=== PATIENT | female | born 1950 | race Caucasian/White ===

== ENCOUNTER 2023-09-20 10:07 | Outpatient (CLI) | payer MEDICARE, MEDICAID, SELFPAY | END 2023-09-20 10:08 | disposition home or self-care (01) | PROVIDERS: PCP Internal Medicine; Visit Provider Family Medicine | DX: M54.16 Radiculopathy, lumbar region (principal); M51.36 Other intervertebral disc degeneration, lumbar region | CPT/HCPCS: 62323; J0702; Q9966 ==

== ENCOUNTER 2024-06-12 13:15 | Outpatient (RCR) | payer MEDICARE, MEDICAID, SELFPAY | END 2024-10-10 23:59 | disposition home or self-care (01) | PROVIDERS: PCP Internal Medicine; Visit Provider Family Medicine | DX: M54.17 Radiculopathy, lumbosacral region (principal); M47.816 Spondylosis without myelopathy or radiculopathy, lumbar region; M76.02 Gluteal tendinitis, left hip; M48.061 Spinal stenosis, lumbar region without neurogenic claudication; Z51.89 Encounter for other specified aftercare | CPT/HCPCS: 97110; 97140; 97162 ==

== ENCOUNTER 2024-07-15 13:33 | Outpatient (CLI) | payer MEDICARE, MEDICAID, SELFPAY | END 2024-07-15 13:34 | disposition home or self-care (01) | LOC: NFLDUCREF 13:34 | PROVIDERS: PCP Internal Medicine; Visit Provider Nurse Practitioner Family | DX: L03.90 Cellulitis, unspecified (principal); L02.416 Cutaneous abscess of left lower limb | CPT/HCPCS: 87070; 87186 ==

== ENCOUNTER 2024-10-15 14:56 | Emergency (ER) | payer MEDICARE, MEDICAID, SELFPAY ==
--- OUTSIDE RECORDS SUMMARY | 2013-05-07 08:21 | XMS_ITS | Continuity of Care Document ---
Author Organization [facility] Address [address] [place] [address] Phone Care Team Providers Care Payable Manager Name Role Phone Carlito FAIR, Jaylin OLIVAS [...] Providers Copied on Encounter JONATHAN Yanes, [address], [place], [address], tel:[phone] [facility] No Information 4 Carlito Mosqueda. [address] [place], [place], [address], [place]. tel:[phone] Referring Provider: Allyson Griffith, [address] [place], [address]. tel:[phone] JONATHAN Yanes, [address] [facility], [place], [address], tel:[phone] [facility] No Information 3 Collin DIGITAL STRATEGIST Carri. [address] , [facility] [address], [place], [address], [place]. tel:[phone] Referring Provider: Allyson Griffith, [address] [place], [address]. tel:[phone] JONATHAN Yanes, [address] [facility] [address], [place], [address], [place] tel:[phone] [facility] No Information 3 Collin DIGITAL STRATEGIST Carri. [address] , [address], [place], [address], [place]. tel:[phone] Referring Provider: Allyson Griffith, [address] [place], [address]. tel:[phone] JONATHAN Yanes, [address], [place], [address], [place] tel:[phone] [facility] No Information 3 Collin DIGITAL STRATEGIST Carri. [address], [place], [address], [place]. tel:[phone] Referring Provider: Allyson Griffith, [address] [place], [address]. tel:[phone] [facility], [address], [place], [place], [address], [place] tel:[phone] [facility] No Information 3 Collin DIGITAL STRATEGIST Carri. [address], [address], [place], [address], [place]. tel:[phone] Referring Provider: Allyson Griffith, [address] [place], [address]. tel:[phone] [facility], [address] [facility] [address], [place], [place], [address], [place] tel:[phone] [facility] No Information 3 Carlito Mosqueda. [address], [place], [address], [place]. tel:[phone] Referring Provider: Allyson Griffith, [address] [place], [address]. tel:[phone] Offic Cons New/estab Mod-hi 60 [facility], [address] [facility] [address], [place], [place], [address], [place] tel:[phone] [facility] No Information 3 Gume Darby. [address] , [address], [place], [address], [place]. tel:[phone] Referring Provider: Allyson Griffith, [address] [place], [address]. tel:[phone] [facility], [address], [place], [place], [address], [place] tel:[phone] [facility] No Information 201 3 No Information Referring Provider: Crescencio Cuevas MD, [address] [facility] [address] [place], [address]. tel:[phone] Family History Family Member Type Diagnosis Age At Onset No Information Payers Payer name Insurance type Covered constitution party ID Maria Luz lanier(s) [employer] Care-Medicaid [place] [id number] Social History Type Description Quantity Date Captured [...]
--- OUTSIDE RECORDS SUMMARY | 2013-05-07 08:21 | XMS_ITS | Continuity of Care Document ---
Author Organization [facility] Address [address] [place] [address] Phone Care Team Providers Care Gliding Pilot Instructor Name Role Phone Carlito FAIR DPT, Irene [...] Providers Copied on Encounter JONATHAN Yanes, [address], [place], [address], tel:[phone] [facility] No Information [address] [place], [place], [address], [place]. tel:[phone] Referring Provider: Allyson Griffith, [address] [place], [address]. tel:[phone] JONATHAN Yanes, [address] [facility], [place], [address], tel:[phone] [facility] No Information 3 Collin SAP SOLUTIONS ARCHITECT Carri. [address] , [facility] [address], [place], [address], [place]. tel:[phone] Referring Provider: Allyson Griffith, [address] [place], [address]. tel:[phone] JONATHAN Yanes, [address] [facility] [address], [place], [address], [place] tel:[phone] [facility] No Information 3 Collin SAP SOLUTIONS ARCHITECT Carri. [address] , [address], [place], [address], [place]. tel:[phone] Referring Provider: Allyson Griffith, [address] [place], [address]. tel:[phone] JONATHAN Yanes, [address], [place], [address], [place] tel:[phone] [facility] No Information 3 Collin SAP SOLUTIONS ARCHITECT Carri. [address], [place], [address], [place]. tel:[phone] Referring Provider: Allyson Griffith, [address] [place], [address]. tel:[phone] [facility], [address], [place], [place], [address], [place] tel:[phone] [facility] No Information 3 Collin SAP SOLUTIONS ARCHITECT Carri. [address], [place], [address], [place]. tel:[phone] Referring Provider: Allyson Griffith, [address] [place], [address]. tel:[phone] [facility], [address] [facility], [place], [place], [address], [place] tel:[phone] [facility] No Information [address], [address], [place]. tel:[phone] Referring Provider: Allyson Griffith, [address] [place], [address]. tel:[phone] Offic Cons New/estab Mod-hi 60 [facility], [address] [facility], [place], [place], [address], [place] tel:[phone] [facility] No Information [address] , [address], [place], [address], [place]. tel:[phone] Referring Provider: Allyson Griffith, [address] [place], [address]. tel:[phone] [facility], [address], [place], [place], [address], [place] tel:[phone] [facility] No Information 201 3 No Information Referring Provider: Crescencio Cuevas MD, [address] [facility] [address] [place], [address]. tel:[phone] Family History Family Member Type Diagnosis Age At Onset No Information Payers Payer name Insurance type Covered green party ID Maria Luz lanier(s) [employer] Care-[place]icaid [place] [id number] Social History Type Description Quantity Date Captured [...]
--- OUTSIDE RECORDS SUMMARY | 2024-10-15 14:59 | XMS_ITS | Clinical Summary ---
Author Organization [facility] Address [address] , [address] [place] [address] Phone Care Team Providers [facility] [employer] [facility] Consultant Name Role Phone Zachary FOLEY, BSN, Peace Thompson [phone] Conditions or Problems Problem Name Problem Code Onset Date Status Entry Date Provider Comment Standard Description Annotate Knee pain, left, chronic 5110631194 (SNOMED CT) 10/26 Active 10/28 Noy Campeau Pain of joint of knee Knee pain, right, chronic 8126716794 (SNOMED CT) 10/26 Active 10/26 Noy Campeau Pain of joint of knee Hip pain, left 05904537 (SNOMED CT) 10/26 Active 10/28 Noy Campeau Pain of hip region Hip joint pain, right 75683897 (SNOMED CT) 10/26 Active 10/26 Noy Campeau Pain of hip region Leg pain, left 482583382 (SNOMED CT) 10/26 Active 10/28 Noy Campeau Pain in left lower limb Leg pain, right 107836139 (SNOMED CT) 10/26 Active 10/26 Noy Campeau Pain in right lower limb Leg pain, bilateral 54003157 (SNOMED CT) 10/26 Inactive 10/26 Jeanette Marcum MD Pain in lower limb Restless leg syndrome 49489609 (SNOMED CT) 10/26 Active 10/26 Jeanette Marcum MD Restless legs Hip pain 57342430 (SNOMED CT) 10/26 Inactive 10/26 Jeanette Marcum MD Pain of hip region Knee pain, chronic 50728828 (SNOMED CT) 10/26 Inactive 10/26 Jeanette Marcum MD Knee pain Low back pain, chronic 496006282 (SNOMED CT) 10/26 Active 10/26 Jeanette Marcum MD Chronic low back pain Fatigue, chronic 28625880 (SNOMED CT) Active Jeanette Marcum MD Fatigue Anxiety disorder 895477892 (SNOMED CT) Active Jeanette Marcum MD Anxiety disorder Depression 35253668 (SNOMED CT) Active Jeanette Marcum MD Depressive disorder Multiple sclerosis, relapsing/r emitting 225807150 (SNOMED CT) 1986 Active 09/26 Jeanette Marcum MD Relapsing remitting multiple sclerosis Carpal tunnel syndrome, bilateral upper limbs 62088419322825 101 (SNOMED CT) 12/30 Active 12/30 Watson Baker MD Bilateral carpal tunnel syndrome Multiple sclerosis, relapsing/r emitting 218136814 (SNOMED CT) 09/26 Inactive 09/26 Lazaro Tomas MD Relapsing remitting multiple sclerosis Neuropathy, idiopathic peripheral 03471450 (SNOMED CT) 09/26 Active 09/26 Lazaro Tomas MD Idiopathic peripheral neuropathy Medications Medication Instructions Start Date Stop Date Generic Name ND Provider BACLOFEN 10 MG TABS Take 1/2 tablet by mouth at bedtime baclofen 57703198522 Jeanette Marcum MD AMANTADINE HCL 100 MG TABS Take 1 tablet by mouth twice a day 12/19 amantadine hcl 06779090616 Claudia SILVER-Ibrahima AMANTADINE HCL 100 MG CAPS TAKE ONE CAPSULE BY MOUTH TWICE DAILY amantadine hcl 00029362505 Claudia SILVER-C ESCITALOPRAM OXALATE 10 MG TABS Take 1 Tablet by mouth one time a day. escitalopram oxalate 87187384205 Jeanette Marcum MD AMPHETAMINE-DEXTR OAMPHET ER 10 MG [id number]-ATP TAKE ONE CAPSULE BY MOUTH EVERY MORNING NEEDED 07/27 dextroamphetamine -amphetamine 80242101138 Jeanette Marcum MD AMPHETAMINE-DEXTR OAMPHET ER 10 MG WQ64N-QDQ Take 1 capsule by mouth every morning TAKE ONE CAPSULE BY MOUTH EVERY MORNING NEEDED dextroamphetamine -amphetamine 73702967979 Claudia Rodriguez PA-C DULOXETINE HCL 60 MG CPEP TAKE ONE CAPSULE BY MOUTH DAILY duloxetine 73773230062 Jeanette Marcum MD AMPHETAMINE-DEXTR OAMPHET ER 10 MG KY83M-LGY TAKE ONE CAPSULE BY MOUTH EVERY MORNING NEEDED 08/24 dextroamphetamine -amphetamine 54771228327 Jeanette Marcum MD DULOXETINE HCL 60 MG CPEP TAKE ONE CAPSULE BY MOUTH DAILY 05/19 duloxetine 53459722335 Jeanette Marcum MD DULOXETINE HCL 60 MG CPEP TAKE ONE CAPSULE BY MOUTH DAILY 04/16 duloxetine 46967480450 Katalina Lagunas PA-C DULOXETINE HCL 30 MG CPEP TAKE ONE CAPSULE BY MOUTH ONCE A DAY. TAKE WITH 60 MG CAPSULE. 10/26 duloxetine 82299777617 Jeanette Marcum MD ESCITALOPRAM OXALATE 10 MG TABS Take 1 Tablet by mouth one time a day. 10/23 escitalopram oxalate 31725403375 Jeanette Marcum MD AMPHETAMINE-DEXTR OAMPHET ER 5 MG [id number]-NJR TAKE TWO CAPSULE BY MOUTH EVERY MORNING NEEDED 10/07 dextroamphetamine -amphetamine 79946028959 Jeanette Marcum MD AMPHETAMINE-DEXTR OAMPHET ER 10 MG FJ14T-QQE TAKE ONE CAPSULE BY MOUTH EVERY MORNING NEEDED 08/24 dextroamphetamine -amphetamine 24423985503 Jeanette Marcum MD AMPHETAMINE-DEXTR OAMPHET ER 10 MG WW24Y-DFB TAKE ONE CAPSULE BY MOUTH EVERY MORNING NEEDED 0 09/30 dextroamphetamine -amphetamine 01854276424 Jeanette Marcum MD AMPHETAMINE-DEXTR OAMPHET ER 5 MG ZB42G-MGU TAKE TWO CAPSULE BY MOUTH EVERY MORNING NEEDED 0 09/14 dextroamphetamine -amphetamine 05492203875 Jeanette Marcum MD AMPHETAMINE-DEXTR OAMPHET ER 10 MG JV64W-FLE TAKE ONE CAPSULE BY MOUTH EVERY MORNING NEEDED 0 08/24 dextroamphetamine -amphetamine 52171727170 Claudia Rodriguez PA-C AMPHETAMINE-DEXTR OAMPHET ER 10 MG GW42S-YNH TAKE ONE CAPSULE BY MOUTH EVERY MORNING NEEDED 0 08/24 dextroamphetamine -amphetamine 38555918554 Jeanette Marcum MD AMPHETAMINE-DEXTR OAMPHET ER 10 MG MV60I-SHF TAKE ONE CAPSULE BY MOUTH EVERY MORNING NEEDED 0 08/24 dextroamphetamine -amphetamine 76917784682 Justin Romero MD AMPHETAMINE-DEXTR OAMPHET ER 10 MG GK22Y-VOA TAKE ONE CAPSULE BY MOUTH EVERY MORNING NEEDED 0 08/24 dextroamphetamine -amphetamine 20422363570 Jeanette Marcum MD BACLOFEN 10 MG TABS Take 1/2 tablet by mouth at bedtime 05/21 baclofen 45789038493 Ag Staton MD AMPHETAMINE-DEXTR OAMPHET ER 10 MG IP37K-ONL TAKE ONE CAPSULE BY MOUTH EVERY MORNING NEEDED 0 16 dextroamphetamine -amphetamine 51941688061 Bárbara Longoria PA-C DULOXETINE HCL 30 MG CPEP Take 1 capsule by mouth once a day (take with 60 mg cap) 05/03 duloxetine 18037385496 Jeanette Marcum MD DULOXETINE HCL 30 MG CPEP TAKE ONE CAPSULE BY MOUTH ONCE A DAY. TAKE WITH 60 MG CAPSULE. 0 10/26 duloxetine 41586141134 Jeanette Marcum MD AMPHETAMINE-DEXTR OAMPHET ER 10 MG KA36R-EGF TAKE ONE CAPSULE BY MOUTH EVERY MORNING NEEDED 0 08/24 dextroamphetamine -amphetamine 17444141487 Jeanette Marcum MD DULOXETINE HCL 30 MG CPEP Take 1 capsule by mouth once a day (take with 60 mg cap) 05/03 duloxetine 44098352492 Jeanette Marcum MD AMPHETAMINE-DEXTR OAMPHET ER 10 MG JJ46Z-TMG TAKE ONE CAPSULE BY MOUTH EVERY MORNING NEEDED 08/24 dextroamphetamine -amphetamine 70438316468 Claudia Rodriguez PA-C DULOXETINE HCL 30 MG CPEP Take 1 capsule by mouth once a day (take with 60 mg cap) 10/29 duloxetine 59351200802 Jeanette Marcum MD ESCITALOPRAM OXALATE 10 MG TABS Take 1 tablet by mouth once a day 10/20 escitalopram oxalate 78493254747 Jeanette Marcum MD ESCITALOPRAM OXALATE 10 MG TABS Take 1 tablet by mouth once a day 10/20 escitalopram oxalate 52354024203 Jeanette Marcum MD BACLOFEN 5 MG TABS Take 1 tablet by mouth at bedtime 0 04/20 baclofen 32643436088 Jeanette Marcum MD TOPIRAMATE 25 MG TABS 1 tab at night topiramate 63191721167 Jeanette Marcum MD AMANTADINE HCL 100 MG TABS Take 1 tablet by mouth twice a day 0 9 amantadine hcl 66281151325 Jeanette Marcum MD DULOXETINE HCL 60 MG CPEP TAKE ONE CAPSULE BY MOUTH DAILY 0 804 duloxetine 92281867697 Jeanette Marcum MD AMPHETAMINE-DEXTR OAMPHET ER 10 MG [id number]-AAW TAKE ONE CAPSULE BY MOUTH EVERY MORNING NEEDED 0 08/24 dextroamphetamine -amphetamine 68287747085 Jeanette Marcum MD AMPHETAMINE-DEXTR OAMPHET ER 10 MG MY38U-PGH TAKE ONE CAPSULE BY MOUTH EVERY MORNING NEEDED 08/24 dextroamphetamine -amphetamine 05850882214 Claudia Rodriguez PA-C ESCITALOPRAM OXALATE 10 MG TABS Take 1 tablet by mouth once a day 10/20 escitalopram oxalate 83946944079 Conchis Hughes RN DULOXETINE HCL 60 MG CPEP Take 1 capsule by mouth once a day 07/09 duloxetine 21248912143 Jeanette Marcum MD DULOXETINE HCL 60 MG CPEP TAKE ONE CAPSULE BY MOUTH DAILY 09/29 duloxetine 87016512520 Claudia Rodriguez PA-C ESCITALOPRAM OXALATE 10 MG TABS TAKE ONE TABLET BY MOUTH EVERY DAY 07/09 escitalopram oxalate 07174667061 Jeanette Marcum MD BACLOFEN 5 MG TABS Take 1 tablet by mouth at bedtime 10/20 baclofen 14801242776 Claudia Rodriguez PA-C ALBUTEROL SULFATE 2 MG TABS albuterol sulfate 53005432718 Claudia Rodriguez PA-C VITAMIN D3 50 MCG (1999) TABS 2 per day cholecalciferol (vitamin d3) 03419305942 Claudia Rodriguez PA-C AMPHETAMINE-DEXTR OAMPHET ER 10 MG DC77L-CNY TAKE ONE CAPSULE BY MOUTH EVERY MORNING NEEDED 08/24 dextroamphetamine -amphetamine 80305433856 Jeanette Marcum MD AMPHETAMINE-DEXTR OAMPHET ER 10 MG AB54R-VTE TAKE ONE CAPSULE EVERY MORNING NEEDED dextroamphetamine -amphetamine 48658565902 Watson Baker MD AMPHETAMINE-DEXTR OAMPHET ER 10 MG MT18T-OZB TAKE ONE CAPSULE BY MOUTH EVERY MORNING NEEDED 08/24 dextroamphetamine -amphetamine 62352879999 Jeanette Marcum MD DULOXETINE HCL 60 MG CPEP Total of 120mg daily duloxetine 69303154650 Swati Mclean DNP,PHOTOGRAPHER STILL,MOTION STUDY TECHNICIAN ESCITALOPRAM OXALATE 10 MG TABS Take 1 tablet by mouth once a day 10/20 escitalopram oxalate 20284216580 Jeanette Marcum MD DULOXETINE HCL 60 MG CPEP Take 1 capsule by mouth once a day 07/24 duloxetine 82078027320 Jeanette Marcum MD AMPHETAMINE-DEXTR OAMPHET ER 10 MG EX10T-CEN Take 1 capsule by mouth every morning as needed 12/19 dextroamphetamine -amphetamine 75531349784 Watson Baker MD AMPHETAMINE-DEXTR OAMPHET ER 10 MG VY94V-DMI TAKE ONE CAPSULE EVERY MORNING NEEDED 08/24 dextroamphetamine -amphetamine 04917060512 Watson Baker MD SYMBICORT 80-4.5 MCG/ACT AERO 2 once a day budesonide-formot cherelle 60227248452 Watson Baker MD AMPHETAMINE-DEXTR OAMPHET ER 10 MG HO84R-QCA Take 1 capsule by mouth every morning as needed 08/24 dextroamphetamine -amphetamine 88073668714 Watson Baker MD OMEPRAZOLE 20 MG CPDR 1-2 capsule by mouth once a day omeprazole 09069013543 Watson Baker MD CYCLOBENZAPRINE HCL 5 MG TABS 1 tablet by mouth every night 09/14 cyclobenzaprine 15833860599 Bárbara Longoria PA-C MECLIZINE HCL 25 MG TABS 1 tablet by mouth as needed meclizine 73216505648 Watson Baker MD DULOXETINE HCL 60 MG CPEP Total of 120mg daily 07/24 duloxetine 32115578931 Swati Mclean DNP,PHOTOGRAPHER STILL,MOTION STUDY TECHNICIAN RIZATRIPTAN BENZOATE 10 MG TBDP take 1 pill at [place] onset. May repeat in 2 hours if [place] persists. No more than 2 pills in 24 hrs. rizatriptan 22222155388 Watson Baker MD LISINOPRIL 20 MG TABS 1 tablet by mouth once a day lisinopril 32539218541 Watson Baker MD RIZATRIPTAN BENZOATE 10 MG TBDP take 1 pill at [place] onset. May repeat in 2 hours if [place] persists. No more than 2 pills in 24 hrs. 11/17 RIZATRIPTAN BENZOATE 94093377619 Watson Baker MD AMPHETAMINE-DEXTR OAMPHET ER 10 MG OJ82J-TTR TAKE ONE CAPSULE in the MORNING as needed 08/24 AMPHETAMINE-DEXTR OAMPHETAMINE 86548792912 Watson Baker MD AMPHETAMINE-DEXTR OAMPHET ER 10 MG SV41R-DFJ TAKE ONE CAPSULE EVERY MORNINGON HOLD 08/24 AMPHETAMINE-DEXTR OAMPHETAMINE 53784320671 Swati Mclean DNP,PHOTOGRAPHER STILL,MOTION STUDY TECHNICIAN DULOXETINE HCL 60 MG CPEP Total of 120mg daily 07/24 DULOXETINE HCL 56274521216 Swati Mclean DNP,PHOTOGRAPHER STILL,MOTION STUDY TECHNICIAN AMPHETAMINE-DEXTR OAMPHET ER 10 MG IT42A-OHT TAKE ONE CAPSULE EVERY MORNING 08/24 AMPHETAMINE-DEXTR OAMPHETAMINE 31509594740 Watson Baker MD GABAPENTIN 300 MG CAPS 1 cap at bedtime 04/14 GABAPENTIN 65640547153 Swati Mclean DNP,PHOTOGRAPHER STILL,MOTION STUDY TECHNICIAN AMPHETAMINE-DEXTR OAMPHET ER 10 MG OM11C-ARD 1 po qAM 08/24 AMPHETAMINE-DEXTR OAMPHETAMINE 43576785240 Watson Baker MD AMPHETAMINE-DEXTR OAMPHET ER 10 MG DI22R-ZFY TAKE ONE CAPSULE EVERY MORNING 08/24 AMPHETAMINE-DEXTR OAMPHETAMINE 65761401629 Wilberto Urbina MD AMPHETAMINE-DEXTR OAMPHET ER 10 MG GP05P-HBF 1 po qam 08/24 AMPHETAMINE-DEXTR OAMPHETAMINE 67527688130 Lazaro Tomas MD AMPHETAMINE-DEXTR OAMPHET ER 10 MG FB67W-PII Take one capsule every morning. 08/24 AMPHETAMINE-DEXTR OAMPHETAMINE 71345262348 Nancy Abdul MD AMPHETAMINE-DEXTR OAMPHET ER 10 MG WZ64F-BYH TAKE ONE CAPSULE EVERY MORNING 08/24 AMPHETAMINE-DEXTR OAMPHETAMINE 06937806692 Lazaro Tomas MD CYCLOBENZAPRINE HCL 5 MG TABS 1 tab at bedtime 09/14 CYCLOBENZAPRINE HCL 52137711171 Bárbara Longoria PA-C GABAPENTIN 300 MG CAPS 1 cap at bedtime 09/14 GABAPENTIN 08051552518 Bárbara Longoria PA-C DULOXETINE HCL 60 MG CPEP 07/24 DULOXETINE HCL 22352764597 Bárbara Longoria PA-C PRAMIPEXOLE DIHYDROCHLORIDE 0.25 MG TABS 1 po one hour before bed 05/19 PRAMIPEXOLE DIHYDROCHLORIDE 43692337902 Lazaro Tomas MD AMPHETAMINE-DEXTR OAMPHET ER 10 MG GN92T-HXH 1 po qam 08/24 AMPHETAMINE-DEXTR OAMPHETAMINE 45412721028 Lazaro Tomas MD AMPHETAMINE-DEXTR OAMPHET ER 10 MG TL25C-OKS 1 po AM 08/24 AMPHETAMINE-DEXTR OAMPHETAMINE 40730061581 Lazaro Tomas MD AMPHETAMINE-DEXTR OAMPHET ER 10 MG FN36J-AFQ 1 po qam 08/24 AMPHETAMINE-DEXTR OAMPHETAMINE 61643322704 Lazaro Tomas MD AMPHETAMINE-DEXTR OAMPHET ER 10 MG YO86M-CGW TAKE ONE CAPSULE EVERY MORNING 08/24 AMPHETAMINE-DEXTR OAMPHETAMINE 83853224045 Lazaro Tomas MD AMPHETAMINE-DEXTR OAMPHET ER 10 MG ZM82K-SFP 1 po qAM 08/24 AMPHETAMINE-DEXTR OAMPHETAMINE 85544442414 Lazaro Tomas MD AMPHETAMINE-DEXTR OAMPHET ER 10 MG HI21J-BPL TAKE ONE CAPSULE EVERY MORNING 0 08/24 AMPHETAMINE-DEXTR OAMPHETAMINE 27649422698 Lazaro Tomas MD AMPHETAMINE-DEXTR OAMPHET ER 10 MG LH21G-ENW 1 po qAM 0 08/24 AMPHETAMINE-DEXTR OAMPHETAMINE 35793775866 Lazaro Tomas MD AMPHETAMINE-DEXTR OAMPHET ER 10 MG FK74X-EFH 1 po qam 0 08/24 AMPHETAMINE-DEXTR OAMPHETAMINE 68519796153 Lazaro Tomas MD AMPHETAMINE-DEXTR OAMPHET ER 10 MG LW87J-YET 1 po qam 0 08/24 AMPHETAMINE-DEXTR OAMPHETAMINE 58088051450 Lazaro Tomas MD AMPHETAMINE-DEXTR OAMPHET ER 10 MG BE24Z-FVH 1 po qam 0 08/24 AMPHETAMINE-DEXTR OAMPHETAMINE 18755882857 Lazaro Tomas MD AMPHETAMINE-DEXTR OAMPHET ER 10 MG UF31F-ZSL 1 po qd 0 08/24 AMPHETAMINE-DEXTR OAMPHETAMINE 69994968581 Lazaro Tomas MD PRAMIPEXOLE DIHYDROCHLORIDE 0.25 MG TABS 1 po one hour before bed 0 07/24 PRAMIPEXOLE DIHYDROCHLORIDE 89218428568 Lazaro Tomas MD CYCLOBENZAPRINE HCL 10 MG TABS 1 po prn 10/01 CYCLOBENZAPRINE HCL 72460193875 Lazaro Tomas MD AMPHETAMINE-DEXTR OAMPHET ER 10 MG DX62W-EHT 1 po qd 0 08/24 AMPHETAMINE-DEXTR OAMPHETAMINE 79988496537 Lazaro Tomas MD AMPHETAMINE-DEXTR OAMPHET ER 10 MG GM92W-OWM 1 po qd 0 08/24 AMPHETAMINE-DEXTR OAMPHETAMINE 96549153840 Lazaro Tomas MD SYMBICORT 80-4.5 MCG/ACT AERO 2 per day 11/17 BUDESONIDE-FORMOT CHERELLE FUMARATE 17961962900 Lazaro Tomas MD CYCLOBENZAPRINE HCL 10 MG TABS 1 po prn 10/01 CYCLOBENZAPRINE HCL 65006579334 Lazaro Tomas MD MECLIZINE HCL 25 MG TABS 1 po prn 11/17 MECLIZINE HCL 16752612503 Lazaro Tomas MD OMEPRAZOLE 20 MG CPDR 1-2 po qd 09/14 OMEPRAZOLE 41351630032 Lazaro Tomas MD LISINOPRIL 20 MG TABS 1 po qd 04/23 LISINOPRIL 88409453843 Lazaro Tomas MD AMPHETAMINE-DEXTR OAMPHET ER 10 MG RV74Y-GBW 1 po qam 08/24 AMPHETAMINE-DEXTR OAMPHETAMINE 68366918294 Lazaro Tomas MD DULOXETINE HCL 30 MG CPEP 1 po qam 07/24 DULOXETINE HCL 53523177987 Lazaro Tomas MD Medications Administered No information available. Allergies, Adverse Reactions, Alerts Allergy Name Reaction Description Start Date Severity Statu s Provider TIZANIDINE HCL dizzy Moderate Active Pramod Rodriguez PA-C Results Date Name Value Unit Range Flag Description Office Visit: MS, NEUROPATHY - - fax SMOK STATUS former smoker Tob acco smoking status Internal Other: Authorizatio n - OBS PTSTAUTHDT Done N PT Markus g Authorization Date Replaced Document: (P) PROTE IN, TOTAL AND PROTEIN ELECTROPHORESIS W/SCAN, PROTE ... COPPER SER * ug/mL copper, bl ood HGBA1C * % Hemoglobin A1c/Hemoglobin, total in Blood - % VITD 25OH TO * VITAMIN D, 25 OH, TOTAL B-12 * pg/mL Cobalamin (Vi tamin B12) [Mass/volume] in Serum or Plasma TSH * u[iU]/m L Thyrotropin [Units/volume] in Serum or Plasma FRT4 * FREE T4 RHEUMOT FACT * [iU]/mL Rheumato id factor [Units/volume] in Serum or Plasma BASOPHIL % 0.8 % N Basophils/ 100 leukocytes in Blood by Manual count EOSINOPHIL % 3.0 % N Eosinoph ils/100 leukocytes in Blood by Manual count MONOCYTE % 6.0 % N Monocytes/ 100 leukocytes in Blood by Automated count LYMPHS % 27.7 % N Lymphocytes/ 100 leukocytes in Blood by Automated count PMN % 62.5 % N Neutrophils/1 00 leukocytes in Blood by Automated count BASOPH COUNT 42 CELLS/UL 10*3/mm 3 0-200 N Basophils [#/volume] in Blood by Manual count EOS COUNT 156 CELLS/UL 10*3/mm 3 15-500 N eosinophil count, blood MONOSCT AUTO 312 CELLS/UL 10*3/uL 200-950 N Mon ocytes [#/volume] in Blood by Automated count LYMPH COUNT 1440 CELLS/UL 10*3/mm 3 850-3900 N lymphocyte count, blood NEUT CT MANU 3250 CELLS/UL 10*3/mm 3 1500-780 0 N neutrophil count, blood, manual MPV 7.9 fL 7.5-11.5 N Platelet cindy n volume [Entitic volume] in Blood by Mickey PLATELETS 282 THOUSAND/UL 10*3/mm 3 140-400 N Platelets [#/volume] in Blood by Automated count RDW 13.4 % 11.0-15. 0 N Erythrocyte distribution width [Ratio] by Automated count MCHC 33.5 G/DL 32.0-36. 0 N MCHC [Mass/volume] by Automated count MCH 29.6 pg 27.0-33. 0 N MCH [Entitic mass] by Automated count MCV 88.3 fL 80.0-100 .0 N MCV [Entitic volume] by Automated count HCT 43.3 % 35.0-45. 0 N Hematocrit [Volume Fraction] of Blood by Automated count HGB 14.5 g/dL 11.7-15. 5 N Hemoglobin [Mass/volume] in Blood RBC 4.90 MILLION/UL 10*6/mm 3 3.80-5.1 0 N Erythrocytes [#/volume] in Blood by Automated count WBC 5.2 THOUSAND/UL 10*3/mm 3 3.8-10.8 N Leukocytes [#/volume] in Blood by Automated count ESR * mm/h Erythrocyte sedimentation rate by Westergren method [id number] * GE use only - for [employer] import when terms are not otherwise specified STRIA MUS AB * striated muscle antibody CRMP-5-IGG * CRMP-5 - I gG, S AMPHIPHYS AB * Amphiphy sin Ab, S TOE LINING CLOSER-2 * Purkinje Cell Cytoplasmic Ab Type 2 TOE LINING CLOSER-1 * Purkinje Cell Cytoplasmic Ab Type 1 COMMENTS * comments SGPT (ALT) * U/L Alanine aminotransferase [Enzymatic activity/volume] in Serum or Plasma AST_SGOT * Aspartate aminotransferase [Enzymatic activity/volume] in Serum or Plasma ALK PHOS * U/L Alkaline phosphatase [Enzymatic activity/volume] in Blood BILI INDIREC * mg/dL bilirubi n, serum, indirect BILI DIRECT * mg/dL Bilirubin .direct [Mass/volume] in Serum or Plasma BILI TOTAL * mg/dL Bilirubin. total [Mass/volume] in Serum or Plasma A/G RATIO * Albumin/Bren bulin [Mass Ratio] in Serum or Plasma GLOBULIN TOT * g/dL Globulin [Mass/volume] in Serum ALBUMIN * g/dL Albumin [Mass/volume] in Serum or Plasma INTRP * Interpretatio n ABNPROTBND3 * g/dL Abnormal Protein Band 3, g/dL ABNPROTBND2 * g/dL Abnormal Protein Band 2, g/dL ABNPROTBND * g/dL Abnormal P rotein Band 1, g/dL GAMMA GLOB * mg/dL Gamma glob ulin [Mass/volume] in Serum or Plasma by Electrophoresis [id number] * g/dL beta 2 g lobulin [id number] * g/dL beta 1 g lobulin ALPHA 2 GLOB * Alpha 2 globulin [Mass/volume] in Serum or Plasma by Electrophoresis ALPH-1 SR PE * g/dL alpha-1 globulin, serum, by protein electrophoresis ALBUM SER PE * g/dL albumin, serum by protein electrophoresis PROTEIN, TOT * g/dL Protein [Mass/volume] in Serum or Plasma SGOT (AST) 26 U/L 10-35 N Aspartate aminotransferase [Enzymatic activity/volume] in Serum or Plasma Lab Report: FTA-ABS FTA AB S NON-REACTIVE NON-REAC TIVE N FTA Antibody, Serum Rx Refill: eRx Request for D ULOXETINE HCL 30 MG ORAL CPEP [facility]_ [id number]`D ULOXETINE HCL 30 MG ORAL CPEP`30``30 Capsule``1 PO QAM``5`0`09/26`No date sent`KIDOZ [id number]*`[id number]`DULOXMike LOPEZ DR 30MG CAPSULES Quantity: 30 Capsule Instructions: TAKE 1 CAPSULE BY MOUTH EVERY MORNING B e-scripts hernandez beverly refill request Office Visit: fax MITCH Fall Risk Screening - Screen patient for falls, if positive, provide counseling on fall prevention Fall risk assessment Internal Other: Verbal Autho rization/Emergency Contact - OBS VERBAL_EMER DONE Verbal authorization and emergency contact Office Visit: Office Visit cayetano gonzalez MEDS REVIEW Done Documenta tion of current medications (procedure) Internal Other: Authorizatio n - OBS [email or web address] Yes Authoriza tion: Release of Information - Authorize [facility] - Payment and Healthcare Operations ROIAUTHOTHER Yes Authoriz ation: Release of Information - Authorize Others/Insurance - Payment and Healthcare Operations HIECONSENT Yes Consent To Release information to the Health Information Exchange (HIE) [email or web address] Yes Authorizat ion: Authorization for [facility] to leave messages, voicemail, send text messages, send emails AUTHRELHCARE Yes Authoriz ation: Release/Retrieval of Information to/from Healthcare Facilities, Pharmacy Benefit Payers and Providers AUTHPRIVPRAC Yes Authoriz ation: Notice of privacy practices AUTHBENEFIT Yes Authoriza tion: Assignment of Benefits and Payment Agreement Clinical Lists Update: Contr olled Substance Agreement CTRLSUBAGREE Signed The russell ent has signed a controlled substance agreement form. The patient is not getting medicine from other doctors, and is using only one pharmacy and not abusing the medicine. The patient understands that there will Plan of Care Type Date Detail Appointment 01:00 PM Jose Alberto Regan MD , [address], [address], [place], [address], Pending order Follow up Extend ed Pending order Follow up Extend ed Pending order Follow up ROSA Pending order Follow up ROSA Pending order Follow up Pending order Follow up Extend ed Pending order Patient Instruct ions Pending order Follow up ROSA Pending order Orthopedic Surge ry Referral Pending order Physical Therapy Pending order Patient Instruct ions Pending order Follow up Extend ed in clinic or telemedicine Pending order Follow up in cli amy or telemedicine Pending order Patient Instruct ions Pending order Psychiatry Refer ral Pending order Follow up ROSA in clinic or telemedicine Pending order Patient Instruct ions Pending order Patient Instruct ions Pending order Patient Instruct ions Pending order Follow up ROSA Pending order Follow up Pending order Patient Instruct ions Pending order Patient Instruct ions Pending order Patient Instruct ions Pending order Follow up ROSA Pending order Patient Instruct ions Pending order Follow up Pending order Follow up ROSA Pending order Follow up ROSA Pending Order exclud ed from report: Pending order Physical Therapy Pending order Follow up Pending order Follow up Pending order Patient Instruct ions Pending order Follow up Pending Order exclud ed from report: Pending order Follow up Pending order Other Referral Pending order MRI-Cervical W/W O MS Protocol Pending order Follow up Pending order Other Referral Pending order Paraneoplastic A b (ONLY Anti-Hu/Anti-Yo/Anti-Ri) Pending order Paraneoplastic A utoAb Eval Pending order Protein Electrop horesis Serum w/Interp Pending order Rheumatoid (RA) Factor Pending order Sedimentation Ra te (ESR) Pending order T4 Free Direct Pending order Treponemal IgG ( Treponema Pallidum IgG GERALDINE) Pending order TSH Pending order Vitamin B12 Pending order Vitamin D 25 Hyd bri Pending order CBC with Diff/Pl atelet Pending order Copper Pending order Hemoglobin A1C Pending order Hepatic Function Panel (7) Pending order Immunofixation S jesse w/Electrophoresis Pending order Immunofixation U rine (ROGELIO Urine) Patient education Medications Patient education Medications Patient education Medications Patient education Medications Procedures Code Procedure Name Date Entry Date CPT-G2211 Complex e/m visit add on 07/21/09 ORDERS Follow up ORDERS Follow up Extended 8 ORDERS Follow up ROSA ORDERS Patient Instructions ORDERS Physical Therapy [facility]-[id number] Orthopedic Surgery Referral [facility]-[id number] Documentation of current medicatio ns ORDERS Patient Instructions ORDERS Follow up Extended i n clinic or telemedicine ORDERS Patient Instructions [facility]-[id number] Psychiatry Referral ORDERS Follow up in clinic or telemedicine 04/20 ORDERS Follow up ROSA in clinic or telemedicine [facility]-[id number] Documentation of current medicatio ns ORDERS Patient Instructions ORDERS Patient Instructions ORDERS Patient Instructions ORDERS Follow up ROSA ORDERS Follow up ORDERS Patient Instructions ORDERS Patient Instructions ORDERS Patient Instructions ORDERS Follow up ROSA ORDERS Patient Instructions [facility]-[id number] Documentation of current medicatio ns ORDERS Follow up SCT-[id number] Documentation of current medicatio ns ORDERS Follow up ROSA ORDERS Physical Therapy ORDERS Follow up [id number] Documentation of current medicatio ns CPT-49412 Nerve Conduction 9-10 studies CPT-58150 EMG with NCS (5+ muscles) - 2 limbs 12/30 ORDERS Follow up [id number] Documentation of current medicatio ns ORDERS Patient Instructions [id number] Documentation of current medicatio ns [id number] Documentation of current medicatio ns ORDERS Follow up [id number] Documentation of current medicatio ns [id number] Documentation of current medicatio ns CPT-52566 Nerve Conduction 7-8 studies CPT-42536 EMG with NCS (5+ muscles) - 2 limbs 12/21 [id number] Other Referral ORDERS Follow up [id number] Documentation of current medicatio ns [id number] MRI-Cervical W/WO MS Protocol CPT-M2097F ProHance Gadolinium- based MR Contrast - 20 ml vial CPT-82552 MRI Cervical W/WO ORDERS Immunofixation Urine (ROGELIO Urine) ORDERS Immunofixation Serum w/Electrophoresis 20 24/09/17 ORDERS Paraneoplastic AutoAb Eval 2 ORDERS Protein Electrophoresis Serum w/Interp 20 24/09/17 ORDERS T4 Free Direct ORDERS TSH ORDERS Vitamin D 25 Hydroxy ORDERS Hemoglobin A1C ORDERS Hepatic Function Panel (7) 2 ORDERS Paraneoplastic AutoAb Eval 2 ORDERS Protein Electrophoresis Serum w/Interp 20 24/09/17 ORDERS T4 Free Direct ORDERS TSH ORDERS Vitamin D 25 Hydroxy ORDERS Hemoglobin A1C ORDERS Hepatic Function Panel (7) 2 ORDERS Rheumatoid (RA) Factor 09/26 ORDERS Vitamin B12 ORDERS CBC with Diff/Platelet 09/26 ORDERS Rheumatoid (RA) Factor 09/26 ORDERS Vitamin B12 ORDERS CBC with Diff/Platelet 09/26 ORDERS Sedimentation Rate (ESR) 201 09/14/17 ORDERS Copper ORDERS Treponemal IgG (Trep onema Pallidum IgG GERALDINE) ORDERS Paraneoplastic Ab (O NLY Anti-Hu/Anti-Yo/Anti-Ri) [id number] Other Referral [id number] Documentation of current medicatio ns Vital Signs Date Name Value Unit Description Height 65 [in_us] height E&M BP Diastolic 82 mm[Hg] blood pressu re, diastolic BP Systolic 132 mm[Hg] blood pressur e, systolic Heart Rate 80 /min pulse rate BMI (Body Mass Index) 33.40 kg/m2 Bod y Mass Index (Ratio) Weight Measured 200 [lb_av] weight E& M Weight Measured 200 [lb_av] weight E& M Immunizations No information available. Advance Directives Directive Description Start Date CONSTRUCTION SUPERINTENDENT 09/18/18 CSA 05/15/18 CONSTRUCTION SUPERINTENDENT 02/20/18 CONSTRUCTION SUPERINTENDENT 09/22/17 CSA 05/03/17 CONSTRUCTION SUPERINTENDENT 03/23/17 CONSTRUCTION SUPERINTENDENT 10/14/16 CSA 04/28/16
--- OUTSIDE RECORDS SUMMARY | 2024-10-15 14:59 | XMS_ITS | Clinical Summary ---
Author Organization [facility] Address [address] [place] [address] Care Team Providers Care [employer] Name Role Phone Unavailable Primary Care Provider Unavailabl e Source Comments Patient records contain information from all sites at [facility]. For routine questions regarding patient records, call [phone] during business hours, M-F 8:00 AM - 5:00 PM Central Time. Record requests for emergency care only can be directed to [phone] at any time.[facility] Allergies Active Allergy Reactions Criticality Noted Date Comments Furosemide Hives (Reselect Reaction) 08/31/2022 Tizanidine Other (see comments) 04/24/2018 Medications acetaminophen (TYLENOL) 500 mg tablet Take 500 mg by mouth every 6 (six) hours as needed. 7 Active albuterol 90 mcg/actuation inhaler Inhale 2 puffs every 4 (four) hours as needed. 3 Active amantadine (SYMMETREL) 100 mg capsule Take 100 mg by mouth. 3 Active baclofen (LIORESAL) 10 mg tablet Take 5 mg by mouth at bedtime. 3 Active amphetamine-dextro amphetamine (ADDERALL XR) 10 mg 24 hr capsule TAKE ONE CAPSULE BY MOUTH ONE TIME DAILY IN THE MORNING NEEDED* Active DULoxetine (CYMBALTA) [address] capsule Take 60 mg by mouth. 1 Active escitalopram (LEXAPRO) 10 mg tablet 3 Active topiramate (TOPAMAX) 25 mg tablet Take 25 mg by mouth daily. Active lisinopril-hydroCH LOROthiazide (PRINZIDE,ZESTORET IC) 20-25 mg per tablet Take 1 tablet by mouth daily. Active omeprazole (PriLOSEC) [address] capsule Take 20 mg by mouth every morning before breakfast. Active rizatriptan GENERAL LABORER (MAXALT-GENERAL LABORER) 10 mg disintegrating tablet Dissolve 10 mg in the mouth as needed for migraine. May repeat dose once in 2 hours if migraine is unresolved. Do not exceed 30 mg in 24 hours. Active peg 400-propylene glycol (SYSTANE) 0.4-0.3 % ophthalmic solution Administer 1 drop into both eyes daily. Active Family History Medical History Relation Name Comments Macular degeneration Father Cataracts Maternal Grandmother Glaucoma Maternal Grandmother Relation Name Status Comments Father Maternal Grandmother Social History Tobacco Use Types Packs/Day Years Used Date Smoking Tobacco: Never Assessed Comments Unknown Sex and Gender Information Value Date Recorded Sex Assigned at Not on file Legal Sex Female 12:40 PM CDT Gender Identity Not on file Sexual Orientation Not on file Plan of Treatment Health Maintenance Due Date Last Done Comments Bone Density Scan (Osteoporosis Screen) 1949 CT Colonography 1950 Colonoscopy 1950 FIT 1950 Hepatitis C Screening 1950 Mammogram 1950 Sodium Level 04/09/2023 04/09/2022, 01/09, 01/01/2020, Additional history exists Creatinine Level (Kidney Function Test) 07/20/2023 07/19/2022, 04/09/2022, 01/27/2021, Additional history exists Potassium Level 07/20/2023 07/19/2022, 03/13, 01/27/2021, Additional history exists COVID-19 Vaccine ( season) 2023 02/14/2023, 01/07/2022, 08/09/2021, Additional history exists Depression Screening (Annual PHQ-2) 04/11/2024 Fall Risk Screen (Annual) 04/11/2024 RSV vaccine - (32-36 weeks) or 60+ years (1 - 1-dose 75+ series) 2024 DTaP,Tdap,and Td Vaccines (2 - Td or Tdap) 10/23/2024 10/23/2014 Influenza Vaccine (#1) 2025 3, 01/07/2022, 01/27/2021, Additional history exists Fasting Glucose for Diabetes Screening 04/09/2025 04/09/2022, 01/27/2021, 01/01/2020, Additional history exists Cologuard 04/29/2025 04/29/2022 Colorectal Cancer Screening 04/29/2025 Pneumococcal vaccine (50+ years) Completed 02/10/2017, 10/23/2014 Zoster Vaccines Completed 03/30/2019, 11/25/2018 IPV Vaccines Aged Out No longer eligi ble based on patient's age to complete this topic Insurance [facility]
--- OUTSIDE RECORDS SUMMARY | 2024-10-15 15:00 | XMS_ITS | Clinical Summary ---
Author Organization [facility] Address [address] [place] [id number] Care Team Providers Care Automobile Glass Technician Name Role Phone Rachel Carmona MD Primary Care Provider [phone] Andrea Tabares MD Unavailable [phone] Jeanette Fernandez MD Unavailable [phone] Allergies Active Allergy Reactions Criticality Noted Date Comments Furosemide Hives 08/31/2022 Tizanidine Dizziness 04/24/2018 Medications meclizine (ANTIVERT) 25 mg tabletIndications :MS (multiple sclerosis) (HC) Take 1 tablet by mouth 3 times daily if needed. 30 tablet 0 013 Active dextroamphetamine -amphetamine (ADDERALL XR) 10 mg Extended-Release capsuleIndication s:MS (multiple sclerosis) (HC) Take 1 Capsule (10 mg) by mouth once daily. 0 021 Active DULoxetine (CYMBALTA) 60 mg Delayed-release capsuleIndication s:Generalized anxiety disorder,Idiopath ic peripheral neuropathy Take 1 Capsule (60 mg) by mouth once daily. 60 Capsule 2 021 Active amantadine HCL (SYMMETREL) 100 mg capsule Take 100 mg by mouth two times daily. 023 Active baclofen (LIORESAL) 10 mg tablet Take 5 mg by mouth at bedtime. 023 Active levalbuterol (XOPENEX HFA) 45 mcg/actuation inhalerIndication s:Moderate persistent asthma with acute exacerbation (HC) Inhale 2 Puffs by mouth every 4 hours. 15 g 5 024 Active Additional Information Patient taking differently:2 Puff InhalationQID PRN, Informant: Patient's Recall, Reported on 10/11/2024 rizatriptan (MAXALT SHIPFITTER APPRENTICE) 10 mg disintegrating tabletIndications :Chronic migraine without aura without status migrainosus, not intractable Take 1 Tablet (10 mg) by mouth 2 times daily if needed for Migraine. 10 Tablet 5 024 Active fluticasone propion-salmetero L (ADVAIR) 250-50 mcg/Dose diskus inhalerIndication s:Moderate persistent asthma with acute exacerbation (HC) Inhale 1 Puff by mouth two times daily. 60 Each 11 024 Active omeprazole (PRILOSEC) 20 mg Delayed-Release capsuleIndication s:Gastroesophagea l reflux disease, unspecified whether esophagitis present Take 1 Capsule (20 mg) by mouth once daily before a meal 90 Capsule 2 024 Active topiramate (TOPAMAX) 25 mg tabletIndications :Migraine syndrome Take 1 Tablet (25 mg) by mouth at bedtime. 90 Tablet 3 025 Active lisinopril-hydroc hlorothiazide (20-25 mg) 20-25 mg per tabletIndications :Essential hypertension Take 1 Tablet by mouth once daily. 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 Max acetaminophen dose: 4000mg in 24 hrs. 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 Maximum of 3200 mg in 24 hours. 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 Max acetaminophen dose: 4000mg in 24 hrs. 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 60 Tablet 07/27/19 11:37 AM CDT 025 2024 Discontinued (*Patient states no longer taking) NaCl 0.9% irrigation solution (Sterile Saline)Indication s:History of revision of total hip arthroplasty Apply saline to one gauze pad and place over wound. Apply a dry pad over wet one and tape onto skin. Replace every 24 hours after shower. 1000 mL 025 2024 Discontinued (*Patient states no longer taking) spironolactone 25 mg tabletIndications :Leg swelling Take 0.5 Tablets (12.5 mg) by mouth once daily in the morning. 30 Tablet 025 2024 Discontinued (Pharmacist change per medication history (E-cancel not sent)) celecoxib 200 mg capsuleIndication s:Lumbar facet arthropathy Take 1 Capsule (200 mg) by mouth 2 times daily if needed for Pain. 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 07/19/2024 s/p right total hip arthropl asty DOS: 06/13/2018 by Andrea Shaikh MD 07/19/2024 Varicose veins of both lower extremities with pa in 04/15/2023 Primary osteoarthritis, right shoulder Primary osteoarthritis of both knees 04/15/2023 Left facial pain 04/15/2023 Depression, recurrent 07/21/2022 Chronic migraine without aur a without status migrainosus, not intractable 07/19/2022 Anxiety 06/26/2021 Osteopenia 12/28/2019 Overview (04/15/2023): 2016 DXA scan: lowest T-score -1.2 Essential hypertension 02/20/2018 DDD (degenerative disc disease), lumbar 09/03/19 18 Spinal stenosis of lumbar re gion without neurogenic claudication 09/02/2017 Idiopathic peripheral neuropathy 01/10/2016 Overview (02/05/2016): workup through [facility] Lumbar herniated disc 08/11/2015 Mixed hyperlipidemia 06/23/2012 MS (multiple sclerosis) 06/19/2012 GERD (gastroesophageal reflux disease) 3 Moderate persistent asthma 06/19/2012 Primary osteoarthritis involving multiple joints Chronic cough Resolved Problems Problem Noted Date Diagnosed Date Resolved Date Foreign body (FB) in soft tissue 03/05/2019 12/28/2019 History of hip replacement, total, left 03/07/2018 03/01/2019 Overview (04/24/2018): total left hip replacement Herniated disc 06/19/2012 02/20/2018 Encounters Date Type Department Care Team Description 10/15/2024 Telephone [facility] - [facility] [place] [address] [place] [address] Venessa Landers, screwhead polisher Nurse Navigator (Follow up discharge phone call) 10/15/2024 Nurse Triage [facility] [address] [place] [address] Timothy Bishop MD Post-op 10/15/2024 Patient Outreach [address] [address] Yue Freedman RN Error-please disregard (Called and Triaged by ortho) 10/11/2024 9:51 AM CDT Anesthesia Event [address] [address] Estelle Castaneda MD Engel, Holly Lynn Lisowski, PRESIDENT CEO & FOUNDER 10/11/2024 9:25 AM CDT - 10/11/2024 12:03 PM CDT Surgery [address] [address] Timothy Bishop MD INPATIENT LEFT ACETABULUM HIP REVISION 10/11/2024 7:40 AM CDT - 10/12/2024 4:01 PM CDT Hospital Encounter [address] [address] Timothy Bishop MD 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, subsequent encounter (Primary Dx) Discharge Disposition: Home Self Care 10/11/2024 Travel 10/09/2024 Travel 10/01/2024 Telephone [facility] [place] [address] [place] [address] Vensesa Landers, screwhead polisher Nurse Navigator (Assessment/RAPT/1 on 1 education Pre-op check in) 09/24/2024 2:35 PM CDT Office Visit [address] [address] Rachel Carmona MD Pre-Op Exam (surgery 7-3) 09/24/2024 Travel 09/20/2024 Orders Only [facility] Scanner 1 scan: (1-Ord) [facility], FLUOROSCOPICALLY GUIDED DIAGNOSTIC ASPIRATION OF THE LT HIP, 09/20/2024 09/19/2024 Travel 09/13/2024 Telephone [facility] [address] [place] [address] Venessa Landers screwhead polisher Nurse Navigator (Assessment/RAPT/1 on 1 education) 09/12/2024 Transcribe Orders [facility] [address] [place] [address] Timothy Bishop MD 09/11/2024 Home Care Visit [facility] [address] [place] [address] Dara Carrion RN SN - OASIS DISCHARGE 09/11/[address] [address] Rachel Carmona MD MESS (DIS) 09/10/2024 1:30 PM CDT Office Visit [facility] [place] [address] [place] [address] Timothy Bishop MD Post-op (7 weeks s/p left anterolateral total hip arthroplasty extraction with antibiotic spacer DOS: 07/24/2024 by Timothy Bishop MD) 09/10/2024 1:25 PM CDT Ancillary Procedure [facility] [place] [address] [place] [address] 09/10/[address] [address] Rachel Carmona MD Appointment (Pre Operative Exam ) 09/10/2024 Travel 09/07/2024 10:00 AM CDT Home Care Visit [facility] [address] [place] [address] Dara Carrion, RN SN - HOME VISIT 09/06/2024 1:40 PM CDT Telemedicine [facility] [address] [facility] [address] [place] [address] Dolores Del Rosario MD 09/05/2024 Travel 09/04/2024 Home Care Visit [facility] [address] [place] [address] Dara Carrion RN SN - HOME VISIT 09/04/2024 Orders Only [facility] [address] [place] [address] Dolores Del Rosario MD Lab 09/01/2024 Travel 08/31/2024 Telephone [facility] [address] [place] [address] Rachel Carmona MD Form (Health care directive) 08/28/2024 12:15 AM CDT Home Care Visit [facility] [address] [place] [address] Asia Joe RN SN - WOUND/OSTOMY CHART CONSULT 08/28/2024 Orders Only [facility] [address] [place] [address] Rachel Carmona MD <No scans attached> 08/27/2024 1:00 PM CDT Home Care Visit [facility] [address] [place] [address] Dara Carrion, RN SN - LONG VISIT (>90 MINUTES) 08/27/2024 Orders Only [facility] [address] [place] [address] Dolores Del Rosario MD Lab 08/20/2024 1:40 PM CDT Telemedicine [facility] [address] [place] [address] Lowell Fuentes MD Musculoskeletal Problem (Follow up left hip and MRI) 08/20/2024 12:00 PM CDT Home Care Visit [facility] [address] [place] [address] Dara Carrion, OG SN - LONG VISIT (>90 MINUTES) 08/20/2024 Orders Only [facility] [address] [place] [address] Dolores Del Rosario MD Lab 08/20/2024 Telephone [facility] [address] [place] [address] Bekah Ryan RN Ortho Nurse Navigator (Incision ) 08/16/2024 Travel 08/16/[address] [facility] [address] [facility] [address] [place] [address] Dolores Del Rosario MD Appointment (switch to virtual) 08/13/2024 3:00 PM CDT Home Care Visit [facility] [address] [place] [address] Dara Carrion RN SN - LONG VISIT (>90 MINUTES) 08/13/2024 Orders Only [facility] [address] [facility] [place] [address] Dolores Del Rosario MD Lab 08/13/2024 Telephone [facility] [address] [place] [address] Dara Carrion RN Edema 08/08/2024 1:00 PM CDT Ancillary Procedure [facility] [address] [place] [address] 08/08/2024 12:40 PM CDT Office Visit [facility] [address] [facility] [address] [place] [address] Marshall López PA Surgical Followup (15 days s/p left anterolateral total hip arthroplasty extraction with antibiotic spacer DOS: 07/24/2024 by Timothy Bishop MD) 08/08/2024 Travel 08/07/2024 1:00 PM CDT Home Care Visit [facility] [address] [place] [address] Tatiana Gardner LISW TRIMMING MACHINE SET UP OPERATOR - INITIAL ASSESSMENT 08/06/2024 3:30 PM CDT Telemedicine [facility] [address] [place] [address] Charisse Katz NP Derm Problem (Swelling in feet, ankles, and legs) 08/06/2024 1:00 PM CDT Home Care Visit [facility] [address] [place] [address] Dara Carrion, OG SN - LONG VISIT (>90 MINUTES) 08/06/2024 Orders Only [facility] [address] [place] [address] Dolores Del Rosario MD Lab 08/06/2024 Home Care Visit [facility] [address] [place] [address] Tatiana Gardner LISW TRIMMING MACHINE SET UP OPERATOR - CASE COMMUNICATION 08/04/2024 Travel 08/03/2024 Travel 08/02/2024 Telephone [facility] - [facility] [address] [phone] Venessa Landers RN Ortho Nurse Navigator (home care questions) 08/01/2024 11:00 AM CDT Home Care Visit [facility] [address] [place] [address] Dara Carrion, OG SN - HOME VISIT 08/01/2024 Telephone [facility] [address] [address] Dara Carrion, privacy manager 08/01/2024 Home Care Visit [facility] [address] [facility] [place] [address] Dara Carrion, OG CARE COORDINATION 07/31/2024 10:50 AM CDT Telemedicine [facility] [address] [place] [address] Rachel Carmona MD Hospital F/U 07/30/2024 10:30 AM CDT Home Care Visit [facility] [address] [facility] [place] [address] Dara Carrion, OG SN - HOME VISIT 07/30/2024 Travel 07/30/2024 Orders Only [facility] [address] [place] [address] Dolores Del Rosario MD Lab 07/30/2024 Telephone [facility] [address] [place] [address] Rachel Carmona MD Home Care 07/30/2024 Telephone [facility] - Joint Replacement Center [facility] [address] [place] [address] Venessa Landers RN Ortho Nurse Navigator (Follow up discharge phone call) 07/30/2024 Patient Outreach [facility] [address] [place] [address] Yue rFeedman, RN Primary RN Care Management (Hospital DC: 07/27/24/LACE:52/Prost hetic Joint infection of left hip ); Hospital F/U 07/29/2024 9:30 AM CDT Home Care Visit [facility] [address] [facility] [place] [address] Claudia Tena, OG SN IV - START OF CARE 07/29/2024 Telephone [facility] [address] [place] [address] Claudia Tena, privacy manager (PICC line) 07/29/2024 Plan of Care Documentation [facility] [address] [place] [address] 07/26/2024 Orders Only [facility] Scanner 1 scan: (1-Ord) INCOMING RECORDS-LABS, [facility], 07/26/2024 07/26/2024 Orders Only [facility] Scanner 1 scan: (1-Ord) INCOMING RECORDS-LABS, [facility], 07/26/2024 07/25/2024 Transcribe Orders [facility] [address] [facility] [address] Infusion, [facility] 07/24/2024 12:42 PM CDT Anesthesia Event [address] [address] Aram Cabezas MD Nolan Norman, Megan Maureen, MD 07/24/2024 12:10 PM CDT - 07/24/2024 2:50 PM CDT Surgery [address] [address] Timothy Bishop MD INPATIENT LEFT ANTEROLATERAL TOTAL HIP ARTHROPLASTY EXTRACTION WITH PLACEMENT OF ANTIBIOTIC SPACER 07/24/2024 10:11 AM CDT - 07/27/2024 1:33 PM CDT Hospital Encounter [address] [address] Timothy Bishop MD 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, DR. BISHOP ) 07/23/2024 Orders Only [facility] [address] [place] [address] Justin Vargas MD 1 scan: (1-Ord) NFLD-EKG-07/23/24 07/23/2024 Telephone [facility] [address] [place] [address] Timothy Bishop MD Questions 07/23/2024 Travel 07/20/2024 7:41 AM CDT - 07/20/2024 11:59 PM CDT Hospital Encounter [facility] [address] [place] [address] Marshall López PA s/p left total hip arthroplasty DOS: 03/07/2018 by Andrea Shaikh MD. 07/20/2024 7:31 AM CDT - 07/20/2024 7:40 AM CDT Hospital Encounter [facility] [address] [place] [address] s/p left total hip arthroplasty DOS: 03/07/2018 by Andrea Shaikh MD. 07/20/2024 Telephone [facility] [address] [place] [address] Marshlal López PA 07/20/[address] [address] Timothy Bishop MD Concerns (pervena machine) 07/20/2024 Travel 07/19/2024 9:10 AM CDT Ancillary Procedure [facility] Joint [facility] [address] [place] [address] 07/19/2024 9:00 AM CDT Office Visit [facility] [address] [place] [address] Marshall López PA Hip Pain/problem (TRANSITION SPECIALIST, Pain of left hip); Surgical Followup (TRANSITION SPECIALIST, s/p left total hip arthroplasty DOS: 03/07/2018 by Andrea Shaikh MD.) 07/19/2024 Telephone [facility] - [facility] - [place] [address] [facility] [address] [place] [address] Timothy Bishop MD Surgery Scheduled 07/18/2024 Travel 07/17/2024 Telephone [facility] [address] [place] [address] Lowell Fuentes MD Results from Last 3 Months Immunizations Immunization Administration Dates Next Due COVID-19 VACCINE SPIKEVAX (M ODERNA 50MCG/0.5ML) 12YO+ PFS 01/16/2024 COVID-19 vaccine (Moderna 100mcg/0.5mL) PF, MDV 08/09/2021,07/06/2020,06/08/2020 Influenza, High-dose Inactivated 024,01/01/2019,02/11/2018,2015 Influenza, High-dose Quadriv alent Inactivated 12/31/2022,01/07/2022 Influenza, IIV3 (Age 6-35 mos) 02/10/2007,2005 Influenza, IIV3 (Age >=3 years) 11/23/2013,01/03 Influenza, IIV4 (=>6mos) MDV 01/08/2014 Influenza, Inactivated AIIV4 (Age 65+ Years) Preserv Free 01/27/2021,12/28/2019 Influenza, Inactivated IIV3 (Age 65+ Years) Preserv Free 12/28/2016 Pneumococcal Poly,23-Valent (Pneumovax) 10/23/2014 Pneumococcal conj 13-Valent (Prevnar 13) 02/10/2017 Tdap 10/23/2014 Zoster (Shingrix-RZV, recombinant) 03/30/2019, Family History Medical History Relation Name Comments Hypertension Brother Cancer-prostate Father Heart Disease Father CHF Cancer-pancreatic Maternal Grandfather Hyperlipidemia Mother Hypertension Mother Stroke Mother Hypertension Sister Relation Name Status Comments Brother Alive Father (Age 90) CHF Maternal Grandfather Mother (Age 96) Sister Alive Social History Tobacco Use Types Packs/Day Years Used Date Smoking Tobacco: Former Cigarettes Q uit: 04/11/1976 Passive Smoke Exposure: Past Smokeless Tobacco: Never Tobacco Cessation:Counseling Given: Yes Alcohol Use Standard Drinks/Week Comments Yes 2 (1 standard drink = 0.6 oz pur e alcohol) social drinker PHQ-2 Answer Date Recorded PHQ-2 TOTAL SCORE 0 05/14/2024 Social Connections Answer Date Recorded Do you often feel lonely or isolated from those around you? 0 10/11/2024 Financial Resource Strain Answer Date R ecorded Difficulty of Paying Living Expenses 3 07/22/2024 Difficulty of Paying Living Expenses Not on file 07/22/2024 Food Insecurity Answer Date Recorded Do you worry your food will run out before you are able to buy more? 2 10/11/2024 Transportation Needs Answer Date Record ed Does lack of transportation keep you from medica l appointments? 2 10/11/2024 Does lack of transportation keep you from work, meetings or getting things that you need? 2 10/11/2024 Housing Stability Answer Date Recorded What is your housing situation today? 1 10/11/2024 Interpersonal Safety Answer Date Record ed Are you being hit, kicked, p ushed or yelled at (see row info)? No 10/11/2024 Interpersonal Safety Abuse 12 - 18 Not on file 10/11/2024 Interpersonal Safety Ambulatory Vulnerability No t on file 10/11/2024 Utilities Answer Date Recorded Do you have trouble paying f or utilities (for example, heat, electricity, water, phone)? 1 10/11/2024 Comments No Sex and Gender Information Value Date Recorded Sex Assigned at Not on file Legal Sex Female 6:07 AM PREPRESS PROOFER Gender Identity Not on file Sexual Orientation Not on file Obstetrics History Last Filed Vital Signs Vital Sign Reading Time Taken Comments Blood Pressure 146/67 10/12/2024 12:14 PM CDT Pulse 80 10/12/2024 12:14 PM CDT Temperature 36.8 C (98.2 F) 10/12/2024 12:14 PM CDT Respiratory Rate 18 10/12/2024 12:1 4 PM CDT Oxygen Saturation 98% 10/12/2024 12: 14 PM CDT Inhaled Oxygen Concentration - - Weight 81.1 kg (178 lb 12.7 oz) 10/11/2024 8:06 AM CDT Height 170.2 cm (5' 7) 10/11/2024 8:06 AM CDT Body Mass Index 28 10/11/2024 8:06 AM CDT Plan of Treatment Upcoming Encounters Date Type Department Care Team (Late st Contact Info) Description 10/17/2024 9:00 AM CDT Office Visit [facility] Joint [facility] [address] [place] [address] Marshall López PA [address] [facility] [address] [place] [address] 10/25/2024 1:10 PM CDT Office Visit [facility] [address] [place] [address] Anna Churchill PA [address] [place] [address] Health Maintenance Due Date Last Done Comments RSV vaccine for adults or (1 - 1-dose 75+ series) 2024 COVID-19 vaccine series ( season) 2024 01/16/2024, 02/14/2023, 01/07/2022, Additional history exists Tetanus booster 10/23/2024 10/23/2014 Influenza Vaccine (#1) 2024 , 01/27/2021, 12/28/2019, Additional history exists Fecal testing sDNA-FIT (Cologuard) for age 45-75 04/28/2025 04/28/2022, 07/23/2018 Medicare Wellness for age 65+ 05/15/2025 05/14/2024, 04/15/2023, 04/09/2022, Additional history exists Depression screening for age 12+ 06/08/2025 06/08/2024, 05/15/2024, 05/14/2024, Additional history exists BMI (ht and wt on same day) for age 18+ 09/24/2025 09/24/2024, 07/23/2024, 05/14/2024, Additional history exists Lipids for age 45-75 05/14/2029 05/14/2024, 04/15/2023, 04/09/2022, Additional history exists Pneumococcal series for age 50+ Completed 02/10/2017, 10/23/2014 DEXA/DXA scan for age 65+ Completed 02/28/2017 Hepatitis C screening for age 18-79 Completed 04/24/2018 Zoster (shingles) series for age 50+ Completed 03/30/2019, 11/25/2018 Hepatitis B series for 19+ Aged Out N o longer eligible based on patient's age to complete this topic Medical Devices Implanted Type Area Wharf Tender Device Identifier Shelf Expiration Date Model / Serial / Lot Cmnt Bone 40gm Darell Mv - [id number] Implanted:Qty: 2 on 07/24/2024 by Timothy Bishop MD at [facility] Left: Hip [employer] 01/08/2029 [id number] / / [id number] Insert Acetab 28/46mm Dual Mobility Or30 Xlpe - [id number] Implanted:Qty: 1 on 10/11/2024 by Timothy Bishop MD at [facility] Left: Hip [employer] 06/28/2033 [id number] / / [id number] Biolox Delta Ts Ceramic Femoral Head Revision, 28mm 8.5 12/14 Taper Implanted:Qty: 1 on 10/11/2024 by Timothy Bishop MD at [facility] Left: Hip [employer] 06/08/2028 [id number] / / [id number] Shell Acetab 60mm Modular Redapt - [id number] Implanted:Qty: 1 on 10/11/2024 by Timothy Bishop MD at [facility] Left: Hip [employer] 12/03/2032 [id number] / / [id number] Screw Hip 6.5x30mm Reflection Reconstrt - [id number] Implanted:Qty: 1 on 10/11/2024 by Timothy Bishop MD at [facility] Left: Hip [employer] 11/15/2033 [id number] / / [id number] Screw Hip 6.5x20mm Reflection Reconstrt - [id number] Implanted:Qty: 1 on 10/11/2024 by Timothy Bishop MD at [facility] Left: Hip [employer] 05/23/2034 [id number] / / [id number] Liner Acetab 46/60mm Dual Mobility Or30 - [id number] Implanted:Qty: 1 on 10/11/2024 by Timothy Bishop MD at [facility] Left: Hip [employer] 07/25/2033 [id number] / / [id number] Screw Hip 6.5x25mm Reflection Reconstrt - [id number] Implanted:Qty: 1 on 10/11/2024 by Timothy Bishop MD at [facility] Left: Hip [employer] 05/12/2034 [id number] / / [id number] Explanted Type Area Wharf Tender Device Identifier Shelf Expiration Date Model / Serial / Lot Left Hip Head, Liner And Insert Explanted:Qty: 1 on 07/24/2024 by Timothy Bishop MD at [facility] Left: Hip Gause Altrx Ld Polyethylene Acetabular Liner; +4 Neutral, 40mm Id, 58mm Od Implanted:Qty: 1 on 07/24/2024 by Timothy Bishop MD at [facility] Explanted:Qty: 1 on 10/11/2024 by Timothy Bishop MD at [facility] Left: Hip [employer] 08/08/2028 [id number] / / [id number] M-Spec Metal Fmoral Head 40mm +5 Offset 12/14 Taper Implanted:Qty: 1 on 07/24/2024 by Timothy Bishop MD at [facility] Explanted:Qty: 1 on 10/11/2024 by Timothy Bishop MD at [facility] Left: Hip [employer] 09/08/2025 [id number] / / [id number] Procedures Procedure Name Priority Date/Time Associated Diagnosis Comments BASIC METABOLIC PANEL Today 10/12/2024 11:04 AM CDT HEMOGLOBIN Early AM 10/12/2024 8:01 AM CDT AEROBIC BACTERIAL CULTURE, STAIN Today 10/11/2024 11:10 AM CDT ANAEROBIC CULTURE Today 10/11/2024 11:10 AM CDT SPINAL BLOCK Routine 10/11/2024 10:13 AM CDT ARTHROPLASTY REVISION HIP Tier 3 10/11/2024 9:31 AM CDT Failed total hip arthroplasty Case Notes 60 MINS-T/FPA TO ASSISTJACKSONLATERAL LEFT SIDE UPC-ARMGUIRE POSITIONERCELL SAVER-confirmed 930 w/Frances #[id number] 09/13-AW// CELL SAVER CONFIRMED WITH NAVEED 10/10 VPSMITH [employer] NEPHEW REDAPT MULTI-HOLE CUP, DUAL MOBILITY LINER, R3 Main, Reamers, trial shells, Heller hip revision, hip farnsworth 2 and or3o. Confirmed with Colette Garcia [phone] 10/02 JTDUPUY CORAIL #13 STANDARD COLLARED STEMHEADS SIZES 22 & 23 CERAMIC AVAILABLE One company farnsworth confirmed with Antwan Pro [phone] 10/01 JT Special Needs HT 5'7 WT 83.8 kg BMI 29.01 GLUCOSE METER Timed 10/11/2024 8:20 AM CDT SCAN-CARDIAC STRIP 10/11/2024 12:00 AM CDT SCAN-OPERATIVE/AL OCEDURE REPORT 10/11/2024 12:00 AM CDT CBC W PLT NO DIFF Routine 09/24/2024 4:30 PM CDT Essential hypertension BASIC METABOLIC PANEL Routine 09/24/2024 4:30 PM CDT Essential hypertension SCAN-OPERATIVE/AL OCEDURE REPORT 09/20/2024 12:00 AM CDT XR PELVIS 1 VIEW Routine 09/10/2024 1:24 PM CDT s/p left anterolateral total hip arthroplasty extraction with antibiotic spacer DOS: 07/24/2024 by Timothy Bishop MD Orthopedic aftercare CBC WITH AUTO DIFFERENTIAL Routine 09/04/2024 4:30 PM CDT 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, initial encounter C-REACTIVE PROTEIN Routine 09/04/2024 4:30 PM CDT 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, initial encounter COMP METABOLIC PANEL Routine 09/04/2024 4:30 PM CDT 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, initial encounter CBC WITH AUTO DIFFERENTIAL Routine 09/04/2024 4:30 PM CDT 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, initial encounter CBC WITH AUTO DIFFERENTIAL Routine 08/27/2024 3:00 PM CDT 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, initial encounter C-REACTIVE PROTEIN Routine 08/27/2024 3:00 PM CDT 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, initial encounter COMP METABOLIC PANEL Routine 08/27/2024 3:00 PM CDT 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, initial encounter CBC WITH AUTO DIFFERENTIAL Routine 08/27/2024 3:00 PM CDT 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, initial encounter RED CELL MORPHOLOGY Routine 08/20/2024 2:00 PM CDT 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, initial encounter PLATELET ESTIMATE Routine 08/20/2024 2:00 PM CDT 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, initial encounter MANUAL DIFFERENTIAL Routine 08/20/2024 2:00 PM CDT 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, initial encounter CBC WITH AUTO DIFFERENTIAL Routine 08/20/2024 2:00 PM CDT 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, initial encounter C-REACTIVE PROTEIN Routine 08/20/2024 2:00 PM CDT 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, initial encounter COMP METABOLIC PANEL Routine 08/20/2024 2:00 PM CDT 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, initial encounter CBC WITH AUTO DIFFERENTIAL Routine 08/20/2024 2:00 PM CDT 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, initial encounter CBC WITH AUTO DIFFERENTIAL Routine 08/13/2024 2:30 PM CDT 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, initial encounter C-REACTIVE PROTEIN Routine 08/13/2024 2:30 PM CDT 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, initial encounter COMP METABOLIC PANEL Routine 08/13/2024 2:30 PM CDT 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, initial encounter CBC WITH AUTO DIFFERENTIAL Routine 08/13/2024 2:30 PM CDT 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, initial encounter XR PELVIS 1 VIEW Routine 08/08/2024 1:02 PM CDT s/p left anterolateral total hip arthroplasty extraction with antibiotic spacer DOS: 07/24/2024 by Timothy Bishop MD FERRITIN Add On 08/06/2024 2:00 PM CDT Severe anemia CBC WITH AUTO DIFFERENTIAL Routine 08/06/2024 2:00 PM CDT 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, initial encounter C-REACTIVE PROTEIN Routine 08/06/2024 2:00 PM CDT 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, initial encounter COMP METABOLIC PANEL Routine 08/06/2024 2:00 PM CDT 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, initial encounter CBC WITH AUTO DIFFERENTIAL Routine 08/06/2024 2:00 PM CDT 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, initial encounter RED CELL MORPHOLOGY Routine 07/30/2024 12:00 PM CDT 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, initial encounter PLATELET ESTIMATE Routine 07/30/2024 12:00 PM CDT 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, initial encounter MANUAL DIFFERENTIAL Routine 07/30/2024 12:00 PM CDT 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, initial encounter CBC WITH AUTO DIFFERENTIAL Routine 07/30/2024 12:00 PM CDT 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, initial encounter C-REACTIVE PROTEIN Routine 07/30/2024 12:00 PM CDT 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, initial encounter COMP METABOLIC PANEL Routine 07/30/2024 12:00 PM CDT 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, initial encounter CBC WITH AUTO DIFFERENTIAL Routine 07/30/2024 12:00 PM CDT 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, initial encounter SCAN CORRESP-LABORATOR Y RESULTS 07/27/2024 9:18 AM CDT SCAN CORRESP-LABORATOR Y RESULTS 07/27/2024 9:18 AM CDT SCAN CORRESP-LABORATOR Y RESULTS 07/27/2024 9:17 AM CDT HEMOGLOBIN STAT 07/27/2024 8:32 AM CDT CO2,TOTAL Early AM 07/27/2024 7:02 AM CDT POTASSIUM Early AM 07/27/2024 7:02 AM CDT CREATININE Early AM 07/27/2024 7:02 AM CDT HEMOGLOBIN Timed 07/26/2024 5:52 PM CDT TRANSFUSE RBC (NURSE COMMUNICATION ORDER) STAT 07/26/2024 10:30 AM CDT RBC W TYPE AND SCREEN STAT 07/26/2024 8:53 AM CDT RED BLOOD CELLS EA UNIT STAT 07/26/2024 8:52 AM CDT MAGNESIUM Early AM 07/26/2024 7:36 AM CDT CO2,TOTAL Early AM 07/26/2024 7:36 AM CDT CREATININE Early AM 07/26/2024 7:36 AM CDT POTASSIUM Early AM 07/26/2024 7:36 AM CDT SODIUM Early AM 07/26/2024 7:36 AM CDT GLUCOSE, RANDOM Early AM 07/26/2024 7:36 AM CDT CALCIUM Early AM 07/26/2024 7:36 AM CDT HEMOGLOBIN Early AM 07/26/2024 7:36 AM CDT PLATELET COUNT Early AM 07/26/2024 7:36 AM CDT WHITE BLOOD COUNT Early AM 07/26/2024 7:36 AM CDT SCAN CORRESP-LABORATOR Y RESULTS 07/26/2024 12:00 AM CDT SCAN CORRESP-LABORATOR Y RESULTS 07/26/2024 12:00 AM CDT BLOOD CULTURE LATOYA 07/25/2024 7:39 AM CDT BASIC METABOLIC PANEL Early AM 07/25/2024 7:20 AM CDT HEMOGLOBIN Early AM 07/25/2024 7:20 AM CDT SCAN-ELECTROCARDI OGRAM EKG 07/25/2024 12:00 AM CDT XR C-ARM SET UP ONLY NC Routine 07/24/2024 2:53 PM CDT AEROBIC BACTERIAL CULTURE, STAIN Today 07/24/2024 1:32 PM CDT ANAEROBIC CULTURE Today 07/24/2024 1:32 PM CDT SPINAL BLOCK Routine 07/24/2024 1:15 PM CDT ARTHROPLASTY REVISION HIP Class E Urgent 07/24/2024 12:22 PM CDT Failed total hip arthroplasty Case Notes 1230 - 90MIN - Dr. Bishop is not available before 1230LATERAL LEFT SIDE UPJACKSON TABLEC-ARMMCGUIRE POSITIONER FLEXIBLE OSTEOTOMES CUP EXTRACTORK WIREDEPUY PROSTALAC3 company [employer] Pans. Confirmed with Antwan Pro [phone] 07/23 BB Special Needs 5 ft 7.01 in, 83.9 kg, BMI 28.97Asthma/uses inhalersMultiple SclerosisFamily hx delayed emergence/No personal hxWound vac back of left thigh CREATININE Preop 07/24/2024 10:52 AM CDT CBC W PLT NO DIFF Preop 07/24/2024 10:52 AM CDT GLUCOSE, RANDOM Preop 07/24/2024 10:52 AM CDT SCAN-CARDIAC STRIP 07/24/2024 12:00 AM CDT EKG 12 LEAD Routine 07/23/2024 1:05 PM CDT Pre-op evaluation s/p left total hip arthroplasty DOS: 03/07/2018 by Andrea Shaikh MD. AL READING EKG - NO CHARGE, COMP ONLY Routine 07/23/2024 1:04 PM CDT Pre-op evaluation s/p left total hip arthroplasty DOS: 03/07/2018 by Andrea Shaikh MD. POTASSIUM STAT 07/23/2024 10:48 AM CDT Pre-op evaluation Hyperkalemia NM BONE SCAN 3 PHASE STAT 07/20/2024 11:18 AM CDT s/p left total hip arthroplasty DOS: 03/07/2018 by Andrea Shaikh MD. HEMOGLOBIN LATOYA 07/20/2024 8:26 AM CDT Pre-op evaluation POTASSIUM LATOYA 07/20/2024 8:26 AM CDT Pre-op evaluation C-REACTIVE PROTEIN Today 07/20/2024 8:26 AM CDT s/p left total hip arthroplasty DOS: 03/07/2018 by Andrea Shaikh MD. SEDIMENTATION RATE Today 07/20/2024 8:26 AM CDT s/p left total hip arthroplasty DOS: 03/07/2018 by Andrea Shaikh MD. XR HIP 1 VIEW W PELVIS LEFT Routine 07/19/2024 9:13 AM CDT Pain of left hip LIPID PANEL W REFLEX MEASURED LDL Routine 05/14/2024 3:17 PM PREPRESS PROOFER Mixed hyperlipidemia SDNA-FIT EXTERNAL (COLOGUARD) Routine 04/28/2022 7:00 PM PREPRESS PROOFER Screening for colon cancer ANTI HCV Routine 04/24/2018 3:34 PM PREPRESS PROOFER Need for hepatitis C screening test XR DXA BONE DENSITY 2 SITES AXIAL Routine 02/28/2017 2:04 PM PREPRESS PROOFER Asymptomatic menopausal state Screening for osteoporosis from Last 3 Months or Most Recently Relevant to Health Maintenance Results * (ABNORMAL) BASIC METABOLIC PANEL (10/12/2024 11:04 AM CDT) Only the most recent of3 resultswithin the time period is included. SODIUM 134(L) 136 - 145 mmol/L 10/12/2024 11:[address] [facility] POTASSIUM 4.6 3.5 - 5.1 mmol/L 10/12/2024 11:[address] [facility] CHLORIDE 101 98 - 107 mmol/L 10/12/2024 11:[address] [facility] CO2,TOTAL 21(L) 22 - 29 mmol/L 10/12/2024 11:33 AM [facility] ANION GAP 12 5 - 18 10/12/2024 11:33 AM [facility] GLUCOSE 142(H) 70 - 99 mg/dL 10/12/2024 11:33 AM [facility] CALCIUM 9.5 8.8 - 10.4 mg/dL 10/12/2024 11:33 AM [facility] Comment: Reference ranges for this test were updated on 02/14/2024 to reflect our healthy population more accurately. Reference range changes are not retroactively applied to results, but previous results using the same methodology can be interpreted in the context of the new reference range. BUN 29(H) 8 - 23 mg/dL 10/12/2024 11:33 AM [facility] CREATININE 1.30(H) 0.50 - 0.90 mg/dL 10/12/2024 11:33 AM [facility] BUN/CREAT RATIO 22(H) 10 - 20 11:33 AM [facility] eGFR 43(L) >90 mL/min/1. 73m2 10/12/2024 11:33 AM [facility] Comment:As of 2021, eG FR is calculated by the CKD-EPI creatinine equation without race adjustment. eGFR can be influenced by muscle mass, exercise, and diet. The reported eGFR is an estimation only and is only applicable if the renal function is stable. Blood BLOOD SPECIMEN / Unknown Venipuncture / Unknown 10/12/2024 11:04 AM CDT 10/12/2024 11:12 AM CDT us Carmel Jimenez MD CHEMISTRY Final Result [facility] SENDOUT [place] [address]IP [id number] [address] [place] [address] * (ABNORMAL) Hemoglobin - in AM (10/12/2024 8:01 AM CDT) Only the most recent of6 resultswithin the time period is included. HEMOGLOBIN 9.6(L) 12.0 - 16.0 g/dL 10/12/2024 8:[address] [facility] MCV 85 80 - 100 fL 10/12/2024 8:[address] [facility] Blood BLOOD SPECIMEN / Unknown Venipuncture / Unknown 10/12/2024 8:01 AM CDT 10/12/2024 8:[address] [facility] - 10/12/2024 8:22 AM CDT Call surgeon if hemoglobin less than 8. us Timothy Bishop MD HEMATOLOGY Final Result [facility] SENDOUT [address] [id number] [address] [place] [address] * AEROBIC BACTERIAL CULTURE, STAIN (10/11/2024 11:10 AM CDT) Only the most recent of2 resultswithin the time period is included. CULTURE No Growth. 10/15/2024 1:00 PM CDT [facility] GRAM STAIN 2+ PMNs 10/15/2024 1:[address] [facility] GRAM STAIN No organisms seen 10/15/2024 1:[address] [facility] GRAM STAIN 4+ RBCs 10/15/2024 1:[address] [facility] GRAM STAIN No Epithelial cells 10/15/2024 1:[address] [facility] GRAM STAIN Gram stain performed by [place], [place] 10/15/2024 1:[address] [facility] Swab (Left Hip) Non-Blood / Unknown 10/11/2024 11:10 AM CDT 10/11/2024 12:47 PM CDT us Timothy Bishop MD MICROBIOLOGY Final Result [facility] [address] [place] [address], [facility] SENDOUT INTER[address] [id number] [address] [place] [address] * HCHG TRAY PR10 (10/11/2024 10:13 AM CDT) Narrative Estelle Castaneda MD - 10/11/2024 10:13 AM CDT Estelle Castaneda MD 10/11/2024 10:14 AM Spinal Block Patient location during procedure: OR Start time: 10/11/2024 10:03 AM End time: 10/11/2024 10:05 AM Reason for block: at surgeon's request and primary anesthetic PreProcedure Checklist Completed: patient identified, risks and benefits discussed, timeout performed, hand hygiene performed, chloraprep used and completely dried prior to procedure, IV checked, site marked, surgical consent and hand hygiene performed Spinal Block Patient position: sitting Prep: chloraprep Patient monitoring: continuous pulse oximetry, ECG and blood pressure Approach: midline Skin Infiltration: lidocaine 1% Location: L3-4 Needle Needle type: pencil-point Needle gauge: 24 G Needle length: 4 in Assessment Events: no complications. Estelle Castaneda MD ANESTHESIA PX NOTE ORDERA BLES Final Result * GLUCOSE METER (10/11/2024 8:20 AM CDT) GLUCOSE METER 94 65 - 100 mg/dL 10/11/2024 8:[address] [facility] Blood BLOOD SPECIMEN / Unknown 10/11/2024 8:20 AM CDT 10/11/2024 8:24 AM CDT Timothy Bishop MD CHEMISTRY Final Result [facility] SENDOUT [place] [id number] [address] [place] [address] * SCAN-CARDIAC STRIP (10/11/2024 12:00 AM CDT) Narrative 10/11/2024 12:00 AM CDT Ordered by an unspecified provider. us Other Clinical Staff OTHER Final Resul t * SCAN-OPERATIVE/PROCEDURE REPORT (10/11/2024 12:00 AM CDT) Narrative 10/11/2024 12:00 AM CDT Ordered by an unspecified provider. us Other Clinical Staff OTHER Final Resul t * (ABNORMAL) CBC W PLT NO DIFF (09/24/2024 4:30 PM CDT) Only the most recent of2 resultswithin the time period is included. WHITE BLOOD CELL COUNT 5.8 3.8 - 10.8 Thousand/u L [facility] RED BLOOD CELL COUNT 3.75(L) 3.80 - 5.10 Million/uL [facility] HEMOGLOBIN 10.5(L) 11.7 - 15.5 g/dL [facility] HEMATOCRIT 32.2(L) 35.0 - 45.0 % [facility] MCV 85.9 80.0 - 100.0 fL [facility] MCH 28.0 27.0 - 33.0 pg [facility] MCHC 32.6 32.0 - 36.0 g/dL [facility] Comment: For adults, a slight decrease in the calculated MCHC value (in the range of 30 to 32 g/dL) is most likely not clinically significant; however, it should be interpreted with caution in correlation with other red cell parameters and the patient's clinical condition. RDW 14.0 11.0 - 15.0 % [facility] PLATELET COUNT 339 140 - 400 Thousand/u L [facility] MPV 9.4 7.5 - 12.5 fL [facility] Blood BLOOD SPECIMEN / Unknown 09/24/2024 4:30 PM CDT 09/24/2024 4:32 PM CDT Narrative [facility] - 09/25/2024 3:28 AM CDT FASTING:NO FASTING: NO us Rachel Carmona MD HEMATOLOGY Final Res ult [email or web address] [facility] [address] [place] [address], [facility] [address] [place] [address] * SCAN-OPERATIVE/PROCEDURE REPORT (09/20/2024 12:00 AM CDT) us Scanner OTHER Final Result * XR PELVIS 1 VIEW (09/10/2024 1:24 PM CDT) Only the most recent of2 resultswithin the time period is included. Anatomical Region Laterality Modality Pelvis Digital Radiogra phy Narrative 09/12/2024 7:00 AM CDT This Radiology Exam Was Performed at [facility] Total [facility] [place] and Interpreted by Timothy Bishop MD HISTORY A 74 y.o. female status post a left anterolateral total hip arthroplasty extraction with antibiotic spacer DOS: 07/24/2024 TECHNICAL ONE view consisting of a standing AP pelvis FINDINGS Standing AP X-ray of the pelvis was ordered, obtained, and reviewed today. This shows satisfactory position of the left anterolateral total hip arthroplasty extraction with antibiotic spacer. No signs of loosening or other pathology. IMPRESSION Stable status post left anterolateral total hip arthroplasty extraction with antibiotic spacer DOS: 07/24/2024 All services were personally performed by Timothy Bishop MD. Documentation performed by Elio Garza MS, LAT, ATC based on provider statements to me. Timothy Bishop MD 09/10/2024 us Timothy Bishop MD GENERAL IMAGING Final Result * (ABNORMAL) CBC WITH AUTO DIFFERENTIAL (09/04/2024 4:30 PM CDT) Only the most recent of6 resultswithin the time period is included. WHITE BLOOD COUNT 6.2 4.5 - 11.0 thou/cu mm 09/04/2024 6:13 PM [facility] RED BLOOD COUNT 3.71(L) 4.00 - 5.20 mil/cu mm 09/04/2024 6:13 PM [facility] HEMOGLOBIN 10.5(L) 12.0 - 16.0 g/dL 09/04/2024 6:13 PM [facility] HEMATOCRIT 33.4 33.0 - 51.0 % 09/04/2024 6:13 PM [facility] MCV 90 80 - 100 fL 09/04/2024 6:13 PM [facility] MCH 28.3 26.0 - 34.0 pg 09/04/2024 6:13 PM [facility] MCHC 31.4(L) 32.0 - 36.0 g/dL 09/04/2024 6:13 PM [facility] RDW 15.5 11.5 - 15.5 % 09/04/2024 6:13 PM [facility] PLATELET COUNT 357 140 - 440 thou/cu mm 09/04/2024 6:13 PM [facility] MPV 9.5 6.5 - 11.0 fL 09/04/2024 6:13 PM [facility] % NEUT 66.2 % 09/04/2024 6:13 PM [facility] % LYMPH 20.2 % 09/04/2024 6:13 PM [facility] % MONO 8.8 % 09/04/2024 6:13 PM [facility] % EOS 3.7 % 09/04/2024 6:13 PM [facility] % BASO 1.1 % 09/04/2024 6:13 PM [facility] ABSOLUTE NEUTROPHILS 4.1 1.7 - 7.0 thou/cu mm 09/04/2024 6:13 PM [facility] ABSOLUTE LYMPHOCYTES 1.3 0.9 - 2.9 thou/cu mm 09/04/2024 6:13 PM [facility] ABSOLUTE MONOCYTES 0.6 <0.9 thou/cu mm 09/04/2024 6:13 PM [facility] ABSOLUTE EOSINOPHILS 0.2 <0.5 thou/cu mm 09/04/2024 6:13 PM [facility] ABSOLUTE BASOPHILS 0.1 <0.3 thou/cu mm 09/04/2024 6:13 PM [facility] Blood BLOOD SPECIMEN / Unknown Venipuncture / Unknown 09/04/2024 4:30 PM CDT 09/04/2024 6:07 PM T Dolores Del Rosario MD HEMATOLOGY Fi nal Result Performing Organization Address [facility] Co de Phone Number [facility] [address] [place] [address] * C-REACTIVE PROTEIN (09/04/2024 4:30 PM CDT) Only the most recent of7 resultswithin the time period is included. C-REACTIVE PROTEIN <0.3 <0.5 mg/dL 09/04/2024 6:32 PM T [facility] Blood BLOOD SPECIMEN / Unknown Venipuncture / Unknown 09/04/2024 4:30 PM CDT 09/04/2024 6:07 PM CDT Dolores Del Rosario MD CHEMISTRY Fi nal Result Performing Organization Address [facility] Co de Phone Number [facility] [address] [place] [address] * (ABNORMAL) COMP METABOLIC PANEL (09/04/2024 4:30 PM CDT) Only the most recent of6 resultswithin the time period is included. Pathologist [facility] SODIUM 140 136 - 145 mmol/L 09/04/2024 6:29 PM [facility] POTASSIUM 4.0 3.5 - 5.1 mmol/L 09/04/2024 6:29 PM [facility] CHLORIDE 105 98 - 107 mmol/L 09/04/2024 6:29 PM [facility] CO2,TOTAL 22 22 - 29 mmol/L 09/04/2024 6:29 PM [facility] ANION GAP 13 5 - 18 09/04/2024 6:29 PM [facility] GLUCOSE 84 70 - 99 mg/dL 09/04/2024 6:29 PM [facility] CALCIUM 10.5(H) 8.8 - 10.4 mg/dL 09/04/2024 6:29 PM [facility] Comment: Reference ranges for this test were updated on 02/14/2024 to reflect our healthy population more accurately. Reference range changes are not retroactively applied to results, but previous results using the same methodology can be interpreted in the context of the new reference range. BUN 22 8 - 23 mg/dL 09/04/2024 6:29 PM [facility] CREATININE 1.17(H) 0.50 - 0.90 mg/dL 09/04/2024 6:29 PM [facility] BUN/CREAT RATIO 19 10 - 20 6:29 PM [facility] eGFR 49(L) >90 mL/min/1. 73m2 09/04/2024 6:29 PM [facility] Comment:As of 2021, eG FR is calculated by the CKD-EPI creatinine equation without race adjustment. eGFR can be influenced by muscle mass, exercise, and diet. The reported eGFR is an estimation only and is only applicable if the renal function is stable. ALBUMIN 4.2 4.0 - 4.9 g/dL 09/04/2024 6:29 PM [facility] PROTEIN,TOTAL 7.6 6.0 - 8.0 g/dL 09/04/2024 6:29 PM [facility] BILIRUBIN,TOTAL 0.2 0.0 - 1.2 mg/dL 09/04/2024 6:29 PM [facility] ALK PHOSPHATASE 111(H) 35 - 104 IU/L 09/04/2024 6:29 PM [facility] ALT (SGPT) 7(L) 10 - 35 IU/L 09/04/2024 6:29 PM [facility] AST (SGOT) 26 10 - 35 IU/L 09/04/2024 6:29 PM [facility] Blood BLOOD SPECIMEN / Unknown Venipuncture / Unknown 09/04/2024 4:30 PM CDT 09/04/2024 6:07 PM T us Dolores Del Rosario MD CHEMISTRY Fi nal Result [facility] [address] [place] [address] * RED CELL MORPHOLOGY (08/20/2024 2:00 PM CDT) Only the most recent of2 resultswithin the time period is included. Pathologist [facility] RBC COMMENT RBC morphology appears normal RBC morphology appears normal, RBC morphology within normal limits for newborns. 08/20/2024 4:33 PM CDT [facility] Blood BLOOD SPECIMEN / Unknown Non-Lab Venipuncture / Unknown 08/20/2024 2:00 PM CDT 08/20/2024 3:36 PM CDT Dolores Del Rosario MD HEMATOLOGY Fi nal Result Performing Organization Address City/[facility] Co de Phone Number [facility] [address] [place] [address] * PLATELET ESTIMATE (08/20/2024 2:00 PM CDT) Only the most recent of2 resultswithin the time period is included. [facility] PLATELET ESTIMATE Adequate Adequate, No estimate 08/20/2024 4:33 PM CDT [facility] Blood BLOOD SPECIMEN / Unknown Non-Lab Venipuncture / Unknown 08/20/2024 2:00 PM CDT 08/20/2024 3:36 PM CDT Dolores Del Rosario MD HEMATOLOGY Fi nal Result [facility] [address] [place] [address] * MANUAL DIFFERENTIAL (08/20/2024 2:00 PM CDT) Only the most recent of2 resultswithin the time period is included. Pathologist [facility] % NEUTROPHILS 63.0 % 08/20/2024 4:33 PM CDT [facility] % LYMPHOCYTES 23.0 % 08/20/2024 4:33 PM CDT [facility] % MONOCYTES 9.0 % 08/20/2024 4:33 PM CDT [facility] % EOSINOPHILS 4.0 % 08/20/2024 4:33 PM CDT [facility] % BASOPHILS 1.0 % 08/20/2024 4:33 PM CDT [facility] NEUTROPHILS ABSOLUTE 3.3 1.7 - 7.0 thou/cu mm 08/20/2024 4:33 PM CDT [facility] LYMPHOCYTES ABSOLUTE 1.2 0.9 - 2.9 thou/cu mm 08/20/2024 4:33 PM CDT [facility] MONOCYTES ABSOLUTE 0.5 <0.9 thou/cu mm 08/20/2024 4:33 PM CDT [facility] EOSINOPHILS ABSOLUTE 0.2 <0.5 thou/cu mm 08/20/2024 4:33 PM CDT [facility] BASOPHILS ABSOLUTE 0.1 <0.3 thou/cu mm 08/20/2024 4:33 PM CDT [facility] Blood BLOOD SPECIMEN / Unknown Non-Lab Venipuncture / Unknown 08/20/2024 2:00 PM CDT 08/20/2024 3:36 PM CDT Dolores Del Rosario MD HEMATOLOGY Fi nal Result [facility] [address] [place] [address] * (ABNORMAL) FERRITIN (08/06/2024 2:00 PM CDT) FERRITIN 293.0(H) 15.0 - 150.0 ng/mL 08/07/2024 2:26 PM CDT [facility] Blood BLOOD SPECIMEN / Unknown Non-Lab Venipuncture / Unknown 08/06/2024 2:00 PM CDT 08/06/2024 3:21 PM CDT us Rachel Carmona MD CHEMISTRY Final Res ult [facility] [address] [place] [address], [place] * SCAN CORRESP-LABORATORY RESULTS (07/27/2024 9:18 AM CDT) Only the most recent of5 resultswithin the time period is included. Narrative 07/27/2024 9:18 AM CDT Ordered by an unspecified provider. Other Clinical Staff OTHER Final Resul t * POTASSIUM (07/27/2024 7:02 AM CDT) Only the most recent of4 resultswithin the time period is included. Pathologist [facility] POTASSIUM 4.4 3.5 - 5.1 mmol/L 07/27/2024 7:[address] [facility] Blood BLOOD SPECIMEN / Unknown Non-Lab Venipuncture / Unknown 07/27/2024 7:02 AM CDT 07/27/2024 7:08 AM CDT Radha Lowe DO CHEMISTRY Final R esult [facility] SENDOUT INTERNAL ZIP [address] [address] [place] [address] * (ABNORMAL) CREATININE (07/27/2024 7:02 AM CDT) Only the most recent of3 resultswithin the time period is included. Pathologist [facility] eGFR 41(L) >90 mL/min/1.7 3m2 07/27/2024 7:[address] [facility] Comment:As of 2021, eG FR is calculated by the CKD-EPI creatinine equation without race adjustment. eGFR can be influenced by muscle mass, exercise, and diet. The reported eGFR is an estimation only and is only applicable if the renal function is stable. CREATININE 1.35(H) 0.50 - 0.90 mg/dL 07/27/2024 7:[address] [facility] Blood BLOOD SPECIMEN / Unknown Non-Lab Venipuncture / Unknown 07/27/2024 7:02 AM CDT 07/27/2024 7:08 AM CDT Radha Lowe DO CHEMISTRY Final R esult [facility] SENDOUT [place]NAL [address]IP [address] [address] [place] [address] * CO2,TOTAL (07/27/2024 7:02 AM CDT) Only the most recent of2 resultswithin the time period is included. CO2,TOTAL 23 22 - 29 mmol/L 07/27/2024 7:[address] [facility] Blood BLOOD SPECIMEN / Unknown Non-Lab Venipuncture / Unknown 07/27/2024 7:02 AM CDT 07/27/2024 7:08 AM CDT us Radha Lowe DO CHEMISTRY Final R esult Performing Organization Address [facility]/ZIP Co de Phone Number [facility] SENDOUT INTERNAL ZIP [address] [address] [place] [address] * TRANSFUSE RBC (NURSE COMMUNICATION ORDER) (07/26/2024 12:24 PM CDT) Blood BLOOD SPECIMEN / Unknown Radha Lowe DO NURSING BLOOD BANK Ream l Result * RBC W TYPE AND SCREEN, 1 unit (07/26/2024 8:53 AM CDT) Pathologist [facility] ABORH AB Rh Negative 07/26/2024 9:[address] [facility] BLOOD BANK ANTIBODY SCREEN Negative Negative 07/26/2024 9:[address] [facility] BLOOD BANK SPECIMEN EXPIRATION DATE/TIME 07/29/24 23:59 07/26/2024 9:[address] [facility] BLOOD BANK Blood BLOOD SPECIMEN / Unknown Non-Lab Venipuncture / Unknown 07/26/2024 8:53 AM CDT 07/26/2024 9:00 AM CDT us Radha Lowe DO BLOOD BANK Final R esult Performing Organization Address City/[facility]/ZIP Co de Phone Number [facility] BLOOD BANK [address] [place] [id number] * RED BLOOD CELLS EA UNIT (07/26/2024 8:52 AM CDT) CROSSMATCH Compatible Compatible [facility] BLOOD BANK PRODUCT BLOOD TYPE AB Rh Negative [facility] BLOOD BANK PRODUCT ID NUMBER [id number] [facility] B[facility]OD B[facility] PRODUCT STATUS Transfused [facility] PRODUCT DESCRIPTION RBC -1 LR [facility] BLOOD BANK PRODUCT CODE [id number] [facility] BLOOD BANK ISSUE DATE/TIME 07/26/24 10:20 [facility]OD [facility]ANK Radha Lowe DO BLOOD BANK Edited Result - Final Performing Organization Address City/[facility]/ZIP Co de Phone Number [facility] B[facility] BANK [address] [place] [id number] * GLUCOSE, RANDOM (07/26/2024 7:36 AM CDT) Only the most recent of2 resultswithin the time period is included. GLUCOSE,RANDOM 90 70 - 139 mg/dL 07/26/2024 8:[address] [facility] Blood BLOOD SPECIMEN / Unknown Non-Lab Venipuncture / Unknown 07/26/2024 7:36 AM CDT 07/26/2024 7:42 AM CDT Radha Lowe DO CHEMISTRY Final R esult [facility] SENDOUT INTERNAL ZIP [phone] [place] [address] * PLATELET COUNT (07/26/2024 7:36 AM CDT) PLATELET COUNT 393 140 - 440 thou/cu mm 07/26/2024 8:[address] [facility] MPV 8.1 6.5 - 11.0 fL 07/26/2024 8:[address] [facility] Blood BLOOD SPECIMEN / Unknown Non-Lab Venipuncture / Unknown 07/26/2024 7:36 AM CDT 07/26/2024 7:42 AM CDT Radha Lowe DO HEMATOLOGY Final R esult [facility] SENDOUT INTERNAL ZIP [address] [place] [address] * WHITE BLOOD COUNT (07/26/2024 7:36 AM CDT) WHITE BLOOD COUNT 10.3 4.5 - 11.0 thou/cu mm 07/26/2024 8:[address] [facility] NRBC 0.0 % 07/26/2024 8:[address] [facility] ABS NRBC 0.0 thou /cu mm 07/26/2024 8:[address] [facility] Blood BLOOD SPECIMEN / Unknown Non-Lab Venipuncture / Unknown 07/26/2024 7:36 AM CDT 07/26/2024 7:42 AM CDT Radha Lowe DO HEMATOLOGY Final R esult [facility] SENDOUT INTERNAL ZIP [address] [place] [address] * (ABNORMAL) SODIUM (07/26/2024 7:36 AM CDT) SODIUM 132(L) 136 - 145 mmol/L 07/26/2024 8:[address] [facility] Blood BLOOD SPECIMEN / Unknown Non-Lab Venipuncture / Unknown 07/26/2024 7:36 AM CDT 07/26/2024 7:42 AM CDT Radha Lowe DO CHEMISTRY Final R esult [facility] SENDOUT INTERNAL ZIP [id number] [place] [address] * MAGNESIUM (07/26/2024 7:36 AM CDT) MAGNESIUM 1.9 1.6 - 2.4 mg/dL 07/26/2024 8:[address] [facility] Blood BLOOD SPECIMEN / Unknown Non-Lab Venipuncture / Unknown 07/26/2024 7:36 AM CDT 07/26/2024 7:42 AM CDT Radha Lowe DO CHEMISTRY Final R esult Performing Organization Address City/[facility]/ZIP Co de Phone Number [facility] SENDOUT INTERNAL ZIP [address] [address] [place] [address] * CALCIUM (07/26/2024 7:36 AM CDT) CALCIUM 9.2 8.8 - 10.4 mg/dL 07/26/2024 8:[address] [facility] Comment: Reference ranges for this test were updated on 02/14/2024 to reflect our healthy population more accurately. Reference range changes are not retroactively applied to results, but previous results using the same methodology can be interpreted in the context of the new reference range. Blood BLOOD SPECIMEN / Unknown Non-Lab Venipuncture / Unknown 07/26/2024 7:36 AM CDT 07/26/2024 7:42 AM CDT Radha Lowe DO CHEMISTRY Final R esult Performing Organization Address [facility]/ZIP Co de Phone Number [facility] SENDOUT INTERNAL ZIP [address] [place] [address] * BLOOD CULTURE DAILY (07/25/2024 7:39 AM CDT) CULTURE No Growth. 07/30/2024 11:15 AM CDT [facility] Blood BLOOD SPECIMEN / Unknown Venipuncture / Unknown 07/25/2024 7:39 AM CDT 07/25/2024 8:19 AM CDT Anna SILVER MICROBIOLOGY Fin al Result Performing Organization Address City/[facility]/ZIP Co de Phone Number [facility] [address] [place] [address], [place] * SCAN-ELECTROCARDIOGRAM EKG (07/25/2024 12:00 AM CDT) Narrative 07/25/2024 12:00 AM CDT Ordered by an unspecified provider. us Other Clinical Staff OTHER Final Resul t * XR C-ARM SET UP ONLY NC (07/24/2024 2:53 PM CDT) Narrative Silent, Sched - 08/15/2024 7:53 AM CDT The result for this exam is either scanned and attached to this order or are included in the ordering provider's NOTES from the patient's Office Visit or Surgical procedure from this date. us Timothy Bishop MD FLUOROSCOPY Final Result * ANAEROBIC CULTURE (07/24/2024 1:32 PM CDT) CULTURE No anaerobes isolated 08/09/2024 8:05 AM CDT [facility] Swab (Left Hip) Non-Blood / Unknown 07/24/2024 1:32 PM CDT 07/24/2024 3:15 PM CDT us Timothy Bishop MD MICROBIOLOGY Final Result [facility] [address] [place] [address], [place] * [facility] TRAY PR10 (07/24/2024 1:15 PM CDT) Narrative Rajesh Lipscomb MD - 07/24/2024 1:15 PM CDT Rajesh Lipscomb MD 07/24/2024 1:17 PM Spinal Block Patient location during procedure: OR Start time: 07/24/2024 12:52 PM End time: 07/24/2024 12:56 PM Reason for block: primary anesthetic PreProcedure Checklist Completed: patient identified, risks and benefits discussed, timeout performed, hand hygiene performed, chloraprep used and completely dried prior to procedure, IV checked, site marked, surgical consent and hand hygiene performed Spinal Block Patient position: sitting Prep: chloraprep Patient monitoring: continuous pulse oximetry, ECG and blood pressure Supplemental O2: yes Approach: midline Skin Infiltration: lidocaine 1% Location: L3-4 Needle Needle type: pencil-point Needle gauge: 24 G Needle length: 4 in Assessment Events: no complications. Aram Cabezas MD ANESTHESIA PX NOTE OR DERABLES Final Result * SCAN-CARDIAC STRIP (07/24/2024 12:00 AM CDT) Narrative 07/24/2024 12:00 AM CDT Ordered by an unspecified provider. us Other Clinical Staff OTHER Final Resul t * EKG 12 LEAD (07/23/2024 1:05 PM CDT) Justin Vargas MD EKG ORD Final Result * AL READING EKG - NO CHARGE, COMP ONLY (07/23/2024 1:04 PM CDT) Justin Vargas MD PB - PROVIDER R EADINGS Final Result * NM BONE SCAN 3 PHASE (07/20/2024 11:18 AM CDT) Anatomical Region Laterality Modality SKELETON Nuclear Medicine 07/20/2024 11:1 8 AM CDT Impressions 07/20/2024 12:02 PM CDT Hip arthroplasties without findings to suggest hardware loosening Narrative 07/20/2024 12:02 PM CDT For Patients: As a result of the Cures Act, medical imaging exams and procedure reports are released immediately into your electronic medical record. You may view this report before your referring provider. If you have questions, please contact your health care provider. EXAM: NM BONE SCAN 3 PHASE LOCATION: [facility] DATE: 07/20/2024 INDICATION:Bilateral total hip arthroplasties with left hip pain. Hardware loosening evaluation. COMPARISON: Hip x-ray dated 07/19/2024 TECHNIQUE: Tc-99m MDP 26.6 mCi, IV. Planar images of the hips during blood flow, blood pool, and delayed phases. FINDINGS: Normal blood flow and blood pool images. Delayed phase images demonstrate [photopenic defects from bilateral hip arthroplasties without findings to suggest hardware loosening Procedure Note Thomas Eisenberg MD - 07/20/2024 For Patients: As a result of the Century Cures Act, medical imagingexams and procedure reports are released immediately into your electronicmedical record. You may view this report before your referring provider.If you have questions, please contact your health care provider. EXAM: NM BONE SCAN 3 PHASE LOCATION: [facility] DATE: 07/20/2024 INDICATION:Bilateral total hip arthroplasties with left hip pain. Hardwareloosening evaluation. COMPARISON: Hip x-ray dated 07/19/2024 TECHNIQUE: Tc-99m MDP 26.6 mCi, IV. Planar images of the hips during bloodflow, blood pool, and delayed phases. FINDINGS: Normal blood flow and blood pool images. Delayed phase images demonstrate [photopenic defects from bilateral hiparthroplasties without findings to suggest hardware loosening IMPRESSION: Hip arthroplasties without findings to suggest hardware loosening Marshall SILVER NM Fin al Result * (ABNORMAL) SEDIMENTATION RATE (07/20/2024 8:26 AM CDT) [facility] Signature SEDIMENTATION RATE 59(H) <30 mm/hr 2024 8:[address] [facility] Blood BLOOD SPECIMEN / Unknown Venipuncture / Unknown 07/20/2024 8:26 AM CDT 07/20/2024 8:27 AM CDT Marshall SILVER HEMATOLOGY Fin al Result [facility] SENDOUT INTERNAL ZIP [address] [address] [place] [address] * XR HIP 1 VIEW W PELVIS LEFT (07/19/2024 9:13 AM CDT) Anatomical Region Laterality Modality HIPS, HIPL, Pelvis Digital Radio graphy Addenda Addendum by Marshall López PA on 07/20/2024 10:59 AM CDT This Radiology Exam Was Performed at [facility] Total [facility] [place] and Interpreted by Marshall López PA-C HISTORY A 74 y.o. female status post a left total hip arthroplasty dated 03/07/18 TECHNICAL TWO views consisting of a standing AP pelvis and lateral left hip FINDINGS Questionable lucency over the left inferior acetabular cup. Right total hip arthroplasty appears stable. IMPRESSION Questionable lucency over the inferior acetabular cup of the left total hip arthroplasty dated 03/07/18. Right total hip arthroplasty appears stable. Marshall López PA-C 07/19/2024 Narrative 07/20/2024 10:46 AM CDT This Radiology Exam Was Performed at [facility] [place] and Interpreted by Marshall López PA-C HISTORY A 74 y.o. female status post a left total hip arthroplasty dated 03/07/18 TECHNICAL TWO views consisting of a standing AP pelvis and lateral left hip FINDINGS Questionable lucency over the inferior acetabular cup. Right total hip arthroplasty appears stable. IMPRESSION Questionable lucency over the inferior acetabular cup dated 03/07/18. Right total hip arthroplasty appears stable. Marshall López PA-C 07/19/2024 Marshall SILVER GENERAL IMAGING Misael jose daniel Result - Final * (ABNORMAL) LIPID PANEL W REFLEX MEASURED LDL (05/14/2024 3:17 PM PREPRESS PROOFER) [facility] CHOLESTEROL, TOTAL 196 <200 mg/dL [facility] HDL CHOLESTEROL 54 > OR = 50 mg/dL [facility] TRIGLYCERIDES 92 <150 mg/dL [facility] LDL-CHOLESTEROL 122(H) mg/dL (calc) [facility] Comment: Reference range: <100 Desirable range <100 mg/dL for primary prevention; <70 mg/dL for patients with CHD or diabetic patients with > or = 2 CHD risk factors. LDL-C is now calculated using the Rayo-Joana calculation, which is a validated novel method providing better accuracy than the Friedewald equation in the estimation of LDL-C. Rayo CARRERO et al. TAYLOR. 2013;310(19): 5458-2111 (http://education.[employer].Pager/faq/QMO099) CHOL/HDLC RATIO 3.6 <5.0 (calc) [facility] NON HDL CHOLESTEROL 142(H) <130 mg/dL (calc) [facility] Comment: For patients with diabetes plus 1 major ASCVD risk factor, treating to a non-HDL-C goal of <100 mg/dL (LDL-C of <70 mg/dL) is considered a therapeutic option. Blood BLOOD SPECIMEN / Unknown 05/14/2024 3:17 PM PREPRESS PROOFER 05/14/2024 3:18 PM PREPRESS PROOFER Narrative [facility] - 05/15/2024 3:18 AM PREPRESS PROOFER FASTING:NO FASTING: NO Rachel Carmona MD CHEMISTRY Final Res ult [facility] [address] [place] [address], [facility] [address] [place] [address] * SDNA-FIT EXTERNAL (COLOGUARD) (04/28/2022 7:00 PM PREPRESS PROOFER) NONINV COLON CA DNA+OCC BLD SCRN STL-IMP Negative Negative 05/05/2022 7:33 PM PREPRESS PROOFER [facility] (CLIA #:[id number]) Comment: NEGATIVE TEST RESULT. A negative Cologuard result indicates a low likelihood that a colorectal cancer (CRC) or advanced adenoma (adenomatous polyps with more advanced pre-malignant features) is present. The chance that a person with a negative Cologuard test has a colorectal cancer is less than 1 in 1500 (negative predictive value >99.9%) or has an advanced adenoma is less than 5.3% (negative predictive value 94.7%). These data are based on a prospective cross-sectional study of 10,000 individuals at average risk for colorectal cancer who were screened with both Cologuard and colonoscopy. (Vanessa Maher al, N Engl J Med 2014;370(14):0056-9185) The normal value (reference range) for this assay is negative. COLOGUARD RE-SCREENING RECOMMENDATION: Periodic colorectal cancer screening is an important part of preventive healthcare for asymptomatic individuals at average risk for colorectal cancer. Following a negative Cologuard result, the [place] Cancer Society and U.S. Multi-Society Task Force screening guidelines recommend a Cologuard re-screening interval of 3 years. References: [place] [employer] Guideline for Colorectal Cancer Screening: https://www.cancer.org/cancer/cjlcs-tnaxfs-jzicbf/vlqpzpkpo-idezfeyjq-niflxco/ac s-rec ommendations.html.; Lino DK, Ceferino CR, Troy YuK, Colorectal Cancer Screening: Recommendations for Physicians and Patients from the U.S. Multi-Society Task Force on Colorectal Cancer Screening , Am J Gastroenterology 2017; 112:2097-3701. TEST DESCRIPTION: Composite algorithmic analysis of stool DNA-biomarkers with hemoglobin immunoassay. Quantitative values of individual biomarkers are not reportable and are not associated with individual biomarker result reference ranges. Cologuard is intended for colorectal cancer screening of adults of either sex, 45 years or older, who are at average-risk for colorectal cancer (CRC). Cologuard has been approved for use by the U.S. FDA. The performance of Cologuard was established in a cross sectional study of average-risk adults aged 50-84. Cologuard performance in patients ages 45 to 49 years was estimated by sub-group analysis of near-age groups. Colonoscopies performed for a positive result may find as the most clinically significant lesion: colorectal cancer [4.0%], advanced adenoma (including sessile serrated polyps greater than or equal to 1cm diameter) [20%] or non- advanced adenoma [31%]; or no colorectal neoplasia [45%]. These estimates are derived from a prospective cross-sectional screening study of 10,000 individuals at average risk for colorectal cancer who were screened with both Cologuard and colonoscopy. (Vanessa Maher al, N Engl J Med 2014;370(14):4754-4593.) Cologuard may produce a false negative or false positive result (no colorectal cancer or precancerous polyp present at colonoscopy follow up). A negative Cologuard test result does not guarantee the absence of CRC or advanced adenoma (pre-cancer). The current Cologuard screening interval is every 3 years. ([place] Cancer Society and U.S. Multi-Society Task Force). Cologuard performance data in a 10,000 patient pivotal study using colonoscopy as the reference method can be accessed at the following location: www.[employer].Pager/results. Additional description of the Cologuard test process, warnings and precautions can be found at www.colTurnip Truck IIrd.com. Stool specimen (specimen) (Rectum) 04/28/2022 7:00 PM PREPRESS PROOFER 05/01/2022 11:53 AM PREPRESS PROOFER Rachel Carmona MD URINE Final Res ult [facility] (CLIA #:[id number]) [place] [address], * ANTI HCV [10711.2] (04/24/2018 3:34 PM PREPRESS PROOFER) HEPATITIS C ANTIBODY Non-React bee Non-React bee 04/24/2018 8:22 PM PREPRESS PROOFER [facility] Comment:Antibodies to HCV no t detected; does not exclude the possibility of exposure to HCV. Blood BLOOD SPECIMEN / Unknown Venipuncture / Unknown 04/24/2018 3:34 PM PREPRESS PROOFER 04/24/2018 3:34 PM PREPRESS PROOFER Rachel Carmona MD SEND OUTS Final Res ult Performing Organization Address City/[facility]/ZIP Co de Phone Number [facility] [address] [place] [address], * (ABNORMAL) XR DXA BONE DENSITY 2 SITES AXIAL (02/28/2017 2:04 PM PREPRESS PROOFER) Anatomical Region Laterality Modality Spine, HIPS, HIPL, HIPR Other Narrative 03/01/2017 5:31 PM PREPRESS PROOFER Please see scanned document for results of this study. Jonn Lagunas DO DEXA Final Result from Last 3 Months or Most Recently Relevant to Health Maintenance Insurance MEDICARE PART B HB ONLY MEDICARE PART A HB ONLY MEDICARE PB ONLY [facility] [place] [place] [address] HC MEDICARE PPS MEDICAID Dept of [facility] [place] [address] Advance Directives * Full Code (Latest Code Status on File) Date Activated Date Inactivated Comments 10/11/2024 7:43 AM 10/12/2024 6:01 PM Question Answer Comments Code Status Discussion: Discussed * Full Code Date Activated Date Inactivated Comments 07/30/2024 6:46 AM 10/11/2024 7:42 AM * Full Code Date Activated Date Inactivated Comments 07/24/2024 10:25 AM 07/27/2024 3:43 PM Question Answer Comments Code Status Discussion: Discussed Care Teams Automobile Glass Technician Relationship Specialty Start Date End Date Rachel Carmona MD [address] [place] [address] PCP - General Internal Medicine 08/12/17 Andrea Tabares MD [address] [place] [address] Surgery - Orthopedics 02/20/18 Jeanette Fernandez MD [address] [place] [address] [address] [place] [address] Neurology 01/27/21
[2024-10-15 15:11] VITALS: BP 174/83; PULSE 100; RESP 20; TEMP 36.4; O2SAT 99; BMI 28.3
--- OUTSIDE RECORDS SUMMARY | 2024-10-15 18:06 | XMS_ITS | Clinical Summary ---
Author Organization [facility] Address [address] , [address] [place] [address] Phone Care Team Providers Care Point Of Care Technician Name Role Phone Zachary FOLEY, BSN, Peace Thompson [phone] Conditions or Problems Problem Name Problem Code Onset Date Status Entry Date Provider Comment Standard Description Annotate Knee pain, left, chronic 5993849129 (SNOMED CT) 10/26 Active 10/28 Noy Campeau Pain of joint of knee Knee pain, right, chronic 7254116511 (SNOMED CT) 10/26 Active 10/26 Noy Campeau Pain of joint of knee Hip pain, left 73721107 (SNOMED CT) 10/26 Active 10/28 Noy Campeau Pain of hip region Hip joint pain, right 64090093 (SNOMED CT) 10/26 Active 10/26 Noy [place]peau Pain of hip region Leg pain, left 047352533 (SNOMED CT) 10/26 Active 10/28 Noy Campeau Pain in left lower limb Leg pain, right 630698777 (SNOMED CT) 10/26 Active 10/26 Noy Campeau Pain in right lower limb Leg pain, bilateral 34793713 (SNOMED CT) 10/26 Inactive 10/26 Jeanette Marcum MD Pain in lower limb Restless leg syndrome 54474730 (SNOMED CT) 10/26 Active 10/26 Jeanette Marcum MD Restless legs Hip pain 72163361 (SNOMED CT) 10/26 Inactive 10/26 Jeanette Marcum MD Pain of hip region Knee pain, chronic 17228433 (SNOMED CT) 10/26 Inactive 10/26 Jeanette Marcum MD Knee pain Low back pain, chronic 087854030 (SNOMED CT) 10/26 Active 10/26 Jeanette Marcum MD Chronic low back pain Fatigue, chronic 74994844 (SNOMED CT) Active Jeanette Marcum MD Fatigue Anxiety disorder 848205788 (SNOMED CT) Active Jeanette Marcum MD Anxiety disorder Depression 95525317 (SNOMED CT) Active Jeanette Marcum MD Depressive disorder Multiple sclerosis, relapsing/r emitting 859972032 (SNOMED CT) 1986 Active 09/26 Jeanette Marcum MD Relapsing remitting multiple sclerosis Carpal tunnel syndrome, bilateral upper limbs [id number] 101 (SNOMED CT) 12/30 Active 12/30 Watson Baker MD Bilateral carpal tunnel syndrome Multiple sclerosis, relapsing/r emitting 033383609 (SNOMED CT) 09/26 Inactive 09/26 Lazaro Tomas MD Relapsing remitting multiple sclerosis Neuropathy, idiopathic peripheral 70986339 (SNOMED CT) 09/26 Active 09/26 Lazaro Tomas MD Idiopathic peripheral neuropathy Medications Medication Instructions Start Date Stop Date Generic Name ND Provider BACLOFEN 10 MG TABS Take 1/2 tablet by mouth at bedtime baclofen [id number] Jeanette Marcum MD AMANTADINE HCL 100 MG TABS Take 1 tablet by mouth twice a day 12/19 amantadine hcl 83236743710 Claudia SILVER-Ibrahima AMANTADINE HCL 100 MG CAPS TAKE ONE CAPSULE BY MOUTH TWICE DAILY amantadine hcl 11519287387 Claudia SILVER-C ESCITALOPRAM OXALATE 10 MG TABS Take 1 Tablet by mouth one time a day. escitalopram oxalate 81305697156 Jeanette Marcum MD AMPHETAMINE-DEXTR OAMPHET ER 10 MG PB23T-HFB TAKE ONE CAPSULE BY MOUTH EVERY MORNING NEEDED 07/27 dextroamphetamine -amphetamine 97427958514 Jeanette Marcum MD AMPHETAMINE-DEXTR OAMPHET ER 10 MG IN98Z-ADS Take 1 capsule by mouth every morning TAKE ONE CAPSULE BY MOUTH EVERY MORNING NEEDED dextroamphetamine -amphetamine 76152650338 Claudia Rodriguez PA-C DULOXETINE HCL 60 MG CPEP TAKE ONE CAPSULE BY MOUTH DAILY duloxetine 04468287597 Jeanette Marcum MD AMPHETAMINE-DEXTR OAMPHET ER 10 MG QC50J-WJA TAKE ONE CAPSULE BY MOUTH EVERY MORNING NEEDED 08/24 dextroamphetamine -amphetamine 22528331826 Jeanette Marcum MD DULOXETINE HCL 60 MG CPEP TAKE ONE CAPSULE BY MOUTH DAILY 05/19 duloxetine 92580531844 Jeanette Marcum MD DULOXETINE HCL 60 MG CPEP TAKE ONE CAPSULE BY MOUTH DAILY 04/16 duloxetine 63006993451 Katalina Lagunas PA-C DULOXETINE HCL 30 MG CPEP TAKE ONE CAPSULE BY MOUTH ONCE A DAY. TAKE WITH 60 MG CAPSULE. 10/26 duloxetine 11162483068 Jeanette Marcum MD ESCITALOPRAM OXALATE 10 MG TABS Take 1 Tablet by mouth one time a day. 10/23 escitalopram oxalate 67570533465 Jeanette Marcum MD AMPHETAMINE-DEXTR OAMPHET ER 5 MG [id number]-MTB TAKE TWO CAPSULE BY MOUTH EVERY MORNING NEEDED 10/07 dextroamphetamine -amphetamine 67609517209 Jeanette Marcum MD AMPHETAMINE-DEXTR OAMPHET ER 10 MG EX12W-ADD TAKE ONE CAPSULE BY MOUTH EVERY MORNING NEEDED 08/24 dextroamphetamine -amphetamine 46146351750 Jeanette Marcum MD AMPHETAMINE-DEXTR OAMPHET ER 10 MG ZG86T-VFX TAKE ONE CAPSULE BY MOUTH EVERY MORNING NEEDED 0 09/30 dextroamphetamine -amphetamine 86030963398 Jeanette Marcum MD AMPHETAMINE-DEXTR OAMPHET ER 5 MG CS64M-JQD TAKE TWO CAPSULE BY MOUTH EVERY MORNING NEEDED 0 09/14 dextroamphetamine -amphetamine 54382441901 Jeanette Marcum MD AMPHETAMINE-DEXTR OAMPHET ER 10 MG RY98J-WYK TAKE ONE CAPSULE BY MOUTH EVERY MORNING NEEDED 0 08/24 dextroamphetamine -amphetamine 58855782440 Claudia Rodriguez PA-C AMPHETAMINE-DEXTR OAMPHET ER 10 MG WK83V-IQY TAKE ONE CAPSULE BY MOUTH EVERY MORNING NEEDED 0 08/24 dextroamphetamine -amphetamine 63900118535 Jeanette Marcum MD AMPHETAMINE-DEXTR OAMPHET ER 10 MG EU32H-KLS TAKE ONE CAPSULE BY MOUTH EVERY MORNING NEEDED 0 08/24 dextroamphetamine -amphetamine 83647472627 Justin Romero MD AMPHETAMINE-DEXTR OAMPHET ER 10 MG ZX37K-EAY TAKE ONE CAPSULE BY MOUTH EVERY MORNING NEEDED 0 08/24 dextroamphetamine -amphetamine 55036245273 Jeanette Marcum MD BACLOFEN 10 MG TABS Take 1/2 tablet by mouth at bedtime 05/21 baclofen 63075260737 Ag Staton MD AMPHETAMINE-DEXTR OAMPHET ER 10 MG CT30K-FMS TAKE ONE CAPSULE BY MOUTH EVERY MORNING NEEDED 0 16 dextroamphetamine -amphetamine 49006790275 Bárbara Longoria PA-C DULOXETINE HCL 30 MG CPEP Take 1 capsule by mouth once a day (take with 60 mg cap) 05/03 duloxetine 54534923453 Jeanette Marcum MD DULOXETINE HCL 30 MG CPEP TAKE ONE CAPSULE BY MOUTH ONCE A DAY. TAKE WITH 60 MG CAPSULE. 0 10/26 duloxetine 05035882445 Jeanette Marcum MD AMPHETAMINE-DEXTR OAMPHET ER 10 MG YV07Y-MCV TAKE ONE CAPSULE BY MOUTH EVERY MORNING NEEDED 0 08/24 dextroamphetamine -amphetamine 10166365204 Jeanette Marcum MD DULOXETINE HCL 30 MG CPEP Take 1 capsule by mouth once a day (take with 60 mg cap) 05/03 duloxetine 03699524371 Jeanette Marcum MD AMPHETAMINE-DEXTR OAMPHET ER 10 MG YM76L-FJB TAKE ONE CAPSULE BY MOUTH EVERY MORNING NEEDED 08/24 dextroamphetamine -amphetamine 36506846646 Claudia Rodriguez PA-C DULOXETINE HCL 30 MG CPEP Take 1 capsule by mouth once a day (take with 60 mg cap) 10/29 duloxetine 42233140730 Jeanette Marcum MD ESCITALOPRAM OXALATE 10 MG TABS Take 1 tablet by mouth once a day 10/20 escitalopram oxalate 48101384045 Jeanette Marcum MD ESCITALOPRAM OXALATE 10 MG TABS Take 1 tablet by mouth once a day 10/20 escitalopram oxalate 29184336074 Jeanette Marcum MD BACLOFEN 5 MG TABS Take 1 tablet by mouth at bedtime 0 04/20 baclofen 26122814694 Jeanette Marcum MD TOPIRAMATE 25 MG TABS 1 tab at night topiramate 84840490765 Jeanette Marcum MD AMANTADINE HCL 100 MG TABS Take 1 tablet by mouth twice a day 0 9 amantadine hcl 74250055057 Jeanette Marcum MD DULOXETINE HCL 60 MG CPEP TAKE ONE CAPSULE BY MOUTH DAILY 0 804 duloxetine 35049650766 Jeanette Marcum MD AMPHETAMINE-DEXTR OAMPHET ER 10 MG UR60L-JPP TAKE ONE CAPSULE BY MOUTH EVERY MORNING NEEDED 0 08/24 dextroamphetamine -amphetamine 20595368283 Jeanette Marcum MD AMPHETAMINE-DEXTR OAMPHET ER 10 MG TR95T-FOE TAKE ONE CAPSULE BY MOUTH EVERY MORNING NEEDED 08/24 dextroamphetamine -amphetamine 72111467402 Claudia Rodriguez PA-C ESCITALOPRAM OXALATE 10 MG TABS Take 1 tablet by mouth once a day 10/20 escitalopram oxalate 34180258180 Conchis Hughes RN DULOXETINE HCL 60 MG CPEP Take 1 capsule by mouth once a day 07/09 duloxetine 26191307378 Jeanette Marcum MD DULOXETINE HCL 60 MG CPEP TAKE ONE CAPSULE BY MOUTH DAILY 09/29 duloxetine 89360523019 Claudia Rodriguez PA-C ESCITALOPRAM OXALATE 10 MG TABS TAKE ONE TABLET BY MOUTH EVERY DAY 07/09 escitalopram oxalate 09556677609 Jeanette Marcum MD BACLOFEN 5 MG TABS Take 1 tablet by mouth at bedtime 10/20 baclofen 50993445319 Claudia Rodriguez PA-C ALBUTEROL SULFATE 2 MG TABS albuterol sulfate 46273048000 Claudia Rodriguez PA-C VITAMIN D3 50 MCG (1999) TABS 2 per day cholecalciferol (vitamin d3) 32850187780 Claudia Rodriguez PA-C AMPHETAMINE-DEXTR OAMPHET ER 10 MG TZ87J-MWQ TAKE ONE CAPSULE BY MOUTH EVERY MORNING NEEDED 08/24 dextroamphetamine -amphetamine 09696747990 Jeanette Marcum MD AMPHETAMINE-DEXTR OAMPHET ER 10 MG NP35D-MYH TAKE ONE CAPSULE EVERY MORNING NEEDED dextroamphetamine -amphetamine 97369505213 Watson Baker MD AMPHETAMINE-DEXTR OAMPHET ER 10 MG OI15L-RTD TAKE ONE CAPSULE BY MOUTH EVERY MORNING NEEDED 08/24 dextroamphetamine -amphetamine 43225972533 Jeanette Marcum MD DULOXETINE HCL 60 MG CPEP Total of 120mg daily duloxetine 12369545779 Swati Mclean DNP,GLOBAL COMPENSATION ANALYST,NEONATAL INTENSIVE CARE NURSE ESCITALOPRAM OXALATE 10 MG TABS Take 1 tablet by mouth once a day 10/20 escitalopram oxalate 52244011313 Jeanette Marcum MD DULOXETINE HCL 60 MG CPEP Take 1 capsule by mouth once a day 07/24 duloxetine 33063760695 Jeanette Marcum MD AMPHETAMINE-DEXTR OAMPHET ER 10 MG XD64B-QIS Take 1 capsule by mouth every morning as needed 12/19 dextroamphetamine -amphetamine 19834777031 Watson Baker MD AMPHETAMINE-DEXTR OAMPHET ER 10 MG VW14I-SBW TAKE ONE CAPSULE EVERY MORNING NEEDED 08/24 dextroamphetamine -amphetamine 61803527676 Watson Baker MD SYMBICORT 80-4.5 MCG/ACT AERO 2 once a day budesonide-formot cherelle 63022648681 Watson Baker MD AMPHETAMINE-DEXTR OAMPHET ER 10 MG HV30G-QOE Take 1 capsule by mouth every morning as needed 08/24 dextroamphetamine -amphetamine 99304956984 Watson Baker MD OMEPRAZOLE 20 MG CPDR 1-2 capsule by mouth once a day omeprazole 40540667905 Watson Baker MD CYCLOBENZAPRINE HCL 5 MG TABS 1 tablet by mouth every night 09/14 cyclobenzaprine 15932573860 Bárbara Longoria PA-C MECLIZINE HCL 25 MG TABS 1 tablet by mouth as needed meclizine 49703716280 Watson Baker MD DULOXETINE HCL 60 MG CPEP Total of 120mg daily 07/24 duloxetine 70274854308 Swati Mclean DNP,GLOBAL COMPENSATION ANALYST,NEONATAL INTENSIVE CARE NURSE RIZATRIPTAN BENZOATE 10 MG TBDP take 1 pill at [place] onset. May repeat in 2 hours if [place] persists. No more than 2 pills in 24 hrs. rizatriptan 07540882374 Watson Baker MD LISINOPRIL 20 MG TABS 1 tablet by mouth once a day lisinopril 46824292272 Watson Baker MD RIZATRIPTAN BENZOATE 10 MG TBDP take 1 pill at [place] onset. May repeat in 2 hours if [place] persists. No more than 2 pills in 24 hrs. 11/17 RIZATRIPTAN BENZOATE 43454293521 Watson Baker MD AMPHETAMINE-DEXTR OAMPHET ER 10 MG KJ18F-IRQ TAKE ONE CAPSULE in the MORNING as needed 08/24 AMPHETAMINE-DEXTR OAMPHETAMINE 46935601525 Watson Baker MD AMPHETAMINE-DEXTR OAMPHET ER 10 MG HD41F-YVK TAKE ONE CAPSULE EVERY MORNINGON HOLD 08/24 AMPHETAMINE-DEXTR OAMPHETAMINE 29989123530 Swati Mclean DNP,GLOBAL COMPENSATION ANALYST,NEONATAL INTENSIVE CARE NURSE DULOXETINE HCL 60 MG CPEP Total of 120mg daily 07/24 DULOXETINE HCL 39287983875 Swati Mclean DNP,GLOBAL COMPENSATION ANALYST,NEONATAL INTENSIVE CARE NURSE AMPHETAMINE-DEXTR OAMPHET ER 10 MG ES77M-KVB TAKE ONE CAPSULE EVERY MORNING 08/24 AMPHETAMINE-DEXTR OAMPHETAMINE 95401498186 Watson Baker MD GABAPENTIN 300 MG CAPS 1 cap at bedtime 04/14 GABAPENTIN 67904045385 Swati Mclean DNP,GLOBAL COMPENSATION ANALYST,NEONATAL INTENSIVE CARE NURSE AMPHETAMINE-DEXTR OAMPHET ER 10 MG MM47K-MFB 1 po qAM 08/24 AMPHETAMINE-DEXTR OAMPHETAMINE 83693809286 Watson Baker MD AMPHETAMINE-DEXTR OAMPHET ER 10 MG UU04M-FJU TAKE ONE CAPSULE EVERY MORNING 08/24 AMPHETAMINE-DEXTR OAMPHETAMINE 09581608906 Wilberto Urbina MD AMPHETAMINE-DEXTR OAMPHET ER 10 MG YU06A-DUB 1 po qam 08/24 AMPHETAMINE-DEXTR OAMPHETAMINE 69779846434 Lazaro Tomas MD AMPHETAMINE-DEXTR OAMPHET ER 10 MG CW84G-BTV Take one capsule every morning. 08/24 AMPHETAMINE-DEXTR OAMPHETAMINE 58225317103 Nancy Abdul MD AMPHETAMINE-DEXTR OAMPHET ER 10 MG VD76X-TZS TAKE ONE CAPSULE EVERY MORNING 08/24 AMPHETAMINE-DEXTR OAMPHETAMINE 82091039988 Lazaro Tomas MD CYCLOBENZAPRINE HCL 5 MG TABS 1 tab at bedtime 09/14 CYCLOBENZAPRINE HCL 84254813013 Bárbara Longoria PA-C GABAPENTIN 300 MG CAPS 1 cap at bedtime 09/14 GABAPENTIN 42674300315 Bárbara Longoria PA-C DULOXETINE HCL 60 MG CPEP 07/24 DULOXETINE HCL 34710828307 Bárbara Longoria PA-C PRAMIPEXOLE DIHYDROCHLORIDE 0.25 MG TABS 1 po one hour before bed 05/19 PRAMIPEXOLE DIHYDROCHLORIDE 15309251382 Lazaro Tomas MD AMPHETAMINE-DEXTR OAMPHET ER 10 MG ZY89T-GNR 1 po qam 08/24 AMPHETAMINE-DEXTR OAMPHETAMINE 74619209515 Lazaro Tomas MD AMPHETAMINE-DEXTR OAMPHET ER 10 MG FD04U-KCD 1 po AM 08/24 AMPHETAMINE-DEXTR OAMPHETAMINE 21038983103 Lazaro Tomas MD AMPHETAMINE-DEXTR OAMPHET ER 10 MG GV68H-VKG 1 po qam 08/24 AMPHETAMINE-DEXTR OAMPHETAMINE 61376710187 Lazaro Tomas MD AMPHETAMINE-DEXTR OAMPHET ER 10 MG CD04E-VIO TAKE ONE CAPSULE EVERY MORNING 08/24 AMPHETAMINE-DEXTR OAMPHETAMINE 22239135407 Lazaro Tomas MD AMPHETAMINE-DEXTR OAMPHET ER 10 MG AR86M-GTY 1 po qAM 08/24 AMPHETAMINE-DEXTR OAMPHETAMINE 02562132057 Lazaro Tomas MD AMPHETAMINE-DEXTR OAMPHET ER 10 MG PW36O-KYA TAKE ONE CAPSULE EVERY MORNING 0 08/24 AMPHETAMINE-DEXTR OAMPHETAMINE 03726264351 Lazaro Tomas MD AMPHETAMINE-DEXTR OAMPHET ER 10 MG UR47M-SIW 1 po qAM 0 08/24 AMPHETAMINE-DEXTR OAMPHETAMINE 96460043570 Lazaro Tomas MD AMPHETAMINE-DEXTR OAMPHET ER 10 MG ZR83F-SHB 1 po qam 0 08/24 AMPHETAMINE-DEXTR OAMPHETAMINE [id number] Lazaro Tomas MD AMPHETAMINE-DEXTR OAMPHET ER 10 MG XY69H-TLC 1 po qam 0 08/24 AMPHETAMINE-DEXTR OAMPHETAMINE 21281736858 Lazaro Tomas MD AMPHETAMINE-DEXTR OAMPHET ER 10 MG BV82S-KHX 1 po qam 0 08/24 AMPHETAMINE-DEXTR OAMPHETAMINE 53006168713 Lazaro Tomas MD AMPHETAMINE-DEXTR OAMPHET ER 10 MG PU98L-SNN 1 po qd 0 08/24 AMPHETAMINE-DEXTR OAMPHETAMINE 79595143992 Lazaro Tomas MD PRAMIPEXOLE DIHYDROCHLORIDE 0.25 MG TABS 1 po one hour before bed 0 07/24 PRAMIPEXOLE DIHYDROCHLORIDE 11921373761 Lazaro Tomas MD CYCLOBENZAPRINE HCL 10 MG TABS 1 po prn 10/01 CYCLOBENZAPRINE HCL 12354160605 Lazaro Tomas MD AMPHETAMINE-DEXTR OAMPHET ER 10 MG ZJ23O-USX 1 po qd 0 08/24 AMPHETAMINE-DEXTR OAMPHETAMINE [id number] Lazaro Tomas MD AMPHETAMINE-DEXTR OAMPHET ER 10 MG HB30B-YUV 1 po qd 0 08/24 AMPHETAMINE-DEXTR OAMPHETAMINE 63258885274 Lazaro Tomas MD SYMBICORT 80-4.5 MCG/ACT AERO 2 per day 11/17 BUDESONIDE-FORMOT CHERELLE FUMARATE 95103253890 Lazaro Tomas MD CYCLOBENZAPRINE HCL 10 MG TABS 1 po prn 10/01 CYCLOBENZAPRINE HCL 47746860918 Lazaro Tomas MD MECLIZINE HCL 25 MG TABS 1 po prn 11/17 MECLIZINE HCL 48672199275 Lazaro Tomas MD OMEPRAZOLE 20 MG CPDR 1-2 po qd 09/14 OMEPRAZOLE [id number] Lazaro Tomas MD LISINOPRIL 20 MG TABS 1 po qd 04/23 LISINOPRIL 47451644376 Lazaro Tomas MD AMPHETAMINE-DEXTR OAMPHET ER 10 MG HF22M-SPI 1 po qam 08/24 AMPHETAMINE-DEXTR OAMPHETAMINE [id number] Lazaro Tomas MD DULOXETINE HCL 30 MG CPEP 1 po qam 07/24 DULOXETINE HCL 36027117128 Lazaro Tomas MD Medications Administered No information [...] AMPHIPHYS AB * Amphiphy sin Ab, S SOLAR SITE ASSESSMENT SPECIALIST-2 * Purkinje Cell Cytoplasmic Ab Type 2 SOLAR SITE ASSESSMENT SPECIALIST-1 * Purkinje Cell Cytoplasmic Ab Type 1 [...] [Mass/volume] in Serum or Plasma by Electrophoresis [id number] * g/dL beta 2 g lobulin [id number] * g/dL beta 1 g lobulin ALPHA [...] D ULOXETINE HCL 30 MG ORAL CPEP [facility]_ [id number]`D ULOXETINE HCL 30 MG ORAL CPEP`30``30 Capsule``1 PO QAM``5`0`09/26`No date sent`Distra [id number]*`[id number] [id number] [phone]`60313`DULOXMike [address] DR 30MG CAPSULES Quantity: 30 Capsule [...] PM Jose Alberto Regan MD , [address] [facility], [address], [place], [address], Pending order Follow up Extend ed Pending [...] ROSA ORDERS Patient Instructions ORDERS Physical Therapy RUST-[id number] Orthopedic Surgery Referral RUST-[id number] Documentation of current medicatio ns ORDERS Patient Instructions ORDERS Follow up Extended i n clinic or telemedicine ORDERS Patient Instructions RUST-[id number] Psychiatry Referral ORDERS Follow up in clinic or telemedicine 04/20 ORDERS Follow up ROSA in clinic or telemedicine RUST-[id number] Documentation of current medicatio ns ORDERS Patient Instructions ORDERS Patient Instructions ORDERS Patient Instructions ORDERS Follow up ROSA ORDERS Follow up ORDERS Patient Instructions ORDERS Patient Instructions ORDERS Patient Instructions ORDERS Follow up ROSA ORDERS Patient Instructions SCT-[id number] Documentation of current medicatio ns ORDERS Follow up SCT-[id number] Documentation of current medicatio ns ORDERS Follow up ROSA ORDERS Physical Therapy ORDERS Follow up SCT-[id number] Documentation of current medicatio ns CPT-19289 Nerve Conduction 9-10 studies CPT-87041 EMG with NCS (5+ muscles) - 2 limbs 12/30 ORDERS Follow up SCT-[id number] Documentation of current medicatio ns ORDERS Patient Instructions SCT-[id number] Documentation of current medicatio ns SCT-[id number] Documentation of current medicatio ns ORDERS Follow up SCT-[id number] Documentation of current medicatio ns SCT-[id number] Documentation of current medicatio ns CPT-49970 Nerve Conduction 7-8 studies CPT-46477 EMG with NCS (5+ muscles) - 2 limbs 12/21 [id number] Other Referral ORDERS Follow up SCT-[id number] Documentation of current medicatio ns [id number] MRI-Cervical W/WO MS Protocol CPT-M3927M ProHance Gadolinium- based MR Contrast - 20 ml vial CPT-70402 MRI Cervical W/WO ORDERS Immunofixation Urine (ROGELIO [...] GERALDINE) ORDERS Paraneoplastic Ab (O NLY Anti-Hu/Anti-Yo/Anti-Ri) SCT-[id number] Other Referral RUST-[id number] Documentation of current medicatio ns Vital Signs [...] available. Advance Directives Directive Description Start Date MANAGER PMO 09/18/18 CSA 05/15/18 MANAGER PMO 02/20/18 MANAGER PMO 09/22/17 CSA 05/03/17 MANAGER PMO 03/23/17 MANAGER PMO 10/14/16 CSA 04/28/16
--- NOTE | 2024-10-15 18:10 | ED.GENADULT ---
HPI - General Adult General Date Seen: 10/15/24 Chief complaint: Laceration/Wound Stated complaint: bleeding from surgical wound Time Seen by Provider: 10/15/24 17:52 History of Present Illness HPI narrative: Patient is a 74-year-old woman who had surgery on her left hip on October 11 at [facility]. She is not anticoagulated but has been off of her blood pressure medicines since her surgery, she is supposed to resume most tomorrow. She has noted some bleeding onto the dressing over the past day or so. She does note that she was more active yesterday because she was feeling good. She called the clinic and was told to come to the ER. Otherwise she has not been having significant pain, has not had any trauma does not have any other complaints. Related Data Home Medications ?Medication ?Instructions ?Recorded ?Confirmed acetaminophen 500 mg tablet mg PO PRN 11/27/21 07/15/24 albuterol 90 mcg/actuation aerosol 2 spray inhalation PRN 11/27/21 07/15/24 inhaler budesonide-formoterol HFA 80 2 inhalation BID 11/27/21 07/15/24 mcg-4.5 mcg/actuation aerosol inhaler calcium acetate PO 11/27/21 07/15/24 dextroamphetamine-amphetamine ER 10 PO DAILY 11/27/21 07/15/24 10 mg 24hr capsule,extend release duloxetine 60 mg capsule,delayed 60 mg PO DAILY 11/27/21 10/15/24 release lisinopril 20 1 tab PO DAILY 11/27/21 10/15/24 mg-hydrochlorothiazide 25 mg tablet lutein 10 mg tablet 50 mg PO DAILY 11/27/21 10/15/24 meclizine 25 mg tablet 25 mg PO PRN 11/27/21 07/15/24 naproxen sodium 220 mg tablet 440 mg PO PRN 11/27/21 07/15/24 omeprazole 20 mg capsule,delayed mg PO DAILY 11/27/21 07/15/24 release amantadine HCl 100 mg capsule 100 mg PO BID 10/15/24 10/15/24 amlodipine 5 mg tablet 5 mg PO DAILY 10/15/24 10/15/24 baclofen 10 mg tablet 5 mg PO QPM 10/15/24 10/15/24 fluticasone 250 mcg-salmeterol 50 1 ea inhalation BID 10/15/24 10/15/24 mcg/dose blistr powdr for inhalation hydrochlorothiazide 25 mg tablet 25 mg PO DAILY 10/15/24 10/15/24 ibuprofen 600 mg tablet 600 mg PO Q6H PRN 10/15/24 10/15/24 oxycodone 5 mg tablet PO 10/15/24 sennosides 8.6 mg-docusate sodium PO 10/15/24 50 mg tablet (Senexon-S) spironolactone 25 mg tablet 12.5 mg PO QAM 10/15/24 10/15/24 topiramate 25 mg tablet 25 mg PO QPM 10/15/24 10/15/24 trazodone 50 mg tablet mg PO 10/15/24 Allergies Allergy/AdvReac Type Severity Reaction Status Date / Time furosemide (From Lasix) Allergy Intermediate Hives Verified 10/15/24 15:10 tizanidine Allergy Mild Dizziness Verified 10/15/24 15:10 [facility] Surgical History (Updated 11/19/21 @ 12:20 by Romana Zuniga) Status post right hip replacement ?Z96.641 - Presence of right artificial hip joint (ICD-10) Social History Smoking Status: Never smoker Exam Narrative: Exam Narrative: Vital signs reviewed, hypertensive In general, alert well-appearing woman, she is ambulatory without difficulty with her walker. Extremities: Examination of the left hip shows an intact incision, the dressing was saturated with blood but I do not see any evidence of hematoma, there is no active bleeding at this time. There is no tenderness, no significant erythema or evidence of infection. Const: Vital Signs, click to edit/add: Vital Signs - 24 hr 10/15/24 15:11 Temperature 97.5 F L Pulse Rate [Pulse Oximeter] 100 Respiratory Rate 20 Blood Pressure [Ri ght Upper Arm] 174/83 H Pulse Oximetry 99 Oxygen Delivery Me thod Room Air Course Course ED Course: I replaced her surgical dressing with a Mepilex dressing as this was what fit the wound best. She is scheduled to see her orthopedic surgeon in clinic follow-up in 2 days. I advised that she take it easy over the next couple of days, resume her blood pressure medicines as scheduled. Return any time if she has recurrent bleeding. Vital Signs Vital signs: Initial Vital Signs Temperature 97.5 F L 10/15/24 15:11 Temperature Source Temporal Artery Scan 10/15/24 15:11 Pulse Rate 100 10/15/24 15:11 Respiratory Rate 20 10/15/24 15:11 Blood Pressure 174/83 H 10/15/24 15:11 Blood Pressure Mean 113 H 10/15/24 15:11 Pulse Oximetry 99 10/15/24 15:11 Oxygen Delivery Method Room Air 10/15/24 15:11 Vital Signs Temperature 97.5 F L 10/15/24 15:11 Pulse Rate 100 10/15/24 15:11 Respiratory Rate 20 10/15/24 15:11 Blood Pressure 174/83 H 10/15/24 15:11 Pulse Oximetry 99 10/15/24 15:11 Oxygen Delivery Method Room Air 10/15/24 15:11 Temperature 97.5 F L 10/15/24 15:11 Pulse Rate 100 10/15/24 15:11 Respiratory Rate 20 10/15/24 15:11 Blood Pressure 174/83 H 10/15/24 15:11 Pulse Oximetry 99 10/15/24 15:11 Oxygen Delivery Method Room Air 10/15/24 15:11 Discharge Plan Discharge Clinical Impression: Visit for wound check Prescriptions: No Action lutein 10 mg tablet 50 mg PO DAILY budesonide-formoterol 80-4.5 mcg/actuation HFA aerosol inhaler 2 inhalation BID duloxetine 60 mg capsule,delayed release(DR/EC) 60 mg PO DAILY albuterol 90 mcg/actuation aerosol 2 spray inhalation PRN dextroamphetamine-amphetamine 10 mg capsule,extended release 24hr 10 PO DAILY lisinopril-hydrochlorothiazide 20-25 mg tablet 1 tab PO DAILY omeprazole 20 mg capsule,delayed release(DR/EC) PO DAILY naproxen sodium 220 mg tablet 440 mg PO PRN meclizine 25 mg tablet 25 mg PO PRN calcium acetate PO acetaminophen 500 mg tablet PO PRN fluticasone propion-salmeterol 250-50 mcg/dose blister with device 1 ea INHALATION BID trazodone 50 mg tablet PO sennosides-docusate sodium [Senexon-S] 8.6-50 mg tablet PO topiramate 25 mg tablet 25 mg PO QPM amlodipine 5 mg tablet 5 mg PO DAILY amantadine HCl 100 mg capsule 100 mg PO BID spironolactone 25 mg tablet 12.5 mg PO QAM baclofen 10 mg tablet 5 mg PO QPM hydrochlorothiazide 25 mg tablet 25 mg PO DAILY ibuprofen 600 mg tablet 600 mg PO Q6H PRN oxycodone 5 mg tablet PO Follow Up/Referrals: Rachel Carmona MD [Primary Care Provider, Internal Medicine]
== END 2024-10-15 18:18 | disposition home or self-care (01) ==
PROVIDERS: Emergency Provider Emergency Medicine; PCP Internal Medicine
DX: L76.22 Postprocedural hemorrhage of skin and subcutaneous tissue following other procedure (principal)
CPT/HCPCS: 99283

== ENCOUNTER 2024-10-30 15:48 | Emergency (ER) | payer MEDICARE, MEDICAID, SELFPAY ==
--- OUTSIDE RECORDS SUMMARY | 2013-05-07 08:21 | XMS_ITS | Continuity of Care Document ---
Author Organization [facility] Address [address] [place] [address] Phone Care Team Providers Care Yarn Rewinder Name Role Phone Carlito FAIR DPT, Irene Unavailable Unavailab le Allergies, Adverse Reactions, Alerts Substance Reaction Status Criticality No Known allergies Medications Medication Instructions Dosage Effective Dates (start - stop) Status Comments ALBUTEROL SULFATE HFA (unknown strength) inhale 1 - 2 puff by inhalation route every 4 hours as needed Not Available - Active meloxicam 15 mg tablet take 1 tablet by oral route every day 15 MG - Active meclizine 25 mg tablet take 1 tablet by ORAL route as needed - Active cyclobenzaprine 10 mg tablet take [...] Providers Copied on Encounter JONATHAN Yanes, [address], [place], [address], tel:[phone] [facility] No Information 4 Carlito Mosqueda. [address] [place], [place], [address], [place]. tel:[phone] Referring Provider: Allyson Griffith, [address] [place], [address]. tel:[phone] JONATHAN Yanes, [address] [facility] [address], [place], [address], tel:[phone] [facility] No Information 3 Collin WHIRLEY OPERATOR Carri. [address] , [facility] [address], [place], [address], [place]. tel:[phone] Referring Provider: Allyson Griffith, [address] [place], [address]. tel:[phone] JONATHAN Yanes, [address] [facility] [address], [place], [address], [place] tel:[phone] [facility] No Information 3 Collin WHIRLEY OPERATOR Carri. [address] , [address], [place], [address], [place]. tel:[phone] Referring Provider: Allyson Griffith, [address] [place], [address]. tel:[phone] JONATHAN Yanes, [address], [place], [address], [place] tel:[phone] [facility] No Information 3 Collin WHIRLEY OPERATOR Carri. [address], [place], [address], [place]. tel:[phone] Referring Provider: Allyson Griffith, [address] [place], [address]. tel:[phone] [facility], [address], [place], [place], [address], [place] tel:[phone] [facility] No Information 3 Collin WHIRLEY OPERATOR Carri. [address], [place], [address], [place]. tel:[phone] Referring Provider: Allyson Griffith, [address] [place], [address]. tel:[phone] [facility], [address] [facility] [address], [place], [place], [address], [place] tel:[phone] [facility] No Information 3 Carlito Mosqueda. [address], [place], [address], [place]. tel:[phone] Referring Provider: Allyson Griffith, [address] [place], [address]. tel:[phone] Offic Cons New/estab Mod-hi 60 [facility], [address] [facility] [address], [place], [place], [address], [place] tel:[phone] [facility] No Information 3 Gume Darby. [address] , [address], [place], [address], [place]. tel:[phone] Referring Provider: Allyson Griffith, [address] [place], [address]. tel:[phone] [facility], [address], [place], [place], [address], [place] tel:[phone] [facility] No Information 201 3 No Information Referring Provider: Crescencio Cuevas MD, [address] [facility] [address] [place], [address]. tel:[phone] Family History Family Member Type Diagnosis Age At Onset No Information Payers Payer name Insurance type Covered alliance party ID Maria Luz lanier(s) [employer] [id number] Social History Type Description Quantity Date Captured [...]
--- OUTSIDE RECORDS SUMMARY | 2013-05-07 08:21 | XMS_ITS | Continuity of Care Document ---
Author Organization [facility] Address [address] [place] [address] Phone Care Team Providers Care Lead Java Programmer Name Role Phone Carlito FAIR, Jaylin OLIVAS [...] Providers Copied on Encounter JONATHAN Yanes, [address], [place], [id number], tel:[phone] [facility] No Information 4 Carlito Mosqueda. [address] [place], [place], [address], [place]. tel:[phone] Referring Provider: Allyson Griffith, [address] [place], [address]. tel:[phone] JONATHAN Yanes, [address] [facility] [address], [place], [id number], tel:[phone] [facility] No Information 3 Collin BATTALION FIRE CHIEF Carri. [address] , [facility] [address], [place], [address], [place]. tel:[phone] Referring Provider: Allyson Griffith, [address] [place], [address]. tel:[phone] JONATHAN Yanes, [address] [facility] [address], [place], [address], [place] tel:[phone] [facility] No Information 3 Collin BATTALION FIRE CHIEF Carri. [address] , [address], [place], [address], [place]. tel:[phone] Referring Provider: Allyson Griffith, [address] [place], [address]. tel:[phone] JONATHAN Yanes, [address], [place], [address], [place] tel:[phone] [facility] No Information 3 Collin BATTALION FIRE CHIEF Carri. [address], [place], [address], [place]. tel:[phone] Referring Provider: Allyson Griffith, [address] [place], [address]. tel:[phone] [facility], [address], [place], [place], [address], [place] tel:[phone] [facility] No Information 3 Collin BATTALION FIRE CHIEF Carri. [address], [place], [address], [place]. tel:[phone] Referring Provider: Allyson Griffith, [address] [place], [address]. tel:[phone] [facility], [address] [facility], [place], [place], [address], [place] tel:[phone] [facility] No Information 3 Carlito Mosqueda. [address], [address], [place]. tel:[phone] Referring Provider: Allyson Griffith, [address] [place], [address]. tel:[phone] Offic Cons New/estab Mod-hi 60 [facility], [address] [facility], [place], [place], [address], [place] tel:[phone] [facility] No Information 3 Gume Darby. [address] , [address], [place], [address], [place]. tel:[phone] Referring Provider: Allyson Griffith, [address] [place], [address]. tel:[phone] [facility], [address], [place], [place], [address], [place] tel:[phone] [facility] No Information 201 3 No Information Referring Provider: Crescencio Cuevas MD, [address] [place], [address]. tel:[phone] Family History Family Member Type Diagnosis Age At Onset No Information Payers Payer name Insurance type Covered republican ID Maria Luz lanier(s) [employer] [place] [id number] Social History Type Description Quantity Date Captured [...]
--- OUTSIDE RECORDS SUMMARY | 2024-10-30 15:58 | XMS_ITS | Clinical Summary ---
Author Organization [facility] Address [address] [place] [address] Care Team Providers Care Supervisor Diagnostic Name Role Phone Unavailable Primary Care Provider Unavailabl e Source Comments Patient records contain information from all sites at [facility]. For routine questions regarding patient records, call [phone] during business hours, M-F 8:00 AM - 5:00 PM Central Time. Record requests for emergency care only can be directed to [phone] at any time.[facility] Allergies Active Allergy Reactions Criticality Noted [...] mouth every morning before breakfast. Active rizatriptan [employer] ([employer]) 10 mg disintegrating tablet Dissolve 10 mg [...] patient's age to complete this topic Insurance [employer]
--- OUTSIDE RECORDS SUMMARY | 2024-10-30 15:58 | XMS_ITS | Clinical Summary ---
Author Organization [facility] Address [address] , [address] [place] [address] Phone Care Team Providers Care Security Screener Name Role Phone Zachary FOLEY, BSN, Peace Thompson [phone] Conditions or Problems Problem Name Problem Code Onset Date Status Entry Date Provider Comment Standard Description Annotate Knee pain, left, chronic 1167196279 (SNOMED CT) 10/26 Active 10/28 Noy Campeau Pain of joint of knee Knee pain, right, chronic 1636152880 (SNOMED CT) 10/26 Active 10/26 Noy [place]peau Pain of joint of knee Hip pain, left 51227077 (SNOMED CT) 10/26 Active 10/28 Noy [place]peau Pain of hip region Hip joint pain, right 39075382 (SNOMED CT) 10/26 Active 10/26 Noy [place]au Pain of hip region Leg pain, left 575362540 (SNOMED CT) 10/26 Active 10/28 Noy Campeau Pain in left lower limb Leg pain, right 391113217 (SNOMED CT) 10/26 Active 10/26 Noy Campeau Pain in right lower limb Leg pain, bilateral 87654762 (SNOMED CT) 10/26 Inactive 10/26 Jeanette Marcum MD Pain in lower limb Restless leg syndrome 01406614 (SNOMED CT) 10/26 Active 10/26 Jeanette Marcum MD Restless legs Hip pain 18842729 (SNOMED CT) 10/26 Inactive 10/26 Jeanette Marcum MD Pain of hip region Knee pain, chronic 77901785 (SNOMED CT) 10/26 Inactive 10/26 Jeanette Marcum MD Knee pain Low back pain, chronic 360520988 (SNOMED CT) 10/26 Active 10/26 Jeanette Marcum MD Chronic low back pain Fatigue, chronic 77240489 (SNOMED CT) Active Jeanette Marcum MD Fatigue Anxiety disorder 017542036 (SNOMED CT) Active Jeanette Marcum MD Anxiety disorder Depression 96394315 (SNOMED CT) Active Jeanette Marcum MD Depressive disorder Multiple sclerosis, relapsing/r emitting 091750219 (SNOMED CT) 1986 Active 09/26 Jeanette Marcum MD Relapsing remitting multiple sclerosis Carpal tunnel syndrome, bilateral upper limbs [id number] 101 (SNOMED CT) 12/30 Active 12/30 Watson Baker MD Bilateral carpal tunnel syndrome Multiple sclerosis, relapsing/r emitting 318369662 (SNOMED CT) 09/26 Inactive 09/26 Lazaro Tomas MD Relapsing remitting multiple sclerosis Neuropathy, idiopathic peripheral 46530116 (SNOMED CT) 09/26 Active 09/26 Lazaro Tomas MD Idiopathic peripheral neuropathy Medications Medication Instructions Start Date Stop Date Generic Name ND Provider BACLOFEN 10 MG TABS Take 1/2 tablet by mouth at bedtime baclofen [id number] Jeanette Marcum MD AMANTADINE HCL 100 MG TABS Take 1 tablet by mouth twice a day 12/19 amantadine hcl 32007567718 Claudia SILVER-Ibrahima AMANTADINE HCL 100 MG CAPS TAKE ONE CAPSULE BY MOUTH TWICE DAILY amantadine hcl 19857256456 Claudia SILVER-C ESCITALOPRAM OXALATE 10 MG TABS Take 1 Tablet by mouth one time a day. escitalopram oxalate 01960091377 Jeanette Marcum MD AMPHETAMINE-DEXTR OAMPHET ER 10 MG [id number] TAKE ONE CAPSULE BY MOUTH EVERY MORNING NEEDED 07/27 dextroamphetamine -amphetamine 92271656855 Jeanette Marcum MD AMPHETAMINE-DEXTR OAMPHET ER 10 MG [id number]-[id number] Take 1 capsule by mouth every morning TAKE ONE CAPSULE BY MOUTH EVERY MORNING NEEDED dextroamphetamine -amphetamine 68988299581 Claudia Rodriguez PA-C DULOXETINE HCL 60 MG CPEP TAKE ONE CAPSULE BY MOUTH DAILY duloxetine 96587354257 Jeanette Marcum MD AMPHETAMINE-DEXTR OAMPHET ER 10 MG VC37L-TZZ TAKE ONE CAPSULE BY MOUTH EVERY MORNING NEEDED 08/24 dextroamphetamine -amphetamine 46646617368 Jeanette Marcum MD DULOXETINE HCL 60 MG CPEP TAKE ONE CAPSULE BY MOUTH DAILY 05/19 duloxetine 34640879411 Jeanette Marcum MD DULOXETINE HCL 60 MG CPEP TAKE ONE CAPSULE BY MOUTH DAILY 04/16 duloxetine 50431296183 Katalina Lagunas PA-C DULOXETINE HCL 30 MG CPEP TAKE ONE CAPSULE BY MOUTH ONCE A DAY. TAKE WITH 60 MG CAPSULE. 10/26 duloxetine 79164837422 Jeanette Marcum MD ESCITALOPRAM OXALATE 10 MG TABS Take 1 Tablet by mouth one time a day. 10/23 escitalopram oxalate 79870182914 Jeanette Marcum MD AMPHETAMINE-DEXTR OAMPHET ER 5 MG IN76H-QDB TAKE TWO CAPSULE BY MOUTH EVERY MORNING NEEDED 10/07 dextroamphetamine -amphetamine 44694621932 Jeanette Marcum MD AMPHETAMINE-DEXTR OAMPHET ER 10 MG RA91N-JFZ TAKE ONE CAPSULE BY MOUTH EVERY MORNING NEEDED 08/24 dextroamphetamine -amphetamine 67004386159 Jeanette Marcum MD AMPHETAMINE-DEXTR OAMPHET ER 10 MG PM77Q-UUA TAKE ONE CAPSULE BY MOUTH EVERY MORNING NEEDED 0 09/30 dextroamphetamine -amphetamine 56576675257 Jeanette Marcum MD AMPHETAMINE-DEXTR OAMPHET ER 5 MG CM70R-JVZ TAKE TWO CAPSULE BY MOUTH EVERY MORNING NEEDED 0 10/19 dextroamphetamine -amphetamine 98484578918 Jeanette Marcum MD AMPHETAMINE-DEXTR OAMPHET ER 10 MG ZG10O-WGT TAKE ONE CAPSULE BY MOUTH EVERY MORNING NEEDED 0 08/24 dextroamphetamine -amphetamine 67587909408 Claudia Rodriguez PA-C AMPHETAMINE-DEXTR OAMPHET ER 10 MG PR65T-YOP TAKE ONE CAPSULE BY MOUTH EVERY MORNING NEEDED 0 08/24 dextroamphetamine -amphetamine 54233232793 Jeanette Marcum MD AMPHETAMINE-DEXTR OAMPHET ER 10 MG ON76H-WOC TAKE ONE CAPSULE BY MOUTH EVERY MORNING NEEDED 0 08/24 dextroamphetamine -amphetamine 48909832370 Justin Romero MD AMPHETAMINE-DEXTR OAMPHET ER 10 MG SQ28Q-UDU TAKE ONE CAPSULE BY MOUTH EVERY MORNING NEEDED 0 08/24 dextroamphetamine -amphetamine 54350967769 Jeanette Marcum MD BACLOFEN 10 MG TABS Take 1/2 tablet by mouth at bedtime 05/21 baclofen 02996547173 Ag Staton MD AMPHETAMINE-DEXTR OAMPHET ER 10 MG LU64F-SYM TAKE ONE CAPSULE BY MOUTH EVERY MORNING NEEDED 0 16 dextroamphetamine -amphetamine 65309069465 Bárbara Longoria PA-C DULOXETINE HCL 30 MG CPEP Take 1 capsule by mouth once a day (take with 60 mg cap) 05/03 duloxetine 97821495485 Jeanette Marcum MD DULOXETINE HCL 30 MG CPEP TAKE ONE CAPSULE BY MOUTH ONCE A DAY. TAKE WITH 60 MG CAPSULE. 0 10/26 duloxetine 46719960981 Jeanette Marcum MD AMPHETAMINE-DEXTR OAMPHET ER 10 MG BU88X-JJM TAKE ONE CAPSULE BY MOUTH EVERY MORNING NEEDED 0 08/24 dextroamphetamine -amphetamine 56495396229 Jeanette Marcum MD DULOXETINE HCL 30 MG CPEP Take 1 capsule by mouth once a day (take with 60 mg cap) 05/03 duloxetine 44153756943 Jeanette Marcum MD AMPHETAMINE-DEXTR OAMPHET ER 10 MG LH15A-YAK TAKE ONE CAPSULE BY MOUTH EVERY MORNING NEEDED 08/24 dextroamphetamine -amphetamine 45908888366 Claudia Rodriguez PA-C DULOXETINE HCL 30 MG CPEP Take 1 capsule by mouth once a day (take with 60 mg cap) 10/29 duloxetine 62301631773 Jeanette Marcum MD ESCITALOPRAM OXALATE 10 MG TABS Take 1 tablet by mouth once a day 10/20 escitalopram oxalate 42286902202 Jeanette Marcum MD ESCITALOPRAM OXALATE 10 MG TABS Take 1 tablet by mouth once a day 10/20 escitalopram oxalate 37447436624 Jeanette Marcum MD BACLOFEN 5 MG TABS Take 1 tablet by mouth at bedtime 0 04/20 baclofen 85622049588 Jeanette Marcum MD TOPIRAMATE 25 MG TABS 1 tab at night topiramate 45843441829 Jeanette Marcum MD AMANTADINE HCL 100 MG TABS Take 1 tablet by mouth twice a day 0 9 amantadine hcl 07002541071 Jeanette Marcum MD DULOXETINE HCL 60 MG CPEP TAKE ONE CAPSULE BY MOUTH DAILY 0 804 duloxetine 45350827193 Jeanette Marcum MD AMPHETAMINE-DEXTR OAMPHET ER 10 MG RR13I-QNM TAKE ONE CAPSULE BY MOUTH EVERY MORNING NEEDED 0 08/24 dextroamphetamine -amphetamine 45186917081 Jeanette Marcum MD AMPHETAMINE-DEXTR OAMPHET ER 10 MG ZH58U-QQE TAKE ONE CAPSULE BY MOUTH EVERY MORNING NEEDED 08/24 dextroamphetamine -amphetamine 10575004561 Claudia Rodriguez PA-C ESCITALOPRAM OXALATE 10 MG TABS Take 1 tablet by mouth once a day 10/20 escitalopram oxalate 50053493711 Conchis Hughes RN DULOXETINE HCL 60 MG CPEP Take 1 capsule by mouth once a day 07/09 duloxetine 77540226862 Jeanette Marcum MD DULOXETINE HCL 60 MG CPEP TAKE ONE CAPSULE BY MOUTH DAILY 09/29 duloxetine 02071974465 Claudia Rodriguez PA-C ESCITALOPRAM OXALATE 10 MG TABS TAKE ONE TABLET BY MOUTH EVERY DAY 07/09 escitalopram oxalate 48863459920 Jeanette Marcum MD BACLOFEN 5 MG TABS Take 1 tablet by mouth at bedtime 10/20 baclofen 96380711292 Claudia Rodriguez PA-C ALBUTEROL SULFATE 2 MG TABS albuterol sulfate 23521639638 Claudia Rodriguez PA-C VITAMIN D3 50 MCG (1999) TABS 2 per day cholecalciferol (vitamin d3) 44478499381 Claudia Rodriguez PA-C AMPHETAMINE-DEXTR OAMPHET ER 10 MG FR10V-MXF TAKE ONE CAPSULE BY MOUTH EVERY MORNING NEEDED 08/24 dextroamphetamine -amphetamine 19898683023 Jeanette Marcum MD AMPHETAMINE-DEXTR OAMPHET ER 10 MG NB32S-IZO TAKE ONE CAPSULE EVERY MORNING NEEDED dextroamphetamine -amphetamine 56915892406 Watson Baker MD AMPHETAMINE-DEXTR OAMPHET ER 10 MG KB81R-PME TAKE ONE CAPSULE BY MOUTH EVERY MORNING NEEDED 08/24 dextroamphetamine -amphetamine 79033333392 Jeanette Marcum MD DULOXETINE HCL 60 MG CPEP Total of 120mg daily duloxetine 19482180594 Swati Mclean DNP,CREDIT REVIEW OFFICER,RADIOPHARMACIST ESCITALOPRAM OXALATE 10 MG TABS Take 1 tablet by mouth once a day 10/20 escitalopram oxalate 53256358038 Jeanette Marcum MD DULOXETINE HCL 60 MG CPEP Take 1 capsule by mouth once a day 07/24 duloxetine 19428634001 Jeanette Marcum MD AMPHETAMINE-DEXTR OAMPHET ER 10 MG OA60D-FQY Take 1 capsule by mouth every morning as needed 12/19 dextroamphetamine -amphetamine 74336250994 Watson Baker MD AMPHETAMINE-DEXTR OAMPHET ER 10 MG OD40K-VGM TAKE ONE CAPSULE EVERY MORNING NEEDED 08/24 dextroamphetamine -amphetamine 75949962000 Watson Baker MD SYMBICORT 80-4.5 MCG/ACT AERO 2 once a day budesonide-formot cherelle 75819226893 Watson Baker MD AMPHETAMINE-DEXTR OAMPHET ER 10 MG YW42A-YRW Take 1 capsule by mouth every morning as needed 08/24 dextroamphetamine -amphetamine 54557643725 Wtason Baker MD OMEPRAZOLE 20 MG CPDR 1-2 capsule by mouth once a day omeprazole 78800164217 Watson Baker MD CYCLOBENZAPRINE HCL 5 MG TABS 1 tablet by mouth every night 10/19 cyclobenzaprine 03428911334 Bárbara Longoria PA-C MECLIZINE HCL 25 MG TABS 1 tablet by mouth as needed meclizine 23732532841 Watson Baker MD DULOXETINE HCL 60 MG CPEP Total of 120mg daily 07/24 duloxetine 71817648004 Swati Mclean DNP,CREDIT REVIEW OFFICER,RADIOPHARMACIST RIZATRIPTAN BENZOATE 10 MG TBDP take 1 pill at [place] onset. May repeat in 2 hours if [place] persists. No more than 2 pills in 24 hrs. rizatriptan 34317352517 Watson Baker MD LISINOPRIL 20 MG TABS 1 tablet by mouth once a day lisinopril 59698112207 Watson Baker MD RIZATRIPTAN BENZOATE 10 MG TBDP take 1 pill at [place] onset. May repeat in 2 hours if [place] persists. No more than 2 pills in 24 hrs. 11/17 RIZATRIPTAN BENZOATE 22330276005 Watson Baker MD AMPHETAMINE-DEXTR OAMPHET ER 10 MG [id number]-IAW TAKE ONE CAPSULE in the MORNING as needed 08/24 AMPHETAMINE-DEXTR OAMPHETAMINE 92309169190 Watson Baker MD AMPHETAMINE-DEXTR OAMPHET ER 10 MG UF11V-JQC TAKE ONE CAPSULE EVERY MORNINGON HOLD 08/24 AMPHETAMINE-DEXTR OAMPHETAMINE 44154450955 Swati Mclean DNP,CREDIT REVIEW OFFICER,RADIOPHARMACIST DULOXETINE HCL 60 MG CPEP Total of 120mg daily 07/24 DULOXETINE HCL 93053612380 Swati Mclean DNP,CREDIT REVIEW OFFICER,RADIOPHARMACIST AMPHETAMINE-DEXTR OAMPHET ER 10 MG LO85E-OAU TAKE ONE CAPSULE EVERY MORNING 08/24 AMPHETAMINE-DEXTR OAMPHETAMINE 57838833880 Watson Baker MD GABAPENTIN 300 MG CAPS 1 cap at bedtime 04/14 GABAPENTIN 82868116547 Swati Mclean DNP,CREDIT REVIEW OFFICER,RADIOPHARMACIST AMPHETAMINE-DEXTR OAMPHET ER 10 MG EE11S-URA 1 po qAM 08/24 AMPHETAMINE-DEXTR OAMPHETAMINE 03341714383 Watson Baker MD AMPHETAMINE-DEXTR OAMPHET ER 10 MG IC52Y-MQK TAKE ONE CAPSULE EVERY MORNING 08/24 AMPHETAMINE-DEXTR OAMPHETAMINE 54001616204 Wilberto Urbina MD AMPHETAMINE-DEXTR OAMPHET ER 10 MG QQ17Z-LRF 1 po qam 08/24 AMPHETAMINE-DEXTR OAMPHETAMINE 04355406290 Lazaro Tomas MD AMPHETAMINE-DEXTR OAMPHET ER 10 MG SB55M-KRU Take one capsule every morning. 08/24 AMPHETAMINE-DEXTR OAMPHETAMINE 08562551550 Nancy Abdul MD AMPHETAMINE-DEXTR OAMPHET ER 10 MG YO48B-OMX TAKE ONE CAPSULE EVERY MORNING 08/24 AMPHETAMINE-DEXTR OAMPHETAMINE 85466336775 Lazaro Tomas MD CYCLOBENZAPRINE HCL 5 MG TABS 1 tab at bedtime 10/19 CYCLOBENZAPRINE HCL 06527791555 Bárbara Longoria PA-C GABAPENTIN 300 MG CAPS 1 cap at bedtime 10/19 GABAPENTIN 63158165545 Bárbara Longoria PA-C DULOXETINE HCL 60 MG CPEP 07/24 DULOXETINE HCL 59133998785 Bárbara Longoria PA-C PRAMIPEXOLE DIHYDROCHLORIDE 0.25 MG TABS 1 po one hour before bed 05/19 PRAMIPEXOLE DIHYDROCHLORIDE 08034769687 Lazaro Tomas MD AMPHETAMINE-DEXTR OAMPHET ER 10 MG OU37R-DRK 1 po qam 08/24 AMPHETAMINE-DEXTR OAMPHETAMINE 77164950143 Lazaro Tomas MD AMPHETAMINE-DEXTR OAMPHET ER 10 MG RZ49H-CHW 1 po AM 08/24 AMPHETAMINE-DEXTR OAMPHETAMINE 59003210440 Lazaro Tomas MD AMPHETAMINE-DEXTR OAMPHET ER 10 MG AZ89P-QEM 1 po qam 08/24 AMPHETAMINE-DEXTR OAMPHETAMINE 70553640372 Lazaro Tomas MD AMPHETAMINE-DEXTR OAMPHET ER 10 MG UP93Q-IIV TAKE ONE CAPSULE EVERY MORNING 08/24 AMPHETAMINE-DEXTR OAMPHETAMINE 49990941448 Lazaro Tomas MD AMPHETAMINE-DEXTR OAMPHET ER 10 MG PL46X-JKX 1 po qAM 08/24 AMPHETAMINE-DEXTR OAMPHETAMINE 56176409643 Lazaro Tomas MD AMPHETAMINE-DEXTR OAMPHET ER 10 MG QE02Z-RPZ TAKE ONE CAPSULE EVERY MORNING 0 08/24 AMPHETAMINE-DEXTR OAMPHETAMINE 74265575656 Lazaro Tomas MD AMPHETAMINE-DEXTR OAMPHET ER 10 MG EX86U-DCZ 1 po qAM 0 08/24 AMPHETAMINE-DEXTR OAMPHETAMINE 19449101137 Lazaro Tomas MD AMPHETAMINE-DEXTR OAMPHET ER 10 MG IT59V-AXF 1 po qam 0 08/24 AMPHETAMINE-DEXTR OAMPHETAMINE 97164517373 Lazaro Tomas MD AMPHETAMINE-DEXTR OAMPHET ER 10 MG MG92E-JRW 1 po qam 0 08/24 AMPHETAMINE-DEXTR OAMPHETAMINE 61055965313 Lazaro Tomas MD AMPHETAMINE-DEXTR OAMPHET ER 10 MG ES35B-PFX 1 po qam 0 08/24 AMPHETAMINE-DEXTR OAMPHETAMINE 82936807000 Lazaro Tomas MD AMPHETAMINE-DEXTR OAMPHET ER 10 MG SR77J-HOI 1 po qd 0 08/24 AMPHETAMINE-DEXTR OAMPHETAMINE 08917028901 Lazaro Tomas MD PRAMIPEXOLE DIHYDROCHLORIDE 0.25 MG TABS 1 po one hour before bed 0 07/24 PRAMIPEXOLE DIHYDROCHLORIDE 82158908454 Lazaro Tomas MD CYCLOBENZAPRINE HCL 10 MG TABS 1 po prn 10/01 CYCLOBENZAPRINE HCL 02810897274 Lazaro Tomas MD AMPHETAMINE-DEXTR OAMPHET ER 10 MG UY60V-AAA 1 po qd 0 08/24 AMPHETAMINE-DEXTR OAMPHETAMINE 07210329003 Lazaro Tomas MD AMPHETAMINE-DEXTR OAMPHET ER 10 MG GA57O-HPK 1 po qd 0 08/24 AMPHETAMINE-DEXTR OAMPHETAMINE 89724747352 Lazaro Tomas MD SYMBICORT 80-4.5 MCG/ACT AERO 2 per day 11/17 BUDESONIDE-FORMOT CHERELLE FUMARATE 03198804580 Lazaro Tomas MD CYCLOBENZAPRINE HCL 10 MG TABS 1 po prn 10/01 CYCLOBENZAPRINE HCL 80992976049 Lazaro Tomas MD MECLIZINE HCL 25 MG TABS 1 po prn 11/17 MECLIZINE HCL 99372728230 Lazaro Tmoas MD OMEPRAZOLE 20 MG CPDR 1-2 po qd 10/19 OMEPRAZOLE 88131693495 Lazaro Tomas MD LISINOPRIL 20 MG TABS 1 po qd 04/23 LISINOPRIL 13958644564 Lazaro Tomas MD AMPHETAMINE-DEXTR OAMPHET ER 10 MG GJ27P-JOG 1 po qam 08/24 AMPHETAMINE-DEXTR OAMPHETAMINE 63022522925 Lazaro Tomas MD DULOXETINE HCL 30 MG CPEP 1 po qam 07/24 DULOXETINE HCL 26661335148 Lazaro Tomas MD Medications Administered No information [...] AMPHIPHYS AB * Amphiphy sin Ab, S HOT METAL MIXER OPERATOR-2 * Purkinje Cell Cytoplasmic Ab Type 2 HOT METAL MIXER OPERATOR-1 * Purkinje Cell Cytoplasmic Ab Type 1 [...] [Mass/volume] in Serum or Plasma by Electrophoresis [id number] * g/dL beta 2 g lobulin [id number] * g/dL beta 1 g lobulin ALPHA [...] D ULOXETINE HCL 30 MG ORAL CPEP [facility]_ [id number]`D ULOXETINE HCL 30 MG ORAL CPEP`30``30 Capsule``1 PO QAM``5`0`09/26`No date sent`[employer] [id number]*`[id number] [phone]`[id number] 6`[id number]`DULOXMike [address] DR 30MG CAPSULES Quantity: 30 Capsule [...] PM Jose Alberto Regan MD , [address], [address], [place], [address], Pending order Follow up Extend ed Pending [...] ROSA ORDERS Patient Instructions ORDERS Physical Therapy [facility]-[id number] Orthopedic Surgery Referral [facility]-[phone] Documentation of current medicatio ns ORDERS Patient Instructions ORDERS Follow up Extended i n clinic or telemedicine ORDERS Patient Instructions [facility]-[id number] Psychiatry Referral ORDERS Follow up in clinic or telemedicine 04/20 ORDERS Follow up ROSA in clinic or telemedicine [facility]-[id number] Documentation of current medicatio ns ORDERS Patient Instructions ORDERS Patient Instructions ORDERS Patient Instructions ORDERS Follow up ROSA ORDERS Follow up ORDERS Patient Instructions ORDERS Patient Instructions ORDERS Patient Instructions ORDERS Follow up ROSA ORDERS Patient Instructions SCT-[id number] Documentation of current medicatio ns ORDERS Follow up SCT-[id number] Documentation of current medicatio ns ORDERS Follow up ROSA ORDERS Physical Therapy ORDERS Follow up SCT-[id number] Documentation of current medicatio ns CPT-77892 Nerve Conduction 9-10 studies CPT-37531 EMG with NCS (5+ muscles) - 2 limbs 12/30 ORDERS Follow up SCT-[id number] Documentation of current medicatio ns ORDERS Patient Instructions SCT-[id number] Documentation of current medicatio ns SCT-[id number] Documentation of current medicatio ns ORDERS Follow up SCT-[id number] Documentation of current medicatio ns SCT-[id number] Documentation of current medicatio ns CPT-62575 Nerve Conduction 7-8 studies CPT-41447 EMG with NCS (5+ muscles) - 2 limbs 12/21 [id number] Other Referral ORDERS Follow up SCT-[id number] Documentation of current medicatio ns [id number] MRI-Cervical W/WO MS Protocol CPT-T8558K ProHance Gadolinium- based MR Contrast - 20 ml vial CPT-96537 MRI Cervical W/WO ORDERS Immunofixation Urine (ROGELIO [...] GERALDINE) ORDERS Paraneoplastic Ab (O NLY Anti-Hu/Anti-Yo/Anti-Ri) SCT-[id number] Other Referral [facility]-[id number] Documentation of current medicatio ns Vital Signs [...] available. Advance Directives Directive Description Start Date ENVIRONMENTAL HEALTH OFFICER 09/18/18 CSA 05/15/18 ENVIRONMENTAL HEALTH OFFICER 02/20/18 ENVIRONMENTAL HEALTH OFFICER 09/22/17 CSA 05/03/17 ENVIRONMENTAL HEALTH OFFICER 03/23/17 ENVIRONMENTAL HEALTH OFFICER 10/14/16 CSA 04/28/16
--- OUTSIDE RECORDS SUMMARY | 2024-10-30 15:59 | XMS_ITS | Clinical Summary ---
Author Organization [facility] Address [address] [place] [address] Care Team Providers Care Visitor Service Assistant Name Role Phone Rachel Carmona MD Primary Care Provider [phone] Andrea Tabares MD Unavailable [phone] Jeanette Fernandez MD Unavailable [phone] Allergies Active Allergy Reactions Criticality Noted Date [...] Patient's Recall, Reported on 10/11/2024 rizatriptan ([employer]) 10 mg disintegrating tabletIndications :Chronic migraine without [...] 10/13/19 25 4:03 PM CDT 025 Active aspirin enteric coated 81 mg tabletIndications [...] stools). 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 Max acetaminophen dose: 4000mg in 24 hrs. 100 Tablet 07/27/19 11:37 AM CDT 025 2024 Discontinued (Reorder (E-cancel not sent)) spironolactone 25 mg tabletIndications :Leg swelling Take 0.5 Tablets (12.5 mg) by mouth once daily in the morning. 30 Tablet 025 2024 Discontinued (Pharmacist change per medication history (E-cancel not sent)) celecoxib 200 mg capsuleIndication s:Lumbar facet arthropathy Take 1 Capsule (200 mg) by mouth 2 times daily if needed for Pain. 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 Maximum of 3200 mg in 24 hours. 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 07/19/2024 s/p right total hip arthropl asty DOS: 06/13/2018 by Andrea Shaikh MD 07/19/2024 Varicose veins of both lower extremities with pa in 04/15/2023 Primary osteoarthritis, right shoulder 4 Primary osteoarthritis of both knees 04/15/2023 Left [...] peripheral neuropathy 01/10/2016 Overview (02/05/2016): workup through [facility] Neuro Lumbar herniated disc 08/11/2015 Mixed hyperlipidemia [...] Encounters Date Type Department Care Team Description 10/30/2024 Travel 10/25/2024 1:45 PM CDT Ancillary Procedure [facility] Orthopedics Joint Replacement [facility] [address] [place] [phone] 10/25/2024 1:10 PM CDT Office Visit [facility] Joint Replacement [facility] [address] [place] [address] Anna Churchill PA Post-op (14 days s/p left total hip acetabular revision DOS: 10/11/2024 by Timothy Bishop MD) 10/25/2024 Travel 10/20/2024 Travel 10/17/2024 9:00 AM CDT Office Visit [facility] Joint Replacement [place] [address] [facility] [address] [place] [address] Marshall López PA Surgical Followup (6 days s/p left anterolateral total hip arthroplasty revision- 10/11/24 Timothy Bishop MD, incision check) 10/16/2024 Travel 10/15/2024 Telephone [facility] Joint [place] [address] [facility] [address] [place] [address] Venessa Landers RN Ortho Nurse Navigator (Follow up discharge phone call) 10/15/2024 Nurse Triage [facility] Joint [facility] [address] [facility] [address] [place] [address] Timothy Bishop MD Post-op 10/15/2024 Patient Outreach [address] [address] Yue Freedman, RN Error-please disregard (Called and Triaged by ortho) 10/11/2024 9:51 AM CDT Anesthesia Event [place] [address] [place] [address] Estelle Castaneda MD Engel, Holly Lynn Lisowski, ENGRAVINGS POLISHER 10/11/2024 9:25 AM CDT - 10/11/2024 12:03 PM CDT Surgery [place] [address] [place] [address] Timothy Bishop MD INPATIENT LEFT ACETABULUM HIP REVISION 10/11/2024 7:40 AM CDT - 10/12/2024 4:01 PM CDT Hospital Encounter [place] [address] [place] [address] Timothy Bishop MD 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, subsequent encounter (Primary Dx) Discharge Disposition: Home Self Care 10/11/2024 Travel 10/09/2024 Travel 10/01/2024 Telephone [facility] Joint Replacement [place] [address] [facility] [address] [place] [address] Venessa Landers, hand tacker Nurse Navigator (Assessment/RAPT/1 on 1 education Pre-op check in) 09/24/2024 2:35 PM CDT Office Visit [address] [phone] Rachel Caromna MD Pre-Op Exam (surgery 7-3) 09/24/2024 Travel 09/20/2024 Orders Only [facility] Scanner 1 scan: (1-Ord) [facility], FLUOROSCOPICALLY GUIDED DIAGNOSTIC ASPIRATION OF THE LT HIP, 09/20/2024 09/19/2024 Travel 09/13/2024 Telephone [facility] Joint Replacement [place] [address] [facility] [address] [place] [phone] Venessa Landers, hand tacker Nurse Navigator (Assessment/RAPT/1 on 1 education) 09/12/2024 Transcribe Orders [facility] Joint Replacement [place] [address] [phone] Timothy Bishop MD 09/11/2024 Home Care Visit [facility] [address] [place] [address] Dara Carrion RN SN - OASIS DISCHARGE 09/11/[address] [phone] Rachel Carmona MD MESS (DIS) 09/10/2024 1:30 PM CDT Office Visit [facility] Joint Replacement [place] [address] [facility] [address] [place] [phone] Timothy Bishop MD Post-op (7 weeks s/p left anterolateral total hip arthroplasty extraction with antibiotic spacer DOS: 07/24/2024 by Timothy Bishop MD) 09/10/2024 1:25 PM CDT Ancillary Procedure [facility] Orthopedics - [facility] [address] [facility] [address] [place] [address] 09/10/2024 Telephone [facility] [address] [facility] [place] [address] Rachel Carmona MD Appointment (Pre Operative Exam ) 09/10/2024 Travel 09/07/2024 10:00 AM CDT Home Care Visit [facility] [address] [place] [address] Dara Carrion, OG SN - HOME VISIT 09/06/2024 1:40 PM CDT Telemedicine [facility]ties [address] [facility] [address] [place] [address] Dolores Del Rosario MD 09/05/2024 Travel 09/04/2024 Home Care Visit [facility] [address] [place] [address] Dara Carrion RN SN - HOME VISIT 09/04/2024 Orders Only [facility] [address] [facility] [address] Dolores Del Rosario MD Lab 09/01/2024 Travel 08/31/2024 Telephone [facility] [address] [facility] [address] Rachel Carmona MD Form (Health care directive) 08/28/2024 12:15 AM CDT Home Care Visit [facility] [address] [place] [address] Asia Joe, RN SN - WOUND/OSTOMY CHART CONSULT 08/28/2024 Orders Only [facility] 100 [facility] [place] [address] Rachel Carmona MD <No scans attached> 08/27/2024 1:00 PM CDT Home Care Visit [facility] [address] [place] [address] Dara Carrion RN SN - LONG VISIT (>90 MINUTES) 08/27/2024 Orders Only [facility] [address] [place] [address] Dolores Del Rosario MD Lab 08/20/2024 1:40 PM CDT Telemedicine [facility] [address] [place] [address] Lowell Fuentes MD Musculoskeletal Problem (Follow up left hip and MRI) 08/20/2024 12:00 PM CDT Home Care Visit [facility] [address] [place] [address] Dara Carrion RN SN - LONG VISIT (>90 MINUTES) 08/20/2024 Orders Only [facility] [address] [place] [address] Dolores Del Rosario MD Lab 08/20/2024 Telephone [facility] Orthopedics - [facility] [address] [facility] [address] [place] [phone] Bekah Ryan hand tacker Nurse Navigator (Incision ) 08/16/2024 Travel 08/16/2024 Telephone [facility] [address] [facility] [address] [place] [address] Dolores Del Rosario MD Appointment (switch to virtual) 08/13/2024 3:00 PM CDT Home Care Visit [facility] [address] [place] [phone] Dara Carrion RN SN - LONG VISIT (>90 MINUTES) 08/13/2024 Orders Only [facility] 200 [facility] [place] [address] Dolores Del Rosario MD Lab 08/13/2024 Telephone [facility] [address] [facility] [place] [address] Dara Carrion RN Edema 08/08/2024 1:00 PM CDT Ancillary Procedure [facility] Joint Replacement [facility] [address] [facility] [address] [place] [address] 08/08/2024 12:40 PM CDT Office Visit [facility] Joint Replacement [facility] [address] [facility] [address] [place] [address] Marshall López PA Surgical Followup (15 days s/p left anterolateral total hip arthroplasty extraction with antibiotic spacer DOS: 07/24/2024 by Timothy Bishop MD) 08/08/2024 Travel 08/07/2024 1:00 PM CDT Home Care Visit [facility] [address] [place] [address] Tatiana Gardner LISW MEDICAL MANAGER - INITIAL ASSESSMENT 08/06/2024 3:30 PM CDT Telemedicine [facility] [address] [place] [address] Charisse Katz NP Derm Problem (Swelling in feet, ankles, and legs) 08/06/2024 1:00 PM CDT Home Care Visit [facility] [address] [place] [address] Dara Carrion, RN SN - LONG VISIT (>90 MINUTES) 08/06/2024 Orders Only [facility] [address] [place] [address] Dolores Del Rosario MD Lab 08/06/2024 Home Care Visit [facility] [address] [place] [address] Tatiana Gardner LISW MEDICAL MANAGER - CASE COMMUNICATION 08/04/2024 Travel 08/03/2024 Travel 08/02/2024 Telephone [facility] Orthopedics - [facility] [address] [place] [phone] Venessa Landers, hand tacker Nurse Navigator (home care questions) 08/01/2024 11:00 AM CDT Home Care Visit [facility] [address] [facility] [place] [address] Dara Carrion, OG SN - HOME VISIT 08/01/2024 Telephone [facility] [address] [facility] [place] [address] Dara Carrion, paradi operator 08/01/2024 Home Care Visit [facility] [address] [facility] [place] [address] Dara Carrion, OG CARE COORDINATION 07/31/2024 10:50 AM CDT Telemedicine [facility] [address] [place] [address] Rachel Carmona MD [facility] F/U from Last 3 Months Immunizations Immunization Administration [...] on file Legal Sex Female 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 Gender Identity Not on file Sexual Orientation [...] Care Team (Late st Contact Info) Description 11/01/2024 8:20 AM CDT Office Visit [facility] Orthopedics Joint Replacement [place] [address] [phone] Marshall López PA [address] [facility] [address] [place] [address] 01/24/2025 1:10 PM CDT Office Visit [facility] Joint Replacement [facility] [address] [facility] [address] [place] [phone] Timothy Bishop MD [address] [address] Health Maintenance Due Date Last Done Comments [...] this topic Medical Devices Implanted Type Area Music Box Mechanic Device Identifier Shelf Expiration Date Model / Serial / Lot Cmnt Bone 40gm Darell - [id number] Implanted:Qty: 2 on 07/24/2024 by Timothy Bishop MD at [facility] Left: Hip [employer] 01/08/2029 [id number] / / [id number] Insert Acetab 28/46mm Dual Mobility Or30 Xlpe - [id number] Implanted:Qty: 1 on 10/11/2024 by Timothy Bishop MD at [facility] Left: Hip [employer] 06/28/2033 [id number] / / [id number] Biolox Delta Ts Ceramic Femoral Head Revision, 28mm 8.5 03/24 Taper Implanted:Qty: 1 on 10/11/2024 by Timothy Bishop MD at [facility] Left: Hip [employer] 06/08/2028 [id number] / / [id number] Shell Acetab 60mm Modular Redapt - [id number] Implanted:Qty: 1 on 10/11/2024 by Timothy Bishop MD at [facility] Left: Hip [employer] 12/03/2032 [id number] / / [id number] Screw Hip 6.5x30mm Reflection Reconstrt - [id number] Implanted:Qty: 1 on 10/11/2024 by Timothy Bishop MD at [facility] Left: Hip [employer] 11/15/2033 [id number] / / [id number] Screw Hip 6.5x20mm Reflection Reconstrt - [id number] Implanted:Qty: 1 on 10/11/2024 by Timothy Bishop MD at [facility] Left: Hip [employer] 05/23/2034 [id number] / / [id number] Liner Acetab 46/60mm Dual Mobility Or30 - [id number] Implanted:Qty: 1 on 10/11/2024 by Timothy Bishop MD at [facility] Left: Hip [employer] 07/25/2033 [id number] / / [id number] Screw Hip 6.5x25mm Reflection Reconstrt - [id number] Implanted:Qty: 1 on 10/11/2024 by Timothy Bishop MD at [facility] Left: Hip [employer] 05/12/2034 [id number] / / [id number] Explanted Type Area Music Box Mechanic Device Identifier Shelf Expiration Date Model / Serial / Lot Left Hip Head, Liner And Insert Explanted:Qty: 1 on 07/24/2024 by Timothy Bishop MD at [facility] Left: Hip [place] Altrx Ld Polyethylene Acetabular Liner; +4 Neutral, 40mm Id, 58mm Od Implanted:Qty: 1 on 07/24/2024 by Timothy Bishop MD at [facility] Explanted:Qty: 1 on 10/11/2024 by Timothy Bishop MD at [facility] Left: Hip [employer] 08/08/2028 [id number] / / [id number] M-Spec Metal Fmoral Head 40mm +5 Offset 12/14 Taper Implanted:Qty: 1 on 07/24/2024 by Timothy Bishop MD at [facility] Explanted:Qty: 1 on 10/11/2024 by Timothy Bishop MD at [facility] Left: Hip [employer] 09/08/2025 [id number] / / [id number] Procedures Procedure Name Priority Date/Time Associated Diagnosis Comments XR PELVIS 1 VIEW Routine 10/25/2024 1:44 PM CDT s/p left anterolateral total hip arthroplasty acetabular revision DOS: 10/11/2024 by Timothy Bishop MD Orthopedic aftercare s/p left anterolateral total hip arthroplasty extraction with antibiotic spacer DOS: 07/24/2024 by Timothy Bishop MD s/p left total hip arthroplasty DOS: 03/07/2018 by Andrea Shaikh MD. BASIC METABOLIC PANEL Today 10/12/2024 11:04 AM CDT HEMOGLOBIN Early AM 10/12/2024 8:01 AM CDT AEROBIC BACTERIAL CULTURE, STAIN Today 10/11/2024 11:10 AM CDT ANAEROBIC CULTURE Today 10/11/2024 11:10 AM CDT SPINAL BLOCK Routine 10/11/2024 10:13 AM CDT ARTHROPLASTY REVISION HIP Tier 3: within 90 days 10/11/2024 9:31 AM CDT Failed total hip arthroplasty Case Notes 60 MINS-T/FPA TO ASSISTJACKSONLATERAL LEFT SIDE UPC-ARMGUIRE POSITIONERCELL SAVER-confirmed 930 w/Frances #[id number] 09/13-AW// CELL SAVER CONFIRMED WITH NAVEED / VPSMITH & NEPHEW REDAPT MULTI-HOLE CUP, DUAL MOBILITY LINER, R3 Main, Reamers, trial shells, Heller hip revision, hip farnsworth 2 and or3o. Confirmed with Colette Garcia [phone] 10/02 JTDUPUY CORAIL #13 STANDARD COLLARED STEMHEADS SIZES 22 & 23 CERAMIC AVAILABLE One company farnsworth confirmed with [employer] [phone] 10/01 JT Special Needs HT 5'7 WT 83.8 kg BMI 29.01 GLUCOSE METER Timed 10/11/2024 8:20 AM CDT SCAN-CARDIAC STRIP 10/11/2024 12:00 AM CDT SCAN-OPERATIVE/P ROCEDURE REPORT 10/11/2024 12:00 AM CDT CBC W PLT NO DIFF Routine 09/24/2024 4:30 PM CDT Essential hypertension BASIC METABOLIC PANEL Routine 09/24/2024 4:30 PM CDT Essential hypertension SCAN-OPERATIVE/P ROCEDURE REPORT 09/20/2024 12:00 AM CDT XR PELVIS [...] with internal left hip prosthesis, initial encounter LIPID PANEL W REFLEX MEASURED LDL Routine 05/14/2024 3:17 PM LABORER SALVAGE Mixed hyperlipidemia SDNA-FIT EXTERNAL (COLOGUARD) Routine 04/28/2022 7:00 PM LABORER SALVAGE Screening for colon cancer ANTI HCV Routine 04/24/2018 3:34 PM LABORER SALVAGE Need for hepatitis C screening test XR DXA BONE DENSITY 2 SITES AXIAL Routine 02/28/2017 2:04 PM LABORER SALVAGE Asymptomatic menopausal state Screening for osteoporosis from Last 3 Months or Most Recently Relevant to Health Maintenance Results * XR PELVIS 1 VIEW (10/25/2024 1:44 PM CDT) Only the most recent of3 resultswithin the time period is included. Anatomical Region Laterality Modality Pelvis Digital Radiogra phy Narrative 10/29/2024 7:35 AM CDT This Radiology Exam Was Performed at [facility] Total Joint [place] and Interpreted by Timothy Bishop MD HISTORY A 74 y.o. female status post a left total hip arthroplasty acetabular revision dated 7/3/25 TECHNICAL ONE view consisting of a standing AP pelvis FINDINGS Standing AP pelvis x-ray was ordered, obtained, and reviewed today showing satisfactory position of the bilateral total hip arthroplasty. No signs of loosening or other pathology. IMPRESSION Stable status post bilateral total hip arthroplasty All services were personally performed by Anna Brown PA-C. Documentation performed by Rex RUSSELL, LAT, ATC based on provider statements to me. Anna Brown PA-C 10/25/2024 [facility] Fin al Result * (ABNORMAL) BASIC METABOLIC PANEL (10/12/2024 11:04 AM T) Only the most recent of2 resultswithin the time period is included. SODIUM 134(L) 136 - 145 mmol/L 10/12/2024 11:33 AM [facility] POTASSIUM 4.6 3.5 - 5.1 mmol/L 10/12/2024 11:33 AM [facility] CHLORIDE 101 98 - 107 mmol/L 10/12/2024 11:33 AM [facility] CO2,TOTAL 21(L) 22 - 29 mmol/L 10/12/2024 11:33 AM [facility] ANION GAP 12 5 - 18 10/12/2024 11:33 AM [facility] GLUCOSE 142(H) 70 - 99 mg/dL 10/12/2024 11:33 AM [facility] CALCIUM 9.5 8.8 - 10.4 mg/dL 10/12/2024 11:33 AM [facility] Comment: Reference ranges for this test were updated on 02/14/2024 to reflect our healthy population more accurately. Reference range changes are not retroactively applied to results, but previous results using the same methodology can be interpreted in the context of the new reference range. BUN 29(H) 8 - 23 mg/dL 10/12/2024 11:33 AM [facility] CREATININE 1.30(H) 0.50 - 0.90 mg/dL 10/12/2024 11:33 AM [facility] BUN/CREAT RATIO 22(H) 10 - 20 11:33 AM [facility] eGFR 43(L) >90 mL/min/1. 73m2 10/12/2024 11:33 AM CDT [facility] Comment:As of 2021, eG FR is [...] us Carmel Jimenez MD CHEMISTRY Final Result [facility] SENDOUT INTERNAL ZIP [id number] [place] [address] * (ABNORMAL) Hemoglobin - in AM (10/12/2024 8:01 AM CDT) HEMOGLOBIN 9.6(L) 12.0 - 16.0 g/dL 10/12/2024 8:22 AM CDT [facility] MCV 85 80 - 100 fL 10/12/2024 8:22 AM CDT [facility] Blood BLOOD SPECIMEN / Unknown Venipuncture / Unknown 10/12/2024 8:01 AM CDT 10/12/2024 8:16 AM CDT Narrative [facility] - 10/12/2024 8:22 AM CDT Call surgeon if hemoglobin less than 8. us Timothy Bishop MD HEMATOLOGY Final Result [facility] SENDOUT INTERNAL ZIP [id number] [place] [address] * AEROBIC BACTERIAL CULTURE, STAIN (10/11/2024 11:10 AM CDT) CULTURE No Growth. 10/15/2024 1:00 PM CDT [facility] GRAM STAIN 2+ PMNs 10/15/2024 1:00 PM CDT [facility] GRAM STAIN No organisms seen 10/15/2024 1:00 PM CDT [facility] GRAM STAIN 4+ RBCs 10/15/2024 1:00 PM CDT [facility] GRAM STAIN No Epithelial cells 10/15/2024 1:00 PM CDT [facility] GRAM STAIN Gram stain performed by [place], [place] 10/15/2024 1:00 PM CDT [facility] Swab (Left Hip) Non-Blood / Unknown 10/11/2024 11:10 AM CDT 10/11/2024 12:47 PM CDT us Timothy Bishop MD MICROBIOLOGY Final Result [facility] [address] [address], [facility] SENDOUT INTERNAL ZIP [address] [place] [address] * ANAEROBIC CULTURE (10/11/2024 11:10 AM CDT) CULTURE No anaerobes isolated 10/17/2024 11:43 AM CDT [facility] Swab (Left Hip) Non-Blood / Unknown 10/11/2024 11:10 AM CDT 10/11/2024 12:47 PM CDT us Timothy Bishop MD MICROBIOLOGY Final Result Performing Organization Address [facility] Co de Phone Number [facility] [address] [place] [address], * [facility] TRAY PR10 (10/11/2024 10:13 AM [...] length: 4 in Assessment Events: no complications. us Estelle Castaneda MD ANESTHESIA PX NOTE ORDERA BLES Final Result * GLUCOSE METER (10/11/2024 8:20 AM CDT) Pathologist [facility] GLUCOSE METER 94 65 - 100 mg/dL 10/11/2024 8:24 AM CDT [facility] Blood BLOOD SPECIMEN / Unknown 10/11/2024 8:20 AM CDT 10/11/2024 8:24 AM CDT us Timothy Bishop MD CHEMISTRY Final Result [facility] SENDOUT INTERNAL ZIP [address] [address] [place] [address] * SCAN-CARDIAC STRIP (10/11/2024 12:00 AM CDT) Narrative 10/11/2024 12:00 AM CDT Ordered by an unspecified provider. us Other Clinical Staff OTHER Final Resul t * SCAN-OPERATIVE/PROCEDURE REPORT (10/11/2024 12:00 AM CDT) Narrative 10/11/2024 12:00 AM CDT Ordered by an unspecified provider. us Other Clinical Staff OTHER Final Resul t * (ABNORMAL) CBC W PLT NO DIFF (09/24/2024 4:30 PM CDT) WHITE BLOOD CELL COUNT 5.8 3.8 - [...] COUNT 339 140 - 400 Thousand/u L [facility] MPV 9.4 7.5 - 12.5 fL [facility] Blood BLOOD SPECIMEN / Unknown 09/24/2024 4:30 PM CDT 09/24/2024 4:32 PM CDT Narrative [facility] - 09/25/2024 3:28 AM CDT FASTING:NO FASTING: NO Rachel Carmona MD HEMATOLOGY Final Res ult [facility] [facility] [address] [place] [address], [address] [address] * SCAN-OPERATIVE/PROCEDURE REPORT (09/20/2024 12:00 AM CDT) us Scanner OTHER Final Result * (ABNORMAL) CBC WITH AUTO DIFFERENTIAL (09/04/2024 4:30 PM CDT) Only the most recent of5 resultswithin the time period is included. WHITE BLOOD COUNT 6.2 4.5 - 11.0 thou/cu mm 09/04/2024 6:13 PM CDT [facility] RED BLOOD COUNT 3.71(L) 4.00 - 5.20 mil/cu mm 09/04/2024 6:13 PM CDT [facility] HEMOGLOBIN 10.5(L) 12.0 - 16.0 g/dL 09/04/2024 6:13 PM [facility] HEMATOCRIT 33.4 33.0 - 51.0 % 09/04/2024 6:13 PM [facility] MCV 90 80 - 100 fL 09/04/2024 6:13 PM [facility] MCH 28.3 26.0 - 34.0 pg 09/04/2024 6:13 PM [facility] MCHC 31.4(L) 32.0 - 36.0 g/dL 09/04/2024 6:13 PM [facility] RDW 15.5 11.5 - 15.5 % 09/04/2024 6:13 PM [facility] PLATELET COUNT 357 140 - 440 thou/cu mm 09/04/2024 6:13 PM [facility] MPV 9.5 6.5 - 11.0 fL 09/04/2024 6:13 PM [facility] % NEUT 66.2 % 09/04/2024 6:13 PM [facility] % LYMPH 20.2 % 09/04/2024 6:13 PM [facility] % MONO 8.8 % 09/04/2024 6:13 PM [facility] % EOS 3.7 % 09/04/2024 6:13 PM [facility] % BASO 1.1 % 09/04/2024 6:13 PM [facility] ABSOLUTE NEUTROPHILS 4.1 1.7 - 7.0 thou/cu mm 09/04/2024 6:13 PM [facility] ABSOLUTE LYMPHOCYTES 1.3 0.9 - 2.9 thou/cu mm 09/04/2024 6:13 PM [facility] ABSOLUTE MONOCYTES 0.6 <0.9 thou/cu mm 09/04/2024 6:13 PM [facility] ABSOLUTE EOSINOPHILS 0.2 <0.5 thou/cu mm 09/04/2024 6:13 PM [facility] ABSOLUTE BASOPHILS 0.1 <0.3 thou/cu mm 09/04/2024 6:13 PM CDT [facility] Blood BLOOD SPECIMEN / Unknown Venipuncture / Unknown 09/04/2024 4:30 PM CDT 09/04/2024 6:07 PM CDT Dolores Del Rosario MD HEMATOLOGY Fi nal Result Performing Organization Address [facility] Co de Phone Number [facility] [address] [place] [address] * C-REACTIVE PROTEIN (09/04/2024 4:30 PM CDT) Only the most recent of5 resultswithin the time period is included. [facility] C-REACTIVE PROTEIN <0.3 <0.5 mg/dL 09/04/2024 6:32 PM CDT [facility] Blood BLOOD SPECIMEN / Unknown Venipuncture / Unknown 09/04/2024 4:30 PM CDT 09/04/2024 6:07 PM CDT Dolores Del Rosario MD CHEMISTRY Fi nal Result Performing Organization Address [facility] [[email or web address]] de Phone Number [facility] [address] [place] [address] * (ABNORMAL) COMP METABOLIC PANEL (09/04/2024 4:30 PM CDT) Only the most recent of5 resultswithin the time period is included. Pathologist [facility] SODIUM 140 136 - 145 mmol/L 09/04/2024 6:29 PM CDT [facility] POTASSIUM 4.0 3.5 - 5.1 mmol/L 09/04/2024 6:29 PM T [facility] CHLORIDE 105 98 - 107 mmol/L 09/04/2024 6:29 PM T [facility] CO2,TOTAL 22 22 - 29 mmol/L 09/04/2024 6:29 PM T [facility] ANION GAP 13 5 - 18 09/04/2024 6:29 PM T [facility] GLUCOSE 84 70 - 99 mg/dL 09/04/2024 6:29 PM [facility] CALCIUM 10.5(H) 8.8 - 10.4 mg/dL 09/04/2024 6:29 PM [facility] Comment: Reference ranges for this test were updated on 02/14/2024 to reflect our healthy population more accurately. Reference range changes are not retroactively applied to results, but previous results using the same methodology can be interpreted in the context of the new reference range. BUN 22 8 - 23 mg/dL 09/04/2024 6:29 PM [facility] CREATININE 1.17(H) 0.50 - 0.90 mg/dL 09/04/2024 6:29 PM [facility] BUN/CREAT RATIO 19 10 - 20 6:29 PM [facility] eGFR 49(L) >90 mL/min/1. 73m2 09/04/2024 6:29 PM [facility] Comment:As of 2021, eG FR is calculated by the CKD-EPI creatinine equation without race adjustment. eGFR can be influenced by muscle mass, exercise, and diet. The reported eGFR is an estimation only and is only applicable if the renal function is stable. ALBUMIN 4.2 4.0 - 4.9 g/dL 09/04/2024 6:29 PM [facility] PROTEIN,TOTAL 7.6 6.0 - 8.0 g/dL 09/04/2024 6:29 PM [facility] BILIRUBIN,TOTAL 0.2 0.0 - 1.2 mg/dL 09/04/2024 6:29 PM [facility] ALK PHOSPHATASE 111(H) 35 - 104 IU/L 09/04/2024 6:29 PM [facility] ALT (SGPT) 7(L) 10 - 35 IU/L 09/04/2024 6:29 PM [facility] AST (SGOT) 26 10 - 35 IU/L 09/04/2024 6:29 PM [facility] Blood BLOOD SPECIMEN / Unknown Venipuncture / Unknown 09/04/2024 4:30 PM CDT 09/04/2024 6:07 PM CDT us Dolores Del Rosario MD CHEMISTRY Fi nal Result Performing Organization Address City/[facility]/ZIP Co de Phone Number [facility] [address] [place] [address] * RED CELL MORPHOLOGY (08/20/2024 2:00 PM CDT) [facility] RBC COMMENT RBC morphology appears normal RBC morphology appears normal, RBC morphology within normal limits for newborns. 08/20/2024 4:33 PM CDT [facility] Blood BLOOD SPECIMEN / Unknown Non-Lab Venipuncture / Unknown 08/20/2024 2:00 PM CDT 08/20/2024 3:36 PM CDT us Dolores Del Rosario MD HEMATOLOGY Fi nal Result Performing Organization Address [facility]/ZIP Co de Phone Number [facility] [address] [place] [address] * PLATELET ESTIMATE (08/20/2024 2:00 PM CDT) [facility] PLATELET ESTIMATE Adequate Adequate, No estimate 08/20/2024 4:33 PM CDT [facility] Blood BLOOD SPECIMEN / Unknown Non-Lab Venipuncture / Unknown 08/20/2024 2:00 PM CDT 08/20/2024 3:36 PM CDT Dolores Del Rosario MD HEMATOLOGY Fi nal Result Performing Organization Address City/[facility]/ZIP Co de Phone Number [facility] [address] [place] [address] * MANUAL DIFFERENTIAL (08/20/2024 2:00 PM CDT) [facility] % NEUTROPHILS 63.0 % 08/20/2024 4:33 PM CDT [facility] % LYMPHOCYTES 23.0 % 08/20/2024 4:33 PM CDT [facility] % MONOCYTES 9.0 % 08/20/2024 4:33 PM CDT [facility] % EOSINOPHILS 4.0 % 08/20/2024 4:33 PM CDT [facility] % BASOPHILS 1.0 % 08/20/2024 4:33 PM CDT [facility] NEUTROPHILS ABSOLUTE 3.3 1.7 - 7.0 thou/cu mm 08/20/2024 4:33 PM CDT [facility] LYMPHOCYTES ABSOLUTE 1.2 0.9 - 2.9 thou/cu mm 08/20/2024 4:33 PM CDT [facility] MONOCYTES ABSOLUTE 0.5 <0.9 thou/cu mm 08/20/2024 4:33 PM CDT [facility] EOSINOPHILS ABSOLUTE 0.2 <0.5 thou/cu mm 08/20/2024 4:33 PM CDT [facility] BASOPHILS ABSOLUTE 0.1 <0.3 thou/cu mm 08/20/2024 4:33 PM CDT [facility] Blood BLOOD SPECIMEN / Unknown Non-Lab Venipuncture / Unknown 08/20/2024 2:00 PM CDT 08/20/2024 3:36 PM CDT Dolores Del Rosario MD HEMATOLOGY Fi nal Result [facility] [address] [place], [place] [id number] * (ABNORMAL) FERRITIN (08/06/2024 2:00 PM CDT) FERRITIN 293.0(H) 15.0 - 150.0 ng/mL 08/07/2024 2:26 PM CDT [facility] Blood BLOOD SPECIMEN / Unknown Non-Lab Venipuncture / Unknown 08/06/2024 2:00 PM CDT 08/06/2024 3:21 PM CDT Rachel Carmona MD CHEMISTRY Final Res ult Performing Organization Address City/[facility]/ZIP Co de Phone Number [facility] [address] [place] [address], * (ABNORMAL) LIPID PANEL W REFLEX MEASURED LDL (05/14/2024 3:17 PM [facility]) CHOLESTEROL, TOTAL 196 <200 mg/dL [facility] HDL CHOLESTEROL 54 > OR = 50 mg/dL [facility] TRIGLYCERIDES 92 <150 mg/dL [facility] LDL-CHOLESTEROL 122(H) mg/dL (calc) [facility] Comment: Reference range: <100 Desirable range <100 mg/dL for primary prevention; <70 mg/dL for patients with CHD or diabetic patients with > or = 2 CHD risk factors. LDL-C is now calculated using the Heriberto calculation, which is a validated novel method providing better accuracy than the Friedewald equation in the estimation of LDL-C. Rayo ACRRERO et al. TAYLOR. 2013;310(19): 6375-4953 (http://education.ThoughtLeadr/faq/FWA655) CHOL/HDLC RATIO 3.6 <5.0 (calc) [facility] NON HDL CHOLESTEROL 142(H) <130 mg/dL (calc) [facility] Comment: For patients with diabetes plus 1 major ASCVD risk factor, treating to a non-HDL-C goal of <100 mg/dL (LDL-C of <70 mg/dL) is considered a therapeutic option. Blood BLOOD SPECIMEN / Unknown 05/14/2024 3:17 PM [facility] 05/14/2024 3:18 PM [facility] Narrative [facility] - 05/15/2024 3:18 AM [facility] FASTING:NO FASTING: NO Rachel Carmona MD CHEMISTRY Final Res ult [facility] [address] [place] [address], [place] [phone] [facility] [address] [place] [address] * SDNA-FIT EXTERNAL (COLOGUARD) (04/28/2022 7:00 PM [facility]) NONINV COLON CA DNA+OCC BLD SCRN STL-IMP Negative Negative 05/05/2022 7:33 PM [facility] (CLIA #:[id number]) Comment: NEGATIVE TEST RESULT. A negative Cologuard [...] screened with both Cologuard and colonoscopy. (Vanessa Steve. et al, N Engl J Med 2014;370(14):7924-2227) The normal value (reference range) for this assay is negative. COLOGUARD RE-SCREENING RECOMMENDATION: Periodic colorectal cancer screening is an important part of preventive healthcare for asymptomatic individuals at average risk for colorectal cancer. Following a negative Cologuard result, the [place] [employer] and U.S. Multi-Society Task Force screening guidelines recommend a Cologuard re-screening interval of 3 years. References: [place] [employer] Guideline for Colorectal Cancer Screening: https://www.cancer.org/cancer/txawc-zdrznc-iyftmg/moccrilaz-saazrgzrw-pnfpvnj/ac s-rec ommendations.html.; Lino NICHOLSON, Ceferino BRIDGES, Troy YuK, Colorectal Cancer Screening: Recommendations for Physicians and Patients from the U.S. Multi-Society Task Force on Colorectal Cancer Screening , Am J Gastroenterology 2017; 112:8202-2233. TEST DESCRIPTION: Composite algorithmic analysis of stool [...] screened with both Cologuard and colonoscopy. (Vanessa Mccarthy et al, N Engl J Med 2014;370(14):5786-5927.) Cologuard may produce a false negative or false positive result (no colorectal cancer or precancerous polyp present at colonoscopy follow up). A negative Cologuard test result does not guarantee the absence of CRC or advanced adenoma (pre-cancer). The current Cologuard screening interval is every 3 years. ([place] [employer] and U.S. Multi-Society Task Force). Cologuard performance data in a 10,000 patient pivotal study using colonoscopy as the reference method can be accessed at the following location: www.[employer]/results. Additional description of the Cologuard test process, warnings and precautions can be found at www.InVentureogCanWeNetworkrd.com. Stool specimen (specimen) (Rectum) 04/28/2022 7:00 PM [facility] 05/01/2022 11:53 AM [facility] us Rachel Carmona MD URINE Final Res ult [facility] (CLIA #:[id number]) [address] [place] [address], * ANTI HCV [45137.2] (04/24/2018 3:34 PM [facility]) HEPATITIS C ANTIBODY Non-React bee Non-React bee 04/24/2018 8:22 PM [facility] Comment:Antibodies to HCV no t detected; does not exclude the possibility of exposure to HCV. Blood BLOOD SPECIMEN / Unknown Venipuncture / Unknown 04/24/2018 3:34 PM [facility] 04/24/2018 3:34 PM [facility] Rachel Carmona MD SEND OUTS Final Res ult [facility] [address] [place] [address], [place] * (ABNORMAL) XR DXA BONE DENSITY 2 SITES AXIAL (02/28/2017 2:04 PM [facility]) Anatomical Region Laterality Modality Spine, HIPS, HIPL, HIPR Other Narrative 03/01/2017 5:31 PM [facility] Please see scanned document for results of this study. Jonn Lagunas DO DEXA Final Result from Last 3 Months or Most Recently Relevant to Health Maintenance Insurance MEDICARE PART B HB ONLY MEDICARE PART A HB ONLY MEDICARE PB ONLY MEDICAID MEDICARE PPS MEDICAID Advance Directives * Full Code (Latest Code [...] Comments Code Status Discussion: Discussed Care Teams Visitor Service Assistant Relationship Specialty Start Date End Date Rachel Carmona MD [address] [facility] [address] PCP - General Internal Medicine 08/12/17 Andrea Tabares MD [address] [place] [address] Surgery - Orthopedics 02/20/18 Jeanette Fernandez MD [address] [place] [address] Neurology 01/27/21
[2024-10-30 16:08] VITALS: BP 124/64; PULSE 93; RESP 20; TEMP 35.4; O2SAT 99; BMI 27.5
--- NOTE | 2024-10-30 16:12 | ED.GENADULT ---
HPI - General Adult General Time Seen by Provider: 16:12 Date Seen: 10/30/24 Chief complaint: Post Op Complication Stated complaint: wants new dressing for surgery wound Time Seen by Provider: 10/30/24 15:53 Source: patient and RN notes reviewed Mode of arrival: ambulatory Limitations: no limitations History of Present Illness HPI narrative: This 74-year-old female had a left hip replacement at [facility] on October 11. Her zelda were removed on October 25. She states the wound has been draining non purulent yellowish to reddish fluid since. Her incision site is becoming more painful. She has a follow-up with her orthopedic office this . She is not experiencing any fevers chills, does not feel like she has any fluids symptoms or is becoming ill. She definitely does feel that the site is becoming more painful though. She still feels like there is some thigh overall swelling but notes no calf pain or swelling, no chest symptomatology. Related Data Home Medications ?Medication ?Instructions ?Recorded ?Confirmed acetaminophen 500 mg tablet mg PO PRN 11/27/21 07/15/24 albuterol 90 mcg/actuation aerosol 2 spray inhalation PRN 11/27/21 07/15/24 inhaler budesonide-formoterol HFA 80 2 inhalation BID 11/27/21 07/15/24 mcg-4.5 mcg/actuation aerosol inhaler calcium acetate PO 11/27/21 07/15/24 dextroamphetamine-amphetamine ER 10 PO DAILY 11/27/21 07/15/24 10 mg 24hr capsule,extend release duloxetine 60 mg capsule,delayed 60 mg PO DAILY 11/27/21 10/15/24 release lisinopril 20 1 tab PO DAILY 11/27/21 10/15/24 mg-hydrochlorothiazide 25 mg tablet lutein 10 mg tablet 50 mg PO DAILY 11/27/21 10/15/24 meclizine 25 mg tablet 25 mg PO PRN 11/27/21 07/15/24 naproxen sodium 220 mg tablet 440 mg PO PRN 11/27/21 07/15/24 omeprazole 20 mg capsule,delayed mg PO DAILY 11/27/21 07/15/24 release amantadine HCl 100 mg capsule 100 mg PO BID 10/15/24 10/15/24 amlodipine 5 mg tablet 5 mg PO DAILY 10/15/24 10/15/24 baclofen 10 mg tablet 5 mg PO QPM 10/15/24 10/15/24 fluticasone 250 mcg-salmeterol 50 1 ea inhalation BID 10/15/24 10/15/24 mcg/dose blistr powdr for inhalation hydrochlorothiazide 25 mg tablet 25 mg PO DAILY 10/15/24 10/15/24 ibuprofen 600 mg tablet 600 mg PO Q6H PRN 10/15/24 10/15/24 oxycodone 5 mg tablet PO 10/15/24 sennosides 8.6 mg-docusate sodium PO 10/15/24 50 mg tablet (Senexon-S) spironolactone 25 mg tablet 12.5 mg PO QAM 10/15/24 10/15/24 topiramate 25 mg tablet 25 mg PO QPM 10/15/24 10/15/24 trazodone 50 mg tablet mg PO 10/15/24 Allergies Allergy/AdvReac Type Severity Reaction Status Date / Time furosemide (From Lasix) Allergy Intermediate Hives Verified 10/30/24 16:08 tizanidine Allergy Mild Dizziness Verified 10/30/24 16:08 Review of Systems Narrative: As per HPI. PFS PFS Surgical History Status post right hip replacement ?Z96.641 - Presence of right artificial hip joint (ICD-10) Social History Smoking Status: Never smoker Do you use any of these nicotine containing products: None How often do you have a drink containing alcohol: monthly or less How many standard drinks containing alcohol do you have on a typical day: 1 or 2 How often do you have six or more drinks on one occasion: Never AUDIT-C Alcohol total score: 1 Non-prescribed substance use: denies use service: No Exam Const: Vital Signs, click to edit/add: Vital Signs - 24 hr 10/30/24 16:08 Temperature 95.8 F L Pulse Rate [Pulse Oximeter] 93 Respiratory Rate 20 Blood Pressure [Ri ght Upper Arm] 124/64 Pulse Oximetry 99 Oxygen Delivery Me thod Room Air This 74-year-old female seen in exam room 3, she is alert, interactive, no apparent distress. CV regular rate and rhythm, no murmur, normal S1-S2, no S3-S4. Breathing easy on room air, lungs clear anteriorly. Her left lateral hip wound does have some erythema about 2 cm circumferentially on each side. In the center there is a little bit of wound breakdown in little serous discharge, there is no fluctuance. She is somewhat tender when I palpate more in the middle of the wound but I feel again no significant induration or fluctuance that would be indicative of an underlying abscess. There is maybe a little bit of warmth. The pinkish erythematous change is not necessarily out of the norm of what I have seen in postoperative wounds. There is 1 staple left a little bit more inferiorly in the wound, was mildly breed but I could see the silver portion on 1 end of it, this was removed without any difficulty. The skin did not open up any further. Documenting provider has reviewed patient's vital signs: yes Course Course ED Course: The retained staple was removed without difficulty. Patient is going to be covered with antibiotics in case this is an early wound infection. We will put a nonocclusive dressing on, reviewed with patient that we do not want this to be occlusive. This something that she is likely going to need to change daily or as often as needed. She will need to keep this follow-up on . If she develops fevers, has worsening symptoms of increasing infection, is going to need to her surgeon at [facility]. She is requesting her antibiotic from [facility]. Vital Signs Vital signs: Initial Vital Signs Temperature 95.8 F L 10/30/24 16:08 Temperature Source Temporal Artery Scan 10/30/24 16:08 Pulse Rate 93 10/30/24 16:08 Respiratory Rate 20 10/30/24 16:08 Blood Pressure 124/64 10/30/24 16:08 Blood Pressure Mean 84 10/30/24 16:08 Blood Pressure Position Semi-Fowlers 10/30/24 16:08 Pulse Oximetry 99 10/30/24 16:08 Oxygen Delivery Method Room Air 10/30/24 16:08 Vital Signs Temperature 95.8 F L 10/30/24 16:08 Pulse Rate 93 10/30/24 16:08 Respiratory Rate 20 10/30/24 16:08 Blood Pressure 124/64 10/30/24 16:08 Pulse Oximetry 99 10/30/24 16:08 Oxygen Delivery Method Room Air 10/30/24 16:08 Temperature 95.8 F L 10/30/24 16:08 Pulse Rate 93 10/30/24 16:08 Respiratory Rate 20 10/30/24 16:08 Blood Pressure 124/64 10/30/24 16:08 Pulse Oximetry 99 10/30/24 16:08 Oxygen Delivery Method Room Air 10/30/24 16:08 Discharge Plan Discharge Clinical Impression: Surgical wound dehiscence Qualifiers: Encounter type: initial encounter Qualified Code(s): T81.31XA - Disruption of external operation (surgical) wound, not elsewhere classified, initial encounter Patient Disposition: Home, Self-Care Condition: Stable Instructions: Wound Dehiscence (ED) Additional Instructions: There is a small spot in the center that has a little bit of skin breakdown. We are going to place you on antibiotics with Keflex 500 mg 3 times a day, 20 prescribed from [employer]. Take as prescribed and complete this. Bandages should be changed with saturation or at least daily until further advised by your surgeon. Keep your follow-up for this coming . If you feel this wound is worsening, have concerns for increasing infection, he will need to follow up with them sooner. Prescriptions: No Action lutein 10 mg tablet 50 mg PO DAILY budesonide-formoterol 80-4.5 mcg/actuation HFA aerosol inhaler 2 inhalation BID duloxetine 60 mg capsule,delayed release(DR/EC) 60 mg PO DAILY albuterol 90 mcg/actuation aerosol 2 spray inhalation PRN dextroamphetamine-amphetamine 10 mg capsule,extended release 24hr 10 PO DAILY lisinopril-hydrochlorothiazide 20-25 mg tablet 1 tab PO DAILY omeprazole 20 mg capsule,delayed release(DR/EC) PO DAILY naproxen sodium 220 mg tablet 440 mg PO PRN meclizine 25 mg tablet 25 mg PO PRN calcium acetate PO acetaminophen 500 mg tablet PO PRN fluticasone propion-salmeterol 250-50 mcg/dose blister with device 1 ea INHALATION BID trazodone 50 mg tablet PO sennosides-docusate sodium [Senexon-S] 8.6-50 mg tablet PO topiramate 25 mg tablet 25 mg PO QPM amlodipine 5 mg tablet 5 mg PO DAILY amantadine HCl 100 mg capsule 100 mg PO BID spironolactone 25 mg tablet 12.5 mg PO QAM baclofen 10 mg tablet 5 mg PO QPM hydrochlorothiazide 25 mg tablet 25 mg PO DAILY ibuprofen 600 mg tablet 600 mg PO Q6H PRN oxycodone 5 mg tablet PO Follow Up/Referrals: Rachel Carmona MD [Primary Care Provider, Internal Medicine] Stand Alone Forms: [facility] Info Instructions
[2024-10-30 16:29] VITALS: TEMP 36.8
--- OUTSIDE RECORDS SUMMARY | 2024-10-30 16:34 | XMS_ITS | Clinical Summary ---
Author Organization [facility] Address [address] , [address] [place] [address] Phone Care Team Providers Care Director Digital Marketing Name Role Phone Zachary FOLEY, BSN, Peace Thompson [phone] Conditions or Problems Problem Name Problem Code Onset Date Status Entry Date Provider Comment Standard Description Annotate Knee pain, left, chronic 8852826815 (SNOMED CT) 10/26 Active 10/28 Noy Campeau Pain of joint of knee Knee pain, right, chronic 8320752203 (SNOMED CT) 10/26 Active 10/26 Noy Campeau Pain of joint of knee Hip pain, left 53971931 (SNOMED CT) 10/26 Active 10/28 Noy Campeau Pain of hip region Hip joint pain, right 04712506 (SNOMED CT) 10/26 Active 10/26 Noy Campeau Pain of hip region Leg pain, left 586534572 (SNOMED CT) 10/26 Active 10/28 Noy Campeau Pain in left lower limb Leg pain, right 250364228 (SNOMED CT) 10/26 Active 10/26 Noy Campeau Pain in right lower limb Leg pain, bilateral 53383656 (SNOMED CT) 10/26 Inactive 10/26 Jeanette Marcum MD Pain in lower limb Restless leg syndrome 12681901 (SNOMED CT) 10/26 Active 10/26 Jeanette aMrcum MD Restless legs Hip pain 90773264 (SNOMED CT) 10/26 Inactive 10/26 Jeanette Marcum MD Pain of hip region Knee pain, chronic 10373346 (SNOMED CT) 10/26 Inactive 10/26 Jeanette Marcum MD Knee pain Low back pain, chronic 085665539 (SNOMED CT) 10/26 Active 10/26 Jeanette Marcum MD Chronic low back pain Fatigue, chronic 28473166 (SNOMED CT) Active Jeanette Marcum MD Fatigue Anxiety disorder 923449842 (SNOMED CT) Active Jeanette Marcum MD Anxiety disorder Depression 85825163 (SNOMED CT) Active Jeanette Marcum MD Depressive disorder Multiple sclerosis, relapsing/r emitting 775017484 (SNOMED CT) 1986 Active 09/26 Jeanette Marcum MD Relapsing remitting multiple sclerosis Carpal tunnel syndrome, bilateral upper limbs [id number] 101 (SNOMED CT) 12/30 Active 12/30 Watson Baker MD Bilateral carpal tunnel syndrome Multiple sclerosis, relapsing/r emitting 146634935 (SNOMED CT) 09/26 Inactive 09/26 Lazaro Tomas MD Relapsing remitting multiple sclerosis Neuropathy, idiopathic peripheral 35313117 (SNOMED CT) 09/26 Active 09/26 Lazaro Tomas MD Idiopathic peripheral neuropathy Medications Medication Instructions Start Date Stop Date Generic Name ND Provider BACLOFEN 10 MG TABS Take 1/2 tablet by mouth at bedtime baclofen [id number] Jeanette Marcum MD AMANTADINE HCL 100 MG TABS Take 1 tablet by mouth twice a day 12/19 amantadine hcl 05348206919 Claudia SILVER-Ibrahima AMANTADINE HCL 100 MG CAPS TAKE ONE CAPSULE BY MOUTH TWICE DAILY amantadine hcl 02401487002 Claudia SILVER-C ESCITALOPRAM OXALATE 10 MG TABS Take 1 Tablet by mouth one time a day. escitalopram oxalate 11450446093 Jeanette Marcum MD AMPHETAMINE-DEXTR OAMPHET ER 10 MG EC58G-LAF TAKE ONE CAPSULE BY MOUTH EVERY MORNING NEEDED 07/27 dextroamphetamine -amphetamine 63254790910 Jeanette Marcum MD AMPHETAMINE-DEXTR OAMPHET ER 10 MG RY43A-HED Take 1 capsule by mouth every morning TAKE ONE CAPSULE BY MOUTH EVERY MORNING NEEDED dextroamphetamine -amphetamine 75765748557 Claudia Rodriguez PA-C DULOXETINE HCL 60 MG CPEP TAKE ONE CAPSULE BY MOUTH DAILY duloxetine 95942299987 Jeanette Marcum MD AMPHETAMINE-DEXTR OAMPHET ER 10 MG DI34A-PID TAKE ONE CAPSULE BY MOUTH EVERY MORNING NEEDED 08/24 dextroamphetamine -amphetamine 15916711342 Jeanette Marcum MD DULOXETINE HCL 60 MG CPEP TAKE ONE CAPSULE BY MOUTH DAILY 05/19 duloxetine 73441601783 Jeanette Marcum MD DULOXETINE HCL 60 MG CPEP TAKE ONE CAPSULE BY MOUTH DAILY 04/16 duloxetine 87611550613 Katalina Lagunas PA-C DULOXETINE HCL 30 MG CPEP TAKE ONE CAPSULE BY MOUTH ONCE A DAY. TAKE WITH 60 MG CAPSULE. 10/26 duloxetine 68895696662 Jeanette Marcum MD ESCITALOPRAM OXALATE 10 MG TABS Take 1 Tablet by mouth one time a day. 10/23 escitalopram oxalate 07082128674 Jeanette Marcum MD AMPHETAMINE-DEXTR OAMPHET ER 5 MG TI79P-MEA TAKE TWO CAPSULE BY MOUTH EVERY MORNING NEEDED 10/07 dextroamphetamine -amphetamine 23204869489 Jeanette Marcum MD AMPHETAMINE-DEXTR OAMPHET ER 10 MG CQ31B-IJT TAKE ONE CAPSULE BY MOUTH EVERY MORNING NEEDED 08/24 dextroamphetamine -amphetamine 34297413791 Jeanette Marcum MD AMPHETAMINE-DEXTR OAMPHET ER 10 MG RV92P-UUJ TAKE ONE CAPSULE BY MOUTH EVERY MORNING NEEDED 0 09/30 dextroamphetamine -amphetamine 39391485550 Jeanette Marcum MD AMPHETAMINE-DEXTR OAMPHET ER 5 MG XO85X-FBI TAKE TWO CAPSULE BY MOUTH EVERY MORNING NEEDED 0 10/19 dextroamphetamine -amphetamine 07561157333 Jeanette Marcum MD AMPHETAMINE-DEXTR OAMPHET ER 10 MG DU86M-GLF TAKE ONE CAPSULE BY MOUTH EVERY MORNING NEEDED 0 08/24 dextroamphetamine -amphetamine 66851634388 Claudia Rodriguez PA-C AMPHETAMINE-DEXTR OAMPHET ER 10 MG MC05Q-NUT TAKE ONE CAPSULE BY MOUTH EVERY MORNING NEEDED 0 08/24 dextroamphetamine -amphetamine 74435266262 Jeanette Marcum MD AMPHETAMINE-DEXTR OAMPHET ER 10 MG QJ80Z-BFG TAKE ONE CAPSULE BY MOUTH EVERY MORNING NEEDED 0 08/24 dextroamphetamine -amphetamine 89925979759 Justin Romero MD AMPHETAMINE-DEXTR OAMPHET ER 10 MG XU94C-ZSS TAKE ONE CAPSULE BY MOUTH EVERY MORNING NEEDED 0 08/24 dextroamphetamine -amphetamine 46685117839 Jeanette Marcum MD BACLOFEN 10 MG TABS Take 1/2 tablet by mouth at bedtime 05/21 baclofen 89685370346 Ag Staton MD AMPHETAMINE-DEXTR OAMPHET ER 10 MG CX65X-KPM TAKE ONE CAPSULE BY MOUTH EVERY MORNING NEEDED 0 16 dextroamphetamine -amphetamine 11550038253 Bárbara Longoria PA-C DULOXETINE HCL 30 MG CPEP Take 1 capsule by mouth once a day (take with 60 mg cap) 05/03 duloxetine 08233518455 Jeanette Marcum MD DULOXETINE HCL 30 MG CPEP TAKE ONE CAPSULE BY MOUTH ONCE A DAY. TAKE WITH 60 MG CAPSULE. 0 10/26 duloxetine 70151081167 Jeanette Marcum MD AMPHETAMINE-DEXTR OAMPHET ER 10 MG OH79Z-CPS TAKE ONE CAPSULE BY MOUTH EVERY MORNING NEEDED 0 08/24 dextroamphetamine -amphetamine 84547686365 Jeanette Marcum MD DULOXETINE HCL 30 MG CPEP Take 1 capsule by mouth once a day (take with 60 mg cap) 05/03 duloxetine 56320385100 Jeanette Marcum MD AMPHETAMINE-DEXTR OAMPHET ER 10 MG GY61H-APH TAKE ONE CAPSULE BY MOUTH EVERY MORNING NEEDED 08/24 dextroamphetamine -amphetamine 68851217475 Claudia Rodriguez PA-C DULOXETINE HCL 30 MG CPEP Take 1 capsule by mouth once a day (take with 60 mg cap) 10/29 duloxetine 38804525939 Jeanette Marcum MD ESCITALOPRAM OXALATE 10 MG TABS Take 1 tablet by mouth once a day 10/20 escitalopram oxalate 29436622479 Jeanette Marcum MD ESCITALOPRAM OXALATE 10 MG TABS Take 1 tablet by mouth once a day 10/20 escitalopram oxalate 44492781071 Jeanette Marcum MD BACLOFEN 5 MG TABS Take 1 tablet by mouth at bedtime 0 04/20 baclofen 17838939860 Jeanette Marcum MD TOPIRAMATE 25 MG TABS 1 tab at night topiramate 30027632938 Jeanette Marcum MD AMANTADINE HCL 100 MG TABS Take 1 tablet by mouth twice a day 0 9 amantadine hcl 07840848682 Jeanette Marcum MD DULOXETINE HCL 60 MG CPEP TAKE ONE CAPSULE BY MOUTH DAILY 0 804 duloxetine 55728341330 Jeanette Marcum MD AMPHETAMINE-DEXTR OAMPHET ER 10 MG CM97G-LTQ TAKE ONE CAPSULE BY MOUTH EVERY MORNING NEEDED 0 08/24 dextroamphetamine -amphetamine 16030338778 Jeanette Marcum MD AMPHETAMINE-DEXTR OAMPHET ER 10 MG RD31B-OQN TAKE ONE CAPSULE BY MOUTH EVERY MORNING NEEDED 08/24 dextroamphetamine -amphetamine 87741400757 Claudia Rodriguez PA-C ESCITALOPRAM OXALATE 10 MG TABS Take 1 tablet by mouth once a day 10/20 escitalopram oxalate 30711007953 Conchis Hughes RN DULOXETINE HCL 60 MG CPEP Take 1 capsule by mouth once a day 07/09 duloxetine 38084319046 Jeanette Marcum MD DULOXETINE HCL 60 MG CPEP TAKE ONE CAPSULE BY MOUTH DAILY 09/29 duloxetine 18123435014 Claudia Rodriguez PA-C ESCITALOPRAM OXALATE 10 MG TABS TAKE ONE TABLET BY MOUTH EVERY DAY 07/09 escitalopram oxalate 30797290943 Jeanette Marcum MD BACLOFEN 5 MG TABS Take 1 tablet by mouth at bedtime 10/20 baclofen 85135705180 Claudia Rodriguez PA-C ALBUTEROL SULFATE 2 MG TABS albuterol sulfate 24591085745 Claudia Rodriguez PA-C VITAMIN D3 50 MCG (1999) TABS 2 per day cholecalciferol (vitamin d3) 27767214345 Claudia Rodriguez PA-C AMPHETAMINE-DEXTR OAMPHET ER 10 MG KG53X-HSC TAKE ONE CAPSULE BY MOUTH EVERY MORNING NEEDED 08/24 dextroamphetamine -amphetamine 83219179591 Jeanette Marcum MD AMPHETAMINE-DEXTR OAMPHET ER 10 MG HT33K-UBX TAKE ONE CAPSULE EVERY MORNING NEEDED dextroamphetamine -amphetamine 64861125563 Watson Baker MD AMPHETAMINE-DEXTR OAMPHET ER 10 MG XW05C-HJN TAKE ONE CAPSULE BY MOUTH EVERY MORNING NEEDED 08/24 dextroamphetamine -amphetamine 06470999369 Jeanette Marcum MD DULOXETINE HCL 60 MG CPEP Total of 120mg daily duloxetine 28444396974 Swati Mclean DNP,HAT FINISHER,SCHOOL COOK ESCITALOPRAM OXALATE 10 MG TABS Take 1 tablet by mouth once a day 10/20 escitalopram oxalate 81687575050 Jeanette Marcum MD DULOXETINE HCL 60 MG CPEP Take 1 capsule by mouth once a day 07/24 duloxetine 32876987698 Jeanette Marcum MD AMPHETAMINE-DEXTR OAMPHET ER 10 MG MR36U-AUH Take 1 capsule by mouth every morning as needed 12/19 dextroamphetamine -amphetamine 62297557613 Watson Baker MD AMPHETAMINE-DEXTR OAMPHET ER 10 MG CC81G-AWR TAKE ONE CAPSULE EVERY MORNING NEEDED 08/24 dextroamphetamine -amphetamine 69935500264 Watson Baker MD SYMBICORT 80-4.5 MCG/ACT AERO 2 once a day budesonide-formot cherelle 15791066306 Watson Baker MD AMPHETAMINE-DEXTR OAMPHET ER 10 MG GM90E-EIS Take 1 capsule by mouth every morning as needed 08/24 dextroamphetamine -amphetamine 29192662864 Watson Baker MD OMEPRAZOLE 20 MG CPDR 1-2 capsule by mouth once a day omeprazole 11340352754 W[place]no Baker MD CYCLOBENZAPRINE HCL 5 MG TABS 1 tablet by mouth every night 10/19 cyclobenzaprine 56148563820 Bárbara Longoria PA-C MECLIZINE HCL 25 MG TABS 1 tablet by mouth as needed meclizine 85569248059 Watson Baker MD DULOXETINE HCL 60 MG CPEP Total of 120mg daily 07/24 duloxetine 29455046699 Swati Mclean DNP,HAT FINISHER,SCHOOL COOK RIZATRIPTAN BENZOATE 10 MG TBDP take 1 pill at [place] onset. May repeat in 2 hours if [place] persists. No more than 2 pills in 24 hrs. rizatriptan 10010858512 Watson Baker MD LISINOPRIL 20 MG TABS 1 tablet by mouth once a day lisinopril 24694344331 Watson Baker MD RIZATRIPTAN BENZOATE 10 MG TBDP take 1 pill at [place] onset. May repeat in 2 hours if [place] persists. No more than 2 pills in 24 hrs. 11/17 RIZATRIPTAN BENZOATE 50051295682 Watson Baker MD AMPHETAMINE-DEXTR OAMPHET ER 10 MG SZ49Y-TWQ TAKE ONE CAPSULE in the MORNING as needed 08/24 AMPHETAMINE-DEXTR OAMPHETAMINE 80747127569 Watson Baker MD AMPHETAMINE-DEXTR OAMPHET ER 10 MG SY71N-BKB TAKE ONE CAPSULE EVERY MORNINGON HOLD 08/24 AMPHETAMINE-DEXTR OAMPHETAMINE 37823778282 Swati Mclean DNP,HAT FINISHER,SCHOOL COOK DULOXETINE HCL 60 MG CPEP Total of 120mg daily 07/24 DULOXETINE HCL 74972768913 Swati Mclean DNP,HAT FINISHER,SCHOOL COOK AMPHETAMINE-DEXTR OAMPHET ER 10 MG XZ47H-UMZ TAKE ONE CAPSULE EVERY MORNING 08/24 AMPHETAMINE-DEXTR OAMPHETAMINE 97260075523 Watson Baker MD GABAPENTIN 300 MG CAPS 1 cap at bedtime 04/14 GABAPENTIN 58204252707 Swati Mclean DNP,HAT FINISHER,SCHOOL COOK AMPHETAMINE-DEXTR OAMPHET ER 10 MG PS48D-LPU 1 po qAM 08/24 AMPHETAMINE-DEXTR OAMPHETAMINE 20778432846 Watson Baker MD AMPHETAMINE-DEXTR OAMPHET ER 10 MG XG13Q-CBI TAKE ONE CAPSULE EVERY MORNING 08/24 AMPHETAMINE-DEXTR OAMPHETAMINE 12758477712 Wilberto Urbina MD AMPHETAMINE-DEXTR OAMPHET ER 10 MG NO35M-IGN 1 po qam 08/24 AMPHETAMINE-DEXTR OAMPHETAMINE 75267339745 Lazaro Tomas MD AMPHETAMINE-DEXTR OAMPHET ER 10 MG RR93Y-CVX Take one capsule every morning. 08/24 AMPHETAMINE-DEXTR OAMPHETAMINE 54394550139 Nancy Abdul MD AMPHETAMINE-DEXTR OAMPHET ER 10 MG FI89T-RAA TAKE ONE CAPSULE EVERY MORNING 08/24 AMPHETAMINE-DEXTR OAMPHETAMINE 93252023746 Lazaro Tomas MD CYCLOBENZAPRINE HCL 5 MG TABS 1 tab at bedtime 10/19 CYCLOBENZAPRINE HCL 98654539980 Bárbara Longoria PA-C GABAPENTIN 300 MG CAPS 1 cap at bedtime 10/19 GABAPENTIN 92013865895 Bárbara Longoria PA-C DULOXETINE HCL 60 MG CPEP 07/24 DULOXETINE HCL 26809821253 Bárbara Longoria PA-C PRAMIPEXOLE DIHYDROCHLORIDE 0.25 MG TABS 1 po one hour before bed 05/19 PRAMIPEXOLE DIHYDROCHLORIDE 04024921144 Lazaro Tomas MD AMPHETAMINE-DEXTR OAMPHET ER 10 MG YC49N-SKU 1 po qam 08/24 AMPHETAMINE-DEXTR OAMPHETAMINE 80944184690 Lazaro Tomas MD AMPHETAMINE-DEXTR OAMPHET ER 10 MG HW55P-HLA 1 po AM 08/24 AMPHETAMINE-DEXTR OAMPHETAMINE 23048676107 Lazaro Tomas MD AMPHETAMINE-DEXTR OAMPHET ER 10 MG UY73D-EQY 1 po qam 08/24 AMPHETAMINE-DEXTR OAMPHETAMINE 40613684716 Lazaro Tomas MD AMPHETAMINE-DEXTR OAMPHET ER 10 MG SV34X-DPH TAKE ONE CAPSULE EVERY MORNING 08/24 AMPHETAMINE-DEXTR OAMPHETAMINE 56874694196 Lazaro Tomas MD AMPHETAMINE-DEXTR OAMPHET ER 10 MG KL58Y-TGL 1 po qAM 08/24 AMPHETAMINE-DEXTR OAMPHETAMINE 81218024595 Lazaro Tomas MD AMPHETAMINE-DEXTR OAMPHET ER 10 MG UE09G-QME TAKE ONE CAPSULE EVERY MORNING 0 08/24 AMPHETAMINE-DEXTR OAMPHETAMINE 12083003416 Lazaro Tomas MD AMPHETAMINE-DEXTR OAMPHET ER 10 MG GX11V-QAT 1 po qAM 0 08/24 AMPHETAMINE-DEXTR OAMPHETAMINE 25384087732 Lazaro Tomas MD AMPHETAMINE-DEXTR OAMPHET ER 10 MG UF09N-VFA 1 po qam 0 08/24 AMPHETAMINE-DEXTR OAMPHETAMINE 93001311625 Lazaro Tomas MD AMPHETAMINE-DEXTR OAMPHET ER 10 MG RO93U-RXM 1 po qam 0 08/24 AMPHETAMINE-DEXTR OAMPHETAMINE 85779202824 Lazaro Tomas MD AMPHETAMINE-DEXTR OAMPHET ER 10 MG MD37Y-ILU 1 po qam 0 08/24 AMPHETAMINE-DEXTR OAMPHETAMINE 56638684765 Lazaro Tomas MD AMPHETAMINE-DEXTR OAMPHET ER 10 MG BB07X-PPD 1 po qd 0 08/24 AMPHETAMINE-DEXTR OAMPHETAMINE 47816949460 Lazaro Tomas MD PRAMIPEXOLE DIHYDROCHLORIDE 0.25 MG TABS 1 po one hour before bed 0 07/24 PRAMIPEXOLE DIHYDROCHLORIDE 62108216601 Lazaro Tomas MD CYCLOBENZAPRINE HCL 10 MG TABS 1 po prn 10/01 CYCLOBENZAPRINE HCL 74164798474 Lazrao Tomas MD AMPHETAMINE-DEXTR OAMPHET ER 10 MG XB16F-EFH 1 po qd 0 08/24 AMPHETAMINE-DEXTR OAMPHETAMINE 83464487946 Lazaro Tomas MD AMPHETAMINE-DEXTR OAMPHET ER 10 MG QZ24B-MEA 1 po qd 0 08/24 AMPHETAMINE-DEXTR OAMPHETAMINE 62306209917 Lazaro Tomas MD SYMBICORT 80-4.5 MCG/ACT AERO 2 per day 11/17 BUDESONIDE-FORMOT CHERELLE FUMARATE 99361310648 Lazaro Tomas MD CYCLOBENZAPRINE HCL 10 MG TABS 1 po prn 10/01 CYCLOBENZAPRINE HCL 44911297644 Lazaro Tomas MD MECLIZINE HCL 25 MG TABS 1 po prn 11/17 MECLIZINE HCL 25520847752 Lazaro Tomas MD OMEPRAZOLE 20 MG CPDR 1-2 po qd 10/19 OMEPRAZOLE 68265361915 Lazaro Tomas MD LISINOPRIL 20 MG TABS 1 po qd 04/23 LISINOPRIL 41053522213 Lazaro Tomas MD AMPHETAMINE-DEXTR OAMPHET ER 10 MG AT78I-SYZ 1 po qam 08/24 AMPHETAMINE-DEXTR OAMPHETAMINE [id number] Lazaro Tomas MD DULOXETINE HCL 30 MG CPEP 1 po qam 07/24 DULOXETINE HCL 98114364655 Lazaro Tomas MD Medications Administered No information [...] AMPHIPHYS AB * Amphiphy sin Ab, S CASKET TRIMMER-2 * Purkinje Cell Cytoplasmic Ab Type 2 CASKET TRIMMER-1 * Purkinje Cell Cytoplasmic Ab Type 1 [...] [Mass/volume] in Serum or Plasma by Electrophoresis [id number] * g/dL beta 2 g lobulin [id number] * g/dL beta 1 g lobulin ALPHA [...] D ULOXETINE HCL 30 MG ORAL CPEP [facility]_ [id number]`D ULOXETINE HCL 30 MG ORAL CPEP`30``30 Capsule``1 PO QAM``5`0`09/26`No date sent`[employer] [id number]*`[id number] 6`91279`DULOXMike [address] DR 30MG CAPSULES Quantity: 30 Capsule [...] PM Jose Alberto Regan MD , [address], [address], [place], [address], Pending order Follow up Extend ed Pending [...] ROSA ORDERS Patient Instructions ORDERS Physical Therapy [facility]-[id number] Orthopedic Surgery Referral [facility]-[id number] Documentation of current medicatio ns ORDERS Patient Instructions ORDERS Follow up Extended i n clinic or telemedicine ORDERS Patient Instructions [facility]-[id number] Psychiatry Referral ORDERS Follow up in clinic or telemedicine 04/20 ORDERS Follow up ROSA in clinic or telemedicine [facility]-[id number] Documentation of current medicatio ns ORDERS Patient Instructions ORDERS Patient Instructions ORDERS Patient Instructions ORDERS Follow up ROSA ORDERS Follow up ORDERS Patient Instructions ORDERS Patient Instructions ORDERS Patient Instructions ORDERS Follow up ROSA ORDERS Patient Instructions SCT-[id number] Documentation of current medicatio ns ORDERS Follow up SCT-[id number] Documentation of current medicatio ns ORDERS Follow up ROSA ORDERS Physical Therapy ORDERS Follow up SCT-[id number] Documentation of current medicatio ns CPT-30414 Nerve Conduction 9-10 studies CPT-45941 EMG with NCS (5+ muscles) - 2 limbs 12/30 ORDERS Follow up SCT-[id number] Documentation of current medicatio ns ORDERS Patient Instructions SCT-[id number] Documentation of current medicatio ns SCT-[id number] Documentation of current medicatio ns ORDERS Follow up SCT-[id number] Documentation of current medicatio ns SCT-[id number] Documentation of current medicatio ns CPT-26673 Nerve Conduction 7-8 studies CPT-21256 EMG with NCS (5+ muscles) - 2 limbs 12/21 SCT-[id number] Other Referral ORDERS Follow up SCT-[id number] Documentation of current medicatio ns [id number] MRI-Cervical W/WO MS Protocol CPT-T1255H ProHance Gadolinium- based MR Contrast - 20 ml vial CPT-06064 MRI Cervical W/WO ORDERS Immunofixation Urine (ROGELIO [...] GERALDINE) ORDERS Paraneoplastic Ab (O NLY Anti-Hu/Anti-Yo/Anti-Ri) SCT-[id number] Other Referral [facility]-[id number] Documentation of current medicatio ns Vital Signs [...] available. Advance Directives Directive Description Start Date PRODUCT SALES ENGINEER 09/18/18 CSA 05/15/18 PRODUCT SALES ENGINEER 02/20/18 PRODUCT SALES ENGINEER 09/22/17 CSA 05/03/17 PRODUCT SALES ENGINEER 03/23/17 PRODUCT SALES ENGINEER 10/14/16 CSA 04/28/16
== END 2024-10-30 17:02 | disposition home or self-care (01) ==
PROVIDERS: Emergency Provider Family Medicine; PCP Internal Medicine
DX: T81.31XA Disruption of external operation (surgical) wound, not elsewhere classified, initial encounter (principal); Z48.89 Encounter for other specified surgical aftercare
CPT/HCPCS: 99283

== ENCOUNTER 2024-11-14 23:00 | Emergency (ER) | payer MEDICARE, MEDICAID, SELFPAY ==
--- OUTSIDE RECORDS SUMMARY | 2013-05-07 08:21 | XMS_ITS | Continuity of Care Document ---
Author Organization [facility] Address [address] [place] [address] Phone Care Team Providers Care Brick Off Bearer Name Role Phone Carlito FAIR, Jaylin OLIVAS Unavailable Unavailab le Allergies, Adverse Reactions, Alerts Substance Reaction Status Criticality No Known allergies Medications Medication Instructions Dosage Effective Dates (start - stop) Status Comments omeprazole 20 mg tablet,delayed release take 1 Tablet by Oral route every day 1 Tablet - Active atorvastatin 10 mg tablet take 1 tablet by oral route every day 10 MG - Active modafinil 200 mg tablet take 1 tablet by oral route every day in the morning 200 MG - Active lisinopril 10 mg tablet take 1 tablet by oral route every day 10 MG - Active Symbicort 160 mcg-4.5 mcg/actuation HFA Aerosol Inhaler inhale 2 puff by inhalation route 2 times every day in the morning and evening 2.00 puff - Active cyclobenzaprine 10 mg tablet take 1 tablet by oral route as needed - Active ALBUTEROL SULFATE HFA (unknown strength) inhale 1 - 2 puff by inhalation route every 4 hours as needed Not Available - Active meloxicam 15 mg tablet take 1 tablet by oral route every day 15 MG - Active meclizine 25 mg tablet take 1 tablet by ORAL route as needed - Active Procedures Procedure Date Aquatic Therapy [...] Providers Copied on Encounter JONATHAN Yanes, [address], [place], [address], tel:[phone] [facility] No Information 4 Carlito Mosqueda. [address] [place], [place], [address], [place]. tel:[phone] Referring Provider: Allyson Griffith, [address] [place], [address]. tel:[phone] JONATHAN Yanes, [address] [facility], [place], [address], tel:[phone] [facility] No Information 3 Collin APPLICATION ARCHITECT MANAGER Carri. [address] , [facility] [address], [place], [address], [place]. tel:[phone] Referring Provider: Allyson Griffith, [address] [place], [address]. tel:[phone] JONATHAN Yanes, [address] [facility], [place], [address], [place] tel:[phone] [facility] No Information 3 Collin APPLICATION ARCHITECT MANAGER Carri. [address] , [address], [place], [address], [place]. tel:[phone] Referring Provider: Allyson Griffith, [address] [place], [address]. tel:[phone] JONATHAN Yanes, [address], [place], [address], [place] tel:[phone] [facility] No Information 3 Collin APPLICATION ARCHITECT MANAGER Carri. [address], [place], [address], [place]. tel:[phone] Referring Provider: Allyson Griffith, [address] [place], [address]. tel:[phone] [facility], [address], [place], [place], [address], [place] tel:[phone] [facility] No Information 3 Collin APPLICATION ARCHITECT MANAGER Carri. [address], [place], [address], [place]. tel:[phone] Referring Provider: Allyson Griffith, [address] [place], [address]. tel:[phone] [facility], [address] [facility] [address], [place], [place], [address], [place] tel:[phone] [facility] No Information 3 Carlito Mosqueda. [address], [address], [place]. tel:[phone] Referring Provider: Allyson Griffith, [address] [place], [address]. tel:[phone] Offic Cons New/estab Mod-hi 60 [facility], [address] [facility] [address], [place], [place], [address], [place] tel:[phone] [facility] No Information 3 Gume Darby. [address] , [address], [place], [address], [place]. tel:[phone] Referring Provider: Allyson Griffith, [address] [place], [address]. tel:[phone] [facility], [address], [place], [place], [address], [place] tel:[phone] [facility] No Information 201 3 No Information Referring Provider: Crescencio Cuevas MD, [address] [facility] [address] [place], [address]. tel:[phone] Family History Family Member Type Diagnosis Age At Onset No Information Payers Payer name Insurance type Covered green party ID Maria Luz lanier(s) [employer]icaid [place] [id number] Social History Type Description Quantity Date Captured [...]
--- OUTSIDE RECORDS SUMMARY | 2024-11-14 23:03 | XMS_ITS | Clinical Summary ---
Author Organization [facility] Address [address] [place] [address] Care Team Providers Care Field Laboratory Operator Name Role Phone Unavailable Primary Care Provider Unavailabl e Source Comments Patient records contain information from all sites at [facility]. For routine questions regarding patient records, call [phone] during business hours, M-F 8:00 AM - 5:00 PM Central Time. Record requests for emergency care only can be directed to [phone] at any time.[facility] Allergies Active Allergy Reactions Criticality Noted [...] mouth every morning before breakfast. Active rizatriptan CUSTOMS OFFICER (MAXALT-CUSTOMS OFFICER) 10 mg disintegrating tablet Dissolve 10 mg [...] patient's age to complete this topic Insurance [facility] [place] [address]
--- OUTSIDE RECORDS SUMMARY | 2024-11-14 23:03 | XMS_ITS | Clinical Summary ---
Author Organization [email or web address] [facility] & [facility] Address [address] [place] [id number] Care Team Providers Care Intern Retail Name Role Phone Rachel Carmona MD Primary Care Provider [phone] Andrea Tabares MD Unavailable [phone] Jeanette Fernandez MD Unavailable [phone] [facility] [place] Unavailable Allergies Active Allergy Reactions Criticality Noted Date [...] mg by mouth at bedtime. 023 Active rizatriptan (MAXALT PANTS PRESSER AUTOMATIC) 10 mg disintegrating tabletIndications :Chronic migraine without [...] daily. 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 Maximum of 3200 mg in 24 hours. 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 Max acetaminophen dose: 4000mg in 24 hrs. 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 025 2024 Active rifAMPin 300 mg capsuleIndication s:bone infection Take 1 Capsule (300 mg) by mouth two times daily before meals. 60 Capsule 1 11/13/19 25 8:38 AM CDT 025 2024 Active levalbuterol (XOPENEX HFA) 45 mcg/actuation inhalerIndication s:Moderate persistent asthma with acute exacerbation (HC) Inhale 2 Puffs by mouth 4 times daily if needed for Shortness Of Breath. Active levalbuterol (XOPENEX HFA) 45 mcg/actuation inhalerIndication s:Moderate persistent asthma with acute exacerbation (HC) Inhale 2 Puffs by mouth every 4 hours. 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 Max acetaminophen dose: 4000mg in 24 hrs. 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 Maximum of 3200 mg in 24 hours. 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 60 Tablet 10/13/19 4:03 PM CDT 025 2024 Discontinued(R eorder (E-cancel not sent)) trimethoprim-sulf amethoxazole 160-800 mg tabIndications:S/ p revision of left total hip Take 1 Tablet by mouth two times daily for 14 days. 28 Tablet 025 2024 Discontinued(* IP Discontinued) Active Problems Problem Noted Date Diagnosed Date Wound dehiscence 11/05/2024 s/p left anterolateral total hip arthroplasty acetabular [...] peripheral neuropathy 01/10/2016 Overview (02/05/2016): workup through [facility] Lumbar herniated disc 08/11/2015 Mixed hyperlipidemia [...] Encounters Date Type Department Care Team Description 11/14/2024 Home Care Visit [facility] [address] [place] [address] Venessa Goodwin, RN CARE COORDINATION 11/14/2024 Telephone [facility] [place] [address] [place] [address] Chrissy Hills, RN Questions 11/14/2024 Nurse Triage [facility] [place] [address] [facility] [address] [place] [phone] Timothy Bishop MD Dressing Change 11/14/2024 Orders Only [facility] [address] [facility] [place] [phone] Dolores Del Rosario MD Lab (Home Care) 11/13/2024 10:00 AM CDT Home Care Visit [facility] [address] [place] [phone] Mylene Musa, OG SN IV - START OF CARE 11/13/2024 Telephone [facility] [address] [facility] [place] [phone] Mylene Musa, parts consultant (SOC/Drug Interaction) 11/13/2024 Plan of Care Documentation [facility] [address] [place] [phone] 11/13/2024 Telephone [facility] [address] [facility] [address] [place] [address] Chrissy Hills medical stenographer Nurse Navigator (ONN DCFU Call) 11/13/2024 Home Care Visit [facility] [address] [place] [address] Mylene Musa, OG CARE COORDINATION 11/13/2024 Patient Outreach [facility] [address] [place] [address] Yue Freedman RN Primary RN Care Management (Hospital DC: 11/12/24/LACE: 30/Wound Dehiscence ); Hospital F/U 11/12/2024 Home Care Visit [facility] [address] [facility] [place] [phone] Mylene Musa, RN CARE COORDINATION 11/12/2024 Telephone [facility] Specialties [address] [facility] [address] [place] [address] Dolores Del Rosario MD Appointment Request (Post Hospital Visit) 11/09/2024 Patient Outreach [facility] Infusion Therapy Services [address] [place] [address] Infusion, [facility] Infusion ([address] [place] [address]) 11/07/2024 12:42 PM CDT Anesthesia Event [facility] [address] [place] [address] Paolo Car MD [place], Watson Duke MD 11/07/2024 12:25 PM CDT - 11/07/2024 2:46 PM CDT Surgery [place] [address] [place] [address] Timothy Bishop MD INPATIENT LEFT HIP 1 COMPONENT REVISION AND INCISION AND DRAINAGE 11/07/2024 10:23 AM CDT - 11/12/2024 12:33 PM CDT Hospital Encounter [place] [address] [place] [address] Timothy Bishop MD Wound dehiscence (Primary Dx); s/p left anterolateral total hip arthroplasty acetabular revision DOS: 10/11/2024 by Timothy Bishop MD; s/p left anterolateral total hip arthroplasty extraction with antibiotic spacer DOS: 07/24/2024 by Timothy Bishop MD; 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, subsequent encounter; Moderate persistent asthma with acute exacerbation (HC) Discharge Disposition: Home Health 11/06/2024 Travel 11/05/2024 2:40 PM CDT Office Visit [facility] - [facility]placement [facility] [address] [facility] [address] [place] [phone] Marshall López PA Surgical Followup (3.5 weeks s/p left anterolateral total hip acetabular revision- 10/11/24 Timothy Bishop MD, incision check ) 11/05/2024 Transcribe Orders [facility]placement [facility] [address] [facility] [address] [place] [address] Timothy Bishop MD 11/04/2024 Travel 11/04/2024 Telephone [facility] [address] [place] [address] Venessa Landers, medical stenographer Nurse Navigator (Drainage/prevena) 11/01/2024 8:25 AM CDT Ancillary Procedure [facility] [address] [place] [address] 11/01/2024 8:20 AM CDT Office Visit [facility] [address] [place] [address] Marshall López PA Surgical Followup (3 weeks s/p left total hip arthroplasty acetabular revision with implantation- 10/11/24 Timothy Bishop MD) 11/01/2024 Travel 10/30/2024 Travel 10/25/2024 1:45 PM CDT Ancillary Procedure [facility]placement [facility] [address] [place] [address] 10/25/2024 1:10 PM CDT Office Visit [facility]placement [facility] [address] [place] [address] Anna Churchill PA Post-op (14 days s/p left total hip acetabular revision DOS: 10/11/2024 by Timothy Bishop MD) 10/25/2024 Travel 10/20/2024 Travel 10/17/2024 9:00 AM CDT Office Visit [facility]placement [place] [address] [place] [address] Marshall López PA Surgical Followup (6 days s/p left anterolateral total hip arthroplasty revision- 10/11/24 Timothy Bishop MD, incision check) 10/16/2024 Travel 10/15/2024 Telephone [facility] [place] [address] [facility] [address] [place] [address] Venessa Landers, medical stenographer Nurse Navigator (Follow up discharge phone call) 10/15/2024 Nurse Triage [facility] [address] [facility] [address] [place] [address] Timothy Bishop MD Post-op 10/15/2024 Patient Outreach [address] [address] Yue Freedman RN Error-please disregard (Called and Triaged by ortho) 10/11/2024 9:51 AM CDT Anesthesia Event [address] [address] Esetlle Castaneda MD Engel, Latia Barber, EMBROIDERER HAND 10/11/2024 9:25 AM CDT - 10/11/2024 12:03 PM CDT Surgery [address] [address] Timothy Bishop MD INPATIENT LEFT ACETABULUM HIP REVISION 10/11/2024 7:40 AM CDT - 10/12/2024 4:01 PM CDT Hospital Encounter [address] [address] Timothy Bishop MD 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, subsequent encounter (Primary Dx) Discharge Disposition: Home Self Care 10/11/2024 Travel 10/09/2024 Travel 10/01/2024 Telephone [facility] [place] [address] [facility] [address] [place] [address] Venessa Landers, medical stenographer Nurse Navigator (Assessment/RAPT/1 on 1 education Pre-op check in) 09/24/2024 2:35 PM CDT Office Visit [address] [address] Rachel Carmona MD Pre-Op Exam (surgery 7-3) 09/24/2024 Travel 09/20/2024 Orders Only [facility] Scanner 1 scan: (1-Ord) [facility], FLUOROSCOPICALLY GUIDED DIAGNOSTIC ASPIRATION OF THE LT HIP, 09/20/2024 09/19/2024 Travel 09/13/2024 Telephone [facility] [place] [address] [facility] [address] [place] [address] Venessa Landers RN Ortho Nurse Navigator (Assessment/RAPT/1 on 1 education) 09/12/2024 Transcribe Orders [facility] [place] [address] [facility] [address] [place] [address] Timothy Bishop MD 09/11/2024 Home Care Visit [facility] [address] [place] [address] Dara Carrion RN SN - OASIS DISCHARGE 09/11/[address] [address] Rachel Carmona MD MESS (DIS) 09/10/2024 1:30 PM CDT Office Visit [facility] [address] [place] [address] Timothy Bishop MD Post-op (7 weeks s/p left anterolateral total hip arthroplasty extraction with antibiotic spacer DOS: 07/24/2024 by Timothy Bishop MD) 09/10/2024 1:25 PM CDT Ancillary Procedure [facility] [address] [place] [address] 09/10/[address] [address] Rachel Carmona MD Appointment (Pre Operative Exam ) 09/10/2024 Travel 09/07/2024 10:00 AM CDT Home Care Visit [facility] [address] [place] [address] Dara Carrion, OG SN - HOME VISIT 09/06/2024 1:40 PM CDT Telemedicine [facility] Medical Specialties [address] [facility] [address] [place] [address] Dolores Del Rosario MD 09/05/2024 Travel 09/04/2024 Home Care Visit [facility] [address] [place] [address] Dara Carrion RN SN - HOME VISIT 09/04/2024 Orders Only [facility] [address] [place] [address] Dolores Del Rosario MD Lab 09/01/2024 Travel 08/31/2024 Telephone [facility] [address] [place] [address] Rachel Carmona MD Form (Health care directive) 08/28/2024 12:15 AM CDT Home Care Visit [facility] [address] [place] [address] Asia Joe RN SN - WOUND/OSTOMY CHART CONSULT 08/28/2024 Orders Only [facility] [address] [place] [address] Rachel Carmona MD <No scans attached> 08/27/2024 1:00 PM CDT Home Care Visit [facility] [address] [place] [address] Dara Carrion, OG SN - LONG VISIT (>90 MINUTES) 08/27/2024 Orders Only [facility] [address] [place] [address] Dolores Del Rosario MD Lab 08/20/2024 1:40 PM CDT Telemedicine [facility] [address] [place] [address] Lowell Fuentes MD Musculoskeletal Problem (Follow up left hip and MRI) 08/20/2024 12:00 PM CDT Home Care Visit [facility] [address] [facility] [place] [phone] Dara Carrion, OG SN - LONG VISIT (>90 MINUTES) 08/20/2024 Orders Only [facility] [address] [facility] [place] [address] Dolores Del Rosario MD Lab 08/20/2024 Telephone [facility] [place] [address] [facility] [address] [place] [address] Bekah Ryan RN Ortho Nurse Navigator (Incision ) 08/16/2024 Travel 08/16/2024 Telephone [facility] Specialties [address] [facility] [address] [place] [address] Dolores Del Rosario MD Appointment (switch to virtual) from Last 3 Months Immunizations Immunization Administration [...] lonely or isolated from those around you? 4 11/08/2024 Financial Resource Strain Answer Date R ecorded Difficulty of Paying Living Expenses 3 07/22/2024 Difficulty of Paying Living Expenses Not on file 07/22/2024 Food Insecurity Answer Date Recorded Do you worry your food will run out before you are able to buy more? 1 11/09/2024 Transportation Needs Answer Date Record ed Does lack of transportation keep you from medica l appointments? 1 11/08/2024 Does lack of transportation keep you from work, meetings or getting things that you need? 1 11/08/2024 Housing Stability Answer Date Recorded What is your housing situation today? 1 11/09/2024 Interpersonal Safety Answer Date Record ed Are you being hit, kicked, p ushed or yelled at (see row info)? No 11/08/2024 Interpersonal Safety Abuse 12 - 18 Not on file 11/08/2024 Interpersonal Safety Ambulatory Vulnerability No t on file 11/08/2024 Utilities Answer Date Recorded Do you have trouble paying f or utilities (for example, heat, electricity, water, phone)? 1 11/08/2024 Comments No Sex and Gender Information Value Date Recorded Sex Assigned at Not on file Legal Sex Female 6:07 AM METALIZING SUPERVISOR Gender Identity Not on file Sexual Orientation Not on file Obstetrics History Last Filed Vital Signs Vital Sign Reading Time Taken Comments Blood Pressure 130/64 11/13/2024 10:33 AM CDT Pulse 76 11/13/2024 10:23 AM CDT Temperature 36.9 C (98.4 F) 11/13/2024 10:23 AM CDT Respiratory Rate 20 11/13/2024 10:2 3 AM CDT Oxygen Saturation 99% 11/13/2024 10: 23 AM CDT on RA at rest Inhaled Oxygen Concentration - - Weight 77.1 kg (169 lb 15.6 oz) 11/07/2024 11:18 AM CDT Height 170.2 cm (5' 7) 11/07/2024 11:1 8 AM CDT Body Mass Index 26.62 11/07/2024 11:18 AM CDT Plan of Treatment Upcoming Encounters Date Type Department Care Team (Late st Contact Info) Description 11/16/2024 4:00 AM CDT Home Care Visit [address] [address] Minnie De León RN 11/19/2024 4:00 AM CDT Home Care Visit [address] [address] Minnie De León RN 11/21/2024 2:00 PM CDT Office Visit [facility] - [address] [place] [address] Marshall López PA [address] [facility] [address] [place] [address] 11/23/2024 4:00 AM CDT Home Care Visit [address] [address] Minnie De León RN 11/26/2024 4:00 AM CDT Home Care Visit [address] [address] Minnie De León RN 11/30/2024 4:00 AM CDT Home Care Visit [address] [address] Minnie De León RN 12/03/2024 4:00 AM CDT Home Care Visit [facility] [address] [place] [address] Minnie De León, OG 12/06/2024 2:20 PM CDT Telemedicine [facility] Medical Specialties [address] [facility] [address] [place] [address] Dolores Del Rosario MD [address] [place] [address] [address] [place] [address] 12/07/2024 4:00 AM CDT Home Care Visit [facility] [address] [place] [address] Minnie De León, OG 12/10/2024 4:00 AM CDT Home Care Visit [facility] [address] [place] [address] 12/14/2024 4:00 AM CDT Home Care Visit [facility] [address] [place] [address] Minnie De León, OG 12/17/2024 4:00 AM CDT Home Care Visit [facility] [address] [place] [address] Minnie De León, OG 12/21/2024 4:00 AM CDT Home Care Visit [facility] [address] [place] [address] Minnie De León, OG 12/24/2024 4:00 AM CDT Home Care Visit [facility] [address] [place] [address] Minnie De León, OG 12/28/2024 4:00 AM CDT Home Care Visit [facility] [address] [place] [address] Minnie De León, OG 12/31/2024 4:00 AM CDT Home Care Visit [facility] [address] [place] [address] Minnie De León RN 01/04/2025 4:00 AM CDT Home Care Visit [facility] [address] [facility] [place] [address] Minnie De León, OG 01/07/2025 4:00 AM CDT Home Care Visit [facility] [address] [facility] [place] [address] Minnie De León, OG 01/11/2025 4:00 AM CDT Appointment [facility] [address] [place] [address] Minnie De León, RN Health Maintenance Due Date Last Done Comments RSV vaccine for adults or (1 - 1-dose 75+ series) 2024 COVID-19 vaccine series (2023- season) 2024 01/16/2024, 02/14/2023, 01/07/2022, Additional history [...] this topic Medical Devices Implanted Type Area Hr Manager Device Identifier Shelf Expiration Date Model / Serial / Lot Cmnt Bone 40gm Darell Mv - [id number] Implanted:Qty: 2 on 07/24/2024 by Timothy Bishop MD at [facility] Left: Hip [employer] 01/08/2029 [id number] / / [id number] Shell Acetab 60mm Modular Redapt - [id number] Implanted:Qty: 1 on 10/11/2024 by Timothy Bishop MD at [facility] Left: Hip [employer] 12/03/2032 [id number] / / [id number] Screw Hip 6.5x30mm Reflection Reconstrt - [id number] Implanted:Qty: 1 on 10/11/2024 by Timothy Bishop MD at [facility] Left: Hip [employer] 11/15/2033 [id number] / / [id number] Screw Hip 6.5x20mm Reflection Reconstrt - [id number] Implanted:Qty: 1 on 10/11/2024 by Timothy Bishop MD at [facility] Left: Hip [employer] 05/23/2034 [id number] / / [id number] Screw Hip 6.5x25mm Reflection Reconstrt - [id number] Implanted:Qty: 1 on 10/11/2024 by Timothy Bishop MD at [facility] Left: Hip [employer] 05/12/2034 [id number] / / [id number] Liner Acetab 46/60mm Dual Mobility Or30 - [id number] Implanted:Qty: 1 on 11/07/2024 by Timothy Bishop MD at [facility] Left: Hip [employer] 05/06/2034 [id number] / / [id number] Biolox Delta Ts Ceramic Femoral Head Revision, 28mm +8.5, 12/14 Taper Implanted:Qty: 1 on 11/07/2024 by Timothy Bishop MD at [facility] Left: Hip [employer] 01/08/2027 [id number] / / [id number] Insert Acetab 28/46mm Dual Mobility Or30 Xlpe - [id number] Implanted:Qty: 1 on 11/07/2024 by Timothy Bishop MD at [facility] Left: Hip [employer] 05/18/2034 [id number] / / [id number] Explanted Type Area Hr Manager Device Identifier Shelf Expiration Date Model / Serial / Lot Left Hip Head, Liner And Insert Explanted:Qty: 1 on 07/24/2024 by Timothy Bishop MD at [facility] Left: Hip Tynan Altrx Ld Polyethylene Acetabular Liner; +4 Neutral, 40mm Id, 58mm Od Implanted:Qty: 1 on 07/24/2024 by Timothy Bishop MD at [facility] Explanted:Qty: 1 on 10/11/2024 by Timothy Bishop MD at [facility] Left: Hip [employer] 08/08/2028 [id number] / / [id number] M-Spec Metal Fmoral Head 40mm +5 Offset 03/24 Taper Implanted:Qty: 1 on 07/24/2024 by Timothy Bishop MD at [facility] Explanted:Qty: 1 on 10/11/2024 by Timothy Bishop MD at [facility] Left: Hip [employer] 09/08/2025 [id number] / / [id number] Insert Acetab 28/46mm Dual Mobility Or30 Xlpe - [id number] Implanted:Qty: 1 on 10/11/2024 by Timothy Bishop MD at [facility] Explanted:Qty: 1 on 11/07/2024 by Timothy Bishop MD at [facility] Left: Hip [employer] 06/28/2033 [id number] / / [id number] Biolox Delta Ts Ceramic Femoral Head Revision, 28mm 8.5 03/24 Taper Implanted:Qty: 1 on 10/11/2024 by Timothy Bishop MD at [facility] Explanted:Qty: 1 on 11/07/2024 by Timothy Bishpo MD at [facility] Left: Hip [employer] 06/08/2028 [id number] / / [id number] Liner Acetab 46/60mm Dual Mobility Or30 - [id number] Implanted:Qty: 1 on 10/11/2024 by Timothy Bishop MD at [facility] Explanted:Qty: 1 on 11/07/2024 by Timothy Bishop MD at [facility] Left: Hip [employer] 07/25/2033 [id number] / / [id number] Procedures Procedure Name Priority Date/Time Associated Diagnosis Comments CBC WITH AUTO DIFFERENTIAL Today 11/12/2024 8:31 AM CDT SEDIMENTATION RATE Today 11/12/2024 8:31 AM CDT CBC WITH AUTO DIFFERENTIAL Today 11/12/2024 8:31 AM CDT C-REACTIVE PROTEIN LATOYA 11/12/2024 5:53 AM CDT CK TOTAL LATOYA 11/12/2024 5:53 AM CDT COMP METABOLIC PANEL LATOYA 11/12/2024 5:53 AM CDT CREATININE Early AM 11/12/2024 5:53 AM CDT BASIC METABOLIC PANEL Early AM 11/11/2024 5:29 AM CDT CK TOTAL LATOYA 11/10/2024 5:21 AM CDT HEMOGLOBIN Early AM 11/10/2024 5:21 AM CDT BASIC METABOLIC PANEL Early AM 11/10/2024 5:21 AM CDT C-REACTIVE PROTEIN Timed 11/09/2024 6:04 PM CDT SEDIMENTATION RATE LATOYA 11/09/2024 11:26 AM CDT HEMOGLOBIN Early AM 11/09/2024 11:26 AM CDT BASIC METABOLIC PANEL Early AM 11/09/2024 11:26 AM CDT SCAN-ELECTROCARDI OGRAM EKG 11/09/2024 12:00 AM CDT TRANSFUSE RBC (NURSE COMMUNICATION ORDER) STAT 11/08/2024 2:13 PM CDT RBC W/O TYPE & SCREEN STAT 11/08/2024 12:36 PM CDT RED BLOOD CELLS EA UNIT STAT 11/08/2024 11:53 AM CDT TYPE & SCREEN Today 11/08/2024 11:52 AM CDT EXTRA TUBE LAVENDER Today 11/08/2024 8:32 AM CDT HEMOGLOBIN Early AM 11/08/2024 8:32 AM CDT MRSA/SA PCR Today 11/07/2024 6:34 PM CDT AEROBIC BACTERIAL CULTURE, STAIN Today 11/07/2024 1:56 PM CDT ANAEROBIC CULTURE Today 11/07/2024 1:56 PM CDT AFB CULTURE, STAIN Today 11/07/2024 1:24 PM CDT TISSUE CULTURE, STAIN (AEROBIC) Today 11/07/2024 1:24 PM CDT ANAEROBIC CULTURE Today 11/07/2024 1:24 PM CDT SPINAL BLOCK Routine 11/07/2024 1:03 PM CDT ARTHROPLASTY REVISION HIP 11/07/2024 12:22 PM CDT Wound dehiscence S/p revision of left total hip Case Notes 60 MINS-SWING [employer] DUAL MOBILITY emailed Colette Moir [phone] 11/06 JTPA TO ASSISTREGULARGUIRE POSITIONER Special Needs HT 5'7 WT 81.1 [address] BMI 28.[address]hma [address] BISHOP OR PA WILL UPDATE PRE OP DAY OF SURGERY CREATININE LATOYA 11/07/2024 11:42 AM CDT CBC W PLT NO DIFF Preop 11/07/2024 11:42 AM CDT GLUCOSE, RANDOM Today 11/07/2024 11:42 AM CDT SCAN-CARDIAC STRIP 11/07/2024 12:00 AM CDT XR PELVIS 1 VIEW Routine 11/01/2024 8:28 AM CDT s/p left anterolateral total hip arthroplasty acetabular revision DOS: 10/11/2024 by Timothy Bishop MD XR PELVIS 1 VIEW Routine 10/25/2024 1:44 [...] Notes 60 MINS-T/FPA TO ASSISTJACKSONLATERAL LEFT SIDE UPC-ARMMCGUIRE POSITIONERCELL SAVER-confirmed 930 w/Frances #[id number] 09/13-AW// CELL SAVER CONFIRMED WITH NAVEED 10/10 [facility] MULTI-HOLE CUP, DUAL MOBILITY LINER, R3 Main, Reamers, trial shells, Heller hip revision, hip farnsworth 2 and or3o. Confirmed with Colette Garcia [phone] 10/02 JTDUPUY CORAIL #13 STANDARD COLLARED STEMHEADS SIZES 22 & 23 CERAMIC AVAILABLE [employer] farnsworth confirmed with Antwan Pro [phone] 10/01 JT Special Needs HT 5'7 WT 83.8 kg BMI 29.01 GLUCOSE METER Timed 10/11/2024 8:20 AM CDT SCAN-CARDIAC STRIP 10/11/2024 12:00 AM CDT SCAN-OPERATIVE/TN OCEDURE REPORT 10/11/2024 12:00 AM CDT CBC W PLT NO DIFF Routine 09/24/2024 4:30 PM CDT Essential hypertension BASIC METABOLIC PANEL Routine 09/24/2024 4:30 PM CDT Essential hypertension SCAN-OPERATIVE/TN OCEDURE REPORT 09/20/2024 12:00 AM CDT XR [...] REFLEX MEASURED LDL Routine 05/14/2024 3:17 PM METALIZING SUPERVISOR Mixed hyperlipidemia SDNA-FIT EXTERNAL (COLOGUARD) Routine 04/28/2022 7:00 PM METALIZING SUPERVISOR Screening for colon cancer ANTI HCV Routine 04/24/2018 3:34 PM METALIZING SUPERVISOR Need for hepatitis C screening test XR DXA BONE DENSITY 2 SITES AXIAL Routine 02/28/2017 2:04 PM METALIZING SUPERVISOR Asymptomatic menopausal state Screening for osteoporosis from Last 3 Months or Most Recently Relevant to Health Maintenance Results * (ABNORMAL) SEDIMENTATION RATE (11/12/2024 8:31 AM CDT) Only the most recent of2 resultswithin the time period is included. Pathologist [facility] SEDIMENTATION RATE 100(H) <30 mm/hr 2024 8:55 AM T [facility] Blood BLOOD SPECIMEN / Unknown Non-Lab Venipuncture / Unknown 11/12/2024 8:31 AM CDT 11/12/2024 8:40 AM CDT Claudia Elliott MD HEMATOLOGY Final Result [facility] SENDOUT INTERNAL ZIP [phone] [place] [phone] * (ABNORMAL) CBC WITH AUTO DIFFERENTIAL (11/12/2024 8:31 AM CDT) Only the most recent of4 resultswithin the time period is included. Pathologist [facility] WHITE BLOOD COUNT 9.9 4.5 - 11.0 thou/cu mm 11/12/2024 8:43 AM [facility] RED BLOOD COUNT 2.69(L) 4.00 - 5.20 mil/cu mm 11/12/2024 8:43 AM [facility] HEMOGLOBIN 7.6(L) 12.0 - 16.0 g/dL 11/12/2024 8:43 AM [facility] HEMATOCRIT 24.1(L) 33.0 - 51.0 % 11/12/2024 8:43 AM [facility] MCV 90 80 - 100 fL 11/12/2024 8:43 AM [facility] MCH 28.3 26.0 - 34.0 pg 11/12/2024 8:43 AM [facility] MCHC 31.5(L) 32.0 - 36.0 g/dL 11/12/2024 8:43 AM [facility] RDW 15.7(H) 11.5 - 15.5 % 11/12/2024 8:43 AM [facility] PLATELET COUNT 595(H) 140 - 440 thou/cu mm 11/12/2024 8:43 AM [facility] MPV 7.9 6.5 - 11.0 fL 11/12/2024 8:43 AM [facility] NRBC 0.0 % 11/12/2024 8:43 AM [facility] ABS NRBC 0.0 thou /cu mm 11/12/2024 8:43 AM [facility] % NEUT 63.6 % 11/12/2024 8:43 AM [facility] % LYMPH 25.6 % 11/12/2024 8:43 AM [facility] % MONO 4.7 % 11/12/2024 8:43 AM [facility] % EOS 3.5 % 11/12/2024 8:43 AM [facility] % BASO 0.9 % 11/12/2024 8:43 AM [facility] % IMMATURE GRAN (METAS,MYELOS,TN OS) 1.7 % 11/12/2024 8:43 AM [facility] ABSOLUTE NEUTROPHILS 6.3 1.7 - 7.0 thou/cu mm 11/12/2024 8:43 AM [facility] ABSOLUTE LYMPHOCYTES 2.5 0.9 - 2.9 thou/cu mm 11/12/2024 8:43 AM [facility] ABSOLUTE MONOCYTES 0.5 <0.9 thou/cu mm 11/12/2024 8:43 AM [facility] ABSOLUTE EOSINOPHILS 0.4 <0.5 thou/cu mm 11/12/2024 8:43 AM [facility] ABSOLUTE BASOPHILS 0.1 <0.3 thou/cu mm 11/12/2024 8:43 AM [facility] ABSOLUTE IMMATURE GRANULOCYTES(MET ,MYELOS,PROS) 0.2 <0.3 thou/cu mm 11/12/2024 8:43 AM [facility] Blood BLOOD SPECIMEN / Unknown Non-Lab Venipuncture / Unknown 11/12/2024 8:31 AM CDT 11/12/2024 8:40 AM T Claudia Elliott MD HEMATOLOGY Final Result [facility] SENDOUT INTERNAL ZIP [phone] [place] [address] * (ABNORMAL) CREATININE (11/12/2024 5:53 AM CDT) Only the most recent of2 resultswithin the time period is included. eGFR 70(L) >90 mL/min/1.7 3m2 11/12/2024 6:31 AM CDT [facility] Comment:As of 2021, eG FR is calculated by the CKD-EPI creatinine equation without race adjustment. eGFR can be influenced by muscle mass, exercise, and diet. The reported eGFR is an estimation only and is only applicable if the renal function is stable. CREATININE 0.87 0.50 - 0.90 mg/dL 11/12/2024 6:31 AM CDT [facility] Blood BLOOD SPECIMEN / Unknown Non-Lab Venipuncture / Unknown 11/12/2024 5:53 AM CDT 11/12/2024 6:05 AM CDT us Delfino Nagel MD CHEMISTRY Final Result Performing Organization Address [facility]/ZIP Co de Phone Number [facility] SENDOUT INTERNAL ZIP [phone] [place] [phone] * (ABNORMAL) C-REACTIVE PROTEIN (11/12/2024 5:53 AM CDT) Only the most recent of5 resultswithin the time period is included. C-REACTIVE PROTEIN 1.2(H) <0.5 mg/dL 11/12/2024 8:09 AM CDT [facility] Blood BLOOD SPECIMEN / Unknown Non-Lab Venipuncture / Unknown 11/12/2024 5:53 AM CDT 11/12/2024 6:05 AM CDT us Claudia Elliott MD CHEMISTRY Final Result Performing Organization Address City/[facility]/ZIP Co de Phone Number [facility] SENDOUT INTERNAL ZIP [phone] [place] [address] * CK TOTAL (11/12/2024 5:53 AM CDT) Only the most recent of2 resultswithin the time period is included. CK,TOTAL 36 26 - 192 IU/L 11/12/2024 8:09 AM [facility] Blood BLOOD SPECIMEN / Unknown Non-Lab Venipuncture / Unknown 11/12/2024 5:53 AM CDT 11/12/2024 6:05 AM CDT Claudia Elliott MD CHEMISTRY Final Result [facility] SENDOUT INTERNAL ZIP [phone] [place] [address] * (ABNORMAL) COMP METABOLIC PANEL (11/12/2024 5:53 AM CDT) Only the most recent of4 resultswithin the time period is included. Pathologist [facility] SODIUM 139 136 - 145 mmol/L 11/12/2024 8:09 AM [facility] POTASSIUM 4.0 3.5 - 5.1 mmol/L 11/12/2024 8:09 AM [facility] CHLORIDE 109(H) 98 - 107 mmol/L 11/12/2024 8:09 AM [facility] CO2,TOTAL 20(L) 22 - 29 mmol/L 11/12/2024 8:09 AM [facility] ANION GAP 10 5 - 18 11/12/2024 8:09 AM [facility] GLUCOSE 92 70 - 99 mg/dL 11/12/2024 8:09 AM [facility] CALCIUM 9.0 8.8 - 10.4 mg/dL 11/12/2024 8:09 AM [facility] Comment: Reference ranges for this test were updated on 02/14/2024 to reflect our healthy population more accurately. Reference range changes are not retroactively applied to results, but previous results using the same methodology can be interpreted in the context of the new reference range. BUN 19 8 - 23 mg/dL 11/12/2024 8:09 AM [facility] CREATININE 0.90 0.50 - 0.90 mg/dL 11/12/2024 8:09 AM [facility] BUN/CREAT RATIO 21(H) 10 - 20 8:09 AM [facility] eGFR 67(L) >90 mL/min/1. 73m2 11/12/2024 8:09 AM [facility] Comment: As of 2021, eGFR is calculated by the CKD-EPI creatinine equation without race adjustment. eGFR can be influenced by muscle mass, exercise, and diet. The reported eGFR is an estimation only and is only applicable if the renal function is stable. As of 06/23/2021, eGFR is calculated by the CKD-EPI creatinine equation without race adjustment. eGFR can be influenced by muscle mass, exercise, and diet. The reported eGFR is an estimation only and is only applicable if the renal function is stable. ALBUMIN 2.7(L) 4.0 - 4.9 g/dL 11/12/2024 8:09 AM [facility] PROTEIN,TOTAL 5.9(L) 6.0 - 8.0 g/dL 11/12/2024 8:09 AM [facility] BILIRUBIN,TOTAL 0.2 0.0 - 1.2 mg/dL 11/12/2024 8:09 AM [facility] ALK PHOSPHATASE 96 35 - 104 IU/L 11/12/2024 8:09 AM [facility] ALT (SGPT) <5(L) 10 - 35 IU/L 11/12/2024 8:09 AM [facility] AST (SGOT) 21 10 - 35 IU/L 11/12/2024 8:09 AM [facility] Blood BLOOD SPECIMEN / Unknown Non-Lab Venipuncture / Unknown 11/12/2024 5:53 AM CDT 11/12/2024 6:05 AM CDT us Claudia Elliott MD CHEMISTRY Final Result [facility] SENDOUT INTERNAL ZIP [phone] [place] [address] * (ABNORMAL) BASIC METABOLIC PANEL (11/11/2024 5:29 AM CDT) Only the most recent of5 resultswithin the time period is included. SODIUM 138 136 - 145 mmol/L 11/11/2024 5:55 AM [facility] POTASSIUM 4.8 3.5 - 5.1 mmol/L 11/11/2024 5:55 AM [facility] CHLORIDE 108(H) 98 - 107 mmol/L 11/11/2024 5:55 AM [facility] CO2,TOTAL 18(L) 22 - 29 mmol/L 11/11/2024 5:55 AM [facility] ANION GAP 12 5 - 18 11/11/2024 5:55 AM [facility] GLUCOSE 84 70 - 99 mg/dL 11/11/2024 5:55 AM [facility] CALCIUM 8.9 8.8 - 10.4 mg/dL 11/11/2024 5:55 AM [facility] Comment: Reference ranges for this test were updated on 02/14/2024 to reflect our healthy population more accurately. Reference range changes are not retroactively applied to results, but previous results using the same methodology can be interpreted in the context of the new reference range. BUN 27(H) 8 - 23 mg/dL 11/11/2024 5:55 AM [facility] CREATININE 1.06(H) 0.50 - 0.90 mg/dL 11/11/2024 5:55 AM [facility] BUN/CREAT RATIO 25(H) 10 - 20 5:55 AM [facility] eGFR 55(L) >90 mL/min/1. 73m2 11/11/2024 5:55 AM [facility] Comment:As of 2021, eG FR is calculated by the CKD-EPI creatinine equation without race adjustment. eGFR can be influenced by muscle mass, exercise, and diet. The reported eGFR is an estimation only and is only applicable if the renal function is stable. Blood BLOOD SPECIMEN / Unknown Line/Port / Unknown 11/11/2024 5:29 AM CDT 11/11/2024 5:34 AM T us Delfino Nagel MD CHEMISTRY Final Result [facility] SENDOUT INTERNAL ZIP [phone] [place] [address] * (ABNORMAL) HEMOGLOBIN (11/10/2024 5:21 AM CDT) Only the most recent of4 resultswithin the time period is included. Pathologist [facility] HEMOGLOBIN 8.0(L) 12.0 - 16.0 g/dL 11/10/2024 5:44 AM CDT [facility] MCV 86 80 - 100 fL 11/10/2024 5:44 AM CDT [facility] Blood BLOOD SPECIMEN / Unknown Non-Lab Venipuncture / Unknown 11/10/2024 5:21 AM CDT 11/10/2024 5:31 AM CDT Delfino Nagel MD HEMATOLOGY Final Result Performing Organization Address City/[facility]/ZIP Co de Phone Number [facility] SENDOUT INTERNAL ZIP [phone] [place] [address] * SCAN-ELECTROCARDIOGRAM EKG (11/09/2024 12:00 AM CDT) Narrative 11/09/2024 12:00 AM CDT Ordered by an unspecified provider. Other Clinical Staff OTHER Final Resul t * TRANSFUSE RBC (NURSE COMMUNICATION ORDER) (11/08/2024 4:37 PM CDT) Blood BLOOD SPECIMEN / Unknown Delfino Nagel MD NURSING BLOOD BANK Final Result * RBC W/O TYPE & SCREEN (11/08/2024 12:36 PM CDT) Pathologist [facility] QUANTITY 1 11/08/2024 12:36 PM CDT [facility] BLOOD BANK Blood BLOOD SPECIMEN / Unknown 11/08/2024 9:26 AM CDT Delfino Nagel MD BLOOD BANK Final Result Performing Organization Address [facility]/ZIP Co de Phone Number [facility] BLOOD BANK [address] [place] [phone] * RED BLOOD CELLS EA UNIT (11/08/2024 11:53 AM CDT) Pathologist [facility] CROSSMATCH Compatible Compatible [facility] BLOOD BANK PRODUCT BLOOD TYPE AB Rh Negative [facility] BLOOD BANK PRODUCT ID NUMBER [id number] [facility] BLOOD BANK PRODUCT STATUS Transfused [facility] PRODUCT DESCRIPTION RBC -1 LR [facility] BLOOD BANK PRODUCT CODE [id number] [facility] BLOOD BANK ISSUE DATE/TIME 11/08/24 13:49 [facility] BLOOD BANK Delfino Nagel MD BLOOD BANK Edited Result - Final [facility] BLOOD BANK [address] [place] [phone] * TYPE & SCREEN (11/08/2024 11:52 AM CDT) Pathologist [facility] ABORH AB Rh Negative 11/08/2024 1:07 PM CDT [facility] BLOOD BANK ANTIBODY SCREEN Negative Negative 11/08/2024 1:07 PM CDT [facility] BLOOD BANK SPECIMEN EXPIRATION DATE/TIME 11/11/24 23:59 11/08/2024 1:07 PM CDT [facility] BLOOD BANK Blood BLOOD SPECIMEN / Unknown Venipuncture / Unknown 11/08/2024 11:52 AM CDT 11/08/2024 12:12 PM CDT Delfino Nagel MD BLOOD BANK Final Result Performing Organization Address City/[facility]/ZIP Co de Phone Number [facility] BLOOD BANK [address] [place] [phone] * EXTRA TUBE LAVENDAR (11/08/2024 8:32 AM CDT) Blood BLOOD SPECIMEN / Unknown Non-Lab Venipuncture / Unknown 11/08/2024 8:32 AM CDT 11/08/2024 12:39 PM CDT Timothy Bishop MD LABORATORY Final Result [facility] SENDOUT INTERNAL ZIP [phone] [place] [phone] * (ABNORMAL) MRSA/SA PCR (11/07/2024 6:34 PM CDT) Pathologist [facility] MRSA DNA PCR Positive( A) Negative 11/07/2024 7:57 PM CDT [facility] STAPHYLOCOCCUS AUREUS PCR Positive( A) Negative 11/07/2024 7:57 PM CDT [facility] Other SPECIMEN FROM INTERNAL NOSE / Unknown Non-Blood / Unknown 11/07/2024 6:34 PM CDT 11/07/2024 6:41 PM CDT [facility] LABORATORY - 11/07/2024 7:57 PM CDT A positive test result does not necessarily indicate the presence of viable organisms. It is, however, presumptive for the presence of Methicillin Resistant Staphylococcus aureus (MRSA) or Staphylococcus aureus. Delfino Nagel MD MICROBIOLOGY Final Result [facility] SENDOUT INTERNAL ZIP [phone] [place] [address] * [facility] TRAY PR10 (11/07/2024 1:03 PM CDT) Narrative Paolo Car MD - 11/07/2024 1:03 PM CDT Paolo Car MD 11/07/2024 1:03 PM Spinal Block Patient location during procedure: OR Start time: 11/07/2024 12:50 PM End time: 11/07/2024 12:53 PM Reason for block: primary anesthetic PreProcedure Checklist Completed: patient identified, risks and benefits discussed, timeout performed, hand hygiene performed, chloraprep used and completely dried prior to procedure, IV checked, site marked, surgical consent and hand hygiene performed Spinal Block Patient position: sitting Prep: chloraprep and sterile drape Patient monitoring: continuous pulse oximetry, ECG and blood pressure Supplemental O2: yes Approach: midline Skin Infiltration: lidocaine 1% Location: L3-4 Needle Needle type: pencil-point Needle gauge: 24 G Needle length: 4 in Assessment Events: no complications. Result [facility] Uriel Huber EMBROIDERER HAND ANESTHESIA PX NOTE ORDERABL ES Final Result * GLUCOSE, RANDOM (11/07/2024 11:42 AM CDT) GLUCOSE,RANDOM 93 70 - 139 mg/dL 11/07/2024 12:09 PM CDT [facility] Blood BLOOD SPECIMEN / Unknown Venipuncture / Unknown 11/07/2024 11:42 AM CDT 11/07/2024 11:45 AM CDT us Timothy Bishop MD CHEMISTRY Final Result [facility] SENDOUT INTERNAL ZIP [address] [place] [phone] * (ABNORMAL) CBC with Platelets no Differential (11/07/2024 11:42 AM CDT) Only the most recent of2 resultswithin the time period is included. WHITE BLOOD COUNT 7.8 4.5 - 11.0 thou/cu mm 11/07/2024 11:51 AM T [facility] RED BLOOD COUNT 3.03(L) 4.00 - 5.20 mil/cu mm 11/07/2024 11:51 AM T [facility] HEMOGLOBIN 8.2(L) 12.0 - 16.0 g/dL 11/07/2024 11:51 AM T [facility] HEMATOCRIT 25.5(L) 33.0 - 51.0 % 11/07/2024 11:51 AM T [facility] MCV 84 80 - 100 fL 11/07/2024 11:51 AM T [facility] MCH 27.1 26.0 - 34.0 pg 11/07/2024 11:51 AM T [facility] MCHC 32.2 32.0 - 36.0 g/dL 11/07/2024 11:51 AM T [facility] RDW 14.9 11.5 - 15.5 % 11/07/2024 11:51 AM T [facility] PLATELET COUNT 584(H) 140 - 440 thou/cu mm 11/07/2024 11:51 AM T [facility] MPV 7.9 6.5 - 11.0 fL 11/07/2024 11:51 AM T [facility] NRBC 0.0 % 11/07/2024 11:51 AM T [facility] ABS NRBC 0.0 thou /cu mm 11/07/2024 11:51 AM [facility] Blood BLOOD SPECIMEN / Unknown Venipuncture / Unknown 11/07/2024 11:42 AM CDT 11/07/2024 11:45 AM CDT Narrative [facility] - 11/07/2024 11:51 AM CDT If not done within last 30 days. Nurse to release order. Anna SILVER HEMATOLOGY Fin al Result [facility] SENDOUT INTERNAL ZIP [phone] [place] [phone] * SCAN-CARDIAC STRIP (11/07/2024 12:00 AM CDT) Narrative 11/07/2024 12:00 AM CDT Ordered by an unspecified provider. Other Clinical Staff OTHER Final Resul t * XR PELVIS 1 VIEW (11/01/2024 8:28 AM CDT) Only the most recent of3 resultswithin the time period is included. Anatomical Region Laterality Modality Pelvis Digital Radiogra phy Narrative 11/01/2024 3:03 PM CDT This Radiology Exam Was Performed at [facility] Total Joint [place] and Interpreted by Marshall López PA-C HISTORY A 74 y.o. female status post a left total hip arthroplasty revision dated 10/11/24 TECHNICAL ONE view consisting of a standing AP pelvis FINDINGS Standing AP pelvis x-ray was ordered, obtained, and reviewed today showing satisfactory position of the left total hip arthroplasty revision. No signs of loosening or other pathology. Right total hip arthroplasty appears stable. IMPRESSION Stable status post left total hip arthroplasty revision dated 10/11/24 Marshall López PA-C 11/01/2024 Marshall SILVER [facility] Fin al Result * AEROBIC BACTERIAL CULTURE, STAIN (10/11/2024 11:10 AM CDT) CULTURE No Growth. 10/15/2024 1:00 PM CDT [facility] GRAM STAIN 2+ PMNs 10/15/2024 1:00 PM CDT [facility] GRAM STAIN No organisms seen 10/15/2024 1:00 PM CDT [facility] GRAM STAIN 4+ RBCs 10/15/2024 1:00 PM CDT [facility] GRAM STAIN No Epithelial cells 10/15/2024 1:00 PM CDT [facility] GRAM STAIN Gram stain performed by [place], [place] 10/15/2024 1:00 PM CDT [facility] Swab (Left Hip) Non-Blood / Unknown 10/11/2024 11:10 AM CDT 10/11/2024 12:47 PM CDT us Timothy Bishop MD MICROBIOLOGY Final Result Performing Organization Address [facility]/ZIP Co de Phone Number [facility] [address] [address], [facility] SENDOUT INTERNAL ZIP [phone] [place] [address] * ANAEROBIC CULTURE (10/11/2024 11:10 AM CDT) CULTURE No anaerobes isolated 10/17/2024 11:43 AM CDT [facility] Swab (Left Hip) Non-Blood / Unknown 10/11/2024 11:10 AM CDT 10/11/2024 12:47 PM CDT us Timothy Bishop MD MICROBIOLOGY Final Result Performing Organization Address [facility] Co de Phone Number [facility] [address] [place] [address], * [facility] T[facility] PR10 (10/11/2024 10:13 AM CDT) Narrative [...] - 100 mg/dL 10/11/2024 8:24 AM CDT [facility] Blood BLOOD SPECIMEN / Unknown 10/11/2024 8:20 AM CDT 10/11/2024 8:24 AM CDT us Timothy Bishop MD CHEMISTRY Final Result [facility] SENDOUT INTERNAL ZIP [phone] [place] [address] * SCAN-CARDIAC STRIP (10/11/2024 12:00 AM CDT) Narrative 10/11/2024 12:00 AM CDT Ordered by an unspecified provider. us Other Clinical Staff OTHER Final Resul t * SCAN-OPERATIVE/PROCEDURE REPORT (10/11/2024 12:00 AM CDT) Narrative 10/11/2024 12:00 AM CDT Ordered by an unspecified provider. us Other Clinical Staff OTHER Final Resul t * SCAN-OPERATIVE/PROCEDURE REPORT (09/20/2024 12:00 AM CDT) us Scanner OTHER Final Result * RED CELL MORPHOLOGY (08/20/2024 2:00 PM CDT) RBC COMMENT RBC morphology appears normal RBC morphology appears normal, RBC morphology within normal limits for newborns. 08/20/2024 4:33 PM CDT [facility] Blood BLOOD SPECIMEN / Unknown Non-Lab Venipuncture / Unknown 08/20/2024 2:00 PM CDT 08/20/2024 3:36 PM CDT us Dolores Del Rosario MD HEMATOLOGY Fi nal Result Performing Organization Address City/[facility]/ZIP Co de Phone Number [facility] [address] [place] [address] * PLATELET ESTIMATE (08/20/2024 2:00 PM CDT) PLATELET ESTIMATE Adequate Adequate, No estimate 08/20/2024 4:33 PM CDT [facility] Blood BLOOD SPECIMEN / Unknown Non-Lab Venipuncture / Unknown 08/20/2024 2:00 PM CDT 08/20/2024 3:36 PM CDT us Dolores Del Rosario MD HEMATOLOGY Fi nal Result Performing Organization Address [facility] Co de Phone Number [facility] [address] [place] [address] * MANUAL DIFFERENTIAL (08/20/2024 2:00 PM CDT) % NEUTROPHILS 63.0 % 08/20/2024 4:33 PM CDT [facility] % LYMPHOCYTES 23.0 % 08/20/2024 4:33 PM T [facility] % MONOCYTES 9.0 % 08/20/2024 4:33 PM T [facility] % EOSINOPHILS 4.0 % 08/20/2024 4:33 PM CDT [facility] % BASOPHILS 1.0 % 08/20/2024 4:33 PM T [facility] NEUTROPHILS ABSOLUTE 3.3 1.7 - 7.0 thou/cu mm 08/20/2024 4:33 PM T [facility] LYMPHOCYTES ABSOLUTE 1.2 0.9 - 2.9 thou/cu mm 08/20/2024 4:33 PM T [facility] MONOCYTES ABSOLUTE 0.5 <0.9 thou/cu mm 08/20/2024 4:33 PM CDT [facility] EOSINOPHILS ABSOLUTE 0.2 <0.5 thou/cu mm 08/20/2024 4:33 PM CDT [facility] BASOPHILS ABSOLUTE 0.1 <0.3 thou/cu mm 08/20/2024 4:33 PM CDT [facility] Blood BLOOD SPECIMEN / Unknown Non-Lab Venipuncture / Unknown 08/20/2024 2:00 PM CDT 08/20/2024 3:36 PM CDT us Dolores Del Rosario MD HEMATOLOGY Fi nal Result [facility] [address] [place] [address] * (ABNORMAL) LIPID PANEL W REFLEX MEASURED LDL (05/14/2024 3:17 PM METALIZING SUPERVISOR) CHOLESTEROL, TOTAL 196 <200 mg/dL [facility] HDL CHOLESTEROL 54 > OR = 50 mg/dL [facility] TRIGLYCERIDES 92 <150 mg/dL [facility] LDL-CHOLESTEROL 122(H) mg/dL (calc) [facility] Comment: Reference range: <100 Desirable range <100 mg/dL for primary prevention; <70 mg/dL for patients with CHD or diabetic patients with > or = 2 CHD risk factors. LDL-C is now calculated using the Rayo-Bernard calculation, which is a validated novel method providing better accuracy than the Friedewald equation in the estimation of LDL-C. Rayo CARRERO et al. TAYLOR. 2013;310(19): 1526-7235 (http://education.Broccol-e-games.Contractors AID/faq/VSZ087) CHOL/HDLC RATIO 3.6 <5.0 (calc) [facility] NON HDL CHOLESTEROL 142(H) <130 mg/dL (calc) [facility] Comment: For patients with diabetes plus 1 major ASCVD risk factor, treating to a non-HDL-C goal of <100 mg/dL (LDL-C of <70 mg/dL) is considered a therapeutic option. Blood BLOOD SPECIMEN / Unknown 05/14/2024 3:17 PM METALIZING SUPERVISOR 05/14/2024 3:18 PM METALIZING SUPERVISOR Narrative [facility] - 05/15/2024 3:18 AM METALIZING SUPERVISOR FASTING:NO FASTING: NO Rachel Carmona MD CHEMISTRY Final Res ult [facility] [address] [place] [address], [facility] [address] [place] [address] * SDNA-FIT EXTERNAL (COLOGUARD) (04/28/2022 7:00 PM METALIZING SUPERVISOR) NONINV COLON CA DNA+OCC BLD SCRN STL-IMP Negative Negative 05/05/2022 7:33 PM METALIZING SUPERVISOR [employer] (CLIA #:[id number]) Comment: NEGATIVE TEST RESULT. A negative Cologuard [...] Mccarthy et al, N Engl J Med 2014;370(14):3251-4204) The normal value (reference range) for this assay is negative. COLOGUARD RE-SCREENING RECOMMENDATION: Periodic colorectal cancer screening is an important part of preventive healthcare for asymptomatic individuals at average risk for colorectal cancer. Following a negative Cologuard result, the [place] [employer] and U.S. Multi-Society Task Force screening guidelines recommend a Cologuard re-screening interval of 3 years. References: [place] [employer] Guideline for Colorectal Cancer Screening: https://www.cancer.org/cancer/vfgvh-jygokz-yfkotj/cjojvpbuf-dmbacispk-kyecikr/ac s-rec ommendations.html.; Lino DK, Ceferino CR, Troy YuK, Colorectal Cancer Screening: Recommendations for Physicians and Patients from the U.S. Multi-Society Task Force on Colorectal Cancer Screening , Am J Gastroenterology 2017; 112:5881-2241. TEST DESCRIPTION: Composite algorithmic analysis of stool [...] (Vanessa Maher al, N Engl J Med 2014;370(14):8489-6162.) Cologuard may produce a false negative or false positive result (no colorectal cancer or precancerous polyp present at colonoscopy follow up). A negative Cologuard test result does not guarantee the absence of CRC or advanced adenoma (pre-cancer). The current Cologuard screening interval is every 3 years. ([place] [employer] and U.S. Multi-Society Task Force). Cologuard performance data in a 10,000 patient pivotal study using colonoscopy as the reference method can be accessed at the following location: www.Yashi.com/results. Additional description of the Cologuard test process, warnings and precautions can be found at www.seoreseller.com.com. Stool specimen (specimen) (Rectum) 04/28/2022 7:00 PM METALIZING SUPERVISOR 05/01/2022 11:53 AM METALIZING SUPERVISOR Rachel Carmona MD URINE Final Res ult [employer] (CLIA #:[id number]) [place] [address], * ANTI HCV [28939.2] (04/24/2018 3:34 PM METALIZING SUPERVISOR) HEPATITIS C ANTIBODY Non-React bee Non-React bee 04/24/2018 8:22 PM METALIZING SUPERVISOR [facility] Comment:Antibodies to HCV no t detected; does not exclude the possibility of exposure to HCV. Blood BLOOD SPECIMEN / Unknown Venipuncture / Unknown 04/24/2018 3:34 PM METALIZING SUPERVISOR 04/24/2018 3:34 PM METALIZING SUPERVISOR Rachel Carmnoa MD SEND OUTS Final Res ult [facility] [address] [place] [address], * (ABNORMAL) XR DXA BONE DENSITY 2 SITES AXIAL (02/28/2017 2:04 PM METALIZING SUPERVISOR) Anatomical Region Laterality Modality Spine, HIPS, HIPL, HIPR Other Narrative 03/01/2017 5:31 PM METALIZING SUPERVISOR Please see scanned document for results of this study. 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/07/2024 11/07/2024 Insurance MEDICARE PART B HB ONLY MEDICARE PART A HB ONLY MEDICARE PB ONLY [facility]ID [facility] [place] [place] [address] HC MEDICARE PPS MEDICAID Advance Directives * Full Code (Latest Code Status on File) Date Activated Date Inactivated Comments 11/07/2024 11:09 AM 11/12/2024 2:38 PM Question Answer Comments Code Status Discussion: Discussed * Full Code Date Activated Date Inactivated Comments 10/11/2024 7:43 AM 10/12/2024 6:01 PM Question Answer Comments Code Status Discussion: Discussed * Full Code Date Activated Date Inactivated Comments 07/30/2024 6:46 AM 10/11/2024 7:42 AM * Full Code Date Activated Date Inactivated Comments 07/24/2024 10:25 AM 07/27/2024 3:43 PM Question Answer Comments Code Status Discussion: Discussed Care Teams Intern Retail Relationship Specialty Start Date End Date Rachel Carmona MD [address] [place] [address] PCP - General Internal Medicine 08/12/17 Andrea Tabares MD [address] [place] [address] Surgery - Orthopedics 02/20/18 Jeanette Fernandez MD [address] [facility] [address] [place] [address] Neurology 01/27/21 [facility] [address] [place] [address] 11/12/24
[2024-11-14 23:18] VITALS: BP 161/94; PULSE 106; RESP 18; TEMP 36.7; O2SAT 100; BMI 27.6
--- NOTE | 2024-11-14 23:41 | ED.GENADULT ---
HPI - General Adult General Time Seen by Provider: 23:41 Date Seen: 11/14/24 Chief complaint: Post Op Complication Stated complaint: wound needs redressing Time Seen by Provider: 11/14/24 23:41 Source: patient Mode of arrival: ambulatory History of Present Illness HPI narrative: Dali is a 74-year-old female with a past medical history of left hip replacement at [facility] on October 11 who presents to the emergency department for evaluation of postop complication. Patient states that she had wound dehiscence and had another surgery with wound VAC place around November 07. Patient states she has been doing well and while she was in the hospital she use proximally 3 containers in 5 days, typically feels up the container in every day or every other day. Patient reports that today she filled up 2 containers this afternoon. Patient states that she wanted to come in to get a dressing/wrap around her left leg so the blood does not CP out and get everything dirty. Patient states that she will go up and try to get new containers in the next few days. Patient turned off her wound VAC tonight so would not overflow. Patient denies any significant trauma or injury but states that she did have a busy day and was walking around with her walker with increased activity. Patient denies any fever, chills, chest pain, shortness of breath, weakness, dizziness, no new paresthesias, no other complaints. Patient is on 81 mg aspirin, no other anticoagulation. No other complaints. Related Data Home Medications ?Medication ?Instructions ?Recorded ?Confirmed acetaminophen 500 mg tablet mg PO PRN 11/27/21 07/15/24 albuterol 90 mcg/actuation aerosol 2 spray inhalation PRN 11/27/21 07/15/24 inhaler budesonide-formoterol HFA 80 2 inhalation BID 11/27/21 07/15/24 mcg-4.5 mcg/actuation aerosol inhaler calcium acetate PO 11/27/21 07/15/24 dextroamphetamine-amphetamine ER 10 PO DAILY 11/27/21 07/15/24 10 mg 24hr capsule,extend release duloxetine 60 mg capsule,delayed 60 mg PO DAILY 11/27/21 10/15/24 release lisinopril 20 1 tab PO DAILY 11/27/21 10/15/24 mg-hydrochlorothiazide 25 mg tablet lutein 10 mg tablet 50 mg PO DAILY 11/27/21 10/15/24 meclizine 25 mg tablet 25 mg PO PRN 11/27/21 07/15/24 naproxen sodium 220 mg tablet 440 mg PO PRN 11/27/21 07/15/24 omeprazole 20 mg capsule,delayed mg PO DAILY 11/27/21 07/15/24 release amantadine HCl 100 mg capsule 100 mg PO BID 10/15/24 10/15/24 amlodipine 5 mg tablet 5 mg PO DAILY 10/15/24 10/15/24 baclofen 10 mg tablet 5 mg PO QPM 10/15/24 10/15/24 fluticasone 250 mcg-salmeterol 50 1 ea inhalation BID 10/15/24 10/15/24 mcg/dose blistr powdr for inhalation hydrochlorothiazide 25 mg tablet 25 mg PO DAILY 10/15/24 10/15/24 ibuprofen 600 mg tablet 600 mg PO Q6H PRN 10/15/24 10/15/24 oxycodone 5 mg tablet PO 10/15/24 sennosides 8.6 mg-docusate sodium PO 10/15/24 50 mg tablet (Senexon-S) spironolactone 25 mg tablet 12.5 mg PO QAM 10/15/24 10/15/24 topiramate 25 mg tablet 25 mg PO QPM 10/15/24 10/15/24 trazodone 50 mg tablet mg PO 10/15/24 Allergies Allergy/AdvReac Type Severity Reaction Status Date / Time furosemide (From Lasix) Allergy Intermediate Hives Verified 11/14/24 23:21 tizanidine Allergy Mild Dizziness Verified 11/14/24 23:21 Review of Systems Narrative: Past medical history, past surgical history, medications, allergies, family history, and social history were reviewed with the patient. No additional pertinent items. A medically appropriate review of systems was performed with pertinent positives and negatives noted in HPI, all other systems negative. [facility] Surgical History Status post right hip replacement ?Z96.641 - Presence of right artificial hip joint (ICD-10) Social History Smoking Status: Never smoker Do you use any of these nicotine containing products: None How often do you have a drink containing alcohol: monthly or less How many standard drinks containing alcohol do you have on a typical day: 1 or 2 How often do you have six or more drinks on one occasion: Never AUDIT-C Alcohol total score: 1 Non-prescribed substance use: denies use service: No Exam Narrative: Exam Narrative: General: Afebrile, no acute distress HEENT: Normocephalic, atraumatic, conjunctiva normal. MMM Neck: non-tender, supple Cardio: regular rate. regular rhythm Resp: Normal work of breathing, no respiratory distress, lungs clear bilaterally, no wheezing, rhonchi, rales Chest/Back: no visual signs of trauma, no midline tenderness, no CVA tenderness Abdomen: soft, non distension, no tenderness, no peritoneal signs Neuro: alert and fully oriented. CN II-XII grossly intact. Grossly normal strength and sensation in all extremities. MSK: left lower extremity with wound VAC in place to the left hip, there is some bloody drainage around the edge of the wound, wound VAC is currently off, canister is full, compartments are soft, distally neurovascular intact, no new motor or sensory deficits Integumentary/Skin: no rash visualized, normal color Psych: normal affect, normal behavior Const: Vital Signs, click to edit/add: Vital Signs - 24 hr 11/14/24 23:18 Temperature 98.1 F Pulse Rate [Pulse Oximeter] 106 H Respiratory Rate 18 Blood Pressure [Le ft Upper Arm] 161/94 H Pulse Oximetry 100 Oxygen Delivery Me thod Room Air Course Vital Signs Vital signs: Initial Vital Signs Temperature 98.1 F 11/14/24 23:18 Temperature Source Temporal Artery Scan 11/14/24 23:18 Pulse Rate 106 H 11/14/24 23:18 Respiratory Rate 18 11/14/24 23:18 Blood Pressure 161/94 H 11/14/24 23:18 Blood Pressure Mean 116 H 11/14/24 23:18 Blood Pressure Position Sitting 11/14/24 23:18 Pulse Oximetry 100 11/14/24 23:18 Oxygen Delivery Method Room Air 11/14/24 23:18 Vital Signs Temperature 98.1 F 11/14/24 23:18 Pulse Rate 106 H 11/14/24 23:18 Respiratory Rate 18 11/14/24 23:18 Blood Pressure 161/94 H 11/14/24 23:18 Pulse Oximetry 100 11/14/24 23:18 Oxygen Delivery Method Room Air 11/14/24 23:18 Temperature 98.1 F 11/14/24 23:18 Pulse Rate 106 H 11/14/24 23:18 Respiratory Rate 18 11/14/24 23:18 Blood Pressure 161/94 H 11/14/24 23:18 Pulse Oximetry 100 11/14/24 23:18 Oxygen Delivery Method Room Air 11/14/24 23:18 Medical Decision Making MDM Narrative Medical decision making narrative: Dali is a 74-year-old female with a past medical history of left hip replacement at [facility] on October 11 who presents to the emergency department for evaluation of postop complication. Upon arrival patient is nontoxic appearing, afebrile, no distress. Patient here with increased bloody drainage from her wound VAC today, feeling 2 canisters when typically she feels 1 canister a day or every other day. Patient states she is under canisters so turned her wound VAC off and came in for additional dressings until she can follow-up with orthopedics. Overall patient is nontoxic appearing, denies any weakness, shortness of breath, no new weakness, paresthesias. Comprehensive labs performed and remarkable for hemoglobin of 7.7. Per chart review patient's last hemoglobin was 7.6 on 11/12/2024 an 8.0 on 11/10/2024. Patient states she did have a transfusion postoperative day 1 hemoglobin was in the 6 is. INR 1.1. Given patient's increased bloody drainage, no specific plan for follow-up, I did attempt to discussed patient management with [facility] on-call. Attempted to page multiple time with no return phone call. On re-evaluation patient frustrated and would like to go home. Dressing was applied. Patient remains hemodynamically stable with no specific complaints. Plan for discharge, patient is agreeable to call the clinic 1st thing in the morning to let them know of her increased bloody drainage and to arrange close follow-up in the next 1-2 days. Strict return precautions discussed if weakness, dizziness, chest pain, shortness of breath, continued bloody drainage, and worsening symptoms. Patient understands and agrees with the plan. Lab Data Labs: Lab Results 11/14/24 Range/Units 23:35 WBC 10.72 (4.50-11.00) K/uL RBC 2.75 L (4.00-5.20) m/uL Hgb 7.7 L* (12.0-16.0) gm/dL Hct 24.7 L (33.0-51.0) % MCV 90 (80-100) fL MCH 28 (26-34) pg MCHC 31 L (32-36) gm/dL RDW Coeff of Baljeet 17.0 H (11.5-15.5) % Plt Count 621 H (140-440) K/uL Neut % (Auto) 65.5 (42.0-72.0) % Lymph % (Auto) 23.8 (20-44) % Otero % (Auto) 7.7 (0.0-11.0) % Eos % (Auto) 2.0 (0.0-7.0) % Baso % (Auto) 0.4 (0.0-3.0) % Neut # (Auto) 7.03 H (1.7-7.0) K/uL Lymph # (Auto) 2.55 (0.90-2.90) K/uL Otero # (Auto) 0.80 (0.00-0.90) K/UL Eos # (Auto) 0.21 (0.00-0.50) K/uL Baso # (Auto) 0.04 (0.00-0.30) K/uL Abs Immat Gran (auto) 0.06 (0.00-0.30) K/uL Imm/Tot Granulo (auto) 0.6 % INR 1.10 (0.91-1.10) Discharge Plan Discharge Clinical Impression: Encounter for postoperative wound check Patient Disposition: Home, Self-Care Condition: Stable Additional Instructions: Please follow-up with your orthopedic provider in the next 1-2 days. Please call the clinic 1st thing in the morning to let them know of your increased drainage/bloody output. Please return to the emergency department immediately if you develop weakness, shortness of breath, chest pain, continued bleeding, or any worsening symptoms. It was a pleasure taking care of you today. We hope you feel better soon. Prescriptions: No Action lutein 10 mg tablet 50 mg PO DAILY budesonide-formoterol 80-4.5 mcg/actuation HFA aerosol inhaler 2 inhalation BID duloxetine 60 mg capsule,delayed release(DR/EC) 60 mg PO DAILY albuterol 90 mcg/actuation aerosol 2 spray inhalation PRN dextroamphetamine-amphetamine 10 mg capsule,extended release 24hr 10 PO DAILY lisinopril-hydrochlorothiazide 20-25 mg tablet 1 tab PO DAILY omeprazole 20 mg capsule,delayed release(DR/EC) PO DAILY naproxen sodium 220 mg tablet 440 mg PO PRN meclizine 25 mg tablet 25 mg PO PRN calcium acetate PO acetaminophen 500 mg tablet PO PRN fluticasone propion-salmeterol 250-50 mcg/dose blister with device 1 ea INHALATION BID trazodone 50 mg tablet PO sennosides-docusate sodium [Senexon-S] 8.6-50 mg tablet PO topiramate 25 mg tablet 25 mg PO QPM amlodipine 5 mg tablet 5 mg PO DAILY amantadine HCl 100 mg capsule 100 mg PO BID spironolactone 25 mg tablet 12.5 mg PO QAM baclofen 10 mg tablet 5 mg PO QPM hydrochlorothiazide 25 mg tablet 25 mg PO DAILY ibuprofen 600 mg tablet 600 mg PO Q6H PRN oxycodone 5 mg tablet PO Follow Up/Referrals: Rachel Carmona MD [Primary Care Provider, Internal Medicine] Stand Alone Forms: [facility] Info Instructions
[2024-11-14 23:42] LABS: Hematocrit 24.7 % (33.0-51.0); Immature Granulocytes Abs Auto 0.06 K/uL (0.00-0.30); Immature Granulocytes Pct Auto 0.6 %; Lymphocytes Absolute Auto 2.55 K/uL (0.90-2.90); Mean Corpuscular HGB Conc 31 gm/dL (32-36); Mean Corpuscular Hemoglobin 28 pg (26-34); Mean Corpuscular Volume 90 fL (80-100); RDW Coefficient of Variation % 17.0 % (11.5-15.5); Red Blood Count 2.75 m/uL (4.00-5.20); White Blood Count* 10.72 K/uL (4.50-11.00)
[2024-11-14 23:44] LABS: Hemoglobin* 7.7 gm/dL (12.0-16.0); Slide Review Reflex No
[2024-11-14 23:55] LABS: INR 1.10 (0.91-1.10); Prothrombin Time 15.1 Seconds
--- OUTSIDE RECORDS SUMMARY | 2024-11-15 00:36 | XMS_ITS | Clinical Summary ---
Author Organization [facility] Address [address] , [address] [place] [address] Phone Care Team Providers Care Oracle Applications Developer Name Role Phone Zachary FOLEY, BSN, Paece Thompson [phone] Conditions or Problems Problem Name Problem Code Onset Date Status Entry Date Provider Comment Standard Description Annotate Knee pain, left, chronic 6508947900 (SNOMED CT) 10/26 Active 10/28 Noy Campeau Pain of joint of knee Knee pain, right, chronic 9948576459 (SNOMED CT) 10/26 Active 10/26 Noy Campeau Pain of joint of knee Hip pain, left 99919990 (SNOMED CT) 10/26 Active 10/28 Noy Campeau Pain of hip region Hip joint pain, right 18023812 (SNOMED CT) 10/26 Active 10/26 Noy Campeau Pain of hip region Leg pain, left 144141418 (SNOMED CT) 10/26 Active 10/28 Noy Campeau Pain in left lower limb Leg pain, right 709552311 (SNOMED CT) 10/26 Active 10/26 Noy Campeau Pain in right lower limb Leg pain, bilateral 75010935 (SNOMED CT) 10/26 Inactive 10/26 Jeanette Marcum MD Pain in lower limb Restless leg syndrome 73076327 (SNOMED CT) 10/26 Active 10/26 Jeanette Marcum MD Restless legs Hip pain 32516623 (SNOMED CT) 10/26 Inactive 10/26 Jeanette Marcum MD Pain of hip region Knee pain, chronic 98180227 (SNOMED CT) 10/26 Inactive 10/26 Jeanette Marcum MD Knee pain Low back pain, chronic 998114148 (SNOMED CT) 10/26 Active 10/26 Jeanette Marcum MD Chronic low back pain Fatigue, chronic 81023155 (SNOMED CT) Active Jeanette Marcum MD Fatigue Anxiety disorder 966022472 (SNOMED CT) Active Jeanette Marcum MD Anxiety disorder Depression 90709867 (SNOMED CT) Active Jeanette Marcum MD Depressive disorder Multiple sclerosis, relapsing/r emitting 011101990 (SNOMED CT) 1986 Active 09/26 Jeanette Marcum MD Relapsing remitting multiple sclerosis Carpal tunnel syndrome, bilateral upper limbs 69293413362505 101 (SNOMED CT) 12/30 Active 12/30 Watson Baker MD Bilateral carpal tunnel syndrome Multiple sclerosis, relapsing/r emitting 314828136 (SNOMED CT) 09/26 Inactive 09/26 Lazaro Tomas MD Relapsing remitting multiple sclerosis Neuropathy, idiopathic peripheral 45608531 (SNOMED CT) 09/26 Active 09/26 Lazaro Tomas MD Idiopathic peripheral neuropathy Medications Medication Instructions Start Date Stop Date Generic Name ND Provider BACLOFEN 10 MG TABS Take 1/2 tablet by mouth at bedtime baclofen [id number] Jeanette Marcum MD AMANTADINE HCL 100 MG TABS Take 1 tablet by mouth twice a day 12/19 amantadine hcl 97071214749 Claudia SILVER-Ibrahima AMANTADINE HCL 100 MG CAPS TAKE ONE CAPSULE BY MOUTH TWICE DAILY amantadine hcl 39204461317 Claudia SILVER-C ESCITALOPRAM OXALATE 10 MG TABS Take 1 Tablet by mouth one time a day. escitalopram oxalate 74405494542 Jeanette Marcum MD AMPHETAMINE-DEXTR OAMPHET ER 10 MG [id number]-WIQ TAKE ONE CAPSULE BY MOUTH EVERY MORNING NEEDED 07/27 dextroamphetamine -amphetamine 77513292481 Jeanette Marcum MD AMPHETAMINE-DEXTR OAMPHET ER 10 MG [id number]-HKG Take 1 capsule by mouth every morning TAKE ONE CAPSULE BY MOUTH EVERY MORNING NEEDED dextroamphetamine -amphetamine 36668632886 Claudia Rodriguez PA-C DULOXETINE HCL 60 MG CPEP TAKE ONE CAPSULE BY MOUTH DAILY duloxetine 83193078185 Jeanette Marcum MD AMPHETAMINE-DEXTR OAMPHET ER 10 MG SF16A-QLO TAKE ONE CAPSULE BY MOUTH EVERY MORNING NEEDED 08/24 dextroamphetamine -amphetamine 25355000380 Jeanette Marcum MD DULOXETINE HCL 60 MG CPEP TAKE ONE CAPSULE BY MOUTH DAILY 05/19 duloxetine 12684044912 Jeanette Marcum MD DULOXETINE HCL 60 MG CPEP TAKE ONE CAPSULE BY MOUTH DAILY 04/16 duloxetine 09387800063 Katalina Lagunas PA-C DULOXETINE HCL 30 MG CPEP TAKE ONE CAPSULE BY MOUTH ONCE A DAY. TAKE WITH 60 MG CAPSULE. 10/26 duloxetine 57669425558 Jeanette Marcum MD ESCITALOPRAM OXALATE 10 MG TABS Take 1 Tablet by mouth one time a day. 10/23 escitalopram oxalate 15603786473 Jeanette Marcum MD AMPHETAMINE-DEXTR OAMPHET ER 5 MG [id number]-XOD TAKE TWO CAPSULE BY MOUTH EVERY MORNING NEEDED 10/07 dextroamphetamine -amphetamine 98295829078 Jeanette Marcum MD AMPHETAMINE-DEXTR OAMPHET ER 10 MG AY03S-ATR TAKE ONE CAPSULE BY MOUTH EVERY MORNING NEEDED 08/24 dextroamphetamine -amphetamine 70726068764 Jeanette Marcum MD AMPHETAMINE-DEXTR OAMPHET ER 10 MG GR98E-MWV TAKE ONE CAPSULE BY MOUTH EVERY MORNING NEEDED 0 09/30 dextroamphetamine -amphetamine 16210459539 Jeanette Marcum MD AMPHETAMINE-DEXTR OAMPHET ER 5 MG MQ75B-HSO TAKE TWO CAPSULE BY MOUTH EVERY MORNING NEEDED 0 10/19 dextroamphetamine -amphetamine 91960540178 Jeanette Marcum MD AMPHETAMINE-DEXTR OAMPHET ER 10 MG MV05D-FGA TAKE ONE CAPSULE BY MOUTH EVERY MORNING NEEDED 0 08/24 dextroamphetamine -amphetamine 74657531256 Claudia Rodriguez PA-C AMPHETAMINE-DEXTR OAMPHET ER 10 MG GV41U-DLH TAKE ONE CAPSULE BY MOUTH EVERY MORNING NEEDED 0 08/24 dextroamphetamine -amphetamine 80860406569 Jeanette Marcum MD AMPHETAMINE-DEXTR OAMPHET ER 10 MG TZ86C-LXD TAKE ONE CAPSULE BY MOUTH EVERY MORNING NEEDED 0 08/24 dextroamphetamine -amphetamine 83723073594 Justin Romero MD AMPHETAMINE-DEXTR OAMPHET ER 10 MG XX97K-XSR TAKE ONE CAPSULE BY MOUTH EVERY MORNING NEEDED 0 08/24 dextroamphetamine -amphetamine 29304527572 Jeanette Marcum MD BACLOFEN 10 MG TABS Take 1/2 tablet by mouth at bedtime 05/21 baclofen 84725152014 Ag Staton MD AMPHETAMINE-DEXTR OAMPHET ER 10 MG LQ91H-HOZ TAKE ONE CAPSULE BY MOUTH EVERY MORNING NEEDED 0 16 dextroamphetamine -amphetamine 44168586752 Bárbara Longoria PA-C DULOXETINE HCL 30 MG CPEP Take 1 capsule by mouth once a day (take with 60 mg cap) 05/03 duloxetine 51659775098 Jeanette Marcum MD DULOXETINE HCL 30 MG CPEP TAKE ONE CAPSULE BY MOUTH ONCE A DAY. TAKE WITH 60 MG CAPSULE. 0 10/26 duloxetine 94509269087 Jeanette Marcum MD AMPHETAMINE-DEXTR OAMPHET ER 10 MG YM37T-EPV TAKE ONE CAPSULE BY MOUTH EVERY MORNING NEEDED 0 08/24 dextroamphetamine -amphetamine 88967055504 Jeanette Marcum MD DULOXETINE HCL 30 MG CPEP Take 1 capsule by mouth once a day (take with 60 mg cap) 05/03 duloxetine 74937794463 Jeanette Marcum MD AMPHETAMINE-DEXTR OAMPHET ER 10 MG WF48M-TJQ TAKE ONE CAPSULE BY MOUTH EVERY MORNING NEEDED 08/24 dextroamphetamine -amphetamine 51177133303 Claudia Rodriguez PA-C DULOXETINE HCL 30 MG CPEP Take 1 capsule by mouth once a day (take with 60 mg cap) 10/29 duloxetine 04148960895 Jeanette Marcum MD ESCITALOPRAM OXALATE 10 MG TABS Take 1 tablet by mouth once a day 10/20 escitalopram oxalate 75376597295 Jeanette Marcum MD ESCITALOPRAM OXALATE 10 MG TABS Take 1 tablet by mouth once a day 10/20 escitalopram oxalate 01103129210 Jeanette Marcum MD BACLOFEN 5 MG TABS Take 1 tablet by mouth at bedtime 0 04/20 baclofen 10769999980 Jeanette Marcum MD TOPIRAMATE 25 MG TABS 1 tab at night topiramate 65520672750 Jeanette Marcum MD AMANTADINE HCL 100 MG TABS Take 1 tablet by mouth twice a day 0 9 amantadine hcl 54659478713 Jeanette Marcum MD DULOXETINE HCL 60 MG CPEP TAKE ONE CAPSULE BY MOUTH DAILY 0 804 duloxetine 62253193590 Jeanette Marcum MD AMPHETAMINE-DEXTR OAMPHET ER 10 MG JM23Z-FCO TAKE ONE CAPSULE BY MOUTH EVERY MORNING NEEDED 0 08/24 dextroamphetamine -amphetamine 65399905099 Jeanette Marcum MD AMPHETAMINE-DEXTR OAMPHET ER 10 MG AM04N-ZRZ TAKE ONE CAPSULE BY MOUTH EVERY MORNING NEEDED 08/24 dextroamphetamine -amphetamine 54639006650 Claudia Rodriguez PA-C ESCITALOPRAM OXALATE 10 MG TABS Take 1 tablet by mouth once a day 10/20 escitalopram oxalate 47062808500 Conchis Hughes RN DULOXETINE HCL 60 MG CPEP Take 1 capsule by mouth once a day 07/09 duloxetine 66494443817 Jeanette Marcum MD DULOXETINE HCL 60 MG CPEP TAKE ONE CAPSULE BY MOUTH DAILY 09/29 duloxetine 61973505049 Claudia Rodriguez PA-C ESCITALOPRAM OXALATE 10 MG TABS TAKE ONE TABLET BY MOUTH EVERY DAY 07/09 escitalopram oxalate 26622008247 Jeanette Marcum MD BACLOFEN 5 MG TABS Take 1 tablet by mouth at bedtime 10/20 baclofen 07370841113 Claudia Rodriguez PA-C ALBUTEROL SULFATE 2 MG TABS albuterol sulfate 09391166725 Claudia Rodriguez PA-C VITAMIN D3 50 MCG (1999) TABS 2 per day cholecalciferol (vitamin d3) 33055416076 Claudia Rodriguez PA-C AMPHETAMINE-DEXTR OAMPHET ER 10 MG XT17C-GNY TAKE ONE CAPSULE BY MOUTH EVERY MORNING NEEDED 08/24 dextroamphetamine -amphetamine 05493109896 Jeanette Marcum MD AMPHETAMINE-DEXTR OAMPHET ER 10 MG EV71X-TEM TAKE ONE CAPSULE EVERY MORNING NEEDED dextroamphetamine -amphetamine 19384631001 Watson Baker MD AMPHETAMINE-DEXTR OAMPHET ER 10 MG NA40P-XKJ TAKE ONE CAPSULE BY MOUTH EVERY MORNING NEEDED 08/24 dextroamphetamine -amphetamine 60924287836 Jeanette Marcum MD DULOXETINE HCL 60 MG CPEP Total of 120mg daily duloxetine 68264130998 Swati Mclean DNP,DONOR RECRUITER,DENTAL MANAGER ESCITALOPRAM OXALATE 10 MG TABS Take 1 tablet by mouth once a day 10/20 escitalopram oxalate 02583521924 Jeanette Marcum MD DULOXETINE HCL 60 MG CPEP Take 1 capsule by mouth once a day 07/24 duloxetine 15363284413 Jeanette Marcum MD AMPHETAMINE-DEXTR OAMPHET ER 10 MG PA07O-AAP Take 1 capsule by mouth every morning as needed 12/19 dextroamphetamine -amphetamine 94642747210 Watson Baker MD AMPHETAMINE-DEXTR OAMPHET ER 10 MG RH03I-EZZ TAKE ONE CAPSULE EVERY MORNING NEEDED 08/24 dextroamphetamine -amphetamine 79686106031 Watson Baker MD SYMBICORT 80-4.5 MCG/ACT AERO 2 once a day budesonide-formot cherelle 54699978994 Watson Baker MD AMPHETAMINE-DEXTR OAMPHET ER 10 MG IH15L-UPB Take 1 capsule by mouth every morning as needed 08/24 dextroamphetamine -amphetamine 86688244763 Watson Baker MD OMEPRAZOLE 20 MG CPDR 1-2 capsule by mouth once a day omeprazole 72876325657 Watson Baker MD CYCLOBENZAPRINE HCL 5 MG TABS 1 tablet by mouth every night 10/19 cyclobenzaprine 53303545049 Bárbara Longoria PA-C MECLIZINE HCL 25 MG TABS 1 tablet by mouth as needed meclizine 74661009070 Watson Baker MD DULOXETINE HCL 60 MG CPEP Total of 120mg daily 07/24 duloxetine 97060786775 Swati Mclean DNP,DONOR RECRUITER,DENTAL MANAGER RIZATRIPTAN BENZOATE 10 MG TBDP take 1 pill at [place] onset. May repeat in 2 hours if [place] persists. No more than 2 pills in 24 hrs. rizatriptan 93258350542 Watson Baker MD LISINOPRIL 20 MG TABS 1 tablet by mouth once a day lisinopril 09399449722 Watson Baker MD RIZATRIPTAN BENZOATE 10 MG TBDP take 1 pill at [place] onset. May repeat in 2 hours if [place] persists. No more than 2 pills in 24 hrs. 11/17 RIZATRIPTAN BENZOATE 04370636310 Watson Baker MD AMPHETAMINE-DEXTR OAMPHET ER 10 MG IG66Y-XMN TAKE ONE CAPSULE in the MORNING as needed 08/24 AMPHETAMINE-DEXTR OAMPHETAMINE 10056316572 Watson Baker MD AMPHETAMINE-DEXTR OAMPHET ER 10 MG ST54C-LWS TAKE ONE CAPSULE EVERY MORNINGON HOLD 08/24 AMPHETAMINE-DEXTR OAMPHETAMINE 95983665496 Swati Mclean DNP,DONOR RECRUITER,DENTAL MANAGER DULOXETINE HCL 60 MG CPEP Total of 120mg daily 07/24 DULOXETINE HCL 19372010268 Swati Mclean DNP,DONOR RECRUITER,DENTAL MANAGER AMPHETAMINE-DEXTR OAMPHET ER 10 MG OC49A-BWT TAKE ONE CAPSULE EVERY MORNING 08/24 AMPHETAMINE-DEXTR OAMPHETAMINE 30322070934 Watson Baker MD GABAPENTIN 300 MG CAPS 1 cap at bedtime 04/14 GABAPENTIN 54627135045 Swati Mclean DNP,DONOR RECRUITER,DENTAL MANAGER AMPHETAMINE-DEXTR OAMPHET ER 10 MG FS24A-IWA 1 po qAM 08/24 AMPHETAMINE-DEXTR OAMPHETAMINE 42893571561 Watson Baker MD AMPHETAMINE-DEXTR OAMPHET ER 10 MG HJ97B-CSD TAKE ONE CAPSULE EVERY MORNING 08/24 AMPHETAMINE-DEXTR OAMPHETAMINE 07495309071 Wilberto Urbina MD AMPHETAMINE-DEXTR OAMPHET ER 10 MG OW80C-AWH 1 po qam 08/24 AMPHETAMINE-DEXTR OAMPHETAMINE 74802114466 Lazaro Tomas MD AMPHETAMINE-DEXTR OAMPHET ER 10 MG QD29Q-WAM Take one capsule every morning. 08/24 AMPHETAMINE-DEXTR OAMPHETAMINE 18954178893 Nnacy Abdul MD AMPHETAMINE-DEXTR OAMPHET ER 10 MG IV57Q-IYP TAKE ONE CAPSULE EVERY MORNING 08/24 AMPHETAMINE-DEXTR OAMPHETAMINE 35307248935 Lazaro Tomas MD CYCLOBENZAPRINE HCL 5 MG TABS 1 tab at bedtime 10/19 CYCLOBENZAPRINE HCL 29756530758 Bárbara Longoria PA-C GABAPENTIN 300 MG CAPS 1 cap at bedtime 10/19 GABAPENTIN 10200788116 Bárbara Longoria PA-C DULOXETINE HCL 60 MG CPEP 07/24 DULOXETINE HCL 77142564891 Bárbara Longoria PA-C PRAMIPEXOLE DIHYDROCHLORIDE 0.25 MG TABS 1 po one hour before bed 05/19 PRAMIPEXOLE DIHYDROCHLORIDE 75900008982 Lazaro Tomas MD AMPHETAMINE-DEXTR OAMPHET ER 10 MG ZZ47G-ISL 1 po qam 08/24 AMPHETAMINE-DEXTR OAMPHETAMINE 75354505678 Lazaro Tomas MD AMPHETAMINE-DEXTR OAMPHET ER 10 MG YK04B-AZT 1 po AM 08/24 AMPHETAMINE-DEXTR OAMPHETAMINE 44144250216 Lazaro Tomas MD AMPHETAMINE-DEXTR OAMPHET ER 10 MG VJ06B-RPS 1 po qam 08/24 AMPHETAMINE-DEXTR OAMPHETAMINE 95682323467 Lazaro Tomas MD AMPHETAMINE-DEXTR OAMPHET ER 10 MG ZX65G-AZE TAKE ONE CAPSULE EVERY MORNING 08/24 AMPHETAMINE-DEXTR OAMPHETAMINE 26261695591 Lazaro Tomas MD AMPHETAMINE-DEXTR OAMPHET ER 10 MG GB94V-RWN 1 po qAM 08/24 AMPHETAMINE-DEXTR OAMPHETAMINE [id number] Lazaro Tomas MD AMPHETAMINE-DEXTR OAMPHET ER 10 MG TQ36C-WZV TAKE ONE CAPSULE EVERY MORNING 0 08/24 AMPHETAMINE-DEXTR OAMPHETAMINE 81416341976 Lazaro Tomas MD AMPHETAMINE-DEXTR OAMPHET ER 10 MG ZH49U-PKB 1 po qAM 0 08/24 AMPHETAMINE-DEXTR OAMPHETAMINE 84546066628 Lazaro Tomas MD AMPHETAMINE-DEXTR OAMPHET ER 10 MG GB34C-QXJ 1 po qam 0 08/24 AMPHETAMINE-DEXTR OAMPHETAMINE 24834679336 Lazaro Tomas MD AMPHETAMINE-DEXTR OAMPHET ER 10 MG QT77C-XJO 1 po qam 0 08/24 AMPHETAMINE-DEXTR OAMPHETAMINE 52863996500 Lazaro Tomas MD AMPHETAMINE-DEXTR OAMPHET ER 10 MG IJ69E-IHU 1 po qam 0 08/24 AMPHETAMINE-DEXTR OAMPHETAMINE [id number] Lazaro Tomas MD AMPHETAMINE-DEXTR OAMPHET ER 10 MG VY45D-MIM 1 po qd 0 08/24 AMPHETAMINE-DEXTR OAMPHETAMINE 53226199824 Lazaro Tomas MD PRAMIPEXOLE DIHYDROCHLORIDE 0.25 MG TABS 1 po one hour before bed 0 07/24 PRAMIPEXOLE DIHYDROCHLORIDE 91370709903 Lazaro Tomas MD CYCLOBENZAPRINE HCL 10 MG TABS 1 po prn 10/01 CYCLOBENZAPRINE HCL 89060718056 Lazaro Tomas MD AMPHETAMINE-DEXTR OAMPHET ER 10 MG WZ17N-RRW 1 po qd 0 08/24 AMPHETAMINE-DEXTR OAMPHETAMINE [id number] Lazaro Tomas MD AMPHETAMINE-DEXTR OAMPHET ER 10 MG TE75E-MTI 1 po qd 0 08/24 AMPHETAMINE-DEXTR OAMPHETAMINE 69081515290 Lazaro Tomas MD SYMBICORT 80-4.5 MCG/ACT AERO 2 per day 11/17 BUDESONIDE-FORMOT CHERELLE FUMARATE 41823387476 Lazaro Tomas MD CYCLOBENZAPRINE HCL 10 MG TABS 1 po prn 10/01 CYCLOBENZAPRINE HCL 81887289282 Lazaro Tomas MD MECLIZINE HCL 25 MG TABS 1 po prn 11/17 MECLIZINE HCL 29112199141 Lazaro Tomas MD OMEPRAZOLE 20 MG CPDR 1-2 po qd 10/19 OMEPRAZOLE 32002512479 Lazaro Tomas MD LISINOPRIL 20 MG TABS 1 po qd 04/23 LISINOPRIL 56332719946 Lazaro Tomas MD AMPHETAMINE-DEXTR OAMPHET ER 10 MG HD09T-WOV 1 po qam 08/24 AMPHETAMINE-DEXTR OAMPHETAMINE 40572802209 Lazaro Tomas MD DULOXETINE HCL 30 MG CPEP 1 po qam 07/24 DULOXETINE HCL 79045095583 Lazaro Tomas MD Medications Administered No information [...] AMPHIPHYS AB * Amphiphy sin Ab, S EDUCATIONAL TECHNOLOGY SPECIALIST-2 * Purkinje Cell Cytoplasmic Ab Type 2 EDUCATIONAL TECHNOLOGY SPECIALIST-1 * Purkinje Cell Cytoplasmic Ab Type [...] [Mass/volume] in Serum or Plasma by Electrophoresis [id number] * g/dL beta 2 g lobulin [id number] * g/dL beta 1 g lobulin ALPHA [...] D ULOXETINE HCL 30 MG ORAL CPEP [facility]_ [id number]`D ULOXETINE HCL 30 MG ORAL CPEP`30``30 Capsule``1 PO QAM``5`0`09/26`No date sent`[employer] [address]*`[id number]`[id number]`DULOXMike [address] DR 30MG CAPSULES Quantity: 30 Capsule [...] PM Jose Alberto Regan MD , [address], [address], [place], [address], Pending order Follow up Extend ed Pending [...] ROSA ORDERS Patient Instructions ORDERS Physical Therapy [facility]-[id number] Orthopedic Surgery Referral [facility]-[id number] Documentation of current medicatio ns ORDERS Patient Instructions ORDERS Follow up Extended i n clinic or telemedicine ORDERS Patient Instructions [facility]-[id number] Psychiatry Referral ORDERS Follow up in clinic or telemedicine 04/20 ORDERS Follow up ROSA in clinic or telemedicine [facility]-[id number] Documentation of current medicatio ns ORDERS Patient Instructions ORDERS Patient Instructions ORDERS Patient Instructions ORDERS Follow up ROSA ORDERS Follow up ORDERS Patient Instructions ORDERS Patient Instructions ORDERS Patient Instructions ORDERS Follow up ROSA ORDERS Patient Instructions SCT-[id number] Documentation of current medicatio ns ORDERS Follow up SCT-[id number] Documentation of current medicatio ns ORDERS Follow up ROSA ORDERS Physical Therapy ORDERS Follow up SCT-[id number] Documentation of current medicatio ns CPT-09278 Nerve Conduction 9-10 studies CPT-25896 EMG with NCS (5+ muscles) - 2 limbs 12/30 ORDERS Follow up SCT-[id number] Documentation of current medicatio ns ORDERS Patient Instructions SCT-[id number] Documentation of current medicatio ns SCT-[id number] Documentation of current medicatio ns ORDERS Follow up SCT-[id number] Documentation of current medicatio ns SCT-[id number] Documentation of current medicatio ns CPT-89749 Nerve Conduction 7-8 studies CPT-93848 EMG with NCS (5+ muscles) - 2 limbs 12/21 [id number] Other Referral ORDERS Follow up SCT-[id number] Documentation of current medicatio ns [id number] MRI-Cervical W/WO MS Protocol CPT-R3588J ProHance Gadolinium- based MR Contrast - 20 ml vial CPT-36030 MRI Cervical W/WO ORDERS Immunofixation Urine (ROGELIO [...] GERALDINE) ORDERS Paraneoplastic Ab (O NLY Anti-Hu/Anti-Yo/Anti-Ri) SCT-[id number] Other Referral [facility]-[id number] Documentation of current medicatio ns Vital Signs [...] available. Advance Directives Directive Description Start Date RESEARCH LABORATORY MANAGER 09/18/18 CSA 05/15/18 RESEARCH LABORATORY MANAGER 02/20/18 RESEARCH LABORATORY MANAGER 09/22/17 CSA 05/03/17 RESEARCH LABORATORY MANAGER 03/23/17 RESEARCH LABORATORY MANAGER 10/14/16 CSA 04/28/16
--- OUTSIDE RECORDS SUMMARY | 2024-11-15 00:36 | XMS_ITS | Clinical Summary ---
Author Organization [facility] Address [address] [place] [address] Care Team Providers Care Clinical Program Director Name Role Phone Unavailable Primary Care Provider Unavailabl e Source Comments Patient records contain information from all sites at [facility]. For routine questions regarding patient records, call [phone] during business hours, M-F 8:00 AM - 5:00 PM Central Time. Record requests for emergency care only can be directed to [phone] at any time.[facility] Allergies Active Allergy Reactions Criticality Noted Date [...] mouth every morning before breakfast. Active rizatriptan LIFTER/DRIVER (MAXALT-LIFTER/DRIVER) 10 mg disintegrating tablet Dissolve 10 mg [...] patient's age to complete this topic Insurance [facility]
--- OUTSIDE RECORDS SUMMARY | 2024-11-15 00:37 | XMS_ITS | Clinical Summary ---
Author Organization [facility] Address [address] [place] [address] Care Team Providers Care Speech And Language Specialist Name Role Phone Rachel Carmona MD Primary Care Provider [phone] Andrea Tabares MD Unavailable [phone] Jeanette Fernandez MD Unavailable [phone] [facility] [place] Unavailable Allergies Active Allergy Reactions Criticality Noted [...] mouth at bedtime. 023 Active rizatriptan (MAXALT PC TECH) 10 mg disintegrating tabletIndications :Chronic migraine without [...] Care Team Description 11/14/2024 Home Care Visit [facility] [address] [place] [address] Venessa Goodwin, RN CARE COORDINATION 11/14/2024 Telephone [facility] - [facility] [address] [place] [address] Chrissy Hills, RN Questions 11/14/2024 Nurse Triage [facility] - [facility] - [facility] [address] [facility] [address] [place] [address] Timothy Bishop MD Dressing Change 11/14/2024 Orders Only [facility] [address] [facility] [address] Dolores Del Rosario MD Lab (Home Care) 11/13/2024 10:00 AM CDT Home Care Visit [facility] [address] [place] [address] Mylene Musa, OG SN IV - START OF CARE 11/13/2024 Telephone [facility] [address] [place] [address] Mylene Musa, manager dairy (SOC/Drug Interaction) 11/13/2024 Plan of Care Documentation [facility] [address] [place] [address] 11/13/2024 Telephone [facility] [address] [facility] 300 [place] [address] Chrissy Hills pediatric speech therapist Nurse Navigator (ONN DCFU Call) 11/13/2024 Home Care Visit [facility] [address] [place] [address] Mylene Musa, OG CARE COORDINATION 11/13/2024 Patient Outreach [facility] [address] [place] [address] Yue Freedman RN Primary RN Care Management (Hospital DC: 11/12/24/LACE: 30/Wound Dehiscence ); Hospital F/U 11/12/2024 Home Care Visit [facility] [address] [facility] [address] Mylene Musa, RN CARE COORDINATION 11/12/2024 Telephone [facility] [address] [facility] 300 [place] [address] Dolores Del Rosario MD Appointment Request (Post Hospital Visit) 11/09/2024 Patient Outreach [facility] Infusion Therapy Services [address] [place] [address] Infusion, [facility] Home Infusion ([address] [place] [address]) 11/07/2024 12:42 PM CDT Anesthesia Event [facility] [address] [place] [address] Paolo Car MD [place], Watson Duke MD 11/07/2024 12:25 PM CDT - 11/07/2024 2:46 PM CDT Surgery [place] [address] [place] [address] Timothy Bishop MD INPATIENT LEFT HIP 1 COMPONENT REVISION AND INCISION AND DRAINAGE 11/07/2024 10:23 AM CDT - 11/12/2024 12:33 PM CDT Hospital Encounter [place] [address] [place] [address] Timothy Bishop MD Wound dehiscence (Primary Dx); [...] Travel 11/05/2024 2:40 PM CDT Office Visit [facility] - Joint Replacement [facility] [address] [facility] [address] [place] [address] Marshall López PA Surgical Followup (3.5 weeks s/p left anterolateral total hip acetabular revision- 10/11/24 Timothy Bishop MD, incision check ) 11/05/2024 Transcribe Orders [facility]placement [facility] [address] [facility] [address] [place] [address] Timothy Bishop MD 11/04/2024 Travel 11/04/2024 Telephone [facility] [address] [place] [address] Venessa Landers, pediatric speech therapist Nurse Navigator (Drainage/prevena) 11/01/2024 8:25 AM CDT Ancillary Procedure [facility] [address] [place] [address] 11/01/2024 8:20 AM CDT Office Visit [facility]placement [facility] [address] [place] [address] Marshall López PA Surgical Followup (3 weeks s/p left total hip arthroplasty acetabular revision with implantation- 10/11/24 Timothy Bishop MD) 11/01/2024 Travel 10/30/2024 Travel 10/25/2024 1:45 PM CDT Ancillary Procedure [facility] [address] [place] [address] 10/25/2024 1:10 PM CDT Office Visit [facility]placement [facility] [address] [place] [address] Anna Churchill PA Post-op (14 days s/p left total hip acetabular revision DOS: 10/11/2024 by Timothy Bishop MD) 10/25/2024 Travel 10/20/2024 Travel 10/17/2024 9:00 AM CDT Office Visit [facility]placement [place] [address] [place] [address] Marshall López PA Surgical Followup (6 days s/p left anterolateral total hip arthroplasty revision- 10/11/24 Timothy Bishop MD, incision check) 10/16/2024 Travel 10/15/2024 Telephone [facility] [place] [address] [facility] [address] [place] [address] Venessa Landers, pediatric speech therapist Nurse Navigator (Follow up discharge phone call) 10/15/2024 Nurse Triage [facility] Replacement [facility] [address] [facility] [address] [place] [address] Timothy Bishop MD Post-op 10/15/2024 Patient Outreach [address] [address] Yue Freedman RN Error-please disregard (Called and Triaged by ortho) 10/11/2024 9:51 AM CDT Anesthesia Event [address] [address] Estelle Castaneda MD Engel, Latia Barber, BOAT ENGINE MECHANIC 10/11/2024 9:25 AM CDT - 10/11/2024 12:03 PM CDT Surgery [address] [address] Timothy Bishop MD INPATIENT LEFT ACETABULUM HIP REVISION 10/11/2024 7:40 AM CDT - 10/12/2024 4:01 PM CDT Hospital Encounter [address] [address] Timothy Bishop MD 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, subsequent encounter (Primary Dx) Discharge Disposition: Home Self Care 10/11/2024 Travel 10/09/2024 Travel 10/01/2024 Telephone [facility] [place] [address] [facility] [address] [place] [address] Venessa Landers, pediatric speech therapist Nurse Navigator (Assessment/RAPT/1 on 1 education Pre-op check in) 09/24/2024 2:35 PM CDT Office Visit [address] [address] Rachel Carmona MD Pre-Op Exam (surgery 7-3) 09/24/2024 Travel 09/20/2024 Orders Only [facility] Scanner 1 scan: (1-Ord) [facility], FLUOROSCOPICALLY GUIDED DIAGNOSTIC ASPIRATION OF THE LT HIP, 09/20/2024 09/19/2024 Travel 09/13/2024 Telephone [facility] [place] [address] [facility] [address] [place] [address] Venessa Landers RN Ortho Nurse Navigator (Assessment/RAPT/1 on 1 education) 09/12/2024 Transcribe Orders [facility] [place] [address] [facility] [address] [place] [address] Timothy Bishop MD 09/11/2024 Home Care Visit [facility] [address] [place] [address] Dara Carrion RN SN - OASIS DISCHARGE 09/11/[address] [address] Rachel Carmona MD MESS (DIS) 09/10/2024 1:30 PM CDT Office Visit [facility] Replacement [address] [place] [address] Timothy Bishop MD Post-op (7 weeks s/p left anterolateral total hip arthroplasty extraction with antibiotic spacer DOS: 07/24/2024 by Timothy Bishop MD) 09/10/2024 1:25 PM CDT Ancillary Procedure [facility] [address] [place] [address] 09/10/[address] [address] Rachel Carmona MD Appointment (Pre Operative Exam ) 09/10/2024 Travel 09/07/2024 10:00 AM CDT Home Care Visit [facility] [address] [place] [address] Dara Carrion, OG SN - HOME VISIT 09/06/2024 1:40 PM CDT Telemedicine [facility] [address] [facility] 300 [place] [address] Dolores Del Rosario MD 09/05/2024 Travel 09/04/2024 Home Care Visit [facility] [address] [place] [address] Dara Carrion RN SN - HOME VISIT 09/04/2024 Orders Only [facility] [address] [place] [address] Dolores Del Rosario MD Lab 09/01/2024 Travel 08/31/2024 Telephone [facility] 100 [place] [address] Rachel Carmona MD Form (Health care directive) 08/28/2024 12:15 AM CDT Home Care Visit [facility] [address] [place] [address] Asia Joe RN SN - WOUND/OSTOMY CHART CONSULT 08/28/2024 Orders Only [facility] [address] [place] [address] Rachel Carmona MD <No scans attached> 08/27/2024 1:00 PM CDT Home Care Visit [facility] [address] [place] [address] Dara Carrion, OG SN - LONG VISIT (>90 MINUTES) 08/27/2024 Orders Only [facility] [address] [place] [address] Dolores Del Rosario MD Lab 08/20/2024 1:40 PM CDT Telemedicine [facility] [address] [place] [address] Lowell Fuentes MD Musculoskeletal Problem (Follow up left hip and MRI) 08/20/2024 12:00 PM CDT Home Care Visit [facility] [address] [facility] [place] [address] Dara Carrion, OG SN - LONG VISIT (>90 MINUTES) 08/20/2024 Orders Only [facility] [address] [facility] [place] [address] Dolores Del Rosario MD Lab 08/20/2024 Telephone [facility] - [facility] - [facility] [address] [facility] [address] [place] [address] Bekah Ryan RN Ortho Nurse Navigator (Incision ) 08/16/2024 Travel 08/16/2024 Telephone [facility] [address] [facility] 300 [place] [address] Dolores Del Rosario MD Appointment (switch to [...] on file Legal Sex Female 6:07 AM HAMMERER Gender Identity Not on file Sexual Orientation [...] 11/16/2024 4:00 AM CDT Home Care Visit [address] [address] Minnie De León RN 11/19/2024 4:00 AM CDT Home Care Visit [address] [address] Minnie De León RN 11/21/2024 2:00 PM CDT Office Visit [facility] - [facility] Replacement Center - [address] [place] [address] Marshall López PA [address] [facility] [address] [place] [address] 11/23/2024 4:00 AM CDT Home Care Visit [address] [address] Minnie De León RN 11/26/2024 4:00 AM CDT Home Care Visit [address] [address] Minnie De León RN 11/30/2024 4:00 AM CDT Home Care Visit [address] [address] Minnie De León RN 12/03/2024 4:00 AM CDT Home Care Visit [facility] [address] [place] [address] Minnie De León, OG 12/06/2024 2:20 PM CDT Telemedicine [facility] [address] [facility] 300 [place] [address] Dolores Del Rosario MD [address] [place] [address] [address] [place] [address] 12/07/2024 4:00 AM CDT Home Care Visit [facility] [address] [place] [address] Minnie De León, OG 12/10/2024 4:00 AM CDT Home Care Visit [facility] [address] [place] [address] 12/14/2024 4:00 AM CDT Home Care Visit [facility] [address] [place] [address] Minnie De León, OG 12/17/2024 4:00 AM CDT Home Care Visit [facility] [address] [place] [address] Minnie De León, OG 12/21/2024 4:00 AM CDT Home Care Visit [facility] [address] [place] [address] Minnie De León, OG 12/24/2024 4:00 AM CDT Home Care Visit [facility] [address] [place] [address] Minnie De León, OG 12/28/2024 4:00 AM CDT Home Care Visit [facility] [address] [place] [address] Minnie De León, OG 12/31/2024 4:00 AM CDT Home Care Visit [facility] [address] [place] [phone] Minnie De León RN 01/04/2025 4:00 AM CDT Home Care Visit [facility] [address] [place] [address] Minnie De León, OG 01/07/2025 4:00 AM CDT Home Care Visit [facility] [address] [facility] [address] Minnie De León, OG 01/11/2025 4:00 AM CDT Appointment [facility] [address] [facility] [address] Minnie De León, RN Health Maintenance Due [...] this topic Medical Devices Implanted Type Area Skein Dyer Device Identifier Shelf Expiration Date Model / Serial / Lot Cmnt Bone 40gm Darell Mv - [id number] Implanted:Qty: 2 on 07/24/2024 by Timothy Bishop MD at [facility] Left: Hip [employer] 01/08/2029 [id number] / / [id number] Shell Acetab 60mm Modular Redapt - [id number] Implanted:Qty: 1 on 10/11/2024 by Timothy Bishop MD at [facility] Left: Hip [employer] 12/03/2032 [id number] / / [id number] Screw Hip 6.5x30mm Reflection Reconstrt - [id number] Implanted:Qty: 1 on 10/11/2024 by Timothy Bishop MD at [facility] Left: Hip [employer] 11/15/2033 [id number] / / [id number] Screw Hip 6.5x20mm Reflection Reconstrt - [id number] Implanted:Qty: 1 on 10/11/2024 by Timothy Bishop MD at [facility] Left: Hip [employer] 05/23/2034 [id number] / / [id number] Screw Hip 6.5x25mm Reflection Reconstrt - [id number] Implanted:Qty: 1 on 10/11/2024 by Timothy Bishop MD at [facility] Left: Hip [employer] 05/12/2034 [id number] / / [id number] Liner Acetab 46/60mm Dual Mobility Or30 - [id number] Implanted:Qty: 1 on 11/07/2024 by Timothy Bishop MD at [facility] Left: Hip [employer] 05/06/2034 [id number] / / [id number] Biolox Delta Ts Ceramic Femoral Head Revision, 28mm +8.5, 12/14 Taper Implanted:Qty: 1 on 11/07/2024 by Timothy Bishop MD at [facility] Left: Hip DEPUY 01/08/2027 [id number] / / [id number] Insert Acetab 28/46mm Dual Mobility Or30 Xlpe - [id number] Implanted:Qty: 1 on 11/07/2024 by Timothy Bishop MD at [facility] Left: Hip [employer] 05/18/2034 [id number] / / [id number] Explanted Type Area Skein Dyer Device Identifier Shelf Expiration Date Model / Serial / Lot Left Hip Head, Liner And Insert Explanted:Qty: 1 on 07/24/2024 by Timothy Bishop MD at [facility] Left: Hip Rockwell Altrx Ld Polyethylene Acetabular Liner; +4 Neutral, 40mm Id, 58mm Od Implanted:Qty: 1 on 07/24/2024 by Timothy Bishop MD at [facility] Explanted:Qty: 1 on 10/11/2024 by Timothy Bishop MD at [facility] Left: Hip [employer] 08/08/2028 [id number] / / [id number] M-Spec Metal Fmoral Head 40mm +5 Offset 03/24 Taper Implanted:Qty: 1 on 07/24/2024 by Timothy Bishop MD at [facility] Explanted:Qty: 1 on 10/11/2024 by Timothy Bishop MD at [facility] Left: Hip [employer] 09/08/2025 [id number] / / [id number] Insert Acetab 28/46mm Dual Mobility Or30 Xlpe - [id number] Implanted:Qty: 1 on 10/11/2024 by Timothy Bishop MD at [facility] Explanted:Qty: 1 on 11/07/2024 by Timothy Bishop MD at [facility] Left: Hip [employer] 06/28/2033 [id number] / / [id number] Biolox Delta Ts Ceramic Femoral Head Revision, 28mm 8.5 03/24 Taper Implanted:Qty: 1 on 10/11/2024 by Timothy Bishop MD at [facility] Explanted:Qty: 1 on 11/07/2024 by Timothy Bishop MD at [facility] Left: Hip [employer] 06/08/2028 [id number] / / [id number] Liner Acetab 46/60mm Dual Mobility Or30 - [id number] Implanted:Qty: 1 on 10/11/2024 by Timothy Bishop MD at [facility] Explanted:Qty: 1 on 11/07/2024 by Timothy Bishop MD at [facility] Left: Hip [employer] 07/25/2033 [id number] / / [id number] Procedures Procedure Name Priority Date/Time Associated Diagnosis [...] & NEPHEW DUAL MOBILITY emailed Colette Moir [phone] 11/06 JTPA TO ASSISTREGULARGUIRE POSITIONER Special Needs [...] LEFT SIDE UPC-ARMMCGUIRE POSITIONERCELL SAVER-confirmed 930 w/Frances #[id number] 09/13-AW// CELL SAVER CONFIR[facility] WITH [facility]ED 10/10 [facility] & NEPHEW REDAPT MULTI-HOLE CUP, DUAL MOBILITY LINER, R3 Main, Reamers, trial shells, Heller hip revision, hip farnsworth 2 and or3o. Confirmed with Colette Garcia [phone] 10/02 JTDUPUY CORAIL #13 STANDARD COLLARED STEMHEADS SIZES 22 & 23 CERAMIC AVAILABLE One company farnsworth confirmed with [employer] [phone] 10/01 JT Special Needs HT 5'7 WT 83.8 kg BMI 29.01 GLUCOSE METER Timed 10/11/2024 8:20 AM CDT SCAN-CARDIAC STRIP 10/11/2024 12:00 AM CDT SCAN-OPERATIVE/[place] OCEDURE REPORT 10/11/2024 12:00 AM CDT CBC W PLT NO DIFF Routine 09/24/2024 4:30 PM CDT Essential hypertension BASIC METABOLIC PANEL Routine 09/24/2024 4:30 PM CDT Essential hypertension SCAN-OPERATIVE/NY OCEDURE REPORT 09/20/2024 12:00 AM CDT XR [...] REFLEX MEASURED LDL Routine 05/14/2024 3:17 PM HAMMERER Mixed hyperlipidemia SDNA-FIT EXTERNAL (COLOGUARD) Routine 04/28/2022 7:00 PM HAMMERER Screening for colon cancer ANTI HCV Routine 04/24/2018 3:34 PM HAMMERER Need for hepatitis C screening test XR DXA BONE DENSITY 2 SITES AXIAL Routine 02/28/2017 2:04 PM HAMMERER Asymptomatic menopausal state Screening for osteoporosis from Last 3 Months or Most Recently Relevant to Health Maintenance Results * (ABNORMAL) SEDIMENTATION RATE (11/12/2024 8:31 AM CDT) Only the most recent of2 resultswithin the time period is included. Pathologist [facility] SEDIMENTATION RATE 100(H) <30 mm/hr 2024 8:55 AM T [facility] Blood BLOOD SPECIMEN / Unknown Non-Lab Venipuncture / Unknown 11/12/2024 8:31 AM CDT 11/12/2024 8:40 AM CDT Claudia Elliott MD HEMATOLOGY Final Result [facility] SENDOUT [place]NAL ZIP [id number] [place] [address] * (ABNORMAL) CBC WITH AUTO DIFFERENTIAL (11/12/2024 8:31 AM CDT) Only the most recent of4 resultswithin the time period is included. Pathologist [facility] WHITE BLOOD COUNT 9.9 4.5 - 11.0 thou/cu mm 11/12/2024 8:43 AM [facility] RED BLOOD COUNT 2.69(L) 4.00 - 5.20 mil/cu mm 11/12/2024 8:43 AM [facility] HEMOGLOBIN 7.6(L) 12.0 - 16.0 g/dL 11/12/2024 8:43 AM [facility] HEMATOCRIT 24.1(L) 33.0 - 51.0 % 11/12/2024 8:43 AM [facility] MCV 90 80 - 100 fL 11/12/2024 8:43 AM [facility] MCH 28.3 26.0 - 34.0 pg 11/12/2024 8:43 AM [facility] MCHC 31.5(L) 32.0 - 36.0 g/dL 11/12/2024 8:43 AM [facility] RDW 15.7(H) 11.5 - 15.5 % 11/12/2024 8:43 AM [facility] PLATELET COUNT 595(H) 140 - 440 thou/cu mm 11/12/2024 8:43 AM [facility] MPV 7.9 6.5 - 11.0 fL 11/12/2024 8:43 AM [facility] NRBC 0.0 % 11/12/2024 8:43 AM [facility] ABS NRBC 0.0 thou /cu mm 11/12/2024 8:43 AM [facility] % NEUT 63.6 % 11/12/2024 8:43 AM [facility] % LYMPH 25.6 % 11/12/2024 8:43 AM [facility] % MONO 4.7 % 11/12/2024 8:43 AM [facility] % EOS 3.5 % 11/12/2024 8:43 AM [facility] % BASO 0.9 % 11/12/2024 8:43 AM [facility] % IMMATURE GRAN (METAS,MYELOS,NY OS) 1.7 % 11/12/2024 8:43 AM [facility] ABSOLUTE NEUTROPHILS 6.3 1.7 - 7.0 thou/cu mm 11/12/2024 8:43 AM [facility] ABSOLUTE LYMPHOCYTES 2.5 0.9 - 2.9 thou/cu mm 11/12/2024 8:43 AM [facility] ABSOLUTE MONOCYTES 0.5 <0.9 thou/cu mm 11/12/2024 8:43 AM [facility] ABSOLUTE EOSINOPHILS 0.4 <0.5 thou/cu mm 11/12/2024 8:43 AM [facility] ABSOLUTE BASOPHILS 0.1 <0.3 thou/cu mm 11/12/2024 8:43 AM [facility] ABSOLUTE IMMATURE GRANULOCYTES(MET ,MYELOS,PROS) 0.2 <0.3 thou/cu mm 11/12/2024 8:43 AM [facility] Blood BLOOD SPECIMEN / Unknown Non-Lab Venipuncture / Unknown 11/12/2024 8:31 AM CDT 11/12/2024 8:40 AM T Claudia Elliott MD HEMATOLOGY Final Result [facility] SENDOUT INTERNAL ZIP [phone] [place] [address] * (ABNORMAL) CREATININE (11/12/2024 5:53 AM CDT) Only the most recent of2 resultswithin the time period is included. eGFR 70(L) >90 mL/min/1.7 3m2 11/12/2024 6:31 AM CDT [facility] Comment:As of 2021, eG FR is calculated by the CKD-EPI creatinine equation without race adjustment. eGFR can be influenced by muscle mass, exercise, and diet. The reported eGFR is an estimation only and is only applicable if the renal function is stable. CREATININE 0.87 0.50 - 0.90 mg/dL 11/12/2024 6:31 AM CDT [facility] Blood BLOOD SPECIMEN / Unknown Non-Lab Venipuncture / Unknown 11/12/2024 5:53 AM CDT 11/12/2024 6:05 AM CDT us Delfino Nagel MD CHEMISTRY Final Result Performing Organization Address [facility]/ZIP Co de Phone Number [facility] SENDOUT INTERNAL ZIP [phone] [place] [address] * (ABNORMAL) C-REACTIVE PROTEIN (11/12/2024 5:53 AM CDT) Only the most recent of5 resultswithin the time period is included. C-REACTIVE PROTEIN 1.2(H) <0.5 mg/dL 11/12/2024 8:09 AM CDT [facility] Blood BLOOD SPECIMEN / Unknown Non-Lab Venipuncture / Unknown 11/12/2024 5:53 AM CDT 11/12/2024 6:05 AM CDT us Claudia Elliott MD CHEMISTRY Final Result Performing Organization Address City/[facility]/ZIP Co de Phone Number [facility] SENDOUT [place] ZIP [phone] [place] [address] * CK TOTAL (11/12/2024 5:53 AM CDT) Only the most recent of2 resultswithin the time period is included. CK,TOTAL 36 26 - 192 IU/L 11/12/2024 8:09 AM [facility] Blood BLOOD SPECIMEN / Unknown Non-Lab Venipuncture / Unknown 11/12/2024 5:53 AM CDT 11/12/2024 6:05 AM CDT Claudia Elliott MD CHEMISTRY Final Result [facility] SENDOUT INTERNAL ZIP [phone] [place] [address] * (ABNORMAL) COMP METABOLIC PANEL (11/12/2024 5:53 AM CDT) Only the most recent of4 resultswithin the time period is included. Pathologist [facility] SODIUM 139 136 - 145 mmol/L 11/12/2024 8:09 AM [facility] POTASSIUM 4.0 3.5 - 5.1 mmol/L 11/12/2024 8:09 AM [facility] CHLORIDE 109(H) 98 - 107 mmol/L 11/12/2024 8:09 AM [facility] CO2,TOTAL 20(L) 22 - 29 mmol/L 11/12/2024 8:09 AM [facility] ANION GAP 10 5 - 18 11/12/2024 8:09 AM [facility] GLUCOSE 92 70 - 99 mg/dL 11/12/2024 8:09 AM [facility] CALCIUM 9.0 8.8 - 10.4 mg/dL 11/12/2024 8:09 AM [facility] Comment: Reference ranges for this test were updated on 02/14/2024 to reflect our healthy population more accurately. Reference range changes are not retroactively applied to results, but previous results using the same methodology can be interpreted in the context of the new reference range. BUN 19 8 - 23 mg/dL 11/12/2024 8:09 AM [facility] CREATININE 0.90 0.50 - 0.90 mg/dL 11/12/2024 8:09 AM [facility] BUN/CREAT RATIO 21(H) 10 - 20 8:09 AM [facility] eGFR 67(L) >90 mL/min/1. 73m2 11/12/2024 8:09 AM [facility] Comment: As of 2021, eGFR is [...] 4.0 - 4.9 g/dL 11/12/2024 8:09 AM [facility] PROTEIN,TOTAL 5.9(L) 6.0 - 8.0 g/dL 11/12/2024 8:09 AM [facility] BILIRUBIN,TOTAL 0.2 0.0 - 1.2 mg/dL 11/12/2024 8:09 AM [facility] ALK PHOSPHATASE 96 35 - 104 IU/L 11/12/2024 8:09 AM [facility] ALT (SGPT) <5(L) 10 - 35 IU/L 11/12/2024 8:09 AM [facility] AST (SGOT) 21 10 - 35 IU/L 11/12/2024 8:09 AM [facility] Blood BLOOD SPECIMEN / Unknown Non-Lab Venipuncture / Unknown 11/12/2024 5:53 AM CDT 11/12/2024 6:05 AM CDT us Claudia Elliott MD CHEMISTRY Final Result [facility] SENDOUT [address]IP [id number] [address] [place] [address] * (ABNORMAL) BASIC METABOLIC PANEL (11/11/2024 5:29 AM CDT) Only the most recent of5 resultswithin the time period is included. SODIUM 138 136 - 145 mmol/L 11/11/2024 5:55 AM [facility] POTASSIUM 4.8 3.5 - 5.1 mmol/L 11/11/2024 5:55 AM [facility] CHLORIDE 108(H) 98 - 107 mmol/L 11/11/2024 5:55 AM [facility] CO2,TOTAL 18(L) 22 - 29 mmol/L 11/11/2024 5:55 AM [facility] ANION GAP 12 5 - 18 11/11/2024 5:55 AM [facility] GLUCOSE 84 70 - 99 mg/dL 11/11/2024 5:55 AM [facility] CALCIUM 8.9 8.8 - 10.4 mg/dL 11/11/2024 5:55 AM [facility] Comment: Reference ranges for this test were updated on 02/14/2024 to reflect our healthy population more accurately. Reference range changes are not retroactively applied to results, but previous results using the same methodology can be interpreted in the context of the new reference range. BUN 27(H) 8 - 23 mg/dL 11/11/2024 5:55 AM [facility] CREATININE 1.06(H) 0.50 - 0.90 mg/dL 11/11/2024 5:55 AM [facility] BUN/CREAT RATIO 25(H) 10 - 20 5:55 AM [facility] eGFR 55(L) >90 mL/min/1. 73m2 11/11/2024 5:55 AM [facility] Comment:As of 2021, eG FR [...] us Delfino Nagel MD CHEMISTRY Final Result [facility] SENDOUT [address] [id number] [address] [place] [address] * (ABNORMAL) HEMOGLOBIN (11/10/2024 5:21 AM CDT) Only the most recent of4 resultswithin the time period is included. Pathologist [facility] HEMOGLOBIN 8.0(L) 12.0 - 16.0 g/dL 11/10/2024 5:44 AM CDT [facility] MCV 86 80 - 100 fL 11/10/2024 5:44 AM CDT [facility] Blood BLOOD SPECIMEN / Unknown Non-Lab Venipuncture / Unknown 11/10/2024 5:21 AM CDT 11/10/2024 5:31 AM CDT Delfino Nagel MD HEMATOLOGY Final Result Performing Organization Address City/[facility]/ZIP Co de Phone Number [facility] SENDOUT INTERNAL [address] [phone] [place] [address] * SCAN-ELECTROCARDIOGRAM EKG (11/09/2024 12:00 AM CDT) Narrative 11/09/2024 12:00 AM CDT Ordered by an unspecified provider. Other Clinical Staff OTHER Final Resul t * TRANSFUSE RBC (NURSE COMMUNICATION ORDER) (11/08/2024 4:37 PM CDT) Blood BLOOD SPECIMEN / Unknown Delfino Nagel MD NURSING BLOOD BANK Final Result * RBC W/O TYPE & SCREEN (11/08/2024 12:36 PM CDT) Pathologist [facility] QUANTITY 1 11/08/2024 12:36 PM CDT [facility] BLOOD BANK Blood BLOOD SPECIMEN / Unknown 11/08/2024 9:26 AM CDT Delfino Nagel MD BLOOD BANK Final Result Performing Organization Address [facility]/ZIP Co de Phone Number [facility] BLOOD BANK [address] [place] [address] * RED BLOOD CELLS EA UNIT (11/08/2024 11:53 AM CDT) Pathologist [facility] CROSSMATCH Compatible Compatible [facility] BLOOD BANK PRODUCT BLOOD TYPE AB Rh Negative [facility] BLOOD BANK PRODUCT ID NUMBER [id number] [facility] BLOOD BANK PRODUCT STATUS Transfused [facility] PRODUCT DESCRIPTION RBC -1 LR [facility] BLOOD BANK PRODUCT CODE [id number] [facility] BLOOD BANK ISSUE DATE/TIME 11/08/24 13:49 [facility] BLOOD BANK Delfino Nagel MD BLOOD BANK Edited Result - Final [facility] BLOOD BANK [address] [place] [address] * TYPE & SCREEN (11/08/2024 11:52 AM CDT) Pathologist [facility] ABORH AB Rh Negative 11/08/2024 1:07 PM CDT [facility] BLOOD BANK ANTIBODY SCREEN Negative Negative 11/08/2024 1:07 PM CDT [facility] BLOOD BANK SPECIMEN EXPIRATION DATE/TIME 11/11/24 23:59 11/08/2024 1:07 PM CDT [facility] BLOOD BANK Blood BLOOD SPECIMEN / Unknown Venipuncture / Unknown 11/08/2024 11:52 AM CDT 11/08/2024 12:12 PM CDT Delfino Nagel MD BLOOD BANK Final Result Performing Organization Address City/[facility]/ZIP Co de Phone Number [facility] BLOOD BANK [address] [place] [address] * EXTRA TUBE LAVENDAR (11/08/2024 8:32 AM CDT) Blood BLOOD SPECIMEN / Unknown Non-Lab Venipuncture / Unknown 11/08/2024 8:32 AM CDT 11/08/2024 12:39 PM CDT Timothy Bishop MD LABORATORY Final Result [facility] SENDOUT [address] [place] [address] * (ABNORMAL) MRSA/SA PCR (11/07/2024 6:34 PM CDT) Pathologist [facility] MRSA DNA PCR Positive( A) Negative 11/07/2024 7:57 PM CDT [facility] STAPHYLOCOCCUS AUREUS PCR Positive( A) Negative 11/07/2024 7:57 PM CDT [facility] Other SPECIMEN FROM INTERNAL NOSE / Unknown Non-Blood / Unknown 11/07/2024 6:34 PM CDT 11/07/2024 6:41 PM CDT [facility] - 11/07/2024 7:57 PM CDT A positive test result does not necessarily indicate the presence of viable organisms. It is, however, presumptive for the presence of Methicillin Resistant Staphylococcus aureus (MRSA) or Staphylococcus aureus. Delfino Nagel MD MICROBIOLOGY Final Result [facility] SENDOUT INTERNAL [address]IP [address] [address] [place] [address] * [facility] TRAY PR10 (11/07/2024 1:03 PM CDT) Narrative [...] 4 in Assessment Events: no complications. Result [facility] Uriel Huber BOAT ENGINE MECHANIC ANESTHESIA PX NOTE ORDERABL ES Final Result * GLUCOSE, RANDOM (11/07/2024 11:42 AM CDT) GLUCOSE,RANDOM 93 70 - 139 mg/dL 11/07/2024 12:09 PM CDT [facility] Blood BLOOD SPECIMEN / Unknown Venipuncture / Unknown 11/07/2024 11:42 AM CDT 11/07/2024 11:45 AM CDT us Timothy Bishop MD CHEMISTRY Final Result [facility] SENDOUT [address] [place] [address] * (ABNORMAL) CBC with Platelets no Differential (11/07/2024 11:42 AM CDT) Only the most recent of2 resultswithin the time period is included. WHITE BLOOD COUNT 7.8 4.5 - 11.0 thou/cu mm 11/07/2024 11:51 AM T [facility] RED BLOOD COUNT 3.03(L) 4.00 - 5.20 mil/cu mm 11/07/2024 11:51 AM T [facility] HEMOGLOBIN 8.2(L) 12.0 - 16.0 g/dL 11/07/2024 11:51 AM T [facility] HEMATOCRIT 25.5(L) 33.0 - 51.0 % 11/07/2024 11:51 AM T [facility] MCV 84 80 - 100 fL 11/07/2024 11:51 AM T [facility] MCH 27.1 26.0 - 34.0 pg 11/07/2024 11:51 AM T [facility] MCHC 32.2 32.0 - 36.0 g/dL 11/07/2024 11:51 AM T [facility] RDW 14.9 11.5 - 15.5 % 11/07/2024 11:51 AM T [facility] PLATELET COUNT 584(H) 140 - 440 thou/cu mm 11/07/2024 11:51 AM T [facility] MPV 7.9 6.5 - 11.0 fL 11/07/2024 11:51 AM T [facility] NRBC 0.0 % 11/07/2024 11:51 AM T [facility] ABS NRBC 0.0 thou /cu mm 11/07/2024 11:51 AM [facility] Blood BLOOD SPECIMEN / Unknown Venipuncture / Unknown 11/07/2024 11:42 AM CDT 11/07/2024 11:45 AM CDT Narrative [facility] - 11/07/2024 11:51 AM CDT If not done within last 30 days. Nurse to release order. Anna SILVER HEMATOLOGY Fin al Result [facility] SENDOUT [id number] [place] [address] * SCAN-CARDIAC STRIP (11/07/2024 12:00 AM CDT) Narrative 11/07/2024 12:00 AM CDT Ordered by an unspecified provider. Other Clinical Staff OTHER Final Resul t * XR PELVIS 1 VIEW (11/01/2024 8:28 AM CDT) Only the most recent of3 resultswithin the time period is included. Anatomical Region Laterality Modality Pelvis Digital Radiogra phy Narrative 11/01/2024 3:03 PM CDT This Radiology Exam Was Performed at [facility] [place] and Interpreted by Marshall López PA-C HISTORY [...] CULTURE No Growth. 10/15/2024 1:00 PM CDT [facility] GRAM STAIN 2+ PMNs 10/15/2024 1:00 PM CDT [facility] GRAM STAIN No organisms seen 10/15/2024 1:00 PM CDT [facility] GRAM STAIN 4+ RBCs 10/15/2024 1:00 PM CDT [facility] GRAM STAIN No Epithelial cells 10/15/2024 1:00 PM CDT [facility] GRAM STAIN Gram stain performed by [place], [place] 10/15/2024 1:00 PM CDT [facility] Swab (Left Hip) Non-Blood / Unknown 10/11/2024 11:10 AM CDT 10/11/2024 12:47 PM CDT us Timothy Bishop MD MICROBIOLOGY Final Result Performing Organization Address [facility]/ZIP Co de Phone Number [facility] [address] [address], [facility] SENDOUT INTERNAL Z[address] [place] [address] * ANAEROBIC CULTURE (10/11/2024 11:10 AM CDT) CULTURE No anaerobes isolated 10/17/2024 11:43 AM CDT [facility] Swab (Left Hip) Non-Blood / Unknown 10/11/2024 11:10 AM CDT 10/11/2024 12:47 PM CDT us Timothy Bishop MD MICROBIOLOGY Final Result Performing Organization Address [facility] Co de Phone Number [facility] [address] [place] [address], * [facility] TRAY PR10 (10/11/2024 10:13 AM CDT) Narrative [...] - 100 mg/dL 10/11/2024 8:24 AM CDT [facility] Blood BLOOD SPECIMEN / Unknown 10/11/2024 8:20 AM CDT 10/11/2024 8:24 AM CDT us Timothy Bishop MD CHEMISTRY Final Result [facility] SENDOUT [address] [address] [address] [place] [address] * SCAN-CARDIAC STRIP (10/11/2024 12:00 AM CDT) [...] limits for newborns. 08/20/2024 4:33 PM CDT [facility] Blood BLOOD SPECIMEN / Unknown Non-Lab Venipuncture / Unknown 08/20/2024 2:00 PM CDT 08/20/2024 3:36 PM CDT us Dolores Del Rosario MD HEMATOLOGY Fi nal Result Performing Organization Address City/[facility]/ZIP Co de Phone Number [facility] [address] [place] [address] * PLATELET ESTIMATE (08/20/2024 2:00 PM CDT) PLATELET ESTIMATE Adequate Adequate, No estimate 08/20/2024 4:33 PM CDT [facility] Blood BLOOD SPECIMEN / Unknown Non-Lab Venipuncture / Unknown 08/20/2024 2:00 PM CDT 08/20/2024 3:36 PM CDT us Dolores Del Rosario MD HEMATOLOGY Fi nal Result Performing Organization Address [facility] Co de Phone Number [facility] [address] [place] [address] * MANUAL DIFFERENTIAL (08/20/2024 2:00 PM CDT) % NEUTROPHILS 63.0 % 08/20/2024 4:33 PM CDT [facility] % LYMPHOCYTES 23.0 % 08/20/2024 4:33 PM T [facility] % MONOCYTES 9.0 % 08/20/2024 4:33 PM T [facility] % EOSINOPHILS 4.0 % 08/20/2024 4:33 PM CDT [facility] % BASOPHILS 1.0 % 08/20/2024 4:33 PM T [facility] NEUTROPHILS ABSOLUTE 3.3 1.7 - 7.0 thou/cu mm 08/20/2024 4:33 PM T [facility] LYMPHOCYTES ABSOLUTE 1.2 0.9 - 2.9 thou/cu mm 08/20/2024 4:33 PM T [facility] MONOCYTES ABSOLUTE 0.5 <0.9 thou/cu mm 08/20/2024 4:33 PM CDT [facility] EOSINOPHILS ABSOLUTE 0.2 <0.5 thou/cu mm 08/20/2024 4:33 PM CDT [facility] BASOPHILS ABSOLUTE 0.1 <0.3 thou/cu mm 08/20/2024 4:33 PM CDT [facility] Blood BLOOD SPECIMEN / Unknown Non-Lab Venipuncture / Unknown 08/20/2024 2:00 PM CDT 08/20/2024 3:36 PM CDT us Dolores Del Rosario MD HEMATOLOGY Fi nal Result [facility] [address] [place] [address] * (ABNORMAL) LIPID PANEL W REFLEX MEASURED LDL (05/14/2024 3:17 PM HAMMERER) CHOLESTEROL, TOTAL 196 <200 mg/dL [facility] [...] LDL-C. Rayo CARRERO et al. TAYLOR. 2013;310(19): 9118-4458 (http://education.[employer]/faq/DRH270) CHOL/HDLC RATIO 3.6 <5.0 (calc) [facility] NON HDL CHOLESTEROL 142(H) <130 mg/dL (calc) [facility] Comment: For patients with diabetes plus 1 major ASCVD risk factor, treating to a non-HDL-C goal of <100 mg/dL (LDL-C of <70 mg/dL) is considered a therapeutic option. Blood BLOOD SPECIMEN / Unknown 05/14/2024 3:17 PM HAMMERER 05/14/2024 3:18 PM HAMMERER Narrative [facility] - 05/15/2024 3:18 AM HAMMERER FASTING:NO FASTING: NO Rachel Carmona MD CHEMISTRY Final Res ult [facility] [address] [place] [address], [facility] [address] [place] [address] * SDNA-FIT EXTERNAL (COLOGUARD) (04/28/2022 7:00 PM HAMMERER) NONINV COLON CA DNA+OCC BLD SCRN STL-IMP Negative Negative 05/05/2022 7:33 PM HAMMERER [facility] (CLIA #:[id number]) Comment: NEGATIVE TEST RESULT. A negative Cologuard [...] Mccarthy et al, N Engl J Med 2014;370(14):9153-5296) The normal value (reference range) for this assay is negative. COLOGUARD RE-SCREENING RECOMMENDATION: Periodic colorectal cancer screening is an important part of preventive healthcare for asymptomatic individuals at average risk for colorectal cancer. Following a negative Cologuard result, the [place] [employer] Society and U.S. Multi-Society Task Force screening guidelines recommend a Cologuard re-screening interval of 3 years. References: [place] [employer] Guideline for Colorectal Cancer Screening: https://www.cancer.org/cancer/aixdz-vrhmgy-ajavph/fukhpljbp-klfsxxome-dppvugj/ac s-rec ommendations.html.; Lino DK, Ceferino CR, Troy YuK, Colorectal Cancer Screening: Recommendations for Physicians and Patients from the U.S. Multi-Society Task Force on Colorectal Cancer Screening , Am J Gastroenterology 2017; 112:4581-4087. TEST DESCRIPTION: Composite algorithmic analysis of stool [...] (Vanessa Maher al, N Engl J Med 2014;370(14):8345-1027.) Cologuard may produce a false negative or false positive result (no colorectal cancer or precancerous polyp present at colonoscopy follow up). A negative Cologuard test result does not guarantee the absence of CRC or advanced adenoma (pre-cancer). The current Cologuard screening interval is every 3 years. ([place] [employer] Society and U.S. Multi-Society Task Force). Cologuard performance data in a 10,000 patient pivotal study using colonoscopy as the reference method can be accessed at the following location: www.[employer].com/results. Additional description of the Cologuard test process, warnings and precautions can be found at www.[email or web address].com. Stool specimen (specimen) (Rectum) 04/28/2022 7:00 PM HAMMERER 05/01/2022 11:53 AM HAMMERER Rachel Carmona MD URINE Final Res ult [facility] (CLIA #:[id number]) [place] [address], * ANTI HCV [51110.2] (04/24/2018 3:34 PM HAMMERER) HEPATITIS C ANTIBODY Non-React bee Non-React bee 04/24/2018 8:22 PM [facility]ER [facility] Comment:Antibodies to HCV no t detected; does not exclude the possibility of exposure to HCV. Blood BLOOD SPECIMEN / Unknown Venipuncture / Unknown 04/24/2018 3:34 PM HAMMERER 04/24/2018 3:34 PM HAMMERER Rachel Carmona MD SEND OUTS Final Res ult [facility] [address] [place] [address], * (ABNORMAL) XR DXA BONE DENSITY 2 SITES AXIAL (02/28/2017 2:04 PM HAMMERER) Anatomical Region Laterality Modality Spine, HIPS, HIPL, HIPR Other Narrative 03/01/2017 5:31 PM HAMMERER Please see scanned document for results of this study. 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/07/2024 11/07/2024 Insurance MEDICARE PART B HB ONLY MEDICARE PART A HB ONLY MEDICARE PB ONLY MEDICAID HC MEDICARE PPS MEDICAID Advance Directives * [...] Comments Code Status Discussion: Discussed Care Teams Speech And Language Specialist Relationship Specialty Start Date End Date Rachel Carmona MD [address] [place] [address] PCP - General Internal Medicine 08/12/17 Andrea Tabares MD [address] [place] [address] Surgery - Orthopedics 02/20/18 Jeanette Fernandez MD [address] [place] [address] Neurology 01/27/21 [facility] [address] [place] [address] 11/12/24
[2024-11-15 02:20] VITALS: BP 154/83; PULSE 91; RESP 16; O2SAT 100
== END 2024-11-15 02:28 | disposition home or self-care (01) ==
PROVIDERS: Emergency Provider Emergency Medicine; PCP Internal Medicine
DX: Z48.01 Encounter for change or removal of surgical wound dressing (principal)
CPT/HCPCS: 36415; 85025; 85610; 99283; 99285

== ENCOUNTER 2024-11-16 15:08 | Emergency (ER) | payer MEDICARE, MEDICAID, SELFPAY ==
--- OUTSIDE RECORDS SUMMARY | 2013-05-07 08:21 | XMS_ITS | Continuity of Care Document ---
Author Organization [facility] Address [address] [place] [address] Phone Care Team Providers Care Commercial Lines Account Assistant Name Role Phone Carlito FAIR DPT, Irene Unavailable Unavailab le Allergies, Adverse Reactions, Alerts Substance Reaction Status Criticality No Known allergies Medications Medication Instructions Dosage Effective Dates (start - stop) Status Comments meclizine 25 mg tablet take 1 tablet by ORAL route as needed - Active meloxicam 15 mg tablet take 1 tablet by oral route every day 15 MG - Active ALBUTEROL SULFATE HFA (unknown strength) inhale 1 - 2 puff by inhalation route every 4 hours as needed Not Available - Active cyclobenzaprine 10 mg tablet take 1 tablet by oral route as needed - Active Symbicort 160 mcg-4.5 mcg/actuation HFA Aerosol Inhaler inhale 2 puff by inhalation route 2 times every day in the morning and evening 2.00 puff - Active lisinopril 10 mg tablet take 1 tablet by oral route every day 10 MG - Active modafinil 200 mg tablet take 1 tablet by oral route every day in the morning 200 MG - Active atorvastatin 10 mg tablet take 1 tablet by oral route every day 10 MG - Active omeprazole 20 mg tablet,delayed release take 1 Tablet by Oral route every day 1 Tablet - Active Procedures Procedure Date Aquatic Therapy Aquatic Therapy Aquatic Therapy Aquatic Therapy Phys Therap Eval Neuromuscular Re-education Therapeutic Activities Offic Cons New/estab Mod-hi 60 13 QA DONE Epid/SAB Lumbosacral Fluoroscopic Guidance For Needle Placeme nt - Spine Advance Directives Directive Yes / No Effective Date File Name No Information Encounters Encounter Description Practice Location Reason(s) For Visit Diagnoses Date Provider Providers Copied on Encounter JONATHAN Yanes, [address], [place], [address], tel:[phone] [facility] No Information 4 Carlito Mosqueda. [address] [place], [place], [address], [place]. tel:[phone] Referring Provider: Allyson Griffith, [address] [place], [address]. tel:[phone] JONATHAN Yanes, [address] [facility], [place], [address], tel:[phone] [facility] No Information 3 Collin CHIEF PSYCHOLOGY Carri. [address] , [facility] [address], [place], [address], [place]. tel:[phone] Referring Provider: Allyson Griffith, [address] [place], [address]. tel:[phone] JONATHAN Yanes, [address] [facility] [address], [place], [address], [place] tel:[phone] [facility] No Information 3 Collin CHIEF PSYCHOLOGY Carri. [address] , [address], [place], [address], [place]. tel:[phone] Referring Provider: Allyson Griffith, [address] [place], [address]. tel:[phone] JONATHAN Yanes, [address], [place], [address], [place] tel:[phone] [facility] No Information 3 Collin CHIEF PSYCHOLOGY Carri. [address], [place], [address], [place]. tel:[phone] Referring Provider: Allyson Griffith, [address] [place], [address]. tel:[phone] [facility], [address], [place], [place], [address], [place] tel:[phone] [facility] No Information 3 Collin CHIEF PSYCHOLOGY Carri. [address], [place], [address], [place]. tel:[phone] Referring Provider: Allyson Griffith, [address] [place], [address]. tel:[phone] [facility], [address] [facility] [address], [place], [place], [address], [place] tel:[phone] [facility] No Information 3 Carlito Mosqueda. [address], [address], [place]. tel:[phone] Referring Provider: Allyson Griffith, [address] [place], [address]. tel:[phone] Offic Cons New/estab Mod-hi 60 [facility], [address] [facility], [place], [place], [address], [place] tel:[phone] [facility] No Information 3 Gume Darby. [address] , [address], [place], [address], [place]. tel:[phone] Referring Provider: Allyson Griffith, [address] [place], [address]. tel:[phone] [facility], [address], [place], [place], [address], [place] tel:[phone] [facility] No Information 201 3 No Information Referring Provider: Crescencio Cuevas MD, [address] [facility] [address] [facility] [address] [place], [address]. tel:[phone] Family History Family Member Type Diagnosis Age At Onset No Information Payers Payer name Insurance type Covered alliance party ID Maria Luz lanier(s) [employer]-Medicaid [place] [id number] Social History Type Description Quantity Date Captured Comments Alcohol Use Details Caffeine Use Details Unknown Tobacco Use Status No Information Smoking Status Never Smoker Non-Smoking Tobacco Use Details : No Details Available : No Details Available Sex Female Chief Complaint And Reason For Visit No Information Reason For Referral Reason For Referral No Information History Of Present Illness Encounter Date Complaint History Of Prese nt Illness No Information Functional Status Date Functional Assessmen t No Information Instructions Date Instruction Additional Infor mation No Information Assessments Type Assessment Date No Information Patient Care Teams Name Effective Dates (start - stop) Status Members No Information
--- OUTSIDE RECORDS SUMMARY | 2013-05-07 08:21 | XMS_ITS | Continuity of Care Document ---
Author Organization [facility] Address [address] [place] [address] Phone Care Team Providers Care Machine Maintenance Technician Name Role Phone Carlito FAIR, Jaylin OLIVAS [...] Providers Copied on Encounter JONATHAN Yanes, [address], [place], [address], tel:[phone] [facility] No Information 4 Carlito Mosqueda. [address] [place], [place], [address], [place]. tel:[phone] Referring Provider: Allyson Griffith, [address] [place], [address]. tel:[phone] JONATHAN Ynaes, [address] [facility] [address], [place], [address], tel:[phone] [facility] No Information 3 Collin WARP PLACER Crari. [address] , [facility] [address], [place], [address], [place]. tel:[phone] Referring Provider: Allyson Griffith, [address] [place], [address]. tel:[phone] JONATHAN Yanes, [address] [facility] [address], [place], [address], [place] tel:[phone] [facility] No Information 3 Collin WARP PLACER Carri. [address] , [address], [place], [address], [place]. tel:[phone] Referring Provider: Allyson Griffith, [address] [place], [address]. tel:[phone] JONATHAN Yanes, [address], [place], [address], [place] tel:[phone] [facility] No Information 3 Collin WARP PLACER Carri. [address], [place], [address], [place]. tel:[phone] Referring Provider: Allyson Griffith, [address] [place], [address]. tel:[phone] [facility], [address], [place], [place], [address], [place] tel:[phone] [facility] No Information 3 Collin WARP PLACER Carri. [address], [place], [address], [place]. tel:[phone] Referring Provider: Allyson Griffith, [address] [place], [address]. tel:[phone] [facility], [address] [facility], [place], [place], [address], [place] tel:[phone] [facility] No Information 3 Carlito Mosqueda. [address], [address], [place]. tel:[phone] Referring Provider: Allyson Griffith, [address] [place], [address]. tel:[phone] Offic Cons New/estab Mod-hi 60 [facility], [address] [facility], [place], [place], [address], [place] tel:[phone] [facility] No Information 3 Gume Darby. [address] , [address], [place], [address], [place]. tel:[phone] Referring Provider: Allyson Griffith, [address] [place], [address]. tel:[phone] [facility], [address], [place], [place], [address], [place] tel:[phone] [facility] No Information 201 3 No Information Referring Provider: Crescencio Cuevas MD, [address] [facility] [address] [place], [address]. tel:[phone] Family History Family Member Type Diagnosis Age At Onset No Information Payers Payer name Insurance type Covered libertarian ID Maria Luz lanier(s) [employer] [place] [id number] Social History Type Description Quantity Date Captured [...]
--- OUTSIDE RECORDS SUMMARY | 2024-11-16 15:11 | XMS_ITS | Clinical Summary ---
Author Organization [facility] Address [address] , [address] [place] [address] Phone Care Team Providers Care Job Setter Honing Name Role Phone Zachary FOLEY, BSN, Peace Thompson [phone] Conditions or Problems Problem Name Problem Code Onset Date Status Entry Date Provider Comment Standard Description Annotate Knee pain, left, chronic 4819034012 (SNOMED CT) 10/26 Active 10/28 Noy Campeau Pain of joint of knee Knee pain, right, chronic 9539161423 (SNOMED CT) 10/26 Active 10/26 Noy [place]peau Pain of joint of knee Hip pain, left 33606726 (SNOMED CT) 10/26 Active 10/28 Noy Campeau Pain of hip region Hip joint pain, right 58951608 (SNOMED CT) 10/26 Active 10/26 Noy [place]peau Pain of hip region Leg pain, left 806866102 (SNOMED CT) 10/26 Active 10/28 Noy Campeau Pain in left lower limb Leg pain, right 681247403 (SNOMED CT) 10/26 Active 10/26 Noy Campeau Pain in right lower limb Leg pain, bilateral 49839569 (SNOMED CT) 10/26 Inactive 10/26 Jeanette Marcum MD Pain in lower limb Restless leg syndrome 50956033 (SNOMED CT) 10/26 Active 10/26 Jeanette Marcum MD Restless legs Hip pain 83116550 (SNOMED CT) 10/26 Inactive 10/26 Jeanette Marcum MD Pain of hip region Knee pain, chronic 69200590 (SNOMED CT) 10/26 Inactive 10/26 Jeanette Marcum MD Knee pain Low back pain, chronic 378715400 (SNOMED CT) 10/26 Active 10/26 Jeanette Marcum MD Chronic low back pain Fatigue, chronic 68371258 (SNOMED CT) Active Jeanette Marcum MD Fatigue Anxiety disorder 005061180 (SNOMED CT) Active Jeanette Marcum MD Anxiety disorder Depression 21299058 (SNOMED CT) Active Jeanette Marcum MD Depressive disorder Multiple sclerosis, relapsing/r emitting 863599799 (SNOMED CT) 1986 Active 09/26 Jeanette Marcum MD Relapsing remitting multiple sclerosis Carpal tunnel syndrome, bilateral upper limbs [id number] 101 (SNOMED CT) 12/30 Active 12/30 Watson Baker MD Bilateral carpal tunnel syndrome Multiple sclerosis, relapsing/r emitting 484676084 (SNOMED CT) 09/26 Inactive 09/26 Lazaro Tomas MD Relapsing remitting multiple sclerosis Neuropathy, idiopathic peripheral 92613979 (SNOMED CT) 09/26 Active 09/26 Lazaro Tomas MD Idiopathic peripheral neuropathy Medications Medication Instructions Start Date Stop Date Generic Name ND Provider BACLOFEN 10 MG TABS Take 1/2 tablet by mouth at bedtime baclofen [id number] Jeanette Marcum MD AMANTADINE HCL 100 MG TABS Take 1 tablet by mouth twice a day 12/19 amantadine hcl 72926225242 Claudia SILVER-Ibrahima AMANTADINE HCL 100 MG CAPS TAKE ONE CAPSULE BY MOUTH TWICE DAILY amantadine hcl 67916449128 Claudia SILVER-C ESCITALOPRAM OXALATE 10 MG TABS Take 1 Tablet by mouth one time a day. escitalopram oxalate 82008977416 Jeanette Marcum MD AMPHETAMINE-DEXTR OAMPHET ER 10 MG [id number] TAKE ONE CAPSULE BY MOUTH EVERY MORNING NEEDED 07/27 dextroamphetamine -amphetamine 03168676616 Jeanette Marcum MD AMPHETAMINE-DEXTR OAMPHET ER 10 MG [id number]-TEZ Take 1 capsule by mouth every morning TAKE ONE CAPSULE BY MOUTH EVERY MORNING NEEDED dextroamphetamine -amphetamine 19737903588 Claudia Rodriguez PA-C DULOXETINE HCL 60 MG CPEP TAKE ONE CAPSULE BY MOUTH DAILY duloxetine 78040367709 Jeanette Marcum MD AMPHETAMINE-DEXTR OAMPHET ER 10 MG [id number]-FWK TAKE ONE CAPSULE BY MOUTH EVERY MORNING NEEDED 08/24 dextroamphetamine -amphetamine 21488362239 Jeanette Marcum MD DULOXETINE HCL 60 MG CPEP TAKE ONE CAPSULE BY MOUTH DAILY 05/19 duloxetine 64290389798 Jeanette Marcum MD DULOXETINE HCL 60 MG CPEP TAKE ONE CAPSULE BY MOUTH DAILY 04/16 duloxetine 91427709312 Katalina Lagunas PA-C DULOXETINE HCL 30 MG CPEP TAKE ONE CAPSULE BY MOUTH ONCE A DAY. TAKE WITH 60 MG CAPSULE. 10/26 duloxetine 15531434030 Jeanette Marcum MD ESCITALOPRAM OXALATE 10 MG TABS Take 1 Tablet by mouth one time a day. 10/23 escitalopram oxalate 76079643178 Jeanette Marcum MD AMPHETAMINE-DEXTR OAMPHET ER 5 MG QT11R-RRT TAKE TWO CAPSULE BY MOUTH EVERY MORNING NEEDED 10/07 dextroamphetamine -amphetamine 93482799468 Jeanette Marcum MD AMPHETAMINE-DEXTR OAMPHET ER 10 MG TP47P-OXT TAKE ONE CAPSULE BY MOUTH EVERY MORNING NEEDED 08/24 dextroamphetamine -amphetamine 98857852880 Jeanette Marcum MD AMPHETAMINE-DEXTR OAMPHET ER 10 MG JQ88U-LEJ TAKE ONE CAPSULE BY MOUTH EVERY MORNING NEEDED 0 09/30 dextroamphetamine -amphetamine 11216088035 Jeanette Marcum MD AMPHETAMINE-DEXTR OAMPHET ER 5 MG SU50I-MLQ TAKE TWO CAPSULE BY MOUTH EVERY MORNING NEEDED 0 10/19 dextroamphetamine -amphetamine 89536173085 Jeanette Marcum MD AMPHETAMINE-DEXTR OAMPHET ER 10 MG AP58Z-GFO TAKE ONE CAPSULE BY MOUTH EVERY MORNING NEEDED 0 08/24 dextroamphetamine -amphetamine 56352916397 Claudia Rodriguez PA-C AMPHETAMINE-DEXTR OAMPHET ER 10 MG ML89I-TLR TAKE ONE CAPSULE BY MOUTH EVERY MORNING NEEDED 0 08/24 dextroamphetamine -amphetamine 44718866134 Jeanette Marcum MD AMPHETAMINE-DEXTR OAMPHET ER 10 MG EX88K-JWL TAKE ONE CAPSULE BY MOUTH EVERY MORNING NEEDED 0 08/24 dextroamphetamine -amphetamine 18390531147 Justin Romero MD AMPHETAMINE-DEXTR OAMPHET ER 10 MG AY63R-RGF TAKE ONE CAPSULE BY MOUTH EVERY MORNING NEEDED 0 08/24 dextroamphetamine -amphetamine 42813147270 Jeanette Marcum MD BACLOFEN 10 MG TABS Take 1/2 tablet by mouth at bedtime 05/21 baclofen 01820089247 Ag Staton MD AMPHETAMINE-DEXTR OAMPHET ER 10 MG OI99N-BIF TAKE ONE CAPSULE BY MOUTH EVERY MORNING NEEDED 0 16 dextroamphetamine -amphetamine 16687771460 Bárbara Longoria PA-C DULOXETINE HCL 30 MG CPEP Take 1 capsule by mouth once a day (take with 60 mg cap) 05/03 duloxetine 80547177320 Jeanette Marcum MD DULOXETINE HCL 30 MG CPEP TAKE ONE CAPSULE BY MOUTH ONCE A DAY. TAKE WITH 60 MG CAPSULE. 0 10/26 duloxetine 07388436856 Jeanette Marcum MD AMPHETAMINE-DEXTR OAMPHET ER 10 MG SE48R-HZM TAKE ONE CAPSULE BY MOUTH EVERY MORNING NEEDED 0 08/24 dextroamphetamine -amphetamine 36221455224 Jeanette Marcum MD DULOXETINE HCL 30 MG CPEP Take 1 capsule by mouth once a day (take with 60 mg cap) 05/03 duloxetine 83653518684 Jeanette Marcum MD AMPHETAMINE-DEXTR OAMPHET ER 10 MG KB05D-LBQ TAKE ONE CAPSULE BY MOUTH EVERY MORNING NEEDED 08/24 dextroamphetamine -amphetamine 04137821443 Claudia Rodriguez PA-C DULOXETINE HCL 30 MG CPEP Take 1 capsule by mouth once a day (take with 60 mg cap) 10/29 duloxetine 24111702778 Jeanette Marcum MD ESCITALOPRAM OXALATE 10 MG TABS Take 1 tablet by mouth once a day 10/20 escitalopram oxalate 12901649540 Jeanette Marcum MD ESCITALOPRAM OXALATE 10 MG TABS Take 1 tablet by mouth once a day 10/20 escitalopram oxalate 08874557714 Jeanette Marcum MD BACLOFEN 5 MG TABS Take 1 tablet by mouth at bedtime 0 04/20 baclofen 22099573886 Jeanette Marcum MD TOPIRAMATE 25 MG TABS 1 tab at night topiramate 66644671474 Jeanette Marcum MD AMANTADINE HCL 100 MG TABS Take 1 tablet by mouth twice a day 0 9 amantadine hcl 74162311653 Jeanette Marcum MD DULOXETINE HCL 60 MG CPEP TAKE ONE CAPSULE BY MOUTH DAILY 0 804 duloxetine 21869532066 Jeanette Marcum MD AMPHETAMINE-DEXTR OAMPHET ER 10 MG AE54Y-YIT TAKE ONE CAPSULE BY MOUTH EVERY MORNING NEEDED 0 08/24 dextroamphetamine -amphetamine 14644667831 Jeanette Marcum MD AMPHETAMINE-DEXTR OAMPHET ER 10 MG TW22O-RTY TAKE ONE CAPSULE BY MOUTH EVERY MORNING NEEDED 08/24 dextroamphetamine -amphetamine 23431881858 Claudia Rodriguez PA-C ESCITALOPRAM OXALATE 10 MG TABS Take 1 tablet by mouth once a day 10/20 escitalopram oxalate 54863483585 Conchis Hughes RN DULOXETINE HCL 60 MG CPEP Take 1 capsule by mouth once a day 07/09 duloxetine 69048511322 Jeanette Marcum MD DULOXETINE HCL 60 MG CPEP TAKE ONE CAPSULE BY MOUTH DAILY 09/29 duloxetine 94509437632 lCaudia Rodriguez PA-C ESCITALOPRAM OXALATE 10 MG TABS TAKE ONE TABLET BY MOUTH EVERY DAY 07/09 escitalopram oxalate 41631621304 Jeanette Marcum MD BACLOFEN 5 MG TABS Take 1 tablet by mouth at bedtime 10/20 baclofen 45073645367 Claudia Rodriguez PA-C ALBUTEROL SULFATE 2 MG TABS albuterol sulfate 38161120508 Claudia Rodriguez PA-C VITAMIN D3 50 MCG (1999) TABS 2 per day cholecalciferol (vitamin d3) 62637795268 Claudia Rodriguez PA-C AMPHETAMINE-DEXTR OAMPHET ER 10 MG HP08N-JKW TAKE ONE CAPSULE BY MOUTH EVERY MORNING NEEDED 08/24 dextroamphetamine -amphetamine 44306000014 Jeanette Marcum MD AMPHETAMINE-DEXTR OAMPHET ER 10 MG DG58Q-WPC TAKE ONE CAPSULE EVERY MORNING NEEDED dextroamphetamine -amphetamine 63429594144 Watson Baker MD AMPHETAMINE-DEXTR OAMPHET ER 10 MG WF68R-ONJ TAKE ONE CAPSULE BY MOUTH EVERY MORNING NEEDED 08/24 dextroamphetamine -amphetamine 73999192862 Jeanette Marcum MD DULOXETINE HCL 60 MG CPEP Total of 120mg daily duloxetine 80305468553 Swati Mclean DNP,ECONOMETRICS PROFESSOR,TOOTH CLERK ESCITALOPRAM OXALATE 10 MG TABS Take 1 tablet by mouth once a day 10/20 escitalopram oxalate 35632359374 Jeanette Marcum MD DULOXETINE HCL 60 MG CPEP Take 1 capsule by mouth once a day 07/24 duloxetine 01079851144 Jeanette Marcum MD AMPHETAMINE-DEXTR OAMPHET ER 10 MG FQ32N-EVY Take 1 capsule by mouth every morning as needed 12/19 dextroamphetamine -amphetamine 73639408337 Watson Baker MD AMPHETAMINE-DEXTR OAMPHET ER 10 MG XF04S-ZAI TAKE ONE CAPSULE EVERY MORNING NEEDED 08/24 dextroamphetamine -amphetamine 46426034437 Watson Baker MD SYMBICORT 80-4.5 MCG/ACT AERO 2 once a day budesonide-formot cherelle 19834943454 Watson Baker MD AMPHETAMINE-DEXTR OAMPHET ER 10 MG WJ61Q-EXP Take 1 capsule by mouth every morning as needed 08/24 dextroamphetamine -amphetamine 76334847294 Watson Baker MD OMEPRAZOLE 20 MG CPDR 1-2 capsule by mouth once a day omeprazole 27481186057 Watson Baker MD CYCLOBENZAPRINE HCL 5 MG TABS 1 tablet by mouth every night 10/19 cyclobenzaprine 53600720159 Bárbara Longoria PA-C MECLIZINE HCL 25 MG TABS 1 tablet by mouth as needed meclizine 66237008300 Watson Baker MD DULOXETINE HCL 60 MG CPEP Total of 120mg daily 07/24 duloxetine 02349941429 Swati Mclean DNP,ECONOMETRICS PROFESSOR,TOOTH CLERK RIZATRIPTAN BENZOATE 10 MG TBDP take 1 pill at [place] onset. May repeat in 2 hours if [place] persists. No more than 2 pills in 24 hrs. rizatriptan 10937958621 Watson Baker MD LISINOPRIL 20 MG TABS 1 tablet by mouth once a day lisinopril 54799209190 Watson Baker MD RIZATRIPTAN BENZOATE 10 MG TBDP take 1 pill at [place] onset. May repeat in 2 hours if [place] persists. No more than 2 pills in 24 hrs. 11/17 RIZATRIPTAN BENZOATE 52184937521 Watson Baker MD AMPHETAMINE-DEXTR OAMPHET ER 10 MG WG56O-LAI TAKE ONE CAPSULE in the MORNING as needed 08/24 AMPHETAMINE-DEXTR OAMPHETAMINE 90315172919 Watson Baker MD AMPHETAMINE-DEXTR OAMPHET ER 10 MG EE07P-QJB TAKE ONE CAPSULE EVERY MORNINGON HOLD 08/24 AMPHETAMINE-DEXTR OAMPHETAMINE 70363672869 Swati Mclean DNP,ECONOMETRICS PROFESSOR,TOOTH CLERK DULOXETINE HCL 60 MG CPEP Total of 120mg daily 07/24 DULOXETINE HCL 45594122510 Swati Mclean DNP,ECONOMETRICS PROFESSOR,TOOTH CLERK AMPHETAMINE-DEXTR OAMPHET ER 10 MG [id number]-LPN TAKE ONE CAPSULE EVERY MORNING 08/24 AMPHETAMINE-DEXTR OAMPHETAMINE 69632441172 Watson Baker MD GABAPENTIN 300 MG CAPS 1 cap at bedtime 04/14 GABAPENTIN 14521526465 Swati Mclean DNP,ECONOMETRICS PROFESSOR,TOOTH CLERK AMPHETAMINE-DEXTR OAMPHET ER 10 MG JF66S-HSE 1 po qAM 08/24 AMPHETAMINE-DEXTR OAMPHETAMINE 24981836066 Watson Baker MD AMPHETAMINE-DEXTR OAMPHET ER 10 MG CG54I-SSB TAKE ONE CAPSULE EVERY MORNING 08/24 AMPHETAMINE-DEXTR OAMPHETAMINE 79602742165 Wilberto Urbina MD AMPHETAMINE-DEXTR OAMPHET ER 10 MG MU53J-FKP 1 po qam 08/24 AMPHETAMINE-DEXTR OAMPHETAMINE 26893880966 Lazaro Tomas MD AMPHETAMINE-DEXTR OAMPHET ER 10 MG XA81D-BTU Take one capsule every morning. 08/24 AMPHETAMINE-DEXTR OAMPHETAMINE 67165071626 Nancy Abdul MD AMPHETAMINE-DEXTR OAMPHET ER 10 MG EU34P-WZU TAKE ONE CAPSULE EVERY MORNING 08/24 AMPHETAMINE-DEXTR OAMPHETAMINE 91482388081 Lazaro Tomas MD CYCLOBENZAPRINE HCL 5 MG TABS 1 tab at bedtime 10/19 CYCLOBENZAPRINE HCL 13456102905 Bárbara Longoria PA-C GABAPENTIN 300 MG CAPS 1 cap at bedtime 10/19 GABAPENTIN 82789807921 Bárbara Longoria PA-C DULOXETINE HCL 60 MG CPEP 07/24 DULOXETINE HCL 23172902822 Bárbara Longoria PA-C PRAMIPEXOLE DIHYDROCHLORIDE 0.25 MG TABS 1 po one hour before bed 05/19 PRAMIPEXOLE DIHYDROCHLORIDE 88049051061 Lazaro Tomas MD AMPHETAMINE-DEXTR OAMPHET ER 10 MG FA25I-EVN 1 po qam 08/24 AMPHETAMINE-DEXTR OAMPHETAMINE 68604185321 Lazaro Tomas MD AMPHETAMINE-DEXTR OAMPHET ER 10 MG PK30B-EKF 1 po AM 08/24 AMPHETAMINE-DEXTR OAMPHETAMINE 77526049256 Lazaro Tomas MD AMPHETAMINE-DEXTR OAMPHET ER 10 MG GW13V-SXK 1 po qam 08/24 AMPHETAMINE-DEXTR OAMPHETAMINE 08492226214 Lazaro Tomas MD AMPHETAMINE-DEXTR OAMPHET ER 10 MG SX90B-JCX TAKE ONE CAPSULE EVERY MORNING 08/24 AMPHETAMINE-DEXTR OAMPHETAMINE 47787967811 Lazaro Tomas MD AMPHETAMINE-DEXTR OAMPHET ER 10 MG FW49J-CRV 1 po qAM 08/24 AMPHETAMINE-DEXTR OAMPHETAMINE 79317918233 Lazaro Tomas MD AMPHETAMINE-DEXTR OAMPHET ER 10 MG NO34F-HTR TAKE ONE CAPSULE EVERY MORNING 0 08/24 AMPHETAMINE-DEXTR OAMPHETAMINE 38644031524 Lazaro Tomas MD AMPHETAMINE-DEXTR OAMPHET ER 10 MG OS72E-LWU 1 po qAM 0 08/24 AMPHETAMINE-DEXTR OAMPHETAMINE 84600945061 Lazaro Tomas MD AMPHETAMINE-DEXTR OAMPHET ER 10 MG SW50H-PYZ 1 po qam 0 08/24 AMPHETAMINE-DEXTR OAMPHETAMINE 09544175206 Lazaro Tomas MD AMPHETAMINE-DEXTR OAMPHET ER 10 MG AL28O-XYJ 1 po qam 0 08/24 AMPHETAMINE-DEXTR OAMPHETAMINE 79841459988 Lazaro Tomas MD AMPHETAMINE-DEXTR OAMPHET ER 10 MG ED81L-AVN 1 po qam 0 08/24 AMPHETAMINE-DEXTR OAMPHETAMINE 96048021299 Lazaro Tomas MD AMPHETAMINE-DEXTR OAMPHET ER 10 MG YH10R-SKP 1 po qd 0 08/24 AMPHETAMINE-DEXTR OAMPHETAMINE 10503375152 Lazaro Tomas MD PRAMIPEXOLE DIHYDROCHLORIDE 0.25 MG TABS 1 po one hour before bed 0 07/24 PRAMIPEXOLE DIHYDROCHLORIDE 77910088503 Lazaro Tomas MD CYCLOBENZAPRINE HCL 10 MG TABS 1 po prn 10/01 CYCLOBENZAPRINE HCL 04047413419 Lazaro Tomas MD AMPHETAMINE-DEXTR OAMPHET ER 10 MG FB95X-ZJE 1 po qd 0 08/24 AMPHETAMINE-DEXTR OAMPHETAMINE 81361242890 Lazaro Tomas MD AMPHETAMINE-DEXTR OAMPHET ER 10 MG UN53G-WPJ 1 po qd 0 08/24 AMPHETAMINE-DEXTR OAMPHETAMINE 46002842281 Lazaro Tomas MD SYMBICORT 80-4.5 MCG/ACT AERO 2 per day 11/17 BUDESONIDE-FORMOT CHERELLE FUMARATE 96698613865 Lazaro Tomas MD CYCLOBENZAPRINE HCL 10 MG TABS 1 po prn 10/01 CYCLOBENZAPRINE HCL 07447588183 Lazaro Tomas MD MECLIZINE HCL 25 MG TABS 1 po prn 11/17 MECLIZINE HCL 83010680421 Lazaro Tomas MD OMEPRAZOLE 20 MG CPDR 1-2 po qd 10/19 OMEPRAZOLE 43168601653 Lazaro Tomas MD LISINOPRIL 20 MG TABS 1 po qd 04/23 LISINOPRIL 14627714044 Lazaro Tomas MD AMPHETAMINE-DEXTR OAMPHET ER 10 MG WQ22R-CZB 1 po qam 08/24 AMPHETAMINE-DEXTR OAMPHETAMINE 69091458711 Lazaro Tomas MD DULOXETINE HCL 30 MG CPEP 1 po qam 07/24 DULOXETINE HCL 10024584785 Lazaro Tomas MD Medications Administered No information [...] AMPHIPHYS AB * Amphiphy sin Ab, S SECRETARY SPECIALIST-2 * Purkinje Cell Cytoplasmic Ab Type 2 SECRETARY SPECIALIST-1 * Purkinje Cell Cytoplasmic Ab Type [...] [Mass/volume] in Serum or Plasma by Electrophoresis [id number] * g/dL beta 2 g lobulin [id number] * g/dL beta 1 g lobulin ALPHA [...] D ULOXETINE HCL 30 MG ORAL CPEP [facility]_ [id number]`D ULOXETINE HCL 30 MG ORAL CPEP`30``30 Capsule``1 PO QAM``5`0`09/26`No date sent`[facility] [id number]*`[id number]`[id number] 6`53729`DULOXMike [address] DR 30MG CAPSULES Quantity: 30 Capsule [...] PM Jose Alberto Regan MD , [address] [facility], [address], [place], [address], Pending order Follow up Extend ed Pending [...] ROSA ORDERS Patient Instructions ORDERS Physical Therapy [facility]-[id number] Orthopedic Surgery Referral [facility]-[id number] Documentation of current medicatio ns ORDERS Patient Instructions ORDERS Follow up Extended i n clinic or telemedicine ORDERS Patient Instructions [facility]-[id number] Psychiatry Referral ORDERS Follow up in clinic or telemedicine 04/20 ORDERS Follow up ROSA in clinic or telemedicine [facility]-[id number] Documentation of current medicatio ns ORDERS Patient Instructions ORDERS Patient Instructions ORDERS Patient Instructions ORDERS Follow up ROSA ORDERS Follow up ORDERS Patient Instructions ORDERS Patient Instructions ORDERS Patient Instructions ORDERS Follow up ROSA ORDERS Patient Instructions SCT-[id number] Documentation of current medicatio ns ORDERS Follow up SCT-[id number] Documentation of current medicatio ns ORDERS Follow up ROSA ORDERS Physical Therapy ORDERS Follow up SCT-[id number] Documentation of current medicatio ns CPT-59043 Nerve Conduction 9-10 studies CPT-98109 EMG with NCS (5+ muscles) - 2 limbs 12/30 ORDERS Follow up SCT-[id number] Documentation of current medicatio ns ORDERS Patient Instructions SCT-[id number] Documentation of current medicatio ns SCT-[id number] Documentation of current medicatio ns ORDERS Follow up SCT-[id number] Documentation of current medicatio ns SCT-[id number] Documentation of current medicatio ns CPT-55838 Nerve Conduction 7-8 studies CPT-09440 EMG with NCS (5+ muscles) - 2 limbs 12/21 SCT-[id number] Other Referral ORDERS Follow up SCT-[id number] Documentation of current medicatio ns [id number] MRI-Cervical W/WO MS Protocol CPT-K4238U ProHance Gadolinium- based MR Contrast - 20 ml vial CPT-99205 MRI Cervical W/WO ORDERS Immunofixation Urine (ROGELIO [...] GERALDINE) ORDERS Paraneoplastic Ab (O NLY Anti-Hu/Anti-Yo/Anti-Ri) SCT-[id number] Other Referral [facility]-[id number] Documentation of current medicatio ns Vital Signs [...] available. Advance Directives Directive Description Start Date LEARNING SOLUTIONS SPECIALIST 09/18/18 CSA 05/15/18 LEARNING SOLUTIONS SPECIALIST 02/20/18 LEARNING SOLUTIONS SPECIALIST 09/22/17 CSA 05/03/17 LEARNING SOLUTIONS SPECIALIST 03/23/17 LEARNING SOLUTIONS SPECIALIST 10/14/16 CSA 04/28/16
--- OUTSIDE RECORDS SUMMARY | 2024-11-16 15:12 | XMS_ITS | Clinical Summary ---
Author Organization [employer] [facility] & [facility] Address [address] [place] [id number] Care Team Providers Care Swatch Maker Name Role Phone Rachel Carmona MD Primary Care Provider [phone] Andrea Tabares MD Unavailable [phone] Jeanette Fernandez MD Unavailable [phone] [facility] [address], [place] Unavailable [phone] Allergies Active Allergy Reactions Criticality Noted Date [...] mouth at bedtime. 023 Active rizatriptan (MAXALT CLINICAL NURSING PROFESSOR) 10 mg disintegrating tabletIndications :Chronic migraine without [...] Inject 600 mg intravenous every 24 hours. 2024 Active rifAMPin 300 mg capsuleIndication s:bone infection Take 1 Capsule (300 mg) by mouth two times daily before meals. 60 Capsule 1 11/13/19 8:38 AM CDT 2024 Active levalbuterol (XOPENEX HFA) 45 mcg/actuation inhalerIndication s:Moderate persistent asthma with acute exacerbation (HC) Inhale 2 Puffs by mouth 4 times daily if needed for Shortness Of Breath. Active sodium chloride syrg syringe Inject 10 mL intravenous every 12 hours. inject every 12 hours, after antibioitic infusion and again 12 hours later, into PICC line to keep patent Active heparin flush (PF) porcine (heparin LockFlush(Porcine )(PF)) 10 unit/mL injectionIndicati ons:maintain patency of indwelling intravenous catheter Inject 10 Units/mL intravenous every 12 hours. 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 60 Tablet 10/13/19 25 4:03 PM CDT 025 2024 Discontinued(R eorder [...] Encounters Date Type Department Care Team Description 11/16/2024 Travel 11/16/2024 Telephone [facility] [place] [address] [place] [address] Chrissy Hills, RN Questions 11/14/2024 [facility] [address] [place] [address] Venessa Goodwin, OG CARE COORDINATION 11/14/2024 [facility]phone [facility] [address] [place] [address] Chrissy Hills, RN Questions 11/14/2024 Nurse Triage [facility] - [facility] [address] [facility] [address] [place] [phone] Timothy Bishop MD Dressing Change 11/14/2024 Orders Only [facility] [address] [place] [address] Dolores Del Rosario MD Lab (Home Care) 11/13/2024 10:00 AM CDT [facility] [address] [place] [address] Mylene Musa RN SN IV - START OF CARE 11/13/2024 Telephone [facility] [address] [place] [address] Mylene Musa, pediatric immunologist (SOC/Drug Interaction) 11/13/2024 Plan of Care Documentation [facility] [address] [place] [phone] 11/13/2024 [facility]phone [facility] [address] [place] [facility] [address] [place] [address] Chrissy Hills, scraper loader operator Nurse Navigator (ONN DCFU Call) 11/13/2024 [facility] [address] [place] [address] Mylene Musa, OG CARE COORDINATION 11/13/2024 Patient Outreach [address] [phone] Yue Freedman, RN Primary RN Care Management (Hospital DC: 11/12/24/LACE: 30/Wound Dehiscence ); Hospital F/U 11/12/2024 [facility] [address] [place] [address] Mylene Musa, RN CARE COORDINATION 11/12/2024 Telephone [facility]ties [address] [facility] [address] [place] [address] Dolores Del Rosario MD Appointment Request (Post Hospital Visit) 11/09/2024 Patient Outreach [facility] Infusion Therapy Services [address] [place] [phone] Infusion, [facility] Infusion ([address] [place] [address]) 11/07/2024 12:42 PM CDT Anesthesia Event [facility] [address] [place] [address] Paolo Car MD Laberge, Watson Duke MD 11/07/2024 12:25 PM CDT - 11/07/2024 2:46 PM CDT Surgery [facility] [address] [place] [address] Timothy Bishop MD INPATIENT LEFT HIP 1 COMPONENT REVISION AND INCISION AND DRAINAGE 11/07/2024 10:23 AM CDT - 11/12/2024 12:33 PM CDT Hospital Encounter [facility] [address] [place] [address] Timothy Bishop MD Wound dehiscence (Primary Dx); [...] Travel 11/05/2024 2:40 PM CDT Office Visit [facility] - [facility] [place] [address] [facility] [address] [place] [phone] Marshall López PA Surgical Followup (3.5 weeks s/p left anterolateral total hip acetabular revision- 10/11/24 Timothy Bishop MD, incision check ) 11/05/2024 Transcribe Orders [facility] Joint Replacement [facility] [address] [place] [address] Timothy Bishop MD 11/04/2024 Travel 11/04/2024 Telephone [facility] Joint Replacement [facility] [address] [place] [address] Venessa Landers scraper loader operator Nurse Navigator (Drainage/prevena) 11/01/2024 8:25 AM CDT Ancillary Procedure [facility] Joint Replacement [facility] [address] [place] [address] 11/01/2024 8:20 AM CDT Office Visit [facility] Joint Replacement [facility] [address] [place] [address] Marshall López PA Surgical Followup (3 weeks s/p left total hip arthroplasty acetabular revision with implantation- 10/11/24 Timothy Bishop MD) 11/01/2024 Travel 10/30/2024 Travel 10/25/2024 1:45 PM CDT Ancillary Procedure [facility] Joint Replacement [facility] [address] [place] [address] 10/25/2024 1:10 PM CDT Office Visit [facility] Joint Replacement [place] [address] [place] [address] Anna Churchill PA Post-op (14 days s/p left total hip acetabular revision DOS: 10/11/2024 by Timothy Bishop MD) 10/25/2024 Travel 10/20/2024 Travel 10/17/2024 9:00 AM CDT Office Visit [facility] Joint Replacement [facility] [address] [facility] [address] [place] [phone] Marshall López PA Surgical Followup (6 days s/p left anterolateral total hip arthroplasty revision- 10/11/24 Timothy Bishop MD, incision check) 10/16/2024 Travel 10/15/2024 Telephone [facility] Joint Replacement [facility] [address] [facility] [address] [place] [phone] Venessa Landers RN Ortho Nurse Navigator (Follow up discharge phone call) 10/15/2024 Nurse Triage [facility] [place] [address] [facility] [address] [place] [phone] Timothy Bishop MD Post-op 10/15/2024 Patient Outreach [address] [phone] Yue Freedman RN Error-please disregard (Called and Triaged by ortho) 10/11/2024 9:51 AM CDT Anesthesia Event [place] [address] [place] [address] Estelle Castaneda MD Engel, Latia Barber, PHOTOGRAPH DEVELOPER 10/11/2024 9:25 AM CDT - 10/11/2024 12:03 PM CDT Surgery [place] [address] [place] [address] Timothy Bishop MD INPATIENT LEFT ACETABULUM HIP REVISION 10/11/2024 7:40 AM CDT - 10/12/2024 4:01 PM CDT Hospital Encounter [place] [address] [place] [address] Timothy Bishop MD 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, subsequent encounter (Primary Dx) Discharge Disposition: Home Self Care 10/11/2024 Travel 10/09/2024 Travel 10/01/2024 Telephone [facility] Joint Replacement [facility] [address] [facility] [address] [place] [phone] Venessa Landers scraper loader operator Nurse Navigator (Assessment/RAPT/1 on 1 education Pre-op check in) 09/24/2024 2:35 PM CDT Office Visit [address] [phone] Rachel Carmona MD Pre-Op Exam (surgery 7-3) 09/24/2024 Travel 09/20/2024 Orders Only [facility] Scanner 1 scan: (1-Ord) [facility], FLUOROSCOPICALLY GUIDED DIAGNOSTIC ASPIRATION OF THE LT HIP, 09/20/2024 09/19/2024 Travel 09/13/2024 Telephone [facility] Joint [address] [address] Venessa Landers scraper loader operator Nurse Navigator (Assessment/RAPT/1 on 1 education) 09/12/2024 Transcribe Orders [facility] Joint [address] [place] [address] Timothy Bishop MD 09/11/2024 [facility] [address] [place] [phone] Dara Carrion RN SN - OASIS DISCHARGE 09/11/[address] [address] Rachel Carmona MD MESS (DIS) 09/10/2024 1:30 PM CDT Office Visit [facility] Replacement [place] [address] [facility] [address] [place] [address] Timothy Bishop MD Post-op (7 weeks s/p left anterolateral total hip arthroplasty extraction with antibiotic spacer DOS: 07/24/2024 by Timothy Bishop MD) 09/10/2024 1:25 PM CDT Ancillary Procedure [facility] Joint Replacement [place] [address] [facility] [address] [place] [phone] 09/10/2024 Telephone [facility] [address] [place] [address] Rachel Carmona MD Appointment (Pre Operative Exam ) 09/10/2024 Travel 09/07/2024 10:00 AM CDT [facility] [address] [facility] [place] [address] Dara Carrion RN SN - HOME VISIT 09/06/2024 1:40 PM CDT Telemedicine [facility]ties [address] [facility] [address] [place] [address] Dolores Del Rosario MD 09/05/2024 Travel 09/04/2024 [facility] [address] [place] [phone] Dara Carrion RN SN - HOME VISIT 09/04/2024 Orders Only [facility] [address] [place] [address] Dolores Del Rosario MD Lab 09/01/2024 Travel 08/31/2024 Telephone [facility] [address] [place] [address] Rachel Carmona MD Form (Health care directive) 08/28/2024 12:15 AM CDT [facility] [address] [place] [phone] Asia Joe, OG SN - WOUND/OSTOMY CHART CONSULT 08/28/2024 Orders Only [facility] [address] [place] [address] Rachel Carmona MD <No scans attached> 08/27/2024 1:00 PM CDT [facility] [address] [facility] [place] [address] Dara Carrion RN SN - LONG VISIT (>90 MINUTES) 08/27/2024 Orders Only [facility] [address] [place] [address] Dolores Del Rosario MD Lab 08/20/2024 1:40 PM CDT Telemedicine [facility] [address] [place] [address] Lowell Fuentes MD Musculoskeletal Problem (Follow up left hip and MRI) 08/20/2024 12:00 PM CDT [facility] [address] [place] [address] Dara Carrion, OG SN - LONG VISIT (>90 MINUTES) 08/20/2024 Orders Only [facility] [address] [place] [address] Dolores Del Rosario MD Lab 08/20/2024 Telephone [facility] - [facility] [address] [facility] [address] [place] [address] Beakh Ryan, scraper loader operator Nurse Navigator (Incision ) 08/16/2024 Travel 08/16/2024 Telephone [facility] [address] [facility] [address] [place] [address] Dolores Del Rosario MD Appointment (switch to virtual) from Last 3 Months Immunizations Immunization Administration Dates Next Due COVID-19 VACCINE SPIKEVAX (M ODERNA 50MCG/0.5ML) 12YO+ PFS 01/16/2024 COVID-19 vaccine (Moderna 100mcg/0.5mL) PF MDV 08/09/2021,07/06/2020,06/08/2020 Influenza, High-dose Inactivated 024,01/01/2019,02/11/2018,2015 Influenza, [...] on file Legal Sex Female 6:07 AM COMPENSATION SUPERVISOR Gender Identity Not on file Sexual [...] Care Team (Late st Contact Info) Description 11/19/2024 4:00 AM CDT Home Care Visit [address] [phone] Minnie De León, OG 11/21/2024 2:00 PM CDT Office Visit [facility] [address] [place] [phone] Marshall López PA [address] [facility] [address] [place] [address] 11/23/2024 4:00 AM CDT Home Care Visit [address] [phone] Minnie De León RN 11/26/2024 4:00 AM CDT Home Care Visit [address] [phone] Minnie De León, OG 11/30/2024 4:00 AM CDT [facility] [address] [facility] [place] [address] Minnie De León, OG 12/03/2024 4:00 AM CDT [facility] [address] [place] [phone] Minnie De León, OG 12/06/2024 2:20 PM CDT Telemedicine [facility] [address] [facility] [address] [place] [address] Dolores Del Rosario MD [address] [place] [address] [address] [place] [address] 12/07/2024 4:00 AM CDT [facility] [address] [place] [phone] Minnie De León, OG 12/10/2024 4:00 AM CDT [facility] [address] [place] [phone] 12/14/2024 4:00 AM CDT [facility] [address] [place] [address] Minnie De León, OG 12/17/2024 4:00 AM CDT [facility] [address] [place] [phone] Minnie De León, OG 12/21/2024 4:00 AM CDT [facility] [address] [place] [phone] Minnie De León, OG 12/24/2024 4:00 AM CDT [facility] [address] [place] [phone] Minnie De León, OG 12/28/2024 4:00 AM CDT [facility] [address] [place] [address] Minnie De León RN 12/31/2024 4:00 AM CDT [facility] [address] [facility] [place] [address] Minnie De León, OG 01/04/2025 4:00 AM CDT [facility] [address] [facility] [place] [address] Minnie De León RN 01/07/2025 4:00 AM CDT [facility] [address] [facility] [place] [address] Minnie De León RN 01/11/2025 4:00 AM CDT [facility]ointment [facility] [address] [facility] [place] [address] Minnie De León, OG Health Maintenance Due Date Last Done Comments [...] this topic Medical Devices Implanted Type Area Fly Tier Device Identifier Shelf Expiration Date Model / Serial / Lot Cmnt Bone 40gm Darell Mv - [id number] Implanted:Qty: 2 on 07/24/2024 by Timothy Bishop MD at [facility] Left: Hip [employer] 01/08/2029 [id number] / / [id number] Shell Acetab 60mm Modular Redapt - [id number] Implanted:Qty: 1 on 10/11/2024 by iTmothy Bishop MD at [facility] Left: Hip [employer] 12/03/2032 [id number] / / [id number] Screw Hip 6.5x30mm Reflection Reconstrt - [id number] Implanted:Qty: 1 on 10/11/2024 by Timothy Bishop MD at [facility] Left: Hip [employer] 11/15/2033 [id number] / / [id number] Screw Hip 6.5x20mm Reflection Reconstrt - [id number] Implanted:Qty: 1 on 10/11/2024 by Timothy Bishop MD at [facility] Left: Hip [employer] 05/23/2034 [id number] / / [id number] Screw Hip 6.5x25mm Reflection Reconstrt - [id number] Implanted:Qty: 1 on 10/11/2024 by Timothy Bishop MD at [facility] Left: Hip [employer] 05/12/2034 [id number] / / [id number] Liner Acetab 46/60mm Dual Mobility Or30 - [id number] Implanted:Qty: 1 on 11/07/2024 by Timothy Bishop MD at [facility] Left: Hip [employer] 05/06/2034 [id number] / / [id number] Biolox Delta Ts Ceramic Femoral Head Revision, 28mm +8.5, 03/24 Taper Implanted:Qty: 1 on 11/07/2024 by Timothy Bishop MD at [facility] Left: Hip [employer] 01/08/2027 [id number] / / [id number] Insert Acetab 28/46mm Dual Mobility Or30 Xlpe - [id number] Implanted:Qty: 1 on 11/07/2024 by Timothy Bishop MD at [facility] Left: Hip [employer] 05/18/2034 [id number] / / [id number] Explanted Type Area Fly Tier Device Identifier Shelf Expiration Date Model / Serial / Lot Left Hip Head, Liner And Insert Explanted:Qty: 1 on 07/24/2024 by Timothy Bishop MD at [facility] Left: Hip [employer]ridge Altrx Ld Polyethylene Acetabular Liner; +4 Neutral, 40mm Id, 58mm Od Implanted:Qty: 1 on 07/24/2024 by Timothy Bishop MD at [facility] Explanted:Qty: 1 on 10/11/2024 by Timothy Bishop MD at [facility] Left: Hip [employer] 08/08/2028 [id number] / / [id number] M-Spec Metal Fmoral Head 40mm +5 Offset 03/24 Taper Implanted:Qty: 1 on 07/24/2024 by Timothy Bishop MD at [facility] Explanted:Qty: 1 on 10/11/2024 by Timothy Bishop MD at [facility] Left: Hip [employer] 09/08/2025 [id number] / / [id number] Insert Acetab 28/46mm Dual Mobility Or30 Xlpe - [id number] Implanted:Qty: 1 on 10/11/2024 by Timothy Bishop MD at [facility] Explanted:Qty: 1 on 11/07/2024 by Timothy Bishop MD at [facility] Left: Hip [employer] 06/28/2033 [id number] / / [id number] Biolox Delta Ts Ceramic Femoral Head Revision, 28mm 8.5 03/24 Taper Implanted:Qty: 1 on 10/11/2024 by Timothy Bishop MD at [facility] Explanted:Qty: 1 on 11/07/2024 by Timothy Bishop MD at [facility] Left: Hip [employer] 06/08/2028 [id number] / / [id number] Liner Acetab 46/60mm Dual Mobility Or30 - [id number] Implanted:Qty: 1 on 10/11/2024 by Timothy Bishop MD at [facility] Explanted:Qty: 1 on 11/07/2024 by Timothy Bishop MD at [facility] Left: Hip [employer] 07/25/2033 [id number] / / [id number] Procedures Procedure Name Priority Date/Time Associated Diagnosis [...] [employer] DUAL MOBILITY emailed Colette Garcia [phone] 11/06 JTPA TO ASSISTREGULARMCGUIRE POSITIONER Special Needs HT 5'7 WT 81.1 [...] LEFT SIDE UPC-ARMMCGUIRE POSITIONERCELL SAVER-confirmed 930 w/Frances #[id number] 6/5-AW// CELL SAVER CONFIRMED WITH NAVEED 7/ VPSMITH & NEPHEW REDAPT MULTI-HOLE CUP, DUAL MOBILITY LINER, R3 Main, Reamers, trial shells, Heller hip revision, hip farnsworth 2 and or3o. Confirmed with Colette Garcia [phone] 10/02 JTDUPUY CORAIL #13 STANDARD COLLARED STEMHEADS SIZES 22 & 23 CERAMIC AVAILABLE One company farnsworth confirmed with [employer] [phone] 10/01 JT Special Needs HT 5'7 WT 83.8 kg BMI 29.01 GLUCOSE METER Timed 10/11/2024 8:20 AM CDT SCAN-CARDIAC STRIP 10/11/2024 12:00 AM CDT SCAN-OPERATIVE/NH OCEDURE REPORT 10/11/2024 12:00 AM CDT CBC W PLT NO DIFF Routine 09/24/2024 4:30 PM CDT Essential hypertension BASIC METABOLIC PANEL Routine 09/24/2024 4:30 PM CDT Essential hypertension SCAN-OPERATIVE/NH OCEDURE REPORT 09/20/2024 12:00 AM CDT XR [...] REFLEX MEASURED LDL Routine 05/14/2024 3:17 PM COMPENSATION SUPERVISOR Mixed hyperlipidemia SDNA-FIT EXTERNAL (COLOGUARD) Routine 04/28/2022 7:00 PM COMPENSATION SUPERVISOR Screening for colon cancer ANTI HCV Routine 04/24/2018 3:34 PM COMPENSATION SUPERVISOR Need for hepatitis C screening test XR DXA BONE DENSITY 2 SITES AXIAL Routine 02/28/2017 2:04 PM COMPENSATION SUPERVISOR Asymptomatic menopausal state Screening for osteoporosis from Last 3 Months or Most Recently Relevant to Health Maintenance Results * (ABNORMAL) SEDIMENTATION RATE (11/12/2024 8:31 AM CDT) Only the most recent of2 resultswithin the time period is included. Pathologist [facility] SEDIMENTATION RATE 100(H) <30 mm/hr 2024 8:55 AM CDT [facility] Blood BLOOD SPECIMEN / Unknown Non-Lab Venipuncture / Unknown 11/12/2024 8:31 AM CDT 11/12/2024 8:40 AM CDT Claudia Elliott MD HEMATOLOGY Final Result [facility] SENDOUT INTERNAL ZIP [id number] [place] [address] * (ABNORMAL) CBC WITH AUTO DIFFERENTIAL (11/12/2024 8:31 AM CDT) Only the most recent of4 resultswithin the time period is included. Pathologist [facility] WHITE BLOOD COUNT 9.9 4.5 - 11.0 thou/cu mm 11/12/2024 8:43 AM T [facility] RED BLOOD COUNT 2.69(L) 4.00 - 5.20 mil/cu mm 11/12/2024 8:43 AM T [facility] HEMOGLOBIN 7.6(L) 12.0 - 16.0 g/dL 11/12/2024 8:43 AM [facility] HEMATOCRIT 24.1(L) 33.0 - 51.0 % 11/12/2024 8:43 AM [facility] MCV 90 80 - 100 fL 11/12/2024 8:43 AM T [facility] MCH 28.3 26.0 - 34.0 pg 11/12/2024 8:43 AM [facility] MCHC 31.5(L) 32.0 - 36.0 g/dL 11/12/2024 8:43 AM [facility] RDW 15.7(H) 11.5 - 15.5 % 11/12/2024 8:43 AM [facility] PLATELET COUNT 595(H) 140 - 440 thou/cu mm 11/12/2024 8:43 AM [facility] MPV 7.9 6.5 - 11.0 fL 11/12/2024 8:43 AM [facility] NRBC 0.0 % 11/12/2024 8:43 AM [facility] ABS NRBC 0.0 thou /cu mm 11/12/2024 8:43 AM [facility] % NEUT 63.6 % 11/12/2024 8:43 AM [facility] % LYMPH 25.6 % 11/12/2024 8:43 AM [facility] % MONO 4.7 % 11/12/2024 8:43 AM [facility] % EOS 3.5 % 11/12/2024 8:43 AM [facility] % BASO 0.9 % 11/12/2024 8:43 AM [facility] % IMMATURE GRAN (METAS,MYELOS,NH OS) 1.7 % 11/12/2024 8:43 AM [facility] ABSOLUTE NEUTROPHILS 6.3 1.7 - 7.0 thou/cu mm 11/12/2024 8:43 AM [facility] ABSOLUTE LYMPHOCYTES 2.5 0.9 - 2.9 thou/cu mm 11/12/2024 8:43 AM [facility] ABSOLUTE MONOCYTES 0.5 <0.9 thou/cu mm 11/12/2024 8:43 AM [facility] ABSOLUTE EOSINOPHILS 0.4 <0.5 thou/cu mm 11/12/2024 8:43 AM [facility] ABSOLUTE BASOPHILS 0.1 <0.3 thou/cu mm 11/12/2024 8:43 AM [facility] ABSOLUTE IMMATURE GRANULOCYTES(MET ,MYELOS,PROS) 0.2 <0.3 thou/cu mm 11/12/2024 8:43 AM [facility] Blood BLOOD SPECIMEN / Unknown Non-Lab Venipuncture / Unknown 11/12/2024 8:31 AM CDT 11/12/2024 8:40 AM CDT Result [facility] Claudia Elliott MD HEMATOLOGY Final Result [facility] SENDOUT [place] ZIP [id number] [address] [place] [address] * (ABNORMAL) CREATININE (11/12/2024 5:53 AM CDT) Only the most recent of2 resultswithin the time period is included. eGFR 70(L) >90 mL/min/1.7 3m2 11/12/2024 6:31 AM CDT [facility] Comment:As of 2021, eG FR is calculated by the CKD-EPI creatinine equation without race adjustment. eGFR can be influenced by muscle mass, exercise, and diet. The reported eGFR is an estimation only and is only applicable if the renal function is stable. CREATININE 0.87 0.50 - 0.90 mg/dL 11/12/2024 6:31 AM CDT [facility] Blood BLOOD SPECIMEN / Unknown Non-Lab Venipuncture / Unknown 11/12/2024 5:53 AM CDT 11/12/2024 6:05 AM CDT Result [facility] Delfino Nagel MD CHEMISTRY Final Result Performing Organization Address City/[facility]/ZIP Co de Phone Number [facility] SENDOUT INTERNAL ZIP [id number] [address] [place] [address] * (ABNORMAL) C-REACTIVE PROTEIN (11/12/2024 5:53 AM CDT) Only the most recent of5 resultswithin the time period is included. C-REACTIVE PROTEIN 1.2(H) <0.5 mg/dL 11/12/2024 8:09 AM CDT [facility] Blood BLOOD SPECIMEN / Unknown Non-Lab Venipuncture / Unknown 11/12/2024 5:53 AM CDT 11/12/2024 6:05 AM CDT us Claudia Elliott MD CHEMISTRY Final Result [facility] [address] [place] [address] [address] [place] [address] * CK TOTAL (11/12/2024 5:53 AM CDT) Only the most recent of2 resultswithin the time period is included. CK,TOTAL 36 26 - 192 IU/L 11/12/2024 8:09 AM T [facility] Blood BLOOD SPECIMEN / Unknown Non-Lab Venipuncture / Unknown 11/12/2024 5:53 AM CDT 11/12/2024 6:05 AM CDT us Claudia Elliott MD CHEMISTRY Final Result Performing Organization Address [facility]/ZIP Co de Phone Number [facility] SENDOUT [address] [phone] [place] [address] * (ABNORMAL) COMP METABOLIC PANEL (11/12/2024 5:53 AM CDT) Only the most recent of4 resultswithin the time period is included. SODIUM 139 136 - 145 mmol/L 11/12/2024 8:09 AM T [facility] POTASSIUM 4.0 3.5 - 5.1 mmol/L 11/12/2024 8:09 AM [facility] CHLORIDE 109(H) 98 - 107 mmol/L 11/12/2024 8:09 AM [facility] CO2,TOTAL 20(L) 22 - 29 mmol/L 11/12/2024 8:09 AM [facility] ANION GAP 10 5 - 18 11/12/2024 8:09 AM [facility] GLUCOSE 92 70 - 99 mg/dL 11/12/2024 8:09 AM [facility] CALCIUM 9.0 8.8 - 10.4 mg/dL 11/12/2024 8:09 AM [facility] Comment: Reference ranges for this test were updated on 02/14/2024 to reflect our healthy population more accurately. Reference range changes are not retroactively applied to results, but previous results using the same methodology can be interpreted in the context of the new reference range. BUN 19 8 - 23 mg/dL 11/12/2024 8:09 AM [facility] CREATININE 0.90 0.50 - 0.90 mg/dL 11/12/2024 8:09 AM [facility] BUN/CREAT RATIO 21(H) 10 - 20 8:09 AM [facility] eGFR 67(L) >90 mL/min/1. 73m2 11/12/2024 8:09 AM [facility] Comment: As of 2021, eGFR is [...] 4.0 - 4.9 g/dL 11/12/2024 8:09 AM [facility] PROTEIN,TOTAL 5.9(L) 6.0 - 8.0 g/dL 11/12/2024 8:09 AM [facility] BILIRUBIN,TOTAL 0.2 0.0 - 1.2 mg/dL 11/12/2024 8:09 AM [facility] ALK PHOSPHATASE 96 35 - 104 IU/L 11/12/2024 8:09 AM [facility] ALT (SGPT) <5(L) 10 - 35 IU/L 11/12/2024 8:09 AM [facility] AST (SGOT) 21 10 - 35 IU/L 11/12/2024 8:09 AM [facility] Blood BLOOD SPECIMEN / Unknown Non-Lab Venipuncture / Unknown 11/12/2024 5:53 AM CDT 11/12/2024 6:05 AM T us Claudia Elliott MD CHEMISTRY Final Result [facility] SENDOUT INTERNAL ZIP [address] [place] [address] * (ABNORMAL) BASIC METABOLIC PANEL (11/11/2024 5:29 AM CDT) Only the most recent of5 resultswithin the time period is included. SODIUM 138 136 - 145 mmol/L 11/11/2024 5:55 AM [facility] POTASSIUM 4.8 3.5 - 5.1 mmol/L 11/11/2024 5:55 AM [facility] CHLORIDE 108(H) 98 - 107 mmol/L 11/11/2024 5:55 AM [facility] CO2,TOTAL 18(L) 22 - 29 mmol/L 11/11/2024 5:55 AM [facility] ANION GAP 12 5 - 18 11/11/2024 5:55 AM [facility] GLUCOSE 84 70 - 99 mg/dL 11/11/2024 5:55 AM [facility] CALCIUM 8.9 8.8 - 10.4 mg/dL 11/11/2024 5:55 AM [facility] Comment: Reference ranges for this test were updated on 02/14/2024 to reflect our healthy population more accurately. Reference range changes are not retroactively applied to results, but previous results using the same methodology can be interpreted in the context of the new reference range. BUN 27(H) 8 - 23 mg/dL 11/11/2024 5:55 AM [facility] CREATININE 1.06(H) 0.50 - 0.90 mg/dL 11/11/2024 5:55 AM [facility] BUN/CREAT RATIO 25(H) 10 - 20 5:55 AM [facility] eGFR 55(L) >90 mL/min/1. 73m2 11/11/2024 5:55 AM [facility] Comment:As of 2021, eG FR is calculated by the CKD-EPI creatinine equation without race adjustment. eGFR can be influenced by muscle mass, exercise, and diet. The reported eGFR is an estimation only and is only applicable if the renal function is stable. Blood BLOOD SPECIMEN / Unknown Line/Port / Unknown 11/11/2024 5:29 AM CDT 11/11/2024 5:34 AM CDT us Delfino Nagel MD CHEMISTRY Final Result Performing Organization Address City/[facility]/ZIP Co de Phone Number [facility] SENDOUT INTERNAL ZIP [phone] [place] [address] * (ABNORMAL) HEMOGLOBIN (11/10/2024 5:21 AM CDT) Only the most recent of4 resultswithin the time period is included. HEMOGLOBIN 8.0(L) 12.0 - 16.0 g/dL 11/10/2024 5:44 AM CDT [facility] MCV 86 80 - 100 fL 11/10/2024 5:44 AM CDT [facility] Blood BLOOD SPECIMEN / Unknown Non-Lab Venipuncture / Unknown 11/10/2024 5:21 AM CDT 11/10/2024 5:31 AM CDT Delfino Nagel MD HEMATOLOGY Final Result Performing Organization Address City/[facility]/ZIP Co de Phone Number [facility] SENDOUT INTERNAL ZIP [phone] [place] [address] * SCAN-ELECTROCARDIOGRAM EKG (11/09/2024 12:00 AM CDT) Narrative 11/09/2024 12:00 AM CDT Ordered by an unspecified provider. Result [facility] Other Clinical Staff OTHER Final Resul t * TRANSFUSE RBC (NURSE COMMUNICATION ORDER) (11/08/2024 4:37 PM CDT) Blood BLOOD SPECIMEN / Unknown Result [facility] Delfino Nagel MD NURSING BLOOD BANK Final Result * RBC W/O TYPE & SCREEN (11/08/2024 12:36 PM CDT) QUANTITY 1 11/08/2024 12:36 PM CDT [facility] Blood BLOOD SPECIMEN / Unknown 11/08/2024 9:26 AM CDT Delfino Nagel MD BLOOD BANK Final Result [facility] BLOOD BANK [address] [place] [address] * RED BLOOD CELLS EA UNIT (11/08/2024 11:53 AM CDT) CROSSMATCH Compatible Compatible [facility] B[facility]OD [facility] PRODUCT BLOOD TYPE AB Rh Negative [facility] PRODUCT ID NUMBER [id number] [facility] PRODUCT STATUS Transfused UNIT ED [facility] B[facility]OD BANK PRODUCT DESCRIPTION RBC -1 LR [facility] PRODUCT CODE [id number] [facility] ISSUE DATE/TIME 11/08/24 13:49 [facility] us Delfino Nagel MD BLOOD BANK Edited Result - Final Performing Organization Address City/[facility]/ZIP Co de Phone Number [facility] [address] [place] [phone] * TYPE & SCREEN (11/08/2024 11:52 AM CDT) ABORH AB Rh Negative 11/08/2024 1:07 PM CDT [facility] ANTIBODY SCREEN Negative Negative 11/08/2024 1:07 PM CDT [facility] SPECIMEN EXPIRATION DATE/TIME 11/11/24 23:59 11/08/2024 1:07 PM CDT [facility] Blood BLOOD SPECIMEN / Unknown Venipuncture / Unknown 11/08/2024 11:52 AM CDT 11/08/2024 12:12 PM CDT us Delfino Nagel MD BLOOD BANK Final Result [facility] [address] [place] [address] * EXTRA TUBE LAVENDAR (11/08/2024 8:32 AM CDT) Blood BLOOD SPECIMEN / Unknown Non-Lab Venipuncture / Unknown 11/08/2024 8:32 AM CDT 11/08/2024 12:39 PM CDT us Timothy Bishop MD LABORATORY Final Result [facility] SENDOUT [place] [address] [address] [place] [address] * (ABNORMAL) MRSA/SA PCR (11/07/2024 6:34 PM CDT) MRSA DNA PCR Positive( A) Negative 11/07/2024 7:57 PM CDT [facility] STAPHYLOCOCCUS AUREUS PCR Positive( A) Negative 11/07/2024 7:57 PM CDT [facility] Other SPECIMEN FROM INTERNAL NOSE / Unknown Non-Blood / Unknown 11/07/2024 6:34 PM CDT 11/07/2024 6:41 PM CDT Narrative [facility] - 11/07/2024 7:57 PM CDT A positive test result does not necessarily indicate the presence of viable organisms. It is, however, presumptive for the presence of Methicillin Resistant Staphylococcus aureus (MRSA) or Staphylococcus aureus. Delfino Nagel MD MICROBIOLOGY Final Result [facility] SENDOUT [place] [address] [address] [place] [address] * HCHG TRAY PR10 (11/07/2024 1:03 PM CDT) Narrative [...] length: 4 in Assessment Events: no complications. Uriel Huber [facility] ANESTHESIA PX NOTE ORDERABL ES Final Result * GLUCOSE, RANDOM (11/07/2024 11:42 AM CDT) Pathologist [facility] GLUCOSE,RANDOM 93 70 - 139 mg/dL 11/07/2024 12:09 PM T [facility] Blood BLOOD SPECIMEN / Unknown Venipuncture / Unknown 11/07/2024 11:42 AM CDT 11/07/2024 11:45 AM CDT Timothy Bishop MD CHEMISTRY Final Result [facility] SENDOUT [address] [address] [address] [place] [address] * (ABNORMAL) CBC with Platelets no Differential (11/07/2024 11:42 AM CDT) Only the most recent of2 resultswithin the time period is included. Pathologist [facility] WHITE BLOOD COUNT 7.8 4.5 - 11.0 thou/cu mm 11/07/2024 11:51 AM [facility] RED BLOOD COUNT 3.03(L) 4.00 - 5.20 mil/cu mm 11/07/2024 11:51 AM [facility] HEMOGLOBIN 8.2(L) 12.0 - 16.0 g/dL 11/07/2024 11:51 AM [facility] HEMATOCRIT 25.5(L) 33.0 - 51.0 % 11/07/2024 11:51 AM [facility] MCV 84 80 - 100 fL 11/07/2024 11:51 AM [facility] MCH 27.1 26.0 - 34.0 pg 11/07/2024 11:51 AM [facility] MCHC 32.2 32.0 - 36.0 g/dL 11/07/2024 11:51 AM [facility] RDW 14.9 11.5 - 15.5 % 11/07/2024 11:51 AM [facility] PLATELET COUNT 584(H) 140 - 440 thou/cu mm 11/07/2024 11:51 AM [facility] MPV 7.9 6.5 - 11.0 fL 11/07/2024 11:51 AM [facility] NRBC 0.0 % 11/07/2024 11:51 AM CDT [facility] ABS NRBC 0.0 thou /cu mm 11/07/2024 11:51 AM CDT [facility] Blood BLOOD SPECIMEN / Unknown Venipuncture / Unknown 11/07/2024 11:42 AM CDT 11/07/2024 11:45 AM CDT Narrative [facility] - 11/07/2024 11:51 AM CDT If not done within last 30 days. Nurse to release order. us Anna SILVER HEMATOLOGY Fin al Result [facility] SENDOUT [address] [address] [address] [place] [address] * SCAN-CARDIAC STRIP (11/07/2024 12:00 AM CDT) Narrative 11/07/2024 12:00 AM CDT Ordered by an unspecified provider. Other Clinical Staff OTHER Final Resul t * XR PELVIS 1 VIEW (11/01/2024 8:28 AM CDT) Only the most recent of3 resultswithin the time period is included. Anatomical Region Laterality Modality Pelvis Digital Radiogra phy Narrative 11/01/2024 3:03 PM CDT This Radiology Exam Was Performed at [facility] [place] and Interpreted by Marshall López PA-C HISTORY [...] BACTERIAL CULTURE, STAIN (10/11/2024 11:10 AM CDT) Pathologist [facility] CULTURE No Growth. 10/15/2024 1:00 PM CDT [facility] GRAM STAIN 2+ PMNs 10/15/2024 1:00 PM CDT [facility] GRAM STAIN No organisms seen 10/15/2024 1:00 PM CDT [facility] GRAM STAIN 4+ RBCs 10/15/2024 1:00 PM CDT [facility] GRAM STAIN No Epithelial cells 10/15/2024 1:00 PM CDT [facility] GRAM STAIN Gram stain performed by [place] 10/15/2024 1:00 PM CDT [facility] Swab (Left Hip) Non-Blood / Unknown 10/11/2024 11:10 AM CDT 10/11/2024 12:47 PM CDT us Timothy Bishop MD MICROBIOLOGY Final Result Performing Organization Address City/[facility]/ZIP Co de Phone Number [facility] [address] [place] [address], [facility] SENDOUT INTERNAL Z[address] [place] [address] * ANAEROBIC CULTURE (10/11/2024 11:10 AM CDT) CULTURE No anaerobes isolated 10/17/2024 11:43 AM CDT [facility] Swab (Left Hip) Non-Blood / Unknown 10/11/2024 11:10 AM CDT 10/11/2024 12:47 PM CDT us Timothy Bishop MD MICROBIOLOGY Final Result [facility] [address] [place] [address], * [facility] TRAY PR10 (10/11/2024 10:13 AM CDT) [...] - 100 mg/dL 10/11/2024 8:24 AM CDT [facility] Blood BLOOD SPECIMEN / Unknown 10/11/2024 8:20 AM CDT 10/11/2024 8:24 AM CDT us Timothy Bishop MD CHEMISTRY Final Result [facility] SENDOUT INTER[address] ZIP [address] [address] [place] [id number] * SCAN-CARDIAC STRIP (10/11/2024 12:00 AM CDT) [...] limits for newborns. 08/20/2024 4:33 PM CDT [facility] Blood BLOOD SPECIMEN / Unknown Non-Lab Venipuncture / Unknown 08/20/2024 2:00 PM CDT 08/20/2024 3:36 PM CDT Dolores Del Rosario MD HEMATOLOGY Fi nal Result Performing Organization Address [facility]/ZIP Co de Phone Number [facility] [address] [place] [address] * PLATELET ESTIMATE (08/20/2024 2:00 PM CDT) [facility] PLATELET ESTIMATE Adequate Adequate, No estimate 08/20/2024 4:33 PM CDT [facility] Blood BLOOD SPECIMEN / Unknown Non-Lab Venipuncture / Unknown 08/20/2024 2:00 PM CDT 08/20/2024 3:36 PM CDT Dolores Del Rosario MD HEMATOLOGY Fi nal Result Performing Organization Address [facility] Co de Phone Number [facility] [address] [place] [address] * MANUAL DIFFERENTIAL (08/20/2024 2:00 PM CDT) [facility] % NEUTROPHILS 63.0 % 08/20/2024 4:33 PM CDT [facility] % LYMPHOCYTES 23.0 % 08/20/2024 4:33 PM CDT [facility] % MONOCYTES 9.0 % 08/20/2024 4:33 PM T [facility] % EOSINOPHILS 4.0 % 08/20/2024 4:33 PM T [facility] % BASOPHILS 1.0 % 08/20/2024 4:33 PM CDT [facility] NEUTROPHILS ABSOLUTE 3.3 1.7 - 7.0 thou/cu mm 08/20/2024 4:33 PM CDT [facility] LYMPHOCYTES ABSOLUTE 1.2 0.9 - 2.9 thou/cu mm 08/20/2024 4:33 PM CDT [facility] MONOCYTES ABSOLUTE 0.5 <0.9 thou/cu mm 08/20/2024 4:33 PM CDT [facility] EOSINOPHILS ABSOLUTE 0.2 <0.5 thou/cu mm 08/20/2024 4:33 PM CDT [facility] BASOPHILS ABSOLUTE 0.1 <0.3 thou/cu mm 08/20/2024 4:33 PM CDT [facility] Blood BLOOD SPECIMEN / Unknown Non-Lab Venipuncture / Unknown 08/20/2024 2:00 PM CDT 08/20/2024 3:36 PM CDT us Dolores Del Rosario MD HEMATOLOGY Fi nal Result [facility] [address] [place] [address] * (ABNORMAL) LIPID PANEL W REFLEX MEASURED LDL (05/14/2024 3:17 PM COMPENSATION SUPERVISOR) CHOLESTEROL, TOTAL 196 <200 mg/dL [facility] [...] equation in the estimation of LDL-C. Rayo SS et al. TAYLOR. 2013;310(19): 0006-9608 (http://education.BrandFiesta/faq/YEC137) CHOL/HDLC RATIO 3.6 <5.0 (calc) [facility] NON HDL CHOLESTEROL 142(H) <130 mg/dL (calc) [facility] Comment: For patients with diabetes plus 1 major ASCVD risk factor, treating to a non-HDL-C goal of <100 mg/dL (LDL-C of <70 mg/dL) is considered a therapeutic option. Blood BLOOD SPECIMEN / Unknown 05/14/2024 3:17 PM COMPENSATION SUPERVISOR 05/14/2024 3:18 PM COMPENSATION SUPERVISOR Narrative [facility] - 05/15/2024 3:18 AM COMPENSATION SUPERVISOR FASTING:NO FASTING: NO Rachel Carmona MD CHEMISTRY Final Res ult [facility] [place] [address] [place] [address], [facility]ostics[facility] [address] [place] [address] * SDNA-FIT EXTERNAL (COLOGUARD) (04/28/2022 7:00 PM COMPENSATION SUPERVISOR) NONINV COLON CA DNA+OCC BLD SCRN STL-IMP Negative Negative 05/05/2022 7:33 PM COMPENSATION SUPERVISOR [facility] (CLIA #:[id number]) Comment: NEGATIVE TEST RESULT. A negative Cologuard [...] (Vanessa Maher al, N Engl J Med 2014;370(14):4224-1436) The normal value (reference range) for this assay is negative. COLOGUARD RE-SCREENING RECOMMENDATION: Periodic colorectal cancer screening is an important part of preventive healthcare for asymptomatic individuals at average risk for colorectal cancer. Following a negative Cologuard result, the [place] [employer] Society and U.S. Multi-Society Task Force screening guidelines recommend a Cologuard re-screening interval of 3 years. References: [place] [employer] Guideline for Colorectal Cancer Screening: https://www.cancer.org/cancer/sgsnp-hzmzrl-mtlpnc/fgcaalkem-oepvogqeo-dclfejl/ac s-rec ommendations.html.; Lino DK, Ceferino CR, Troy YuK, Colorectal Cancer Screening: Recommendations for Physicians and Patients from the U.S. Multi-Society Task Force on Colorectal Cancer Screening , Am J Gastroenterology 2017; 112:4913-1515. TEST DESCRIPTION: Composite algorithmic analysis of stool [...] (Vanessa Maher al, N Engl J Med 2014;370(14):2577-7358.) Cologuard may produce a false negative or false positive result (no colorectal cancer or precancerous polyp present at colonoscopy follow up). A negative Cologuard test result does not guarantee the absence of CRC or advanced adenoma (pre-cancer). The current Cologuard screening interval is every 3 years. ([place] [employer] Society and U.S. Multi-Society Task Force). Cologuard performance data in a 10,000 patient pivotal study using colonoscopy as the reference method can be accessed at the following location: www.[employer].NeoAccel/results. Additional description of the Cologuard test process, warnings and precautions can be found at www.coldooubrd.com. Stool specimen (specimen) (Rectum) 04/28/2022 7:00 PM COMPENSATION SUPERVISOR 05/01/2022 11:53 AM COMPENSATION SUPERVISOR Rachel Carmona MD URINE Final Res ult [facility] (CLIA #:[id number]) [place] [address], * ANTI HCV [15934.2] (04/24/2018 3:34 PM COMPENSATION SUPERVISOR) HEPATITIS C ANTIBODY Non-React bee Non-React bee 04/24/2018 8:22 PM COMPENSATION SUPERVISOR [facility] Comment:Antibodies to HCV no t detected; does not exclude the possibility of exposure to HCV. Blood BLOOD SPECIMEN / Unknown Venipuncture / Unknown 04/24/2018 3:34 PM COMPENSATION SUPERVISOR 04/24/2018 3:34 PM COMPENSATION SUPERVISOR Rachel Carmona MD SEND OUTS Final Res ult Performing Organization Address [facility] Co de Phone Number [facility] [address] [place] [address], [place] * (ABNORMAL) XR DXA BONE DENSITY 2 SITES AXIAL (02/28/2017 2:04 PM COMPENSATION SUPERVISOR) Anatomical Region Laterality Modality Spine, HIPS, HIPL, HIPR Other Narrative 03/01/2017 5:31 PM COMPENSATION SUPERVISOR Please see scanned document for results [...] Comments Code Status Discussion: Discussed Care Teams Swatch Maker Relationship Specialty Start Date End Date Rachel Carmona MD [address] [place] [address] PCP - General Internal Medicine 08/12/17 Andrea Tabares MD [address] [place] [address] Surgery - Orthopedics 02/20/18 Jeanette Fernandez MD [address] [facility] [address] [place] [address] Neurology 01/27/21 [facility] [address] [facility] [address] 11/12/24
--- OUTSIDE RECORDS SUMMARY | 2024-11-16 15:12 | XMS_ITS | Clinical Summary ---
Author Organization [facility] Address [address] [place] [address] Care Team Providers Care Enrollment Management Manager Name Role Phone Unavailable Primary Care Provider Unavailabl e Source Comments Patient records contain information from all sites at [facility]. For routine questions regarding patient records, call [phone] during business hours, M-F 8:00 AM - 5:00 PM Central Time. Record requests for emergency care only can be directed to [phone] at any time.[facility] [...] mouth every morning before breakfast. Active rizatriptan TRANSMISSION SUPERVISOR (MAXALT-TRANSMISSION SUPERVISOR) 10 mg disintegrating tablet Dissolve 10 mg [...] patient's age to complete this topic Insurance [facility] [place] [address]
[2024-11-16 15:17] VITALS: BP 164/84; PULSE 98; RESP 18; TEMP 35.9; O2SAT 98; BMI 27.6
--- NOTE | 2024-11-16 15:48 | ED.GENADULT ---
HPI - General Adult General Chief complaint: Unspecified Complaint, Adult Stated complaint: picc line fell out Time Seen by Provider: 11/16/24 15:26 History of Present Illness HPI narrative: This 74-year-old female comes in stating that her PICC line was dislodged and she needs to have 1 replaced. She is taking oral antibiotics along with IV antibiotics because of an infection in her left hip replacement. She states that she feels normal currently and has normal vital signs. The reason for her visit here is exclusively for purposes of reestablishing a PICC line. Related Data Home Medications ?Medication ?Instructions ?Recorded ?Confirmed acetaminophen 500 mg tablet mg PO PRN 11/27/21 07/15/24 albuterol 90 mcg/actuation aerosol 2 spray inhalation PRN 11/27/21 07/15/24 inhaler budesonide-formoterol HFA 80 2 inhalation BID 11/27/21 07/15/24 mcg-4.5 mcg/actuation aerosol inhaler calcium acetate PO 11/27/21 07/15/24 dextroamphetamine-amphetamine ER 10 PO DAILY 11/27/21 07/15/24 10 mg 24hr capsule,extend release duloxetine 60 mg capsule,delayed 60 mg PO DAILY 11/27/21 10/15/24 release lisinopril 20 1 tab PO DAILY 11/27/21 10/15/24 mg-hydrochlorothiazide 25 mg tablet lutein 10 mg tablet 50 mg PO DAILY 11/27/21 10/15/24 meclizine 25 mg tablet 25 mg PO PRN 11/27/21 07/15/24 naproxen sodium 220 mg tablet 440 mg PO PRN 11/27/21 07/15/24 omeprazole 20 mg capsule,delayed mg PO DAILY 11/27/21 07/15/24 release amantadine HCl 100 mg capsule 100 mg PO BID 10/15/24 10/15/24 amlodipine 5 mg tablet 5 mg PO DAILY 10/15/24 10/15/24 baclofen 10 mg tablet 5 mg PO QPM 10/15/24 10/15/24 fluticasone 250 mcg-salmeterol 50 1 ea inhalation BID 10/15/24 10/15/24 mcg/dose blistr powdr for inhalation hydrochlorothiazide 25 mg tablet 25 mg PO DAILY 10/15/24 10/15/24 ibuprofen 600 mg tablet 600 mg PO Q6H PRN 10/15/24 10/15/24 oxycodone 5 mg tablet PO 10/15/24 sennosides 8.6 mg-docusate sodium PO 10/15/24 50 mg tablet (Senexon-S) spironolactone 25 mg tablet 12.5 mg PO QAM 10/15/24 10/15/24 topiramate 25 mg tablet 25 mg PO QPM 10/15/24 10/15/24 trazodone 50 mg tablet mg PO 10/15/24 Allergies Allergy/AdvReac Type Severity Reaction Status Date / Time furosemide (From Lasix) Allergy Intermediate Hives Verified 11/16/24 15:22 tizanidine Allergy Mild Dizziness Verified 11/16/24 15:22 Review of Systems Status of ROS: Reports: 10 or more systems reviewed and unremarkable except as noted in History and below Narrative: Constitutional: No fevers, no weight gain or loss. Eyes: No discharge. No vision changes. HENT: No congestion, no sore throat, no ear pain. Cardiovascular: No chest pain, no palpitations. Respiratory: No shortness of breath, no wheezes, no cough. Gastrointestinal: No abdominal pain, no vomiting, no diarrhea. Genitourinary: No dysuria, no hematuria. Musculoskeletal: Normal range of motion. Skin: No rashes, no pruritis. Neurological: No dizziness, weakness, sensory change, speech change. Endo/Heme/Allergies: No bruising or bleeding. No polydipsia. Pysch: no suicidality, no anxiety, no insomnia. All other systems reviewed and are negative. PFSH PFS Surgical History Status post right hip replacement ?Z96.641 - Presence of right artificial hip joint (ICD-10) Social History Smoking Status: Never smoker Do you use any of these nicotine containing products: None How often do you have a drink containing alcohol: monthly or less How many standard drinks containing alcohol do you have on a typical day: 1 or 2 How often do you have six or more drinks on one occasion: Never AUDIT-C Alcohol total score: 1 Non-prescribed substance use: denies use service: No Exam Narrative: Exam Narrative: Constitutional: Well-developed, well-nourished, no acute distress. HEENT: Normocephalic, atraumatic. Neck: Normal range of motion. Nontender. Supple. Heart: Intact distal pulses. Lungs: No chest discomfort. No wheezes, rhonchi, or rales. Abdomen: Nontender. Back: Normal range of motion. Extremities: Normal range of motion. No injury. Skin: Intact. No rash. Warm. No erythema or pallor. Neurologic: No altered sensation. No weakness. Alert and oriented. Psychiatric: No suicidality. No anxiety or depression. No insomnia. Nursing notes and vitals signs are reviewed. Const: Vital Signs, click to edit/add: Vital Signs - 24 hr 11/16/24 15:17 Temperature 96.6 F L Pulse Rate [Right Pulse Oximeter] 98 Respiratory Rate 18 Blood Pressure [Ri ght Upper Arm] 164/84 H Pulse Oximetry 98 Oxygen Delivery Me thod Room Air Course Vital Signs Vital signs: Initial Vital Signs Temperature 96.6 F L 11/16/24 15:17 Temperature Source Temporal Artery Scan 11/16/24 15:17 Pulse Rate 98 11/16/24 15:17 Pulse Rhythm Regular 11/16/24 15:17 Pulse Strength 3+ Normal 11/16/24 15:17 Respiratory Rate 18 11/16/24 15:17 Blood Pressure 164/84 H 11/16/24 15:17 Blood Pressure Mean 110 H 11/16/24 15:17 Blood Pressure Position Sitting 11/16/24 15:17 Pulse Oximetry 98 11/16/24 15:17 Oxygen Delivery Method Room Air 11/16/24 15:17 Vital Signs Temperature 96.6 F L 11/16/24 15:17 Pulse Rate 98 11/16/24 15:17 Respiratory Rate 18 11/16/24 15:17 Blood Pressure 164/84 H 11/16/24 15:17 Pulse Oximetry 98 11/16/24 15:17 Oxygen Delivery Method Room Air 11/16/24 15:17 Temperature 96.6 F L 11/16/24 15:17 Pulse Rate 98 11/16/24 15:17 Respiratory Rate 18 11/16/24 15:17 Blood Pressure 164/84 H 11/16/24 15:17 Pulse Oximetry 98 11/16/24 15:17 Oxygen Delivery Method Room Air 11/16/24 15:17 Medical Decision Making MDM Narrative Medical decision making narrative: This patient comes in to have a PICC line replaced as it became dislodged. PICC stat was contacted and will arrive to accomplish this. A PICC line was placed and x-ray images by my review show proper placement of the tip of the line. The patient is okay to be discharged home to resume current plans. Discharge Plan Discharge Clinical Impression: Needs peripherally inserted central catheter (PICC) Patient Disposition: Home, Self-Care Condition: Stable Additional Instructions: Continue current plans. Follow up with MD as scheduled or as needed. Return if worsening. Prescriptions: No Action lutein 10 mg tablet 50 mg PO DAILY budesonide-formoterol 80-4.5 mcg/actuation HFA aerosol inhaler 2 inhalation BID duloxetine 60 mg capsule,delayed release(DR/EC) 60 mg PO DAILY albuterol 90 mcg/actuation aerosol 2 spray inhalation PRN dextroamphetamine-amphetamine 10 mg capsule,extended release 24hr 10 PO DAILY lisinopril-hydrochlorothiazide 20-25 mg tablet 1 tab PO DAILY omeprazole 20 mg capsule,delayed release(DR/EC) PO DAILY naproxen sodium 220 mg tablet 440 mg PO PRN meclizine 25 mg tablet 25 mg PO PRN calcium acetate PO acetaminophen 500 mg tablet PO PRN fluticasone propion-salmeterol 250-50 mcg/dose blister with device 1 ea INHALATION BID trazodone 50 mg tablet PO sennosides-docusate sodium [Senexon-S] 8.6-50 mg tablet PO topiramate 25 mg tablet 25 mg PO QPM amlodipine 5 mg tablet 5 mg PO DAILY amantadine HCl 100 mg capsule 100 mg PO BID spironolactone 25 mg tablet 12.5 mg PO QAM baclofen 10 mg tablet 5 mg PO QPM hydrochlorothiazide 25 mg tablet 25 mg PO DAILY ibuprofen 600 mg tablet 600 mg PO Q6H PRN oxycodone 5 mg tablet PO Follow Up/Referrals: Rachel Carmona MD [Primary Care Provider, Internal Medicine] Stand Alone Forms: [facility] Info Instructions
--- OUTSIDE RECORDS SUMMARY | 2024-11-16 15:54 | XMS_ITS | Clinical Summary ---
Author Organization [facility] Address [address] , [address] [place] [address] Phone Care Team Providers Care Sole Skiver Name Role Phone Zachary FOLEY, BSN, Peace Thompson [phone] Conditions or Problems Problem Name Problem Code Onset Date Status Entry Date Provider Comment Standard Description Annotate Knee pain, left, chronic 1642105066 (SNOMED CT) 10/26 Active 10/28 Noy Campeau Pain of joint of knee Knee pain, right, chronic 0227301155 (SNOMED CT) 10/26 Active 10/26 Noy [place]peau Pain of joint of knee Hip pain, left 19449226 (SNOMED CT) 10/26 Active 10/28 Noy Campeau Pain of hip region Hip joint pain, right 00380704 (SNOMED CT) 10/26 Active 10/26 Noy [place]peau Pain of hip region Leg pain, left 125696122 (SNOMED CT) 10/26 Active 10/28 Noy Campeau Pain in left lower limb Leg pain, right 163754331 (SNOMED CT) 10/26 Active 10/26 Noy Campeau Pain in right lower limb Leg pain, bilateral 55463915 (SNOMED CT) 10/26 Inactive 10/26 Jeanette Marcum MD Pain in lower limb Restless leg syndrome 88449713 (SNOMED CT) 10/26 Active 10/26 Jeanette Marcum MD Restless legs Hip pain 44291419 (SNOMED CT) 10/26 Inactive 10/26 Jeanette Marcum MD Pain of hip region Knee pain, chronic 63659518 (SNOMED CT) 10/26 Inactive 10/26 Jeanette Marcum MD Knee pain Low back pain, chronic 976530550 (SNOMED CT) 10/26 Active 10/26 Jeanette Marcum MD Chronic low back pain Fatigue, chronic 99001777 (SNOMED CT) Active Jeanette Marcum MD Fatigue Anxiety disorder 339173860 (SNOMED CT) Active Jeanette Marcum MD Anxiety disorder Depression 77737412 (SNOMED CT) Active Jeanette Marcum MD Depressive disorder Multiple sclerosis, relapsing/r emitting 373692963 (SNOMED CT) 1986 Active 09/26 Jeanette Marcum MD Relapsing remitting multiple sclerosis Carpal tunnel syndrome, bilateral upper limbs 10951405963669 101 (SNOMED CT) 12/30 Active 12/30 Watson Baker MD Bilateral carpal tunnel syndrome Multiple sclerosis, relapsing/r emitting 295064007 (SNOMED CT) 09/26 Inactive 09/26 Lazaro Tomas MD Relapsing remitting multiple sclerosis Neuropathy, idiopathic peripheral 08236010 (SNOMED CT) 09/26 Active 09/26 Lazaro Tomas MD Idiopathic peripheral neuropathy Medications Medication Instructions Start Date Stop Date Generic Name ND Provider BACLOFEN 10 MG TABS Take 1/2 tablet by mouth at bedtime baclofen [id number] Jeanette Marcum MD AMANTADINE HCL 100 MG TABS Take 1 tablet by mouth twice a day 12/19 amantadine hcl 47968238726 Claudia SILVER-Ibrahima AMANTADINE HCL 100 MG CAPS TAKE ONE CAPSULE BY MOUTH TWICE DAILY amantadine hcl 45755763182 Claudia SILVER-C ESCITALOPRAM OXALATE 10 MG TABS Take 1 Tablet by mouth one time a day. escitalopram oxalate 23813476008 Jeanette Marcum MD AMPHETAMINE-DEXTR OAMPHET ER 10 MG PL85W-KLE TAKE ONE CAPSULE BY MOUTH EVERY MORNING NEEDED 07/27 dextroamphetamine -amphetamine 19709938956 Jeanette Marcum MD AMPHETAMINE-DEXTR OAMPHET ER 10 MG AX43F-JWO Take 1 capsule by mouth every morning TAKE ONE CAPSULE BY MOUTH EVERY MORNING NEEDED dextroamphetamine -amphetamine 68230460623 Claudia Rodriguez PA-C DULOXETINE HCL 60 MG CPEP TAKE ONE CAPSULE BY MOUTH DAILY duloxetine 88310115030 Jeanette Marcum MD AMPHETAMINE-DEXTR OAMPHET ER 10 MG [id number]-ZDS TAKE ONE CAPSULE BY MOUTH EVERY MORNING NEEDED 08/24 dextroamphetamine -amphetamine 33519948025 Jeanette Marcum MD DULOXETINE HCL 60 MG CPEP TAKE ONE CAPSULE BY MOUTH DAILY 05/19 duloxetine 51203925141 Jeanette Marcum MD DULOXETINE HCL 60 MG CPEP TAKE ONE CAPSULE BY MOUTH DAILY 04/16 duloxetine 73353170176 Katalina Lagunas PA-C DULOXETINE HCL 30 MG CPEP TAKE ONE CAPSULE BY MOUTH ONCE A DAY. TAKE WITH 60 MG CAPSULE. 10/26 duloxetine 31684963127 Jeanette Marcum MD ESCITALOPRAM OXALATE 10 MG TABS Take 1 Tablet by mouth one time a day. 10/23 escitalopram oxalate 51614761113 Jeanette Marcum MD AMPHETAMINE-DEXTR OAMPHET ER 5 MG RO03W-HIG TAKE TWO CAPSULE BY MOUTH EVERY MORNING NEEDED 10/07 dextroamphetamine -amphetamine 26696139455 Jeanette Marcum MD AMPHETAMINE-DEXTR OAMPHET ER 10 MG TJ26V-MVQ TAKE ONE CAPSULE BY MOUTH EVERY MORNING NEEDED 08/24 dextroamphetamine -amphetamine 84516936413 Jeanette Marcum MD AMPHETAMINE-DEXTR OAMPHET ER 10 MG XH57L-ZGB TAKE ONE CAPSULE BY MOUTH EVERY MORNING NEEDED 0 09/30 dextroamphetamine -amphetamine 94943976370 Jeanette Marcum MD AMPHETAMINE-DEXTR OAMPHET ER 5 MG QT02X-UEJ TAKE TWO CAPSULE BY MOUTH EVERY MORNING NEEDED 0 10/19 dextroamphetamine -amphetamine 57467430070 Jeanette Marcum MD AMPHETAMINE-DEXTR OAMPHET ER 10 MG SM05F-DIP TAKE ONE CAPSULE BY MOUTH EVERY MORNING NEEDED 0 08/24 dextroamphetamine -amphetamine 28411116696 Claudia Rodriguez PA-C AMPHETAMINE-DEXTR OAMPHET ER 10 MG ZR05S-FOB TAKE ONE CAPSULE BY MOUTH EVERY MORNING NEEDED 0 08/24 dextroamphetamine -amphetamine 16758325218 Jeanette Marcum MD AMPHETAMINE-DEXTR OAMPHET ER 10 MG JJ46C-NUH TAKE ONE CAPSULE BY MOUTH EVERY MORNING NEEDED 0 08/24 dextroamphetamine -amphetamine 94410888533 Justin Romero MD AMPHETAMINE-DEXTR OAMPHET ER 10 MG GT97Z-LAL TAKE ONE CAPSULE BY MOUTH EVERY MORNING NEEDED 0 08/24 dextroamphetamine -amphetamine 93333940205 Jeanette Marcum MD BACLOFEN 10 MG TABS Take 1/2 tablet by mouth at bedtime 05/21 baclofen 34963936111 Ag Staton MD AMPHETAMINE-DEXTR OAMPHET ER 10 MG GG67O-DFW TAKE ONE CAPSULE BY MOUTH EVERY MORNING NEEDED 0 16 dextroamphetamine -amphetamine 35089890400 Bárbara Longoria PA-C DULOXETINE HCL 30 MG CPEP Take 1 capsule by mouth once a day (take with 60 mg cap) 05/03 duloxetine 73784676853 Jeanette Marcum MD DULOXETINE HCL 30 MG CPEP TAKE ONE CAPSULE BY MOUTH ONCE A DAY. TAKE WITH 60 MG CAPSULE. 0 10/26 duloxetine 71738527322 Jeanette Marcum MD AMPHETAMINE-DEXTR OAMPHET ER 10 MG TE83I-AKK TAKE ONE CAPSULE BY MOUTH EVERY MORNING NEEDED 0 08/24 dextroamphetamine -amphetamine 54679892361 Jeanette Marcum MD DULOXETINE HCL 30 MG CPEP Take 1 capsule by mouth once a day (take with 60 mg cap) 05/03 duloxetine 73502856174 Jeanette Marcum MD AMPHETAMINE-DEXTR OAMPHET ER 10 MG WP93N-BZZ TAKE ONE CAPSULE BY MOUTH EVERY MORNING NEEDED 08/24 dextroamphetamine -amphetamine 24038283302 Claudia Rodriguez PA-C DULOXETINE HCL 30 MG CPEP Take 1 capsule by mouth once a day (take with 60 mg cap) 10/29 duloxetine 18588960104 Jeanette Marcum MD ESCITALOPRAM OXALATE 10 MG TABS Take 1 tablet by mouth once a day 10/20 escitalopram oxalate 79687810197 Jeanette Marcum MD ESCITALOPRAM OXALATE 10 MG TABS Take 1 tablet by mouth once a day 10/20 escitalopram oxalate 39152057736 Jeanette Marcum MD BACLOFEN 5 MG TABS Take 1 tablet by mouth at bedtime 0 04/20 baclofen 88110413139 Jeanette Marcum MD TOPIRAMATE 25 MG TABS 1 tab at night topiramate 43180341572 Jeanette Marcum MD AMANTADINE HCL 100 MG TABS Take 1 tablet by mouth twice a day 0 9 amantadine hcl 14901872168 Jeanette Marcum MD DULOXETINE HCL 60 MG CPEP TAKE ONE CAPSULE BY MOUTH DAILY 0 804 duloxetine 74873809093 Jeanette Marcum MD AMPHETAMINE-DEXTR OAMPHET ER 10 MG FY67Z-RLK TAKE ONE CAPSULE BY MOUTH EVERY MORNING NEEDED 0 08/24 dextroamphetamine -amphetamine 81742423471 Jeanette Marcum MD AMPHETAMINE-DEXTR OAMPHET ER 10 MG GX08O-KJB TAKE ONE CAPSULE BY MOUTH EVERY MORNING NEEDED 08/24 dextroamphetamine -amphetamine 36222905424 Claudia Rodriguez PA-C ESCITALOPRAM OXALATE 10 MG TABS Take 1 tablet by mouth once a day 10/20 escitalopram oxalate 69483720632 Conchis Hughes RN DULOXETINE HCL 60 MG CPEP Take 1 capsule by mouth once a day 07/09 duloxetine 07357905739 Jeanette Marcum MD DULOXETINE HCL 60 MG CPEP TAKE ONE CAPSULE BY MOUTH DAILY 09/29 duloxetine 02171760133 Claudia Rodriguez PA-C ESCITALOPRAM OXALATE 10 MG TABS TAKE ONE TABLET BY MOUTH EVERY DAY 07/09 escitalopram oxalate 27310673543 Jeanette Marcum MD BACLOFEN 5 MG TABS Take 1 tablet by mouth at bedtime 10/20 baclofen 00515083817 Claudia Rodriguez PA-C ALBUTEROL SULFATE 2 MG TABS albuterol sulfate 80137526676 Claudia Rodriguez PA-C VITAMIN D3 50 MCG (1999) TABS 2 per day cholecalciferol (vitamin d3) 49139903435 Claudia Rodriguez PA-C AMPHETAMINE-DEXTR OAMPHET ER 10 MG QK63Y-LDS TAKE ONE CAPSULE BY MOUTH EVERY MORNING NEEDED 08/24 dextroamphetamine -amphetamine 21819133783 Jeanette Marcum MD AMPHETAMINE-DEXTR OAMPHET ER 10 MG NG07G-KRX TAKE ONE CAPSULE EVERY MORNING NEEDED dextroamphetamine -amphetamine 24168212931 Watson Baker MD AMPHETAMINE-DEXTR OAMPHET ER 10 MG TS65A-RKH TAKE ONE CAPSULE BY MOUTH EVERY MORNING NEEDED 08/24 dextroamphetamine -amphetamine 48384634647 Jeanette Marcum MD DULOXETINE HCL 60 MG CPEP Total of 120mg daily duloxetine 10102806347 Swati Mclean DNP,PASTRY COOK APPRENTICE,IT WEB DEVELOPMENT CONSULTANT ESCITALOPRAM OXALATE 10 MG TABS Take 1 tablet by mouth once a day 10/20 escitalopram oxalate 69715888963 Jeanette Marcum MD DULOXETINE HCL 60 MG CPEP Take 1 capsule by mouth once a day 07/24 duloxetine 47965361085 Jeanette Marcum MD AMPHETAMINE-DEXTR OAMPHET ER 10 MG BW64Q-PKA Take 1 capsule by mouth every morning as needed 12/19 dextroamphetamine -amphetamine 25665574445 Watson Baker MD AMPHETAMINE-DEXTR OAMPHET ER 10 MG AF14G-CNG TAKE ONE CAPSULE EVERY MORNING NEEDED 08/24 dextroamphetamine -amphetamine 97593785471 Watson Baker MD SYMBICORT 80-4.5 MCG/ACT AERO 2 once a day budesonide-formot cherelle 47870321608 Watson Baker MD AMPHETAMINE-DEXTR OAMPHET ER 10 MG YF33T-ZAJ Take 1 capsule by mouth every morning as needed 08/24 dextroamphetamine -amphetamine 29250395776 Watson Baker MD OMEPRAZOLE 20 MG CPDR 1-2 capsule by mouth once a day omeprazole 74571369052 Watson Baker MD CYCLOBENZAPRINE HCL 5 MG TABS 1 tablet by mouth every night 10/19 cyclobenzaprine 07484295298 Bárbara Longoria PA-C MECLIZINE HCL 25 MG TABS 1 tablet by mouth as needed meclizine 49347541481 Watson Baker MD DULOXETINE HCL 60 MG CPEP Total of 120mg daily 07/24 duloxetine 40431107254 Swati Mclean DNP,PASTRY COOK APPRENTICE,IT WEB DEVELOPMENT CONSULTANT RIZATRIPTAN BENZOATE 10 MG TBDP take 1 pill at [place] onset. May repeat in 2 hours if [place] persists. No more than 2 pills in 24 hrs. rizatriptan 03410680172 Watson Baker MD LISINOPRIL 20 MG TABS 1 tablet by mouth once a day lisinopril 12252517909 Watson Baker MD RIZATRIPTAN BENZOATE 10 MG TBDP take 1 pill at [place] onset. May repeat in 2 hours if [place] persists. No more than 2 pills in 24 hrs. 11/17 RIZATRIPTAN BENZOATE 36170595958 Watson Baker MD AMPHETAMINE-DEXTR OAMPHET ER 10 MG DR78N-PQO TAKE ONE CAPSULE in the MORNING as needed 08/24 AMPHETAMINE-DEXTR OAMPHETAMINE 22775570876 Watson Baker MD AMPHETAMINE-DEXTR OAMPHET ER 10 MG TI50D-JWD TAKE ONE CAPSULE EVERY MORNINGON HOLD 08/24 AMPHETAMINE-DEXTR OAMPHETAMINE 57386165206 Swati Mclean DNP,PASTRY COOK APPRENTICE,IT WEB DEVELOPMENT CONSULTANT DULOXETINE HCL 60 MG CPEP Total of 120mg daily 07/24 DULOXETINE HCL 80000059948 Swati Mclean DNP,PASTRY COOK APPRENTICE,IT WEB DEVELOPMENT CONSULTANT AMPHETAMINE-DEXTR OAMPHET ER 10 MG HO00I-WCV TAKE ONE CAPSULE EVERY MORNING 08/24 AMPHETAMINE-DEXTR OAMPHETAMINE 90769050201 Watson Baker MD GABAPENTIN 300 MG CAPS 1 cap at bedtime 04/14 GABAPENTIN 22856159276 Swati Mclean DNP,PASTRY COOK APPRENTICE,IT WEB DEVELOPMENT CONSULTANT AMPHETAMINE-DEXTR OAMPHET ER 10 MG GK21I-GAK 1 po qAM 08/24 AMPHETAMINE-DEXTR OAMPHETAMINE 48176572812 Watson Baker MD AMPHETAMINE-DEXTR OAMPHET ER 10 MG TU19P-SZU TAKE ONE CAPSULE EVERY MORNING 08/24 AMPHETAMINE-DEXTR OAMPHETAMINE 10936245460 Wilberto Urbina MD AMPHETAMINE-DEXTR OAMPHET ER 10 MG NA16E-AIV 1 po qam 08/24 AMPHETAMINE-DEXTR OAMPHETAMINE 49481424761 Lazaro Tomas MD AMPHETAMINE-DEXTR OAMPHET ER 10 MG QJ29Z-ZOT Take one capsule every morning. 08/24 AMPHETAMINE-DEXTR OAMPHETAMINE 57445436883 Nancy Abdul MD AMPHETAMINE-DEXTR OAMPHET ER 10 MG SN92M-XLT TAKE ONE CAPSULE EVERY MORNING 08/24 AMPHETAMINE-DEXTR OAMPHETAMINE 28105938410 Lazaro Tomas MD CYCLOBENZAPRINE HCL 5 MG TABS 1 tab at bedtime 10/19 CYCLOBENZAPRINE HCL 99756715926 Bárbara Longoria PA-C GABAPENTIN 300 MG CAPS 1 cap at bedtime 10/19 GABAPENTIN 57374731871 Bárbara Longoria PA-C DULOXETINE HCL 60 MG CPEP 07/24 DULOXETINE HCL 86669677492 Bárbara Longoria PA-C PRAMIPEXOLE DIHYDROCHLORIDE 0.25 MG TABS 1 po one hour before bed 05/19 PRAMIPEXOLE DIHYDROCHLORIDE 39977899807 Lazaro Tomas MD AMPHETAMINE-DEXTR OAMPHET ER 10 MG HO93R-KJT 1 po qam 08/24 AMPHETAMINE-DEXTR OAMPHETAMINE 50831320268 Lazaro Tomas MD AMPHETAMINE-DEXTR OAMPHET ER 10 MG ZQ28F-EWF 1 po AM 08/24 AMPHETAMINE-DEXTR OAMPHETAMINE 59539498512 Lazaro Tomas MD AMPHETAMINE-DEXTR OAMPHET ER 10 MG QI12V-XBX 1 po qam 08/24 AMPHETAMINE-DEXTR OAMPHETAMINE 22666826597 Lazaro Tomas MD AMPHETAMINE-DEXTR OAMPHET ER 10 MG SR48Q-LEY TAKE ONE CAPSULE EVERY MORNING 08/24 AMPHETAMINE-DEXTR OAMPHETAMINE 21228723318 Lazaro Tomas MD AMPHETAMINE-DEXTR OAMPHET ER 10 MG DV89F-FTW 1 po qAM 08/24 AMPHETAMINE-DEXTR OAMPHETAMINE 33611544659 Lazaro Tomas MD AMPHETAMINE-DEXTR OAMPHET ER 10 MG UU18R-ISU TAKE ONE CAPSULE EVERY MORNING 0 08/24 AMPHETAMINE-DEXTR OAMPHETAMINE 85361459235 Lazaro Tomas MD AMPHETAMINE-DEXTR OAMPHET ER 10 MG JQ74X-WBO 1 po qAM 0 08/24 AMPHETAMINE-DEXTR OAMPHETAMINE 50464784623 Lazaro Tomas MD AMPHETAMINE-DEXTR OAMPHET ER 10 MG DI86D-GBU 1 po qam 0 08/24 AMPHETAMINE-DEXTR OAMPHETAMINE 80128481088 Lazaro Tomas MD AMPHETAMINE-DEXTR OAMPHET ER 10 MG XN22I-FZZ 1 po qam 0 08/24 AMPHETAMINE-DEXTR OAMPHETAMINE 19030837448 Lazaro Tomas MD AMPHETAMINE-DEXTR OAMPHET ER 10 MG YX73F-MPI 1 po qam 0 08/24 AMPHETAMINE-DEXTR OAMPHETAMINE 37245617599 Lazaro Tomas MD AMPHETAMINE-DEXTR OAMPHET ER 10 MG WV14X-UTV 1 po qd 0 08/24 AMPHETAMINE-DEXTR OAMPHETAMINE [id number] Lazaro Tomas MD PRAMIPEXOLE DIHYDROCHLORIDE 0.25 MG TABS 1 po one hour before bed 0 07/24 PRAMIPEXOLE DIHYDROCHLORIDE 66671042095 Lazaro Tomas MD CYCLOBENZAPRINE HCL 10 MG TABS 1 po prn 10/01 CYCLOBENZAPRINE HCL 34091793388 Lazaro Tomas MD AMPHETAMINE-DEXTR OAMPHET ER 10 MG PH80C-DVI 1 po qd 0 08/24 AMPHETAMINE-DEXTR OAMPHETAMINE 87038292085 Lazaro Tomas MD AMPHETAMINE-DEXTR OAMPHET ER 10 MG TR91I-ILG 1 po qd 0 08/24 AMPHETAMINE-DEXTR OAMPHETAMINE 62401430794 Lazaro Tomas MD SYMBICORT 80-4.5 MCG/ACT AERO 2 per day 11/17 BUDESONIDE-FORMOT CHERELLE FUMARATE 78974127688 Lazaro Tomas MD CYCLOBENZAPRINE HCL 10 MG TABS 1 po prn 10/01 CYCLOBENZAPRINE HCL 85047324764 Lazaro Tomas MD MECLIZINE HCL 25 MG TABS 1 po prn 11/17 MECLIZINE HCL 92484846508 Lazaro Tomas MD OMEPRAZOLE 20 MG CPDR 1-2 po qd 10/19 OMEPRAZOLE 97568311305 Lazaro Tomas MD LISINOPRIL 20 MG TABS 1 po qd 04/23 LISINOPRIL 71707272746 Lazaro Tomas MD AMPHETAMINE-DEXTR OAMPHET ER 10 MG AS43K-GOP 1 po qam 08/24 AMPHETAMINE-DEXTR OAMPHETAMINE 08205682907 Lazaro Tomas MD DULOXETINE HCL 30 MG CPEP 1 po qam 07/24 DULOXETINE HCL 12405261323 Lazaro Tomas MD Medications Administered No information [...] AMPHIPHYS AB * Amphiphy sin Ab, S MOBILE PATROL OFFICER-2 * Purkinje Cell Cytoplasmic Ab Type 2 MOBILE PATROL OFFICER-1 * Purkinje Cell Cytoplasmic Ab Type 1 [...] [Mass/volume] in Serum or Plasma by Electrophoresis [id number] * g/dL beta 2 g lobulin [id number] * g/dL beta 1 g lobulin ALPHA [...] D ULOXETINE HCL 30 MG ORAL CPEP [facility]_ [id number]`D ULOXETINE HCL 30 MG ORAL CPEP`30``30 Capsule``1 PO QAM``5`0`09/26`No date sent`[employer] [id number]*`[id number]`[id number] 6`32589`DULOXMike LOPZE DR 30MG CAPSULES Quantity: 30 Capsule Instructions: [...] PM Jose Alberto Regan MD , [address], [address], [place], [address], Pending order Follow up Extend ed Pending [...] ROSA ORDERS Patient Instructions ORDERS Physical Therapy [facility]-[id number] Orthopedic Surgery Referral [facility]-[id number] Documentation of current medicatio ns ORDERS Patient Instructions ORDERS Follow up Extended i n clinic or telemedicine ORDERS Patient Instructions [facility]-[id number] Psychiatry Referral ORDERS Follow up in clinic or telemedicine 04/20 ORDERS Follow up ROSA in clinic or telemedicine [facility]-[id number] Documentation of current medicatio ns ORDERS Patient Instructions ORDERS Patient Instructions ORDERS Patient Instructions ORDERS Follow up ROSA ORDERS Follow up ORDERS Patient Instructions ORDERS Patient Instructions ORDERS Patient Instructions ORDERS Follow up ROSA ORDERS Patient Instructions [facility]-[id number] Documentation of current medicatio ns ORDERS Follow up SCT-[id number] Documentation of current medicatio ns ORDERS Follow up ROSA ORDERS Physical Therapy ORDERS Follow up SCT-[id number] Documentation of current medicatio ns CPT-97290 Nerve Conduction 9-10 studies CPT-10604 EMG with NCS (5+ muscles) - 2 limbs 12/30 ORDERS Follow up SCT-[id number] Documentation of current medicatio ns ORDERS Patient Instructions SCT-[id number] Documentation of current medicatio ns SCT-[id number] Documentation of current medicatio ns ORDERS Follow up SCT-[id number] Documentation of current medicatio ns SCT-[id number] Documentation of current medicatio ns CPT-22825 Nerve Conduction 7-8 studies CPT-94715 EMG with NCS (5+ muscles) - 2 limbs 12/21 SCT-[id number] Other Referral ORDERS Follow up SCT-[id number] Documentation of current medicatio ns [id number] MRI-Cervical W/WO MS Protocol CPT-G0740G ProHance Gadolinium- based MR Contrast - 20 ml vial CPT-93515 MRI Cervical W/WO ORDERS Immunofixation Urine (ROGELIO [...] GERALDINE) ORDERS Paraneoplastic Ab (O NLY Anti-Hu/Anti-Yo/Anti-Ri) SCT-[id number] Other Referral [facility]-[id number] Documentation of current medicatio ns Vital Signs [...] available. Advance Directives Directive Description Start Date UNIX DEVELOPER 09/18/18 CSA 05/15/18 UNIX DEVELOPER 02/20/18 UNIX DEVELOPER 09/22/17 CSA 05/03/17 UNIX DEVELOPER 03/23/17 UNIX DEVELOPER 10/14/16 CSA 04/28/16
--- NOTE | 2024-11-16 16:31 | CRLHL7_ITS ---
For Patients: As a result of the Century Cures Act, medical imaging exams and procedure reports are released immediately into your electronic medical record. You may view this report before your referring provider. If you have questions, please contact your health care provider. INDICATION: PICC placement. TECHNIQUE: Chest 1 view. COMPARISON: None. FINDINGS: Unremarkable cardiomediastinal contours. Left PICC tip projects over the superior cavoatrial junction. No evident focal lung consolidation. No sign of pleural effusion. No pneumothorax. No acute osseous or soft tissue findings. IMPRESSION: Left PICC tip projects over the superior cavoatrial junction. Dictated by En Landers MD @ 11/16/2024 6:27:03 PM (Electronically Signed)
== END 2024-11-16 18:00 | disposition home or self-care (01) ==
PROVIDERS: Emergency Provider Emergency Medicine Emergency Medical Services; PCP Internal Medicine
DX: T82.594A Other mechanical complication of infusion catheter, initial encounter (principal)
CPT/HCPCS: 36584; 99284; C1751